=== PATIENT | female | born 1945 | race Caucasian/White ===

== ENCOUNTER 2023-09-30 21:28 | Inpatient (IN) | payer MEDICARE, OTHER, SELFPAY ==
--- NOTE | ~2023-09-30 | XR_ITS ---
EXAMINATION: XR CHEST CLINICAL INFORMATION: Weakness COMPARISON: None available. TECHNIQUE: Frontal view of the chest was obtained. FINDINGS: There is a small area of atelectasis/infiltrate at the left lung base. The aorta is calcified. No other significant abnormality is noted involving the heart, lungs, mediastinum, bony thorax or soft tissues. XR/XR chest 1V IMPRESSION: Small area of atelectasis/infiltrate left lung base.
--- NOTE | 2023-09-30 21:38 | ECG_ITS ---
Test Reason : AMS Blood Pressure : / mmHG Vent. Rate : 106 BPM Atrial Rate : 106 BPM P-R Int : 194 ms QRS Dur : 080 ms QT Int : 340 ms P-R-T Axes : 074 008 039 degrees QTc Int : 451 ms Sinus tachycardia cannot exclude old Inferior infarct , age undetermined Abnormal ECG No previous ECGs available Referred By: Gladys Golden Electronically Signed By:TAMELA HOGAN
--- NOTE | 2023-09-30 21:42 | ED_ITS ---
HPI - General Adult General Chief complaint: Weakness Stated complaint: WEAK CONFUSION UTI SYMPTOMS Time Seen by Provider: 09/30/23 21:29 Source: family and EMS Mode of arrival: EMS Limitations: altered mental status (Nonverbal history of dementia) History of Present Illness HPI narrative: Patient is a 78-year-old female who presents emergency department via EMS coming from home. Reportedly has had increasing weakness recently and reports of ?genital pain?. Per family patient has a history of recurrent UTIs. It is unclear exactly how she would have reported genital pain as she really only responds yes when asked some questions but does not seem to be any appropriate response. Per family report she typically ambulates independently at baseline. Related Data Allergies Allergy/AdvReac Type Severity Reaction Status Date / Time Sulfa (Sulfonamide Allergy Mild HEADACHE Unverified 06/01/20 19:17 Antibiotics) [SULFA (SULFONAMIDE ANTIBIOTICS)] shellfish derived Allergy Unknown UNKNOWN Unverified 06/01/20 19:17 [SHELLFISH DERIVED] Review of Systems 2 Review of Systems: Yes all other systems are reviewed and are negative PMFSH Past Medical History Source: obtained from family (Verbal report of dementia from family to EMS) Onset Date is defined in the Problem List Problems that require an onset date and time if occurred within 24 hrs of arrival to the ED Aortic Dissection and Rupture; Neurologic impairment; Cardiopulmonary Arrest; Endotracheal Intubation; Insertion or Replacement of Mechanical Circulatory Assist Device Medical History Mixed hyperlipidemia Essential hypertension Alzheimer's dementia Social History Social History Advance Directives: No Advance Directives Information Provided: Yes Physical Exam ED Vital Signs: Vital Signs - 24 hr 09/30/23 21:51 09/30/23 23:52 09/30/23 23:57 Temperature 100.1 F 99.1 F Pulse Rate 107 H 94 Respiratory Rate 12 14 Blood Pressure 168/73 H 165/80 H Pulse Oximetry 98 95 Oxygen Delivery Method Room Air Room Air BMI result Body Mass Index 23.1 Appearance: Alert.? Nonverbal, unable to assess orientation. No acute distress.? Eyes: Pupils equal, round and reactive to light.? ENT: Pharynx normal.?? Neck: Normal inspection.? Neck supple.?? CVS: Heart sounds normal. Tachycardic? Pulses normal.?? Respiratory: No respiratory distress.? Lung sounds clear to auscultation bilaterally?? Abdomen: Soft and non-tender. Normoactive bowel sounds. Skin: Skin warm and dry.? Normal skin color.? Extremities: No lower extremity edema.? Neuro: Moves all extremities spontaneously. Course Reevaluation(s) Reevaluation #1: is at bedside he reports that he noticed her to be less active today, walking slower than usual. Tonight when attempting to get ready for bed she was increasingly more weak. Was unable to get up the stairs unassisted. She was stopping after a few steps to sit down. Ultimately he and a neighbor lied her down on the floor until EMS arrived. He reports that she was last treated for urinary tract infection 2 weeks ago with a 10 week course. Upon review, CBC is without leukocytosis, CMP is overall unremarkable. Urinalysis is without evidence of infection. COVID-19/influenza testing are negative. CXR concerning for a left lower lobe infiltrate, covered with Rocephin. At this time no evidence of severe sepsis/organ dysfunction; lactic acid normal. Spoke with hospitalist, Dr. Estevez, who accepts patient for admission. Time: 00:05 Medications Administered Generic Name Dose Route Start Last Admin Trade Name Freq PRN Reason Stop Dose Admin Azithromycin 500 mg/ Sodium 250 mls @ 125 mls/hr 10/01/23 00:30 10/01/23 00:48 Chloride IV 125 mls/hr 2200 JAMES Administration Discontinued Medications Generic Name Dose Route Start Last Admin Trade Name Freq PRN Reason Stop Dose Admin Acetaminophen 650 mg 09/30/23 21:47 09/30/23 22:00 Acetaminophen Supp 650 Mg Supp.Rect ND 09/30/23 21:48 650 mg ONCE ONE Administration Ceftriaxone Sodium 1 gm/ 50 mls @ 100 mls/hr 09/30/23 23:27 10/01/23 00:36 Sodium Chloride IV 09/30/23 23:56 Infused ONCE ONE Infusion Sodium Chloride 1,000 mls @ 999 mls/hr 10/01/23 00:28 10/01/23 00:41 Ns IV 10/01/23 01:28 999 mls/hr .Q1H1M ONE Administration Medical Decision Making Medical Decision Making MDM Narrative: Patient is a 78-year-old female with reported past medical history from family of dementia and nonverbal status who presents emergency department for evaluation of weakness and ?Genital pain with history of recurrent UTIs. At the time my examination patient is primarily nonverbal, she does respond yes at times to questioning though does not seem to be purposeful response. She is noted to be tachycardic, with low-grade temp 100.1 degrees, at this time, does not meet SIRS criteria, however will obtain blood cultures and lactic acid, in addition to CBC to evaluate for leukocytosis/ anemia, CMP and lipase to evaluate for abnormal electrolytes /abnormal renal function/ abnormal hepatic/biliary function, EKG to evaluate for arrhythmia, Chest x-ray to evaluate for consolidation/ infiltrate/ mass/ pulmonary congestion, viral testing, and Urinalysis. Differential Diagnosis Differential Diagnoses: The differential diagnosis associated with the presentation includes (See narrative above) Admission/Observation Consideration of admission/observation: Escalation of care including admission/observation considered (See narrative above and course narrative for further detail) Lab Data MDM Lab Attestation statement: I reviewed the patient's lab results. (See course narrative) 09/30/23 23:13 09/30/23 23:13 Labs: Lab Results 09/30/23 09/30/23 09/30/23 Range/Units 22:50 22:51 23:13 WBC 9.2 (4.8-10.8) X10*3/uL RBC 5.52 H (4.20-5.50) X10*6/uL Hgb 16.2 H (12.0-16.0) g/dl Hct 47.4 H (37.0-47.0) % MCV 85.9 (80.0-98.0) fL MCH 29.3 (27.0-33.0) pg MCHC 34.2 (31.0-35.0) g/dl RDW 12.7 (11.0-16.0) % Plt Count 399 (160-400) X10*3/uL MPV 9.2 L (9.4-12.3) fL Immature Gran % (Auto) 0.3 (0.0-0.4) % Neut % (Auto) 81.8 H (45-73) % Lymph % (Auto) 10.8 L (20-40) % [place] % (Auto) 4.9 (2-11) % Eos % (Auto) 1.5 (0-4) % Baso % (Auto) 0.7 (0-2) % Lymph # (Auto) 1.0 L (1.2-4.9) X10*3/uL [place] # (Auto) 0.5 (0.1-1.2) X10*3/uL Eos # (Auto) 0.1 (0.0-0.4) X10*3/uL Baso # (Auto) 0.1 (0.0-0.2) X10*3/uL Abs Immat Gran (auto) 0.03 (0.00-0.03) X10*3/uL Absolute Neuts (auto) 7.5 (2.0-8.3) x10*3/uL Absolute Nucleated RBC 0.000 (0.0-0.012) X10*3/uL Nucleated RBC % (auto) 0.0 (0.0-0.2) /100WBC Sodium 139 (135-145) mmol/L Potassium 3.4 (3.3-5.1) mmol/L Chloride 101 (96-108) mmol/L Carbon Dioxide 24 (22-29) mmol/L Anion Gap 17 (12-20) BUN 16 (9-16) mg/dL Creatinine 0.90 (0.5-1.4) mg/dL Estim Creat Clear Calc 43.7 Estimated GFR > 60 Random Glucose 123 H (60-115) mg/dL Lactic Acid 1.0 (0.5-2.0) mmol/L Calcium 10.5 H (8.4-10.2) mg/dL Magnesium 2.2 (1.6-2.6) mg/dL Total Bilirubin 0.5 (0.0-1.0) mg/dL AST 23 (5-31) U/L ALT 26 (0-31) U/L Alkaline Phosphatase 90 (39-117) U/L B-Natriuretic Peptide 48 (<100) pg/mL Total Protein 8.5 H (6.5-8.0) g/dL Albumin 4.8 (3.5-5.0) g/dL TSH 1.28 (0.32-4.0) uIU/mL Urine Color Urine Appearance Urine pH (5.0-9.0) Ur Specific [place] (1.005-1.025) Urine Protein (Neg-Trace) mg/dL Urine Glucose (UA) (Negative) mg/dL Urine Ketones (Negative) mg/dL Urine Blood (Negative) Urine Nitrite (Negative) Ur Leukocyte Esterase (Negative) Urine RBC (0-2) /HPF Urine WBC (0-5) /HPF Ur Squamous Epith Cells (0-2) /HPF Urine Bacteria (None Seen) Hyaline Casts (0-2) /LPF COVID-19 (IESHA) Negative (Negative) COVID-19 Clin Com See Note Influenza Type A (TOAN) Negative (Negative) Influenza Type B (TOAN) Negative (Negative) Influenza A & B Note See Note 09/30/23 Range/Units 23:28 WBC (4.8-10.8) X10*3/uL RBC (4.20-5.50) X10*6/uL Hgb (12.0-16.0) g/dl Hct (37.0-47.0) % MCV (80.0-98.0) fL MCH (27.0-33.0) pg MCHC (31.0-35.0) g/dl RDW (11.0-16.0) % Plt Count (160-400) X10*3/uL MPV (9.4-12.3) fL Immature Gran % (Auto) (0.0-0.4) % Neut % (Auto) (45-73) % Lymph % (Auto) (20-40) % [place] % (Auto) (2-11) % Eos % (Auto) (0-4) % Baso % (Auto) (0-2) % Lymph # (Auto) (1.2-4.9) X10*3/uL [place] # (Auto) (0.1-1.2) X10*3/uL Eos # (Auto) (0.0-0.4) X10*3/uL Baso # (Auto) (0.0-0.2) X10*3/uL Abs Immat Gran (auto) (0.00-0.03) X10*3/uL Absolute Neuts (auto) (2.0-8.3) x10*3/uL Absolute Nucleated RBC (0.0-0.012) X10*3/uL Nucleated RBC % (auto) (0.0-0.2) /100WBC Sodium (135-145) mmol/L Potassium (3.3-5.1) mmol/L Chloride (96-108) mmol/L Carbon Dioxide (22-29) mmol/L Anion Gap (12-20) BUN (9-16) mg/dL Creatinine (0.5-1.4) mg/dL Estim Creat Clear Calc Estimated GFR Random Glucose (60-115) mg/dL Lactic Acid (0.5-2.0) mmol/L Calcium (8.4-10.2) mg/dL Magnesium (1.6-2.6) mg/dL Total Bilirubin (0.0-1.0) mg/dL AST (5-31) U/L ALT (0-31) U/L Alkaline Phosphatase (39-117) U/L B-Natriuretic Peptide (<100) pg/mL Total Protein (6.5-8.0) g/dL Albumin (3.5-5.0) g/dL TSH (0.32-4.0) uIU/mL Urine Color Yellow Urine Appearance Clear Urine pH 7.0 (5.0-9.0) Ur Specific [place] 1.010 (1.005-1.025) Urine Protein Negative (Neg-Trace) mg/dL Urine Glucose (UA) Negative (Negative) mg/dL Urine Ketones Negative (Negative) mg/dL Urine Blood Trace H (Negative) Urine Nitrite Negative (Negative) Ur Leukocyte Esterase Negative (Negative) Urine RBC 3-5 H (0-2) /HPF Urine WBC 0-5 (0-5) /HPF Ur Squamous Epith Cells 0-2 (0-2) /HPF Urine Bacteria None Seen (None Seen) Hyaline Casts 0-2 (0-2) /LPF COVID-19 (IESHA) (Negative) COVID-19 Clin Com Influenza Type A (TOAN) (Negative) Influenza Type B (TOAN) (Negative) Influenza A & B Note Independent Interpretation I performed an independent interpretation of an: Plain X-Ray (I personally interpreted chest x-ray and agree with radiologist impression.) Radiology Impression Discussion of test interpretation with radiology: I have reviewed the radiologist's reading. Independent Historian Clinical information obtained from an independent historian. History obtained from or confirmed by: EMS Discharge Plan Discharge Clinical Impression: Pneumonia, Generalized weakness Patient Disposition: Admitted As Inpatient
[2023-09-30 21:48] VITALS: BP 146/90; PULSE 70; O2SAT 98
[2023-09-30 21:51] VITALS: BP 168/73; PULSE 107; RESP 12; TEMP 37.8; O2SAT 98; BMI 23.1
[2023-09-30] MEDS: Acetaminophen Supp 650 MG SUPP.RECT PR (22:00)
[2023-09-30 23:19] LABS: MANUAL DIFF FLAG NO
[2023-09-30 23:21] LABS: Basophils Absolute Auto 0.1 X10*3/uL (0.0-0.2); Basophils Percent Auto 0.7 % (0-2); Eosinophils Absolute Auto 0.1 X10*3/uL (0.0-0.4); Eosinophils Percent Auto 1.5 % (0-4); Hematocrit 47.4 % (37.0-47.0); Hemoglobin 16.2 g/dl (12.0-16.0); Imm Gran Abs Auto 0.03 X10*3/uL (0.00-0.03); Imm Gran Pct Auto 0.3 % (0.0-0.4); Lymphocytes Percent Auto 10.8 % (20-40); Mean Corpuscular HGB Conc 34.2 g/dl (31.0-35.0); Mean Corpuscular Hemoglobin 29.3 pg (27.0-33.0); Mean Corpuscular Volume 85.9 fL (80.0-98.0); Mean Platelet Volume 9.2 fL (9.4-12.3); Monocytes Absolute Auto 0.5 X10*3/uL (0.1-1.2); Monocytes Percent Auto 4.9 % (2-11); Neutrophils Absolute Auto 7.5 x10*3/uL (2.0-8.3); Neutrophils Percent Auto 81.8 % (45-73); Platelet Count 399 X10*3/uL (160-400); Red Blood Count 5.52 X10*6/uL (4.20-5.50); Red Cell Distribution Width 12.7 % (11.0-16.0); White Blood Count 9.2 X10*3/uL (4.8-10.8)
[2023-09-30 23:35] LABS: Appearance Urine Clear; Color Urine Yellow; Glucose Urine UA Negative (Negative); Leukocyte Esterase Urine Negative (Negative); Nitrite Urine Negative (Negative); UMIC TRIGGER UACC YES; Urine Blood Trace (Negative); Urine Ketones Negative (Negative); Urine Protein Negative (Neg-Trace)
[2023-09-30] MEDS: cefTRIAXone sodium 1 GM in 0.9 % Sodium Chloride 50 ML IV (23:37)
[2023-09-30 23:40] LABS: Bacteria Urine None Seen (None Seen); Hyaline Casts Urine 0-2 /LPF (0-2); Squamous Epithelial Cell Urine 0-2 /HPF (0-2); WBC Urine 0-5 /HPF (0-5)
[2023-09-30 23:41] LABS: COVID-19 Test Negative (Negative); IDNOW Serial# 152EDE1D; IDNOW Serial# 9DB6401D; Influenza A Negative (Negative); Influenza B2 Negative (Negative)
[2023-09-30 23:43] LABS: Alanine Aminotransferase 26 U/L (0-31); Albumin Level 4.8 g/dL (3.5-5.0); Alkaline Phosphatase 90 U/L (39-117); Anion Gap 17 (12-20); Aspartate Amino Transferase 23 U/L (5-31); Bilirubin Total 0.5 mg/dL (0.0-1.0); Blood Urea Nitrogen 16 mg/dL (9-16); Calcium 10.5 mg/dL (8.4-10.2); Carbon Dioxide 24 mmol/L (22-29); Chloride 101 mmol/L (96-108); Creatinine Clr Calc Pharmacy 43.7; Estimated Glomerular Filt Rate > 60; Glucose Random 123 mg/dL (60-115); Magnesium 2.2 mg/dL (1.6-2.6); Potassium 3.4 mmol/L (3.3-5.1); Sodium 139 mmol/L (135-145); Total Protein 8.5 g/dL (6.5-8.0)
[2023-09-30 23:47] LABS: B Type Natriuretic Peptide 48 pg/mL (<100)
[2023-09-30 23:52] VITALS: PULSE 94; RESP 14; TEMP 37.3; O2SAT 95
--- NOTE | 2023-09-30 23:53 | PC.NURSE ---
Pt medicated per nov. Family at bedside. Rectal temp taken. Plan of care ongoing.
[2023-09-30 23:57] VITALS: BP 165/80
[2023-10-01] VITALS (8 sets, daily range): BP systolic 159–173; BP diastolic 70–87; PULSE 93–107; RESP 15–18; TEMP 36.4–38.2; O2SAT 94–97; BMI 23.1
--- NOTE | 2023-10-01 00:27 | P.HPHOSP_ITS ---
History of Present Illness Date of Service: 10/01/23 Chief Complaint: Generalized weakness This is a 78-year-old female with pertinent history of Alzheimer's dementia, minimally verbal at baseline, essential hypertension, mixed hyperlipidemia who was brought to the emergency department for evaluation of generalized weakness. Unable to obtain history from the patient as she only intermittently responds in 1 word. History obtained from at bedside. As per the partner, patient at baseline ambulates without assistance and independently. She was found weak on the day of presentation and could not walk up or down the stairs. Also has noticed intermittent cough. No fevers or chills. Unable to obtain review of systems. In the emergency department, imaging concerning for left-sided infiltrate. No concerns for aspiration or cough with food as per the patient's . Review of Systems 2 Review of Systems: Yes Unobtainable due to mental condition PMFSH Medical History Mixed hyperlipidemia Essential hypertension Alzheimer's dementia Pertinent family history: Unable to obtain and not significant due to age Social History Advance Directives: No Advance Directives Information Provided: Yes Meds Allergies Allergy/AdvReac Type Severity Reaction Status Date / Time Sulfa (Sulfonamide Allergy Mild HEADACHE Unverified 06/01/20 19:17 Antibiotics) [SULFA (SULFONAMIDE ANTIBIOTICS)] shellfish derived Allergy Unknown UNKNOWN Unverified 06/01/20 19:17 [SHELLFISH DERIVED] Physical Exam 2 Vital Signs and Narrative: Vital Signs: Last Vital Signs Temp 99.1 F 09/30/23 23:52 Pulse 94 09/30/23 23:52 Resp 14 09/30/23 23:52 BP 165/80 H 09/30/23 23:57 Pulse Ox 95 09/30/23 23:52 O2 Del Method Room Air 09/30/23 23:52 BMI result Body Mass Index 23.1 Elderly female lying in bed in no distress Neck supple, no JVD Regular rate and rhythm, S1-S2 heard Regular breath sounds bilaterally, no wheezing or crackles appreciated Abdomen soft nontender, no guarding, no rigidity Patient is awake, alert and response intermittently in 1 word, unable to assess orientation, unable to have a conversation Psych: Normal mood No pedal edema Results Labs 09/30/23 23:13 09/30/23 23:13 Labs: Laboratory Results - last 24 hr 09/30/23 09/30/23 09/30/23 22:50 22:51 23:13 MCV 85.9 MCH 29.3 MCHC 34.2 RDW 12.7 Plt Count 399 MPV 9.2 L Immature Gran % (Auto) 0.3 Neut % (Auto) 81.8 H Lymph % (Auto) 10.8 L [place] % (Auto) 4.9 Eos % (Auto) 1.5 Baso % (Auto) 0.7 Lymph # (Auto) 1.0 L [place] # (Auto) 0.5 Eos # (Auto) 0.1 Baso # (Auto) 0.1 Abs Immat Gran (auto) 0.03 Absolute Neuts (auto) 7.5 Absolute Nucleated RBC 0.000 Nucleated RBC % (auto) 0.0 Anion Gap 17 Estim Creat Clear Calc 43.7 Estimated GFR > 60 Random Glucose 123 H Lactic Acid 1.0 Calcium 10.5 H Magnesium 2.2 Total Bilirubin 0.5 AST 23 ALT 26 Alkaline Phosphatase 90 B-Natriuretic Peptide 48 Total Protein 8.5 H Albumin 4.8 Urine Color Urine Appearance Urine pH Ur Specific [place] Urine Protein Urine Glucose (UA) Urine Ketones Urine Blood Urine Nitrite Ur Leukocyte Esterase Urine RBC Urine WBC Ur Squamous Epith Cells Urine Bacteria Hyaline Casts COVID-19 (IESHA) Negative COVID-19 Clin Com See Note Influenza Type A (TOAN) Negative Influenza Type B (TOAN) Negative Influenza A & B Note See Note 09/30/23 23:28 MCV MCH MCHC RDW Plt Count MPV Immature Gran % (Auto) Neut % (Auto) Lymph % (Auto) [place] % (Auto) Eos % (Auto) Baso % (Auto) Lymph # (Auto) [place] # (Auto) Eos # (Auto) Baso # (Auto) Abs Immat Gran (auto) Absolute Neuts (auto) Absolute Nucleated RBC Nucleated RBC % (auto) Anion Gap Estim Creat Clear Calc Estimated GFR Random Glucose Lactic Acid Calcium Magnesium Total Bilirubin AST ALT Alkaline Phosphatase B-Natriuretic Peptide Total Protein Albumin Urine Color Yellow Urine Appearance Clear Urine pH 7.0 Ur Specific [place] 1.010 Urine Protein Negative Urine Glucose (UA) Negative Urine Ketones Negative Urine Blood Trace H Urine Nitrite Negative Ur Leukocyte Esterase Negative Urine RBC 3-5 H Urine WBC 0-5 Ur Squamous Epith Cells 0-2 Urine Bacteria None Seen Hyaline Casts 0-2 COVID-19 (IESHA) COVID-19 Clin Com Influenza Type A (TOAN) Influenza Type B (TOAN) Influenza A & B Note Imaging Radiologist's Impressions: Impressions Chest X-Ray 09/30/23 22:25 IMPRESSION: Small area of atelectasis/infiltrate left lung base. Assessment and Plan (1) Pneumonia: Status: Acute (2) Generalized weakness: Status: Acute Plan This is a 78-year-old female with pertinent history of Alzheimer's dementia, minimally verbal at baseline, essential hypertension, mixed hyperlipidemia who was brought to the emergency department for evaluation of generalized weakness. #. Left-sided pneumonia: Initiating empiric antibiotics for CAP. Low-grade fever but no sepsis. #. Generalized weakness, likely in the setting of above. Obtaining TSH and B12. Consulted physical therapy to evaluate and treat #. Essential hypertension: Continue amlodipine #. Mixed hyperlipidemia: On statin #. Alzheimer's dementia: Maintain sleep-wake cycle Med rec pending DVT prophylaxis: Lovenox Full code Quality Stroke Does the patient have a stroke diagnosis?: No VTE Prior VTE?: No VTE Risk Level:: Medical - moderate - high VTE Device Contraindication: Treatment Not Indicated VTE Drug Contraindication: N/A - Med Ordered
[2023-10-01] MEDS: 0.9 % Sodium Chloride 1,000 ML 999 ML IV (00:41)
[2023-10-01] MEDS: Azithromycin 500 MG in 0.9 % Sodium Chloride 250 ML 125 MG IV ×2 (00:48→21:47)
--- NOTE | 2023-10-01 00:57 | PC.NURSE ---
Pt medicated per mar. Family remains at bedside. Plan of care ongoing.
[2023-10-01 01:30] LABS: Thyroid Stimulating Hormone 1.28 uIU/mL (0.32-4.0)
--- NOTE | 2023-10-01 03:14 | MHC.EDTECH ---
took all patients Belongings home
--- NOTE | 2023-10-01 03:31 | MHC.EDTECH ---
This tech took over care of patient at 0300AM, Hourly rounds completed,pure-wick placed by previous tech,patient is clean and dry, at bedside and call dillon in reach.
--- NOTE | 2023-10-01 05:31 | MHC.EDTECH ---
Hourly rounds and vitals completed, patient was incont. of a large amount of urine, pure-wick was out of place, patient was cleaned and bed linen was changed,harper-care given and a new pure wick applied. Patient was repositioned to comfort. Emptied suction canister 750MLS of yellow urine.Call dillon in reach and at bedside
[2023-10-01 06:16] LABS: MANUAL DIFF FLAG NO
--- NOTE | 2023-10-01 06:17 | PC.NURSE ---
Dr Estevez notified of pts swallow test. Plan of care ongoing.
[2023-10-01 06:22] LABS: Basophils Absolute Auto 0.1 X10*3/uL (0.0-0.2); Basophils Percent Auto 0.7 % (0-2); Eosinophils Absolute Auto 0.1 X10*3/uL (0.0-0.4); Eosinophils Percent Auto 1.7 % (0-4); Hemoglobin 13.8 g/dl (12.0-16.0); Imm Gran Abs Auto 0.02 X10*3/uL (0.00-0.03); Imm Gran Pct Auto 0.3 % (0.0-0.4); Lymphocytes Percent Auto 13.6 % (20-40); Mean Corpuscular HGB Conc 34.5 g/dl (31.0-35.0); Mean Corpuscular Hemoglobin 29.7 pg (27.0-33.0); Mean Platelet Volume 9.6 fL (9.4-12.3); Monocytes Absolute Auto 0.7 X10*3/uL (0.1-1.2); Monocytes Percent Auto 8.7 % (2-11); Neutrophils Absolute Auto 5.7 x10*3/uL (2.0-8.3); Platelet Count 363 X10*3/uL (160-400); Red Blood Count 4.65 X10*6/uL (4.20-5.50); Red Cell Distribution Width 12.8 % (11.0-16.0); White Blood Count 7.6 X10*3/uL (4.8-10.8)
[2023-10-01 06:38] LABS: Anion Gap 11 (12-20); Blood Urea Nitrogen 10 mg/dL (9-16); Calcium 8.6 mg/dL (8.4-10.2); Carbon Dioxide 24 mmol/L (22-29); Chloride 107 mmol/L (96-108); Creatinine Clr Calc Pharmacy 52.4; Estimated Glomerular Filt Rate > 60; Glucose Random 108 mg/dL (60-115); Potassium 3.3 mmol/L (3.3-5.1); Sodium 139 mmol/L (135-145)
[2023-10-01 07:11] LABS: Folate 12.1 ng/mL (> or = 4.0); Vitamin B12 522 pg/mL (200-900)
--- NOTE | 2023-10-01 07:48 | MHC.EDTECH ---
Pt found to be incontinent of urine. Pt cleaned up, new hospital gown, underpad and purewick placed.
--- NOTE | 2023-10-01 08:12 | PHA.MEDREC ---
Pharmacy Consult ? Medication Reconciliation Pharmacy has completed the medication reconciliation. spoke with at bedside and confirmed all of her medications. He reports that he crushes all of her pills and puts them in applesauce or pudding to administer except for the donepezil.
[2023-10-01] MEDS: Enoxaparin Sodium 40 MG/0.4 ML SYRINGE SUBCUT (08:20)
[2023-10-01] MEDS: 0.9 % Sodium Chloride Flush 3 ML SYRINGE IVFLUSH ×3 (08:20→21:17)
[2023-10-01] MEDS: Acetaminophen Supp 650 MG SUPP.RECT PR (08:20)
--- NOTE | 2023-10-01 08:29 | MHC.EDTECH ---
Pt found to be incontinent of urine. T/w and RN cleaned Pt up, changed underpad and new Purewick placed.
--- NOTE | 2023-10-01 08:47 | PC.NURSE ---
Pt resting in bed, resp even and unlabored. prewick in pace. stretcher locked and in lowest position.
[2023-10-01] MEDS: amLODIPine Besylate 10 MG TABLET PO (09:33)
[2023-10-01] MEDS: Ascorbic Acid 500 MG TABLET PO (09:34)
[2023-10-01] MEDS: Multivitamin TABLET 1 TAB PO (09:34)
[2023-10-01] MEDS: Memantine HCl 10 MG TABLET PO ×2 (09:34→19:46)
--- NOTE | 2023-10-01 10:26 | PC.NURSE ---
Speech eval at this time Pt seen by physical therapy.
--- NOTE | 2023-10-01 11:33 | MHC.SL.SWA ---
Speech Pathologist Impression: Risk of Aspiration, Oral Phase Dsyphagia Risk of Aspiration Due to: Reduced Cognition Dysphasia Diet Status: UPGRADE Liquid Consistency and Strategies for Safe Swallow: Liquid Intake Recommendation: Thin Solid Food Consistency: Dietary Recommendations: Grnd/Mech Altered (NDD2) Additional Modifications to Solid Foods: Moisten w/ sauce/gravy Oral Medication Intake: Crushed with Puree Please contact the pharmacy regarding appropriate crushable or liquid drug formulations that are available whenever modified delivery is recommended. Compensatory Strategies and Precautions to be Taken for Safe Swallow: Sitting Upright (90 deg) Liquids from Straw Liquids from Spoon Small Bites and Sips Alternate Liquids/Solids Oral Check Avoid Specific Foods Supervision While Eating and Drinking for Safe Swallow: Total Assistance (1:1) Foods to Avoid: Avoid hard/sticky/tough to chew food Swallowing Recommended Treatments: Compens. Strategy Educat. Recommendation for Speech: Inpatient Speech Therapy Comment: Recommend UPGRADE to GROUND solids and THIN liquids. Patient requires 1-1 assist, cueing to maintain awareness during PO (frequently closes eyes), and oral checks to ensure no pocketing. Per , patient requires pills crushed. Ensure patient is alert and engaged with food/drink for all PO. White board updated. RN notified in person. RN and MD notified via [place]. COREMAKER SUPERVISOR to see patient at lunch today to ensure diet toleration for meal. Frequency/Duration: M-F daily Software Development Analyst Clinican/Clinical Fellow: No Supervisory Statement: I have reviewed and agree with the student/clinical fellow's documentation: N/A Speech Language Pathologist: Liliam Pickering M.A., CCC-COREMAKER SUPERVISOR
--- NOTE | 2023-10-01 12:19 | MHC.EDTECH ---
Pt found to be incontinent of urine. Pt cleaned up, new underpads and purewick placed, new blanket given.
[2023-10-01] MEDS: Acetaminophen 325 MG TABLET 650 MG PO (16:35)
[2023-10-01] MEDS: Pravastatin Sodium 40 MG TABLET PO (19:46)
[2023-10-01] MEDS: Melatonin 3 MG TABLET 6 MG PO (19:46)
[2023-10-01] MEDS: Donepezil HCl 5 MG TABLET PO (19:46)
[2023-10-01] MEDS: cefTRIAXone sodium 1 GM in 0.9 % Sodium Chloride 50 ML IV (21:15)
[2023-10-02 03:48] VITALS: BP 132/66; PULSE 107; RESP 18; TEMP 38.1; O2SAT 93
[2023-10-02] MEDS: Acetaminophen 325 MG TABLET 650 MG PO (04:12)
[2023-10-02 05:13] VITALS: TEMP 37.1
[2023-10-02 07:43] VITALS: BP 135/61; PULSE 72; RESP 16; TEMP 36.6; O2SAT 94
[2023-10-02] MEDS: 0.9 % Sodium Chloride Flush 3 ML SYRINGE IVFLUSH ×2 (07:44→16:04)
[2023-10-02] MEDS: Enoxaparin Sodium 40 MG/0.4 ML SYRINGE SUBCUT (07:44)
[2023-10-02] MEDS: Ascorbic Acid 500 MG TABLET PO (07:44)
[2023-10-02] MEDS: amLODIPine Besylate 10 MG TABLET PO (07:44)
[2023-10-02] MEDS: Multivitamin TABLET 1 TAB PO (07:44)
[2023-10-02] MEDS: Memantine HCl 10 MG TABLET PO ×2 (07:44→19:49)
[2023-10-02] MEDS: Cholecalciferol (Vitamin D3) 25 MCG TABLET 50 MCG PO (07:44)
--- OUTSIDE RECORDS SUMMARY | 2023-10-02 08:24 | XMS_ITS | Continuity of Care Document ---
Author Name Unknown Organization [facility] Address [address] [place] [address]- Care Team Providers Care Costume Draper Name Role Phone Rosario REYES, Pablito Sharp Primary Care Physician [facility]): 09[facility]19 - 09/23/[facility], [place], operated by [facility] [address] [place] [address]- [facility] Encounter Diagnosis Chest wall pain(Discharge Diagnosis) - 09/16/19 Attending Physician: Not on Staff, Attending MD Allergies, Adverse Reactions, Alerts Substance Reaction Severity Status sulfa drugs severe headache Active shellfish Active Fish Active Immunizations Given and Recorded Vaccine Date Status Refusal Reason Influenza Virus Vaccine (oldterm) 04/15/19 Recorde d Influenza Virus Vaccine (oldterm) 06/23/09 Given Influenza Virus Vaccine (oldterm) 07/21/08 Given Influenza Virus Vaccine (oldterm) 1 06/22/07 Given influenza virus vaccine, inactivated 2 05/15/17 Re corded influenza virus vaccine, inactivated 3 05/16/15 Re corded influenza virus vaccine, inactivated 4 05/02/14 Gi marianne influenza virus vaccine, inactivated 5 06/09/13 Gi marianne influenza virus vaccine, inactivated 6 05/28/10 Gi marianne pneumococcal 13-valent vaccine 12/12/14 Given tetanus/diphtheria/pertussis, acel(Tdap) 07/20/14 Given FluLaval (oldterm) 7 05/16/11 Given pneumococcal 23-valent vaccine 03/21/11 Given tetanus-diphtheria toxoids (Td) 06/15/04 Given 1Admin Note: [facility] [address] 3[facility]Result Comment: [facility] [address] 5Ain Note: Received at [facility] Note: This shot was administered at [facility] Note: [facility] [address] [place] Medications amLODIPine 10 mg oral tablet 10 mg, 1, tablet, By Mouth, Daily, # 30 tablet, Refills 0, Tot. Refills 0, Maintenance, 04/06/19 15:13:37 EDT, Route to Pharmacy Electronically, [id number], [id number] Start Date: 04/06/19 Status: Ordered aspirin buffered 81 mg oral tablet 1 tablet = 81 mg, By Mouth, Daily, # 90 tablet, 3 Refills, Maintenance, 12/24/13 14:14:27, Tablet, 1 tablet By Mouth Daily,x90 days Start Date: 12/24/13 Stop Date: 12/19/14 Status: Ordered Caltrate 600 + D 1 tablet, By Mouth, 2 times a day, 0 Refills, Maintenance, 02/23/14 7:50:43 Start Date: 02/23/14 Status: Ordered Colace sodium 100 mg oral capsule 100 mg, 1, capsule, By Mouth, 2 times a day, PRN, # 20 capsule, Refills 0, Tot. Refills 0, Maintenance, for constipation, 05/09/19 10:27:08 EDT, Print Requisition Start Date: 05/09/19 Status: Ordered donepezil 5 mg oral tablet 5 mg, 1, tablet, By Mouth, Daily at bedtime, # 90 tablet, Refills 3, Tot. Refills 3, Maintenance, 03/04/19 15:34:01 EDT, Route to Pharmacy Electronically, [id number], [facility] Start Date: 03/04/19 Stop Date: 02/27/20 Status: Ordered Flonase 50 mcg/inh nasal spray 1 sprays, Nares, Both, 2 times a day, # 16 Gm, 0 Refills, Maintenance, 12/30/18 7:15:18 EDT, [place],1 sprays Nares, Both 2 times a day Start Date: 12/30/18 Status: Ordered folic acid 0.4 mg oral tablet 1 tablet = 0.4 mg, By Mouth, Daily, # 100 tablet, 0 Refills, Maintenance, 09/06/18 13:22:58 EST, Tablet Start Date: 09/06/18 Status: Ordered hydroCHLOROthiazide 12.5 mg oral capsule 1 capsule = 12.5 mg, By Mouth, Daily, # 30 capsule, 0 Refills, Maintenance, 09/06/18 13:22:40 EST, Capsule Start Date: 09/06/18 Status: Ordered lisinopril 10 mg oral tablet 10 mg, 1, tablet, By Mouth, Daily, # 30 tablet, Refills 0, Maintenance, 09/06/18 14:19:09 EST Start Date: 09/06/18 Status: Ordered loratadine 10 mg oral tablet 10 mg, 1, tablet, By Mouth, Daily, # 30 tablet, Refills 3, Tot. Refills 3, Maintenance, 12/30/18 7:16:12 EDT, Route to Pharmacy Electronically, [id number], [id number] Start Date: 12/30/18 Status: Ordered lovastatin 40 mg oral tablet 1 tablet = 40 mg, By Mouth, Daily, # 90 tablet, 3 Refills, Maintenance, 01/20/19 15:25:07 EDT, Tablet Start Date: 01/20/19 Status: Ordered memantine 10 mg oral tablet 1 tablet = 10 mg, By Mouth, 2 times a day, # 180 tablet, 3 Refills, Maintenance, 11/27/18 8:35:18 EDT, Tablet Start Date: 11/27/18 Stop Date: 11/22/19 Status: Ordered Multivitamin By Mouth, Daily, 0 Refills, Maintenance, 02/23/14 7:51:02 Start Date: 02/23/14 Status: Ordered omeprazole 40 mg oral enteric coated capsule 1 capsule = 40 mg, By Mouth, 2 times a day, for 90 days, # 180 capsule, 3 Refills, Hard Stop 01/15/20 15:25:24 EDT, 01/20/19 15:25:24 EDT, Pharmacy Never Received Script From 12-25-2015 Start Date: 01/20/19 Stop Date: 01/15/20 Status: Ordered pantoprazole 20 mg oral delayed release tablet = 20 mg, By Mouth, Daily, Replaces omeprazole, # 30 tablet, 5 Refills, Maintenance, 08/02/19 14:51:36 EST, EC Tablet Start Date: 08/02/19 Status: Ordered Vitamin C By Mouth, Daily, 0 Refills, Maintenance, 02/23/14 7:50:52 EDT Start Date: 02/23/14 Status: Ordered Problem List Condition Effective Dates Status Health Status Inform ant Abdominal pain(Confirmed) Active Memory loss(Confirmed) Active Asthma(Confirmed) Active 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 Lei Diagnosis Diagnosis Type Effective Dates Health Status Cl inical Service Informant Chest wall pain Discharge Diagnosis 09/16/19 Vital Signs Most recent to oldest [Reference Range]: 1 Height 152 cm (09/16/19 9:23 AM) Weight 51.0 kg (09/16/19 9:23 AM) Oxygen Saturation [94-100 %] 100 % (09/16/19 9:23 AM) Pulse Rate [55-90 bpm] 85 bpm (09/16/19 9:23 AM) Body Mass Index [18.5-24.99] 22.07 (09/16/19 9:23 AM) Blood Pressure [90-138/55-84 mm Hg] 150/ 69mm Hg *H* (09/16/19 9:23 AM) Blood pressure sites Arm, right (09/16/19 9:23 AM) Weight Obtained Via Standing scale (09/16/19 9:23 AM) Social History Social History Type Response Smoking Status Former smoker; Tobac co user in household: No; Other: Quit in 1968; entered on: 02/09/15 Sex
--- OUTSIDE RECORDS SUMMARY | 2023-10-02 08:24 | XMS_ITS | Continuity of Care Document ---
Author Name Unknown Organization [facility] Address [address] [place] [address]- Care Team Providers Care Printing Pressman Name Role Phone Rosario REYES, Pablito Sharp Primary Care Physician [facility] Date[facility]s): 02[facility]19[facility]21 - 03/21/21 [facility] [address] [place] [address]- Allergies, Adverse Reactions, Alerts Substance Reaction Severity Status sulfa drugs severe headache Active shellfish Active Fish Active Immunizations Given and Recorded Vaccine Date Status Refusal Reason Influenza Virus Vaccine (oldterm) 05/14/20 Recorde d Influenza Virus Vaccine (oldterm) 04/15/19 Recorde d [...] 06/15/04 Given 1Admin Note: [facility] 2Location History: [facility] 3Result Comment: [07/05/2015] [facility] 4Result Comment: [06/06/2014] [facility] [address] 5Admin Note: Received at [facility] 6Admin Note: This shot was administered at [address] Note: [facility] [address] [place] Medications amLODIPine 10 mg oral tablet 1 tablet, By Mouth, Daily, # 90 tablet, 3 Refills, Maintenance, 02/23/21 14:24:00 EDT, [facility], 155, cm, 02/21/21 13:38:00 EDT, Height, 54.5, kg, 05/07/20 11:00:00 EDT, Dry Weight Start Date: 02/23/21 Status: Ordered Caltrate 600 + D 1 [...] tablet, Refills 3, Tot. Refills 3, Maintenance, 02/21/21 15:34:00 EDT, Route to Pharmacy Electronically, [facility], 155, cm, 09/06/20 14:34:00 EST, Height, 54.5, kg, 05/07/20 11:00:... Start Date: 02/21/21 Stop Date: 02/16/22 Status: Ordered Flonase 50 mcg/inh nasal spray 1 sprays, Nares, Both, 2 times a day, # 16 Gm, 0 Refills, Maintenance, 12/30/18 7:15:18 EDT, [place],1 sprays Nares, Both 2 times a day Start Date: 12/30/18 Status: Ordered Flovent Diskus 50 mcg/inh inhalation powder 1 each, Inhalation, 2 times a day, rinse mouth and throat after use, # 60 each, 6 Refills, Maintenance, 02/14/21 12:56:00 EDT, Powder, [facility] #[id number], 1 each Inhalation 2 times a day,Instr:rinse mouth and throat after use, 155, cm, 02/09/... Start Date: 02/14/21 Status: Ordered folic acid 0.4 mg oral tablet 1 tablet = 0.4 mg, By Mouth, Daily, # 100 tablet, 0 Refills, Maintenance, 09/06/18 13:22:58 EST, Tablet Start Date: 09/06/18 Status: Ordered gabapentin 300 mg oral capsule 300 mg, 1, capsule, By Mouth, Daily at bedtime, # 90 capsule, Refills 3, Tot. Refills 3, Maintenance, 06/14/20 7:37:00 EDT, Route to Pharmacy Electronically, [facility], 155, cm, 06/14/20 7:11:00 EDT, Height, 54.5, kg, 05/07/20 11:0... Start Date: 06/14/20 Status: Ordered lisinopril 10 mg oral tablet 10 mg, 1, tablet, By Mouth, Daily, # 30 tablet, Refills 0, Maintenance, 09/06/18 14:19:09 EST Start Date: 09/06/18 Status: Ordered lovastatin 40 mg oral tablet 1 tablet = 40 mg, By Mouth, Daily, # 90 tablet, 3 Refills, Maintenance, 06/14/20 7:40:00 EDT, Tablet, [facility], 155, cm, 06/14/20 7:11:00 EDT, Height, 54.5, kg, 05/07/20 11:00:00EDT, Dry Weight Start Date: 06/14/20 Status: Ordered lovastatin 40 mg oral tablet 1 tablet = 40 mg, By Mouth, Daily, # 15 tablet, 0 Refills, Maintenance, 11/14/20 8:25:00 EST, Tablet, [facility] #[id number], 155, cm, 09/06/20 14:34:00 EST, Height, 54.5, kg, 05/07/20 11:00:00 EDT, Dry Weight Start Date: 11/14/20 Status: Ordered memantine 10 mg oral tablet 1 tablet, By Mouth, 2 times a day, # 180 tablet, 3 Refills, Maintenance, 02/19/21 9:49:00 EDT, [facility], 155, cm, 02/09/21 8:16:00 EDT, Height, 54.5, kg, 05/07/20 11:00:00 EDT, Dry Weight Start Date: 02/19/21 Status: Ordered Multivitamin By Mouth, Daily, 0 Refills, Maintenance, 02/23/14 7:51:02 Start Date: 02/23/14 Status: Ordered pantoprazole 20 mg oral delayed release tablet = 20 mg, By Mouth, Daily, Replaces omeprazole, # 90 tablet, 3 Refills, Maintenance, 06/14/20 7:40:00 EDT, EC Tablet, 155, cm, 06/14/20 7:11:00 EDT, Height, 54.5, kg, 05/07/20 11:00:00 EDT, Dry Weight Start Date: 06/14/20 Status: Ordered Vitamin C By Mouth, Daily, 0 Refills, Maintenance, 02/23/14 7:50:52 EDT Start Date: 02/23/14 Status: Ordered Problem List Condition Effective Dates Status Health Status Inform ant Abdominal pain(Confirmed) Active Memory loss(Confirmed) Active Asthma(Confirmed) Active Dementia(Confirmed) Active 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 Lei Social History Social History Type Response Smoking Status Former smoker; Tobac co user in household: No; Other: Quit in 1968; entered on: 02/09/15 Sex
--- OUTSIDE RECORDS SUMMARY | 2023-10-02 08:24 | XMS_ITS | Continuity of Care Document ---
Author Name Unknown Organization [facility] Cir[facility] [place] Address [address] [place] [address]- Care Team Providers Care Transportation Coordinator Name Role Phone Pablito Ponce MD Primary Care Physician [phone] Encounter [facility] [place] Date(s): 05/16/23 - 05/23/23 [facility] Adult [address] [place] [address]- Attending Physician: Pablito Ponce MD Allergies, Adverse Reactions, Alerts Substance Reaction Severity Status sulfa drugs severe headache Active shellfish Active Fish Active Immunizations Given and Recorded Vaccine Date Status Refusal Reason influenza virus vaccine, inactivated 05/18/22 Markus rded influenza virus vaccine, inactivated 04/20/21 Markus rded influenza virus vaccine, inactivated 05/07/19 Markus rded influenza virus vaccine, inactivated 04/28/18 Markus rded influenza virus vaccine, inactivated 1 05/15/17 Re corded influenza virus vaccine, inactivated 04/24/17 Markus rded influenza virus vaccine, inactivated 04/24/16 Markus rded influenza virus vaccine, inactivated 2 05/16/15 Re corded influenza virus vaccine, inactivated 3 05/02/14 Gi marianne influenza virus vaccine, inactivated 4 06/09/13 Gi marianne influenza virus vaccine, inactivated 5 05/28/10 Gi marianne influenza virus vaccine, inactivated 05/25/10 Markus rded SARS-CoV-2 mRNA ([id number]) vax 01/25/22 Recorded SARS-CoV-2 (COVID-19) mRNA BNT-162b2 vac 07/07/21 Recorded SARS-CoV-2 (COVID-19) mRNA BNT-162b2 vac 11/14/20 Recorded SARS-CoV-2 (COVID-19) mRNA BNT-162b2 vac 10/24/20 Recorded Influenza Virus Vaccine (oldterm) 05/14/20 Recorde d Influenza Virus Vaccine (oldterm) 04/15/19 Recorde d Influenza Virus Vaccine (oldterm) 06/23/09 Given Influenza Virus Vaccine (oldterm) 07/21/08 Given Influenza Virus Vaccine (oldterm) 6 06/22/07 Given Zoster Vaccine Live 04/29/16 Recorded pneumococcal 13-valent vaccine 12/12/14 Given tetanus/diphtheria/pertussis, acel(Tdap) 07/20/14 Given FluLaval (oldterm) 7 05/16/11 Given pneumococcal 23-valent vaccine 03/21/11 Given tetanus-diphtheria toxoids (Td) 06/15/04 [facility] Comment: [07/05/2015[facility] 3Result Comment: [06/06/2014] [facility] on [address] 4Admin Note: Received at [facility] 5Ain Note: This shot was administered at [facility] 6Admin Note: [facility] 7Admin Note: [facility] [place] Medications acetaminophen 325 mg oral tablet 650 mg, 2, tablet, By Mouth, Every 4 hours, PRN, Temperature Greater than 100.5, Refills 0, Maintenance, Pain , Mild, 01/08/22 13:28:00 EDT, Partial fill upon patient request if the prescription is for a schedule II opioid drug. Start Date: 01/08/22 Status: Ordered amLODIPine 10 mg oral tablet 1 tablet, By Mouth, Daily, # 90 tablet, 3 Refills, Maintenance, 12/31/22 7:27:00 EDT, [facility], 152, cm, 11/13/22 9:56:00 EST, Height, 50.5, kg, 01/03/22 19:26:00 EDT, Dry Weight Start Date: 12/31/22 Status: Ordered Caltrate 600 + D 1 tablet, By Mouth, 2 times a day, 0 Refills, Maintenance, 02/23/14 7:50:43 EDT Start Date: 02/23/14 Status: Ordered donepezil 5 mg oral tablet 5 mg, 1, tablet, By Mouth, Daily at bedtime, # 90 tablet, Refills 3, Tot. Refills 3, Maintenance, 03/28/23 16:17:00 EDT, Route to Pharmacy Electronically, [facility], 153, cm, 02/21/23 9:37:00 EDT, Height, 56, kg, 02/03/23 22:03:00... Start Date: 03/28/23 Status: Ordered donepezil 5 mg oral tablet 5 mg, 1, tablet, By Mouth, Daily at bedtime, for 90 days, # 90 tablet, Refills 3, Tot. Refills 3, Hard Stop 05/10/24 9:57:00 EDT, 05/16/23 9:57:00 EDT, Route to Pharmacy Electronically, [facility], 153, cm, 05/16/23 9:48:00 EDT, Hei... Start Date: 05/16/23 Stop Date: 05/10/24 Status: Ordered Flonase 50 mcg/inh nasal spray 1 sprays, Nares, Both, Daily in AM, Maintenance, 02/04/23 9:45:00 EDT, [place], Partial fill upon patient request if the prescription is for a schedule II opioid drug. Start Date: 02/04/23 Status: Ordered folic acid 0.4 mg oral tablet 1 tablet = 0.4 mg, By Mouth, Daily, 0 Refills, Maintenance, 09/06/18 13:22:58 EST, Tablet Start Date: 09/06/18 Status: Ordered lovastatin 40 mg oral tablet 1 tablet, By Mouth, Daily, # 90 tablet, 3 Refills, Maintenance, 05/16/23 9:57:00 EDT, [facility], 153, cm, 05/16/23 9:48:00 EDT, Height, 56, kg, 02/03/23 22:03:00 EDT, Dry Weight Start Date: 05/16/23 Status: Ordered memantine 10 mg oral tablet 1 tablet, By Mouth, 2 times a day, # 180 tablet, 3 Refills, Maintenance, 05/16/23 9:57:00 EDT, [facility], 153, cm, 05/16/23 9:48:00 EDT, Height, 56, kg, 02/03/23 22:03:00 EDT, DryWeight Start Date: 05/16/23 Status: Ordered Multivitamin 1 tablet, By Mouth, Daily, 0 Refills, Maintenance, 02/23/14 7:51:02 EDT Start Date: 02/23/14 Status: Ordered triamcinolone 0.1% topical cream 1 application, Topically, PRN as needed, 2 times weekly, Maintenance, 02/04/23 9:45:00 EDT, Partialfill upon patient request if the prescription is for a schedule II opioid drug. Start Date: 02/04/23 Status: Ordered Vitamin C = 250 mg, By Mouth, Daily, 0 Refills, Maintenance, 02/23/14 7:50:52 EDT Start Date: 02/23/14 Status: Ordered Problem List Condition Confirmation Course Effective Dates Status Health Status Informant Abdominal pain Confirmed Active Memory loss Confirmed Active Asthma Confirmed Active Chronic kidney disease, stage 3a 1 Confirmed Active Dementia Confirmed Active Nonnecrotizing granulomatous lung disease Confirmed 01/29/18 Active GERD (gastroesophageal reflux disease) Confirmed Active Hypercholesterolemia Confirmed Active Hypertension Confirmed 02/06/06 Active Lactose intolerance Confirmed 01/21/08 Active Pulmonary nodules/lesions, multiple Confirmed Active Osteoporosis Confirmed Active Sarcoidosis of lung Confirmed Active Rosacea Confirmed 11/19/06 Active Shoulder pain 2 Confirmed Active Upper respiratory virus Confirmed Active 1Per chart review meeting GFR criteria 2left > right w/ 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 Lei Vital Signs Most recent to oldest [Reference Range]: 1 2 3 Height 153 cm (05/16/23 9:58 AM) 153 cm (05/16/23 9:48 AM) 153 cm (05/16/23 9:43 AM) Weight 60.1 kg (05/16/23 9:43 AM) Oxygen Saturation [94-100 %] 96 % (05/16/23 9:43 AM) Pulse Rate [55-90 bpm] 81 bpm (05/16/23 9:43 AM) Body Mass Index [18.5-24.99 kg/m2] 25.67 kg/m2 *H* (05/16/23 9:43 AM) Blood Pressure [90-138/55-84 mm Hg] 137/71mm Hg (05/16/23 9:58 AM) 148/71mm Hg *H* (05/16/23 9:48 AM) 158/77mm Hg *H* (05/16/23 9:43 AM) Mode of Delivery (Oxygen) Room air (05/16/23 9:43 AM) Blood pressure sites Arm, left (05/16/23 9:58 AM) Arm, left (05/16/23 9:48 AM) Arm, left (05/16/23 9:43 AM) Weight Obtained Via Standing scale (05/16/23 9:43 AM) Social History Social History Type Response Smoking Status Former smoker; Tobac co user in household: No; Other: Quit in 1968; entered on: 02/09/15 Sex Note * Christal Pham: PERFORM, SIGN, VERIFY Event Display: Patient Education/Instruction Authored Date: [id number] [facility] *BMP So Alexx Marc Clinical Summary Name ROSALIO GARCIA Age 77 Years 1945 PCP Rosario REYES, Pablito Sharp PCP Visit Date 05/16/2023 09:20:00 Additional Instructions: Scheduled Appointments?? Future Appointments ?*[facility] ?[address]??[place],??[place],??[address] ?Phone:??--?Fax:??-- ?Appt. Date:??06/17/2023?10:30 AM ?Scheduled Provider:??Camila LANDIN, Fabi Gutierrez Follow-Up Instructions ?? Diagnosis Sarcoidosis of lung; Pure hypercholesterolemia, unspecified; Essential (primary) hypertension; Unspecified dementia, unspecified severity, without behavioral disturbance, psychotic disturbance, mood disturbance, and anxiety Medications: Please continue your medications until treatment is completed or stopped by your provider. Discuss any questions related to medications with your provider. Medications to Continue with No Changes [facility], [address] [place], [place] [id number], [phone] Donepezil (donepezil 5 mg oral tablet) 1 tab(s) Oral Daily at Bedtime for 90 Days. Refills: 3. Next Dose: Lovastatin (lovastatin 40 mg oral tablet) 1 tab(s) Oral Daily. Refills: 3. Next Dose: Memantine (memantine 10 mg oral tablet) 1 tab(s) Oral twice a day. Refills: 3. Next Dose: These medications were not printed or sent to your pharmacy Acetaminophen (acetaminophen 325 mg oral tablet) 2 tab(s) Oral every 4 hours as needed Pain , Mild.Temperature Greater than 100.5. Next Dose: Amlodipine (amLODIPine 10 mg oral tablet) 1 tab(s) Oral Daily. Refills: 3. Next Dose: Ascorbic Acid (Vitamin C) 250 Milligram Oral Daily. Next Dose: Calcium And Vitamin D Combination (Caltrate 600 + D) 1 tab(s) Oral twice a day. Next Dose: Donepezil (donepezil 5 mg oral tablet) 1 tab(s) Oral Daily at Bedtime. Refills: 3. Next Dose: Fluticasone Nasal (Flonase 50 mcg/inh nasal spray) 1 spray(s) Nares, Both Daily in the morning. Next Dose: Folic Acid (folic acid 0.4 mg oral tablet) 1 tab(s) Oral Daily. Next Dose: Multivitamin 1 tab(s) Oral Daily. Next Dose: Triamcinolone Topical (triamcinolone 0.1% topical cream) 1 lindsay Topically as needed. 2 times weekly. Next Dose: Allergy Info:?? Fish; shellfish; sulfa drugs Medications Given This Visit Future Orders ?No future orders Vital Signs Height 153 cm Weight 60.1 kg BMI 25.67 kg/m2 Blood Pressure 148 mm Hg/71 mm Hg Temperature Pulse Rate 81 bpm Respiratory Rate 02 Sat Mode of Delivery 96 %/Room air You can now view a summary of your hospital visit from the comfort of your home through a free online portal called [employer]. [employer] is a website that allows you to securely view your medical information including discharge summary, medications and follow-up visits. ??You can alsosend a secure electronic message to your doctor???s office to request appointments, renew medications or just ask a question. You can enroll at [email or web address] or register during your next office visit. Disclaimer:?? The information provided is of a general nature and is intended to be used in conjunction with the recommendations and advice of your health care practitioner. ??Every effort has been made to ensure that the information provided is accurate and complete at the time it is provided to you however, as your needs change, or, as new ??information becomes available, different or additional instructions may be required. If you have questions, please consult with your primary care provider or pharmacist, as appropriate. ??This information is not intended to serve as substitution for assessment and evaluation by a qualified health care provider. If you do not have a primary care provider, you may find a [facility] provider by calling [facility] at [phone]. [facility], in keeping with [facility] guidance, no longer requires face masks for staff, patientsor visitors in most situations. Similar to time spent indoors at other locations, there is the chance that you were exposed to respiratory viruses during your time with us (such as flu or COVID-19).? If you develop symptoms concerning for a viral respiratory infection, please seek testing (and treatment if indicated) from your medical provider or home test kit. For information about the plan of care including goals and instructions for your diagnosis, please see the patient education orders section of this document. Patient Education Materials?? The content of this educational material or handout may have been modified, supplemented, or adapted from its original content and format to support your individualized medical care. Patient Care team information Care Team Personnel Name: Tiffany Anderson RN Position: [facility] RN Member Role: Primary Care Nurse Name: Mag Gonzalez RN Position: [facility] RN Member Role: Primary Care Nurse Name: Pablito Ponce MD Position: [facility] Physician - Primary Care Member Role: PCP Address: Address: [address] [place] [address]- Name: Krys Hager RN Position: [facility] RN Member Role: Primary Care Nurse Care Team Related Persons Name: BRAYAN GARCIA Address: home [address] [place] [address]
--- OUTSIDE RECORDS SUMMARY | 2023-10-02 08:24 | XMS_ITS | Continuity of Care Document ---
Author Name Unknown Organization [facility] Address [address] [place] [address]- Care Team Providers Care Jig And Fixture Builder Name Role Phone Rosario REYES, Pablito Sharp Primary Care Physician Encounter [facility] Date(s): 04/19/20 - 05/19/20 [facility] Adult [address] [place] [address]- [facility] Allergies, Adverse Reactions, Alerts Substance Reaction Severity [...] 06/15/04 Given 1Admin Note: [facility] 2Location History: [facility] [place] 3[facility]: [facility] [address] 5Admin Note: Received at [facility] 6Admin Note: This shot was administered at [facility] 7Admin Note: [facility] [place] Medications amLODIPine 10 mg oral tablet 10 mg, 1, tablet, By Mouth, Daily, # 90 tablet, Refills 3, Tot. Refills 3, Maintenance, 01/13/20 7:42:00 EDT, Route to Pharmacy Electronically, [facility], 152, cm, 01/13/20 7:13:00 EDT, Height, 55.3, kg, 09/06/18 3:40:00 EST, Dry W... Start Date: 01/13/20 Status: Ordered Caltrate 600 + D 1 [...] tablet, Refills 3, Tot. Refills 3, Maintenance, 02/27/20 15:34:00 EDT, Route to Pharmacy Electronically, [facility], 152, cm, 10/06/19 7:01:00 EST, Height, 55.3, kg, 09/06/18 3:40:00... Start Date: 02/27/20 Stop Date: 02/21/21 Status: Ordered Flonase 50 mcg/inh nasal spray 1 sprays, Nares, Both, 2 times a day, # 16 Gm, 0 Refills, Maintenance, 12/30/18 7:15:18 EDT, [place],1 sprays Nares, Both 2 times a day Start Date: 12/30/18 Status: Ordered folic acid 0.4 mg oral tablet 1 tablet = 0.4 mg, By Mouth, Daily, # 100 tablet, 0 Refills, Maintenance, 09/06/18 13:22:58 EST, Tablet Start Date: 09/06/18 Status: Ordered lisinopril 10 [...] day, # 180 tablet, 3 Refills, Maintenance, 01/22/20 13:30:00 EDT, Tablet, [facility], 152, cm, 10/06/19 7:01:00 EST, Height, 55.3, kg, 09/06/18 3:40:00 EST, Dry Weight Start Date: 01/22/20 Stop Date: 01/16/21 Status: Ordered Multivitamin By Mouth, Daily, 0 Refills, Maintenance, 02/23/14 7:51:02 Start Date: 02/23/14 Status: Ordered pantoprazole 20 mg oral delayed release tablet = 20 mg, By Mouth, Daily, Replaces omeprazole, # 90 tablet, 3 Refills, Maintenance, 04/21/20 12:57:00 EDT, [facility] Tablet, 152, cm, 03/08/20 9:06:00 EDT, Height, 55.3, kg, 09/06/18 3:40:00 EST, Dry Weight Start Date: 04/21/20 Status: Ordered Vitamin C By Mouth, Daily, [...]
--- OUTSIDE RECORDS SUMMARY | 2023-10-02 08:24 | XMS_ITS | Continuity of Care Document ---
Author Name Unknown Organization [facility] Address [address] [place] [address]- Care Team Providers Care Distance Learning Coordinator Name Role Phone Rosario REYES, Pablito Sharp Primary Care Physician [phone] Encounter [facility] [place] Date(s): 05/12/20 - 05/19/20 [facility] Adult [address] [place] [address]- [facility] Encounter Diagnosis Abdominal pain(Discharge Diagnosis) - 05/12/20 Attending Physician: Not on Staff, Attending MD [...] 06/15/04 Given 1Admin Note: [facility] 2Location History: [facility] 3[facility]: [facility]2015[facility] 4Result Comment: [06[facility]06/2014] [facility] on [address] 5Admin Note: [facility] 6Admin Note: This shot was administered at [address] Note: [facility] [address] [place] Medications amLODIPine 10 mg oral tablet 10 mg, 1, tablet, By Mouth, Daily, # 90 tablet, Refills 3, Tot. Refills 3, Maintenance, 01/13/20 7:42:00 EDT, Route to Pharmacy Electronically, [facility], 152, cm, 01/13/20 7:13:00 EDT, [...] 02/27/20 15:34:00 EDT, Route to Pharmacy Electronically, [facility], 152, cm, 10/06/19 7:01:00 EST, Height, 55.3, kg, 09/06/18 3:40:00... Start Date: 02/27/20 Stop Date: 02/21/21 Status: Ordered Flonase 50 mcg/inh nasal spray 1 sprays, Nares, Both, 2 times a day, # 16 Gm, 0 Refills, Maintenance, 12/30/18 7:15:18 EDT, [place],1 sprays Nares, Both 2 times a day [...] Dates Health Status Cl inical Service Informant Abdominal pain Discharge Diagnosis 05/12/20 Vital Signs Most recent to oldest [Reference Range]: 1 2 Height 155 cm (05/12/20 9:31 AM) 155 cm (05/12/20 9:06 AM) Weight 54 kg (05/12/20 9:06 AM) Oxygen Saturation [94-100 %] 98 % (05/12/20 9:06 AM) Pulse Rate [55-90 bpm] 84 bpm (05/12/20 9:06 AM) Body Mass Index [18.5-24.99] 22.48 (05/12/20 9:06 AM) Blood Pressure [90-138/55-84 mm Hg] 130/ 62mm Hg (05/12/20 9:31 AM) 149/73mm Hg *H* (05/12/20 9:06 AM) Temperature [96.8-100.4 DegF] 97.9 DegF (05/12/20 9:06 AM) Blood pressure sites Arm, left (05/12/20 9:06 AM) Temperature Route Oral (05/12/20 9:06 AM) Weight Obtained Via Standing scale (05/12/20 9:06 AM) Social History Social History Type Response Smoking Status Former smoker; Tobac co user in household: No; Other: Quit in 1968; entered on: 02/09/15 Sex
--- OUTSIDE RECORDS SUMMARY | 2023-10-02 08:24 | XMS_ITS | Continuity of Care Document ---
Author Name Unknown Organization [facility] Alexx Cirilo lt Address [address] [place] [address]- Care Team Providers Care Cctv Technician Name Role Phone Pablito Ponce MD Primary Care Physician En[place] [facility] [place](s): 11/13/22 - 11/20/22 [facility] Adult [address] [place] [address]- Attending Physician: Pablito Ponce MD Allergies, Adverse [...] vaccine, inactivated 05/25/10 Markus rded SARS-CoV-2 mRNA (joiblgs-irhx-ajalg) vax 01/25/22 Recorded SARS-CoV-2 (COVID-19) mRNA BNT-162b2 [...] tetanus-diphtheria toxoids (Td) 06/15/04 Given 1Location History: [facility] 2Result Comment: [07/05/2015] [facility] 3Result Comment: [06/06/2014] [facility] on [address] 4Admin Note: Received at [facility] 5Admin Note: This shot was administered at [facility] 6Admin Note: [facility] 7Admin Note: [facility] [place] Medications acetaminophen 325 mg oral tablet 650 mg, By Mouth, Every 4 hours, PRN, Temperature Greater than 100.5, Refills 0, Maintenance, Pain , Mild, 01/08/22 13:28:00 EDT, Partial fill upon patient request if the prescription is for a schedule II opioid drug. Start Date: 01/08/22 Status: Ordered amLODIPine 10 mg oral tablet 1 tablet, By Mouth, Daily, # 90 tablet, 3 Refills, Maintenance, 10/18/21 10:27:00 EST, [facility], 155, cm, 10/18/21 10:08:00 EST, Height, 54.5, kg, 05/07/20 11:00:00 EDT, Dry Weight Start Date: 10/18/21 Status: Ordered Arnuity Ellipta 100 mcg inhalation powder 1 puffs = 100 mcg, Inhalation, Every 24 hours, rinse mouth and throat after use, # 30 capsule, 3 Refills, Maintenance, 07/18/21 9:37:00 EDT, Powder, Partial fill upon patient request if the prescription is for a schedule II opioid drug. Start Date: 07/18/21 Status: Ordered Caltrate 600 + D 1 tablet, By Mouth, 2 times a day, 0 Refills, Maintenance, 02/23/14 7:50:43 Start Date: 02/23/14 Status: Ordered donepezil 5 mg oral tablet 5 mg, 1, tablet, By Mouth, Daily at bedtime, # 90 tablet, Refills 3, Tot. Refills 3, Maintenance, 08/29/22 4:30:00 EST, Route to Pharmacy Electronically, [id number], 152, cm, 07/09/22 9:25:00 EDT, Height, 50.5, kg, 01/03/22 19:26:00 E... Start Date: 08/29/22 Stop Date: 08/24/23 Status: Ordered Flonase 50 mcg/inh nasal spray 1 sprays, Nares, Both, 2 times a day, # 16 Gm, 0 Refills, Maintenance, 12/30/18 7:15:18 EDT, [place],1 sprays Nares, Both 2 times a day Start Date: 12/30/18 Status: Ordered folic acid 0.4 mg oral tablet 1 tablet = 0.4 mg, By Mouth, Daily, # 100 tablet, 0 Refills, Maintenance, 09/06/18 13:22:58 EST, Tablet Start Date: 09/06/18 Status: Ordered lovastatin 40 mg oral tablet 1 tablet, By Mouth, Daily, # 90 tablet, 3 Refills, Maintenance, 09/17/22 11:22:00 EST, [facility], 152, cm, 07/09/22 9:25:00 EDT, Height, 50.5, kg, 01/03/22 19:26:00 EDT, Dry Weight Start Date: 09/17/22 Status: Ordered memantine 10 mg oral tablet 1 tablet, By Mouth, 2 times a day, # 180 tablet, 3 Refills, Maintenance, 10/18/21 10:26:00 EST, [facility], 155, cm, 10/18/21 10:08:00 EST, Height, 54.5, kg, 05/07/20 11:00:00 EDT,Dry Weight Start Date: 10/18/21 Status: Ordered Multivitamin By Mouth, Daily, 0 Refills, Maintenance, 02/23/14 7:51:02 Start Date: 02/23/14 Status: Ordered Vitamin C By Mouth, Daily, [...] oldest [Reference Range]: 1 Height 152 cm (11/13/22 9:56 AM) Weight 49.8 kg (11/13/22 9:56 AM) Oxygen Saturation [94-100 %] 97 % (11/13/22 9:56 AM) Pulse Rate [55-90 bpm] 92 bpm *H* (11/13/22 9:56 AM) Body Mass Index [18.5-24.99 kg/m2] 21.55 kg/m2 (11/13/22 9:56 AM) Blood Pressure [90-138/55-84 mm Hg] 125/ 69mm Hg (11/13/22 9:56 AM) Mode of Delivery (Oxygen) Room air (11/13/22 9:56 AM) Blood pressure sites Arm, left (11/13/22 9:56 AM) Weight Obtained Via Standing scale (11/13/22 9:56 AM) Social History Social History Type Response Smoking Status Former smoker; Tobac co user in household: No; Other: Quit in 1968; entered on: 02/09/15 Sex Note * Judy Chappell: PERFORM, SIGN, VERIFY Event Display: Patient Education/Instruction Authored Date: [id number] [facility] *MARY CARMEN Marc Clinical Summary Name ROSALIO GARCIA Age 77 Years 1945 PCP Rosario REYES, Pablito Sharp PCP Visit Date 11/13/2022 09:47:00 Additional Instructions: Scheduled Appointments?? Future Appointments ?No Future Appointments Scheduled Follow-Up Instructions ?? Diagnosis Unspecified dementia, unspecified severity, without behavioral disturbance, psychotic disturbance, mood disturbance, and anxiety; Encounter for general adult medical examination without abnormal findings; Essential (primary) hypertension; Pure hypercholesterolemia, unspecified; Sarcoidosis of lung Medications: Please continue your medications until treatment is completed or stopped by your provider. Discuss any questions related to medications with your provider. Medications to Continue with No Changes [facility] #[id number], [address] [place], [place] [id number], [phone] Donepezil (donepezil 5 mg oral tablet) 1 tab(s) Oral Daily at Bedtime for 90 Days. Refills: 3. Next Dose: These medications were not printed or sent to your pharmacy Acetaminophen (acetaminophen 325 mg oral tablet) 650 Milligram Oral every 4 hours as needed Pain , Mild. Temperature Greater than 100.5. Next Dose: Amlodipine (amLODIPine 10 mg oral tablet) 1 tab(s) Oral Daily. Refills: 3. Next Dose: Ascorbic Acid (Vitamin C) Oral Daily. Next Dose: Calcium And Vitamin D Combination (Caltrate 600 + D) 1 tab(s) Oral twice a day. Next Dose: Fluticasone (Arnuity Ellipta 100 mcg inhalation powder) 1 puff(s) Inhalation every 24 hours. rinse mouth and throat after use. Refills: 3. Next Dose: Fluticasone Nasal (Flonase 50 mcg/inh nasal spray) 1 spray(s) Nares, Both twice a day. Refills: 0. Next Dose: Folic Acid (folic acid 0.4 mg oral tablet) 1 tab(s) Oral Daily. Next Dose: Lovastatin (lovastatin 40 mg oral tablet) 1 tab(s) Oral Daily. Refills: 3. Next Dose: Memantine (memantine 10 mg oral tablet) 1 tab(s) Oral twice a day. Refills: 3. Next Dose: Multivitamin Oral Daily. Next Dose: No Longer Take the Following Medications Hydroxypropyl Methylcellulose Ophthalmic (Artificial Tears 0.5% Ophth) Miscellaneous Rx (please obtain labs) Please obtain Basic Metabolic Panel (lytes, BUN, Cre, glucose) and forward to patient's PCP Rosario REYES, Pablito Sharp, phone: . Refills: 0. Miscellaneous Rx (Transfer Tub Bench) DX: Acute metabolic encephalopathy (G93.41) Altered mental status (R41.82) Dementia (F03.90) Osteoporosis (M81.0) HT: 150cm WT: 50kg Length of Need: Lifetime. Refills: 0. Allergy Info:?? Fish; shellfish; sulfa drugs Medications Given This Visit Future Orders ?No future orders Vital Signs Height 152 cm Weight 49.8 kg BMI 21.55 kg/m2 Blood Pressure 125 mm Hg/69 mm Hg Temperature Pulse Rate 92 bpm Respiratory Rate 02 Sat Mode of Delivery 97 %/Room air You can now view a summary of your hospital visit from the comfort of your home through a free online portal called [employer]. [employer] is a website that allows you to securely view your medical information including discharge summary, medications and follow-up visits. ??You can alsosend a secure electronic message to your doctor???s office to request appointments, renew medications or just ask a question. You can enroll at [email or web address] or register during your next office visit. [...] primary care provider, you may find a [facility] provider by calling [facility] [employer] at [phone]. For information about the plan of care [...] Team Personnel Name: Tiffany Anderson RN Position: [facility] PCO RN Member Role: Primary Care Nurse Name: Mag Gonzalez RN Position: [facility] RN Member Role: Primary Care Nurse Name: Pablito Ponce MD Position: [facility] Primary Care Physician Member Role: PCP Address: Address: [address] [place] [address]- Care Team Related Persons Name: BRAYAN GARCIA Address: home [address] [place] [address]
--- OUTSIDE RECORDS SUMMARY | 2023-10-02 08:24 | XMS_ITS | Continuity of Care Document ---
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 Name Role Phone Rosario REYES, Pablito Sharp Primary Care Physician Encounter [facility] [place] Date(s): 09/05/23 - 09/05/[address] [address]- Encounter Diagnosis UTI symptoms(Final) - 09/05/23 Discharge Disposition: A-D/C Home Attending Physician: Demetrio Vallejo DO Admitting Physician: Demetrio Vallejo DO Referring Physician: Not on Staff, Referring MD Allergies, Adverse Reactions, Alerts Substance Reaction Severity Status sulfa drugs severe headache Active shellfish Active Fish Active Immunizations Given and Recorded Vaccine Date Status Refusal Reason influenza virus vaccine, inactivated 05/21/23 Markus rded influenza virus vaccine, inactivated 05/18/22 Markus rded [...] vaccine, inactivated 05/25/10 Markus rded SARS-CoV-2 mRNA ([id number]-tknty) vax 01/25/22 Recorded SARS-CoV-2 (COVID-19) mRNA BNT-162b2 [...] tetanus-diphtheria toxoids (Td) 06/15/04 Given 1Location History: [facility] 2Result Comment: [07/05/2015] [facility] 3Result Comment: [06/06/2014] [facility] on [address] 4Admin Note: Received at [facility] 5Ain Note: This shot was administered at [facility] 6Admin Note: [facility] 7Admin Note: [facility] [place] Medications acetaminophen 325 mg oral tablet [...] 7:50:43 EDT Start Date: 02/23/14 Status: Ordered cephalexin monohydrate 500 mg oral capsule 1 capsule = 500 mg, By Mouth, Every 6 hours, for 7 days, # 28 capsule, 0 Refills, Acute 09/12/23 16:02:00 EST, 09/05/23 16:02:00 EST, Capsule, [facility] #[id number], Partial fill upon patient request if the prescription is for a schedule II opio... Start Date: 09/05/23 Stop Date: 09/12/23 Status: Ordered donepezil 5 mg oral tablet 5 mg, 1, tablet, By Mouth, Daily at bedtime, # 90 tablet, Refills 3, Tot. Refills 3, Maintenance, 08/28/23 13:29:00 EST, Route to Pharmacy Electronically, [facility], 153, cm, 06/17/23 10:28:00 EDT, Height, 56, kg, 02/03/23 22:03:00... Start Date: 08/28/23 Status: Ordered donepezil 5 mg oral tablet 5 mg, 1, tablet, By Mouth, Daily at bedtime, for 90 days, # 90 tablet, Refills 3, Tot. Refills 3, Hard Stop 05/10/24 9:57:00 EDT, 05/16/23 9:57:00 EDT, Route to Pharmacy Electronically, [facility], 153, cm, 05/16/23 9:48:00 EDT, Hei... Start Date: 05/16/23 Stop Date: 05/10/24 Status: Ordered Flonase 50 mcg/inh nasal spray 1 sprays, Nares, Both, Daily in AM, Maintenance, 02/04/23 9:45:00 EDT, [place], Partial fill upon patient request if the [...] tablet, 3 Refills, Maintenance, 05/16/23 9:57:00 EDT, [facility], 153, cm, 05/16/23 9:48:00 EDT, Height, 56, kg, 02/03/23 22:03:00 EDT, Dry Weight Start Date: 05/16/23 Status: Ordered memantine 10 mg oral tablet 1 tablet, By Mouth, 2 times a day, # 180 tablet, 3 Refills, Maintenance, 08/28/23 13:29:00 EST, [facility], 153, cm, 06/17/23 10:28:00 EDT, Height, 56, kg, 02/03/23 22:03:00 EDT, Dry Weight Start Date: 08/28/23 Status: Ordered Multivitamin 1 tablet, By Mouth, [...] 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 Lei Results Radiology Reports * Exam Date Time Procedure Performing Provider Status 09/05/23 11:[address] Cervical Spine W/ O Contrast Mag Abraham; Auth (Verified) Notes: (CT Cervical Spine W/O Contrast) Reason For Exam: Neck trauma, dangerous injury mechanism;Other: RESULT: CT Cervical Spine W/O Contrast CT Head/Brain W/O Contrast, CT Cervical Spine W/O Contrast INDICATION: Reason: Other:; fall, hit head; Clinical Question(s): Other:; Order Comment: TECHNIQUE: Noncontrast head CT using axial technique was reconstructed in axial and coronal planes.Noncontrast spiral CT through the cervical spine was formatted in 3 planes. Automatic tube modulation was used for the cervical spine and iterative dose reconstruction was used for both the head and cervical spine to optimize scan parameters and image quality. COMPARISON: 02/04/2023 FINDINGS: Instructor Dancing View Findings, Lines and Tubes: None. BRAIN AND EXTRA-AXIAL SPACES: No parenchymal hemorrhage, midline shift, or mass effect. Ablarado-white matter differentiation is wellpreserved. No acute infarct. Negative insular ribbon sign. Atherosclerotic vascular calcification of the carotid arteries but negative hyperdense vessel sign. Moderate prominence of the ventricles and sulci consistent with parenchymal volume loss. Moderate low-density white matter changes. No subarachnoid hemorrhage. No subdural or epidural collection. CALVARIUM, SKULL BASE, AND SOFT TISSUES: No fractures or suspicious bony lesions. Mild mucosal thickening of the ethmoid air cells. Mild dependent opacity and mucosal thickening in the left sphenoid sinus. Mild partial opacification of the left posterior ethmoid air cells. The paranasal sinuses and mastoid air cells are otherwise clear. Status-post bilateral lens extraction. The extracranial soft tissues are unremarkable. CERVICAL SPINE: No fracture. No acute osseous abnormalities. Minimal dextroconvex curvature of the cervical spine. No locked or perched facet. Moderate multilevel degenerative disc space narrowing and end plate irregularity. OTHER BONES: No acute abnormality. CERVICAL SOFT TISSUES AND LUNG APICES: Carotid vascular atherosclerosis. Subcentimeter nodules in the thyroid gland. 4 mm nodule in the left upper lobe at series 301 image 179. This is unchanged from CT chest of 03/08/2022. IMPRESSION: No acute abnormality of the head or cervical spine. 4 mm nodule in the left upper lobe at series 301 image 179. This is unchanged from CT chest of 03/08/2022. WSN: [id number] Ordering Physician: Marcus Grijalva Dictated By: Adilene Lees MD Dictated Date/Time: 09/05/23 12:14 p Reviewed By: Adilene Lees MD Signed By: Adilene Lees MD Signed Date/Time: 09/05/23 12:14 pm Transcribed By: ANJALI Transcribed Date/Time: 09/05/23 11:59 am * Exam Date Time Procedure Performing Provider Status 09/05/23 11:[address] Head/Brain W/O Contrast Mag Abraham; Elsie (Verified) Notes: (CT Head/Brain W/O Contrast) Reason For Exam: fall, hit head;Other: RESULT: CT Head/Brain W/O Contrast CT Head/Brain W/O Contrast, CT Cervical Spine W/O Contrast INDICATION: Reason: Other:; fall, hit head; Clinical Question(s): Other:; Order Comment: TECHNIQUE: Noncontrast head CT using axial technique was reconstructed in axial and coronal planes.Noncontrast spiral CT through the cervical spine was formatted in 3 planes. Automatic tube modulation was used for the cervical spine and iterative dose reconstruction was used for both the head and cervical spine to optimize scan parameters and image quality. COMPARISON: 02/04/2023 FINDINGS: Instructor Dancing View Findings, Lines and Tubes: None. BRAIN AND EXTRA-AXIAL SPACES: No parenchymal hemorrhage, midline shift, or mass effect. Albarado-white matter differentiation is wellpreserved. No acute infarct. Negative insular ribbon sign. Atherosclerotic vascular calcification of the carotid arteries but negative hyperdense vessel sign. Moderate prominence of the ventricles and sulci consistent with parenchymal volume loss. Moderate low-density white matter changes. No subarachnoid hemorrhage. No subdural or epidural collection. CALVARIUM, SKULL BASE, AND SOFT TISSUES: No fractures or suspicious bony lesions. Mild mucosal thickening of the ethmoid air cells. Mild dependent opacity and mucosal thickening in the left sphenoid sinus. Mild partial opacification of the left posterior ethmoid air cells. The paranasal sinuses and mastoid air cells are otherwise clear. Status-post bilateral lens extraction. The extracranial soft tissues are unremarkable. CERVICAL SPINE: No fracture. No acute osseous abnormalities. Minimal dextroconvex curvature of the cervical spine. No locked or perched facet. Moderate multilevel degenerative disc space narrowing and end plate irregularity. OTHER BONES: No acute abnormality. CERVICAL SOFT TISSUES AND LUNG APICES: Carotid vascular atherosclerosis. Subcentimeter nodules in the thyroid gland. 4 mm nodule in the left upper lobe at series 301 image 179. This is unchanged from CT chest of 03/08/2022. IMPRESSION: No acute abnormality of the head or cervical spine. 4 mm nodule in the left upper lobe at series 301 image 179. This is unchanged from CT chest of 03/08/2022. WSN: [id number] Ordering Physician: Marcus Grijalva Dictated By: Adilene Lees MD Dictated Date/Time: 09/05/23 12:14 p Reviewed By: Adilene Lees MD Signed By: Adilene Lees MD Signed Date/Time: 09/05/23 12:14 pm Transcribed By: ANJALI Transcribed Date/Time: 09/05/23 11:59 am Vital Signs Most recent to oldest [Reference Range]: 1 2 3 Height 153 cm (09/05/23 7:52 PM) 153 cm (09/05/23 3:20 PM) 153 cm (09/05/23 9:11 AM) Weight 53 kg (09/05/23 7:52 PM) 53 kg (09/05/23 3:20 PM) 53 kg (09/05/23 9:11 AM) Oxygen Saturation [94-100 %] 99 % (09/05/23 7:52 PM) 99 % (09/05/23 3:20 PM) 100 % (09/05/23 9:15 AM) Pulse Rate [55-90 bpm] 88 bpm (09/05/23 7:52 PM) 100 bpm *H* (09/05/23 3:20 PM) 77 bpm (09/05/23 9:15 AM) Body Mass Index [18.5-24.99 kg/m2] 22.64 kg/m2 (09/05/23 7:52 PM) 22.64 kg/m2 (09/05/23 3:20 PM) Blood Pressure [90-138/55-84 mm Hg] 195/96mm Hg *H* (09/05/23 7:52 PM) 170/114mm Hg *H* (09/05/23 3:20 PM) 138/70mm Hg (09/05/23 9:15 AM) Respiratory Rate [16-30 br/min] 16 br/min (09/05/23 7:52 PM) 17 br/min (09/05/23 3:20 PM) 18 br/min (09/05/23 9:15 AM) Temperature [96.8-100.4 DegF] 98.4 DegF (09/05/23 3:20 PM) 99.2 DegF (09/05/23 9:15 AM) Mode of Delivery (Oxygen) Room air (09/05/23 7:52 PM) Room air (09/05/23 3:20 PM) Room air (09/05/23 9:15 AM) Blood pressure sites Arm, right (09/05/23 7:52 PM) Arm, right (09/05/23 3:20 PM) Arm, right (09/05/23 9:15 AM) Temperature Route Oral (09/05/23 3:20 PM) Oral (09/05/23 9:15 AM) Dry Weight 53 kg (09/05/23 7:52 PM) 53 kg (09/05/23 3:20 PM) 53 kg (09/05/23 9:11 AM) Social History Social History Type Response Smoking Status Former smoker; Tobac co user in household: No; Other: Quit in 1968; entered on: 02/09/15 Sex Note * Valentine REYES, Marcus: PERFORM Event Display: Patient Education Leaflets Authored Date: Urinary Tract Infections in Women ?? [id number] Urinary Tract Infections in Women Urinary tract infections (UTIs) are most often caused by bacteria. These bacteria enter the urinarytract. The bacteria may come from inside the body. Or they may travel from the skin outside the rectum or vagina into the urethra. Female anatomy makes it easy for bacteria from the bowel to enter a woman???s urinary tract. This is the most common source of UTI. This means women develop UTIs more often than men. Pain in or around the urinary tract is a common UTI symptom. Most UTIs are treated with antibiotics. These kill the bacteria. The length of time you need to take them depends on the type of infection. It may be as short as 3 days. If you have repeated UTIs, you may need a low-dose antibiotic for several months. Take antibiotics exactly as directed. Don???t stop taking them until all of the medicine is gone. If you stop taking the antibiotic too soon, the infection may not go away. You may also develop a resistance to the antibiotic. This can make it muchharder to treat in the future. Gender words are used here to talk about anatomy and health risk. Please use this information in a way that works best for you and your provider as you talk about your care. Home care The lifestyle changes below will help get rid of your UTI. They may also help prevent future UTIs: ??? Drink plenty of fluids. This includes water, juice, or other caffeine-free drinks. Fluids help flush bacteria out of your body. ??? Empty your bladder. Always empty your bladder when you feel the urge to pee. And always pee before going to sleep. Urine that stays in your bladder can lead to infection. Try to pee before and after sex as well. ??? Practice good personal hygiene. Wipe yourself from front to back after using the toilet. This helps keep bacteria from getting into the urethra. ???Use condoms during sex. These help prevent UTIs caused by sexually transmitted bacteria. Also don'tuse spermicides during sex. These can increase the risk for UTIs. Choose other forms of control instead. For women who tend to get UTIs after sex, a low dose of a preventive antibiotic may be used. Be sure to discuss this choice with your healthcare provider. ??? Try holistic supplements, such as cranberry tablets and D-mannose. These may help prevent UTIs. ??? Try topical vaginal estrogen.You can use this to help prevent UTIs if you have gone through menopause. ?? Follow-up care Follow up with your healthcare provider as directed. They may test to make sure the infection has cleared. If needed, more treatment may be started. ?? When to get medical advice Call your healthcare provider right away if any of the following occur: ??? Frequent urination ??? Pain or burning when passing urine ??? Fever of 100.4??F (38??C) or higher, or as directed by your healthcare provider ??? Urine looks dark, cloudy, or reddish in color. This may mean that blood is inthe urine. ??? Urine smells bad ??? Feeling pain even when not urinating ??? Tiredness ??? Pain in the belly (abdomen) area below the bellybutton, or in the back or side, below the ribs ??? Nausea orvomiting ??? Have a strong urge to urinate, but only a small amount of urine is passed ??? Uncomfortable pressure above the pubic bone ??? Feeling confused or very tired (in older adults) ?? Last Reviewed Date: 2022 ?? [employer]. All rights reserved. This information is not intended as a substitute for professional medical care. Always follow your healthcare professional's instructions. ?? Patient Care team information Care Team Personnel Name: Tiffany Rivas RN Position: [facility] RN Member Role: Primary Care Nurse Name: Mag Gonzalez RN Position: [facility] ED RN W/OE and Tasks Member Role: Primary Care Nurse Name: Pablito Ponce MD Position: [facility] Physician - Primary Care Member Role: PCP Address: Address: [address] [place] [id number]- Name: Krys Hager RN Position: [facility] RN Member Role: Primary Care Nurse Name: Madeline Wadsworth RN Position: [facility] ED RN W/OE and Tasks Member Role: Patient Care Provider Name: Rebekah Loredo DO Position: [facility] Resident Member Role: ED Resident Address: Address: [address] [place] [address] [place] [address]- Name: Demetrio Vallejo DO Position: [facility] ED Medicine MD Member Role: Admitting Physician Address: Address: [address] [place] [id number]- Name: Hali Vargas Position: [facility] ED [facility] Member Role: Patient Care Provider Care Team Related Persons Name: BRAYAN GARCIA Address: home [address] [place] [id number]
--- OUTSIDE RECORDS SUMMARY | 2023-10-02 08:24 | XMS_ITS | Continuity of Care Document ---
Author Name Unknown Organization [facility] ter Address [address] [place] [id number]- Care Team Providers Care De Icer Finisher Name Role Phone Rosario REYES, Pablito Sharp Primary Care Physician Encounter [facility] [place](s): 02/04/23 - 02/07/[address] [address]- Encounter Diagnosis Urinary tract infection(Final) - 02/04/23 Discharge Disposition: A-Transfer SNF Attending Physician: Marry Jacobson MD Admitting Physician: Kamryn Hale MD Referring Physician: Not on Staff, Referring MD Allergies, Adverse Reactions, Alerts Substance Reaction Severity Status shellfish Active Fish Active sulfa drugs severe headache Active Immunizations Given and Recorded Vaccine Date [...] vaccine, inactivated 05/25/10 Markus rded SARS-CoV-2 mRNA ([id number]) vax 01/25/22 Recorded SARS-CoV-2 (COVID-19) mRNA BNT-162b2 [...] tetanus-diphtheria toxoids (Td) 06/15/04 Given 1Location History: [facility] 2Result Comment: [07/05/2015] [facility] 3Result Comment: [06/06/2014] [facility] on [address] 4Admin Note: Received at [facility] 5[facility] Note: This shot was administered at [facility] 6Admin Note: [employer] 7Admin Note: [facility] [place] Medications acetaminophen 325 mg [...] Dry Weight Start Date: 12/31/22 Status: Ordered amLODIPine 10 mg oral tablet 10 mg, Tablet, By Mouth, 02/07/23 9:00:00 EDT Start Date: 02/07/23 Stop Date: 02/07/23 Status: Completed Augmentin 500 mg-125 mg oral tablet 1 tablet, By Mouth, Every 12 hours, for 1 days, # 2 tablet, 0 Refills, Acute 02/09/23 8:00:00 EDT, 02/08/23 8:00:00 EDT, Tablet, Partial fill upon patient request if the prescription is for a schedule II opioid drug. Start Date: 02/08/23 Stop Date: 02/09/23 Status: Ordered Caltrate 600 + D 1 tablet, By Mouth, 2 times a day, 0 Refills, Maintenance, 02/23/14 7:50:43 EDT Start Date: 02/23/14 Status: Ordered donepezil 5 mg oral tablet 5 mg, 1, tablet, By Mouth, Daily at bedtime, # 90 tablet, Refills 3, Tot. Refills 3, Maintenance, 08/29/22 4:30:00 EST, Route to Pharmacy Electronically, [id number], 152, cm, 07/09/22 9:25:00 EDT, Height, 50.5, kg, 01/03/22 19:26:00 E... Start Date: 08/29/22 Stop Date: 08/24/23 Status: Ordered Flonase 50 mcg/inh nasal spray 1 sprays, Nares, Both, Daily in AM, Maintenance, 02/04/23 9:45:00 EDT, [place], Partial fill upon patient request if the [...] 3 Refills, Maintenance, 09/17/22 11:22:00 EST, [facility], 152, cm, 07/09/22 9:25:00 EDT, Height, 50.5, kg, 01/03/22 19:26:00 EDT, Dry Weight Start Date: 09/17/22 Status: Ordered memantine 10 mg oral tablet 1 tablet, By Mouth, 2 times a day, # 180 tablet, 3 Refills, Maintenance, 12/31/22 7:27:00 EDT, [facility], 152, cm, 11/13/22 9:56:00 EST, Height, 50.5, kg, 01/03/22 19:26:00 EDT, Dry Weight Start Date: 12/31/22 Status: Ordered Multivitamin 1 tablet, By Mouth, [...] shoulder on left - Dr. Lei Results Orders for Microbiology Reports Name Date Urine Culture (URINE CULTURE) 02/04/23 Microbiology Reports TEST:Urine Culture STATUS:Auth (Verified) BODY SITE: SOURCE:URINE COLLECTED DATE/TIME:02/04/23 5:11 AM Urine Culture SPECIMEN DESCRIPTION : URINE SPECIAL REQUESTS : NONE Reflexed from [id number] CULTURE : >100,000 COL/ML ESCHERICHIA COLI This isolate was identified using Maldi-TOF system These AST results were performed on the [employer] ID and AST system REPORT STATUS : FINAL 02/06/2023 ORGANISM >100,000 COL/ML ESCHERICHIA COLI This isolate was identified using Maldi-TOF system These AST results were performed on the [employer] ID and AST system METHOD MIN. INHIB. CONC. (MCG/ML) AMPICILLIN RESISTANT AMPICILLIN/SULBACTAM SUSCEPTIBLE AMOXICILLIN/CLAVULAN SUSCEPTIBLE CEFAZOLIN SUSCEPTIBLE CEFEPIME SUSCEPTIBLE CEFTRIAXONE SUSCEPTIBLE CIPROFLOXACIN SUSCEPTIBLE ERTAPENEM SUSCEPTIBLE GENTAMICIN SUSCEPTIBLE LEVOFLOXACIN SUSCEPTIBLE MEROPENEM SUSCEPTIBLE NITROFURANTOIN SUSCEPTIBLE PIPERACILLIN/TAZOBAC SUSCEPTIBLE TRIMETH/SULFAMETHOX RESISTANT TETRACYCLINE SUSCEPTIBLE Radiology Reports * Exam Date Time Procedure Performing Provider Status 02/04/23 5:[address] Head/Brain W/O Contrast Alex Soria; Elsie (Verified) Notes: (CT Head/Brain W/O Contrast) Reason For Exam: TIA RESULT: CT Head/Brain W/O Contrast CT Head/Brain W/O Contrast INDICATION: Hx of Present Illness: weakness noted since this am; Reason: TIA; Clinical Question(s):Infarction; Order Comment: TECHNIQUE: Noncontrast head CT using axial technique and reconstructed in axial and coronal planes.Iterative reconstruction techniques are used to optimize dose and image quality. CTDIvol Head: 47.30 mGy, DLP Head: 772 mGy*cm. COMPARISON: 09/12/2019. FINDINGS: Blacking Machine Operator view findings, lines and tubes: None. BRAIN AND EXTRA-AXIAL SPACES: No parenchymal [...] TISSUES: No fractures or suspicious bony lesions. Moderate diffuse paranasal sinus mucosal thickening within bilateral maxillary sinus air-fluid levels, larger on the right. The mastoid air cells are clear. Status-post bilateral lens extraction. The extracranial soft tissues are unremarkable. IMPRESSION: No acute intracranial pathology. I have personally reviewed the images and I agree with this report. WSN: [id number] Ordering Physician: Magda Leos Dictated By: Kamryn Finch MD Dictated Date/Time: 02/04/23 6:22 am Reviewed By: Adilene Lees MD Signed By: Adilene Lees MD Signed Date/Time: 02/04/23 6:27 am Transcribed By: ANJALI Transcribed Date/Time: 02/04/23 5:40 am Vital Signs Most recent to oldest [Reference Range]: 1 2 3 Height 153 cm (02/07/23 10:17 AM) 153 cm (02/07/23 6:39 AM) 153 cm (02/06/23 10:00 PM) Weight 56 kg (02/03/23 10:03 PM) 56 kg (02/03/23 4:23 PM) Oxygen Saturation [94-100 %] 98 % (02/07/23 10:17 AM) 97 % (02/07/23 6:39 AM) 96 % (02/06/23 10:00 PM) Pulse Rate [55-90 bpm] 72 bpm (02/07/23 10:17 AM) 73 bpm (02/07/23 6:39 AM) 81 bpm (02/06/23 10:00 PM) Body Mass Index [18.5-24.99 kg/m2] 23.92 kg/m2 (02/03/23 10:03 PM) Blood Pressure [90-138/55-84 mm Hg] 134/69mm Hg (02/07/23 10:17 AM) 125/108mm Hg (02/07/23 9:13 AM) 145/70mm Hg *H* (02/07/23 6:39 AM) Respiratory Rate [16-30 br/min] 18 br/min (02/07/23 10:17 AM) 18 br/min (02/07/23 6:39 AM) 18 br/min (02/06/23 10:00 PM) Temperature [96.8-100.4 DegF] 98.2 DegF (02/07/23 10:17 AM) 97.5 DegF (02/07/23 6:39 AM) 98.4 DegF (02/06/23 10:00 PM) Liters per Minute 0 L/min (02/06/23 1:52 PM) Mode of Delivery (Oxygen) Room air (02/07/23 10:17 AM) Room air (02/07/23 6:39 AM) Room air (02/06/23 10:00 PM) Blood pressure sites Arm, right (02/07/23 10:17 AM) Arm, right (02/07/23 6:39 AM) Arm, right (02/06/23 10:00 PM) Temperature Route Oral (02/07/23 10:17 AM) Oral (02/07/23 6:39 AM) Oral (02/06/23 10:00 PM) Dry Weight 56 kg (02/03/23 10:03 PM) 56 kg (02/03/23 4:23 PM) Social History Social History Type Response Smoking Status Former smoker; Tobac co user in household: No; Other: Quit in 1968; entered on: 02/09/15 Sex Admission evaluation note * Gretchen REYES, Maureen S: MODIFY, MODIFY, MODIFY, MODIFY, MODIFY, PERFORM Event Display: Admission Note Authored Date: [id number] Patient: ??ROSALIO GARCIA ? Age:??77 Years?Sex:??Female?:??1945?? Chief Complaint/Reason for Consultation Dementia,??generalized weakness, tiredness History of Present Illness Limited history from patient due to severe dementia ? 77-year-old??lady with past medical history??of severe dementia,??GERD, hypertension,??hypercholesterolemia, TIA,??apparently??incontinent??and needs help with all ADLs??and cannot follow??commands.?? She cannot ambulate??and needs??physical??ADLs.?? She presents to [facility]??with progressive generalized weakness and lethargy.?? Apparently she was out shopping??and when she got out ofchair??she slowly went down on room??when the legs gave??way.?? The patient is being admitted to [facility] for further evaluation and treatment. Review of Systems Patient could not give ROS??secondary to severe dementia Objective Measurements?? Height: 153 cm (02/03/23) Weight: 56 kg (02/03/23) Dry Weight: 56 kg (02/03/23) Body Mass Index: 23.92 kg/m2 (02/03/23) ? Vital Signs?? Temperature: 98.9 DegF (02/04/23 10:20:00) Temperature Route: Oral (02/04/23 10:20:00) Pulse Rate: 80 bpm (02/04/23 14:22:00) Respiratory Rate:??15 br/min??Low (02/03/23 22:03:00) Systolic Blood Pressure: 134 mm Hg (02/04/23 14:22:00) Diastolic Blood Pressure: 63 mm Hg (02/04/23 14:22:00) Blood pressure sites: Arm, left (02/04/23 14:22:00) Mean Arterial Pressure: 90 mm Hg (02/04/23 03:41:00) Pulse Pressure: 71 mm Hg (02/04/23 14:22:00) Oxygen Saturation: 96 % (02/04/23 14:22:00) Mode of Delivery (Oxygen): Room air (02/04/23 14:22:00) Early Warning Score: 0 (02/04/23 14:22:37) ? Intake/Output? No Data Available ?? Precautions No Precautions documented.? Mobility & Ambulation Level Mobility & Ambulation Level?? No qualifying data available. ? Physical Exam General:??Sleepy,??not talking Mental Status: Confused Head: Normocephalic. Neck: Supple Respiratory: Clear to auscultation and percussion. No wheezing, rales or rhonchi. Cardiovascular: Heart sounds normal. No thrills. Regular rate and rhythm, no murmurs, rubs or gallops. Gastrointestinal: Abdomen soft, non-tender, non-distended. Normal bowel sounds.?? Neurologic: Patient has history of??severe dementia??history of elevated??glucose severe dementia Skin: No rashes or lesions.?? Musculoskeletal: No cyanosis Assessment/Plan Diagnoses UTI (urinary tract infection) ??(N39.0) Urinary tract infection ??(N39.0) ?? Assessment:??77-year-old lady with past medical history of severe dementia, GERD, hypertension, hypercholesterolemia, TIA, apparently incontinent and needs help with all ADLs and cannot follow commands. She cannot ambulate and needs physical ADLs. She presents to [facility] with progressive generalized weakness and lethargy. Apparently she was out shopping and when she got out of chair sheslowly went down on room when the legs gave way. [facility]. ? 1.?Advanced dementia: Elderly lady with??severe??dementia Apparently patient??cannot follow commands??and cannot ambulate??and needs help with ADLs We will continue with memantine and??donepezil I will consult geriatric team??for further evaluation and help ? 2.?Hypertension: Blood pressure is slightly elevated We will continue with??amlodipine ? 3.?Hypercholesterolemia: Patient takes lovastatin at home??which is not on formulary We will give atorvastatin ? 4.?? Likely??UTI: Patient is very confused with dementia Urine analysis is dirty I will start??IV ceftriaxone??for 3 days??for presumed UTI ? 5.?Diet:??N.p.o. for now.??I have ordered??speech eval??for further??assessment DVT prophylaxis:??Pneumatic compression boots ? I called the??phone number on file??3 times??but no response??back ?? Discharge Planning:? Histories Allergies Allergies ?(Active and Proposed Allergies Only) shellfish? (Severity: Unknown severity, Onset: Unknown) Fish? (Severity: Unknown severity, Onset: Unknown) sulfa drugs? (Severity: Unknown severity, Onset: Unknown) ?Reactions: severe headache ? Past Medical History/Problem List Active Problems??(16) Abdominal pain Asthma Chronic kidney disease, stage 3a Dementia GERD (gastroesophageal reflux disease) Hypercholesterolemia Hypertension Lactose intolerance Memory loss Nonnecrotizing granulomatous lung disease Osteoporosis Pulmonary nodules/lesions, multiple Rosacea Sarcoidosis of lung Shoulder pain Upper respiratory virus ? Past Surgical History Colonoscopy with polypectomy: 01/19/18 Laparoscopic right ovarian cystectomy Cholecystectomy ? Social History Alcohol Details:??Use: Current. ??Frequency: 1-2 times per year. Employment/School Details:??Status: Retired. Exercise Details:??Self assessment: Good condition. ??Regular exercise: No. Home/Environment Details:??Living situation: Home/Independent. ??Lives with: Spouse. Nutrition/Health Details:??Diet: Regular. Substance Abuse Details:??Use: Never. Tobacco Details:??Former smoker, Tobacco user in household: No. ??Other: Quit in 1968. ? Psychosocial History ? Family History Father: [place] - Myocardial infarction ? Medications Home Medications Acetaminophen (acetaminophen 325 mg oral tablet)?650?Milligram?2?tablet?By Mouth?Every 4 hours?as needed?Temperature Greater than 100.5?Pain , Mild Amlodipine (amLODIPine 10 mg oral tablet)?1?tab(s)?By Mouth?Daily Ascorbic Acid (Vitamin C)?250?Milligram?By Mouth?Daily Calcium And Vitamin D Combination (Caltrate 600 + D)?1?tab(s)?By Mouth?2 times a day Donepezil (donepezil 5 mg oral tablet)?5?Milligram?1?tablet?By Mouth?Daily at bedtime?for 90?Days Fluticasone Nasal (Flonase 50 mcg/inh nasal spray)?1?spray(s)?Nares, Both?Daily in AM Folic Acid (folic acid 0.4 mg oral tablet)?1?tab(s)?0.4?Milligram?By Mouth?Daily Lovastatin (lovastatin 40 mg oral tablet)?1?tab(s)?By Mouth?Daily Memantine (memantine 10 mg oral tablet)?1?tab(s)?By Mouth?2 times a day Multivitamin?1?tab(s)?By Mouth?Daily Triamcinolone Topical (triamcinolone 0.1% topical cream)?1?lindsay?Topically?as needed?as needed?2 times weekly ? Inpatient Medications Medications (15) Active SCHEDULED: (10) Amlodipine 10 mg Tablet (amLODIPine 10 mg oral tablet) ??10 mg, By Mouth, Daily Ascorbic Acid 250 mg Tablet (Vitamin C 250 mg oral tablet) ??250 mg, By Mouth, Daily Atorvastatin 20 mg Tablet (atorvastatin 20 mg oral tablet) ??20 mg, By Mouth, Daily at bedtime Calcium Citrate 315mg / Vit D 250IU (Calcium Citrate 315 mg + Vitamin D 250IU Tablet) ??630 mg 2 tablet, By Mouth, Every 6 hours Donepezil 5 mg Tablet (donepezil 5 mg oral tablet) ??5 mg, By Mouth, Daily at bedtime Fluticasone Propionate 50mcg/inh Nasal [place] (Flonase 50 mcg/inh nasal spray) ??50 mcg 1 sprays, Nares, Both, Daily in AM Folic Acid 1 mg Tablet (folic acid 1 mg oral tablet) ??1 mg, By Mouth, Daily Memantine 10 mg Tablet (memantine 10 mg oral tablet) ??10 mg, By Mouth, 2 times a day NaCl 0.9% Flush 3ml (NaCL 0.9% Flush) ??3 mL, IV Push, Every 8 hours NaCl 0.9% Flush 3ml (NaCL 0.9% Flush) ??3 mL, IV Push, Every 8 hours CONTINUOUS: (0) PRN: (5) Acetaminophen 325 mg Tablet (Acetaminophen Tablet) ??650 mg, By Mouth, Every 4 hours Melatonin 3 mg Tablet (Melatonin Tablet) ??3 mg, By Mouth, Daily at bedtime NaCl 0.9% Flush 3ml (NaCL 0.9% Flush) ??3 mL, IV Push, Every 8 hours Polyethylene Glycol 17 Gm Powder (MiraLax Powder) ??17 Gm 1 pack/packet, By Mouth, Daily Senna 8.6 mg / Docusate 50 mg tablet (Docusate/Senna Tablet) ??1 tablet, By Mouth, 2 times a day ? Results Recent Labs BLOOD COUNT & DIFF WBC 8.3 k/mm3 ()?? 02/03/2023 17:00 RBC 5.20 m/mm3 ()?? 02/03/2023 17:00 Hgb 14.9 Gm/dL ()?? 02/03/2023 17:00 Hct 45.3 % ()?? 02/03/2023 17:00 MCV 87.1 femtoliters ()?? 02/03/2023 17:00 MCH 28.7 pg ()?? 02/03/2023 17:00 MCHC 32.9 g/dL (Low)?? 02/03/2023 17:00 Platelet Count 398 k/mm3 ()?? 02/03/2023 17:00 RDW-SD 42.4 femtoliters ()?? 02/03/2023 17:00 MPV 9.2 femtoliters (Low)?? 02/03/2023 17:00 Nucleated RBC (Automated) 0.0 #/100 WBC'S ()?? 02/03/2023 17:00 Abs. NRBC 0.0 k/mm3 ()?? 02/03/2023 17:00 Abs. Neut 6.6 k/mm3 ()?? 02/03/2023 17:00 Abs. Lymph 0.9 k/mm3 ()?? 02/03/2023 17:00 Abs. Mora 0.6 k/mm3 ()?? 02/03/2023 17:00 Abs. Eo 0.1 k/mm3 ()?? 02/03/2023 17:00 Abs. Baso 0.1 k/mm3 ()?? 02/03/2023 17:00 Neut % 79.5 % (High)?? 02/03/2023 17:00 Lymph % 10.6 % (Low)?? 02/03/2023 17:00 Mora % 7.5 % ()?? 02/03/2023 17:00 Eos % 0.8 % ()?? 02/03/2023 17:00 Baso % 1.0 % ()?? 02/03/2023 17:00 Imm Gran 0.6 % ()?? 02/03/2023 17:00 Abs. Imm Gran 0.1 k/mm3 ()?? 02/03/2023 17:00 ?? CHEM GENERAL Sodium 140 mmol/L ()?? 02/03/2023 17:00 Potassium 4.4 mmol/L ()?? 02/03/2023 17:00 Chloride 102 mmol/L ()?? 02/03/2023 17:00 Bicarbonate Level 25 mmol/L ()?? 02/03/2023 17:00 Anion Gap 13 ()?? 02/03/2023 17:00 Glucose Level 118 mg/dL (High)?? 02/03/2023 17:00 BUN 16 mg/dL ()?? 02/03/2023 17:00 Creatinine-Blood 1.0 mg/dL ()?? 02/03/2023 17:00 Estimated GFR Creatinine 55 ML/MIN/1.73 M2 ()?? 02/03/2023 17:00 Calcium 10.4 mg/dL ()?? 02/03/2023 17:00 Phosphorus 3.6 mg/dL ()?? 02/03/2023 17:00 Magnesium 2.2 mg/dL ()?? 02/03/2023 17:00 Lipase 25 units/L ()?? 02/03/2023 17:00 AST (SGOT) 19 units/L ()?? 02/03/2023 17:00 ALT (SGPT) 23 units/L ()?? 02/03/2023 17:00 Bilirubin, Total 0.5 mg/dL ()?? 02/03/2023 17:00 ?? UA/URINALYSIS Appear/Color, Urine YELLOW ()?? 02/04/2023 05:11 Clarity CLEAR ()?? 02/04/2023 05:11 Specific [place], Urine 1.023 ()?? 02/04/2023 05:11 pH, Urine 6.0 ()?? 02/04/2023 05:11 Albumin, Urine 1+ (Abnormal)?? 02/04/2023 05:11 Glucose, Urine NEGATIVE ()?? 02/04/2023 05:11 Ketones, Urine NEGATIVE ()?? 02/04/2023 05:11 Bilirubin, Urine NEGATIVE ()?? 02/04/2023 05:11 Hemoglobin, Urine TRACE (Abnormal)?? 02/04/2023 05:11 Nitrite, Urine NEGATIVE ()?? 02/04/2023 05:11 Leukocyte, Urine 3+ (Abnormal)?? 02/04/2023 05:11 Urobilinogen NORMAL mg/dL ()?? 02/04/2023 05:11 WBC's, Urine >182 /HPF (High)?? 02/04/2023 05:11 RBC's, Urine 2 /HPF ()?? 02/04/2023 05:11 Bacteria SLIGHT HPF (Abnormal)?? 02/04/2023 05:11 Squamous Epith <1 /HPF ()?? 02/04/2023 05:11 Mucus MODERATE /LPF ()?? 02/04/2023 05:11 Culture Indication CULTURE INDICATED ()?? 02/04/2023 05:11 ?? URINE OTHER Est Creatinine Clearance 33.70 mL/min ()?? 02/03/2023 18:36 ?? VIROLOGY COVID-19 by RT-PCR NEGATIVE ()?? 02/04/2023 07:02 ? EKG study * Event Display: EKG Authored Date: * Event Display: ECG 12-Lead Authored Date: Please click on pdf link to open report * Event Display: ECG 12-Lead Authored Date: Ventricular Rate: 96 BPM Atrial Rate: 96 BPM P-R Interval: 138 ms QRS Duration: 74 ms Q-T Interval: 348 ms QTC Calculation(Bazett): 439 ms P [place]: 1 degrees R [place]: -2 degrees T [place]: 21 degrees Normal sinus rhythm Cannot rule out Anterior infarct (cited on or before 07-MAY-2020) Abnormal ECG When compared with ECG of 02-JAN-2022 16:34, No significant change was found Confirmed by COLLINS REYES, [facility] ([id number]) on 02/05/2023 6:26:44 PM [place] * Caleb Stokes RN: PERFORM, SIGN, VERIFY Event Display: [facility] Authored Date: Patient: ROSALIO GARCIA Age: 77 years Sex: Female : 1945 Associated Diagnoses: None Author: Caleb Stokes RN Findings Alert to self. Responds with simple gestures yes , no thank you . Otherwise, patient does not communicate more than that much. Walked the halls with PT yesterday. IV abx given this morning. Medication crushed in applesauce. Eats well. Patient is a feed. No skin issues. [facility] to [facility] No acute changes. Discharge Information Case Management Discharge Plan : Case Management Discharge Plan Data 02/07/2023 9:26 EDT Discharge Level of Care at Discharge halfway facility Discharge Nursing Homes/Rehab Facilities [address] [place] [address] [address] [place], [place] Discharge Transportation Arranged [facility] Discharge Arranged Transport Date/Time 02/07/2023 11:00 Mode of Transportation Arranged Ambulance Name of Agency #[address] [place] [address] Agency Research Psychologist # Service Categories #1 Physical Therapy, Care Home Service Comments #1 You are going to [address] [place] [address] [facility] today and will transfer to [place] as soon as a bed becomes available. * Caleb Stokes RN: PERFORM, SIGN, VERIFY Event Display: Progress Note Hospital Authored Date: Patient: ROSALIO GARCIA Age: 77 years Sex: Female : 1945 Associated Diagnoses: None Author: Caleb Stokes RN Findings Alert and oriented to self. Answers yes or no and thank you. Pills crushed in applesauce. Bowel movement today. Was able to walk with PT in the halls. Fluids running. Iv abx given. * Kavon REYES, Marry Sharp: PERFORM Event Display: Progress Note Hospital Authored Date: Patient: ??ROSALIO GARCIA ? Age:??77 Years?Sex:??Female?:??1945?? Subjective Patient seen and examined at bedside.?? 77-year-old female??managing for acute metabolic encephalopathy secondary to UTI in the setting of advanced dementia. Overall her mental status has improved but continues to??fluctuate. Patient's is present at bedside during my evaluation. ??States that she still appears slightly more confused than her??baseline. Has been afebrile. Patient is able to relay to me that she does not have any pain. Review of Systems Review of systems is limited due to her dementia??and inability to communicate.?? However??denies??pain??and difficulty breathing. Objective Measurements?? Height: 153 cm (02/06/23) Weight: 56 kg (02/03/23) Dry Weight: 56 kg (02/03/23) Body Mass Index: 23.92 kg/m2 (02/03/23) ? Vital Signs?? Temperature: 98.3 DegF (02/06/23 13:52:00) Temperature Route: Axillary (02/06/23 13:52:00) Pulse Rate: 85 bpm (02/06/23 13:52:00) Respiratory Rate: 18 br/min (02/06/23 13:52:00) Systolic Blood Pressure:??144 mm Hg??High (02/06/23 13:52:00) Diastolic Blood Pressure: 73 mm Hg (02/06/23 13:52:00) Blood pressure sites: Arm, right (02/06/23 13:52:00) Mean Arterial Pressure: 97 mm Hg (02/06/23 13:52:00) Pulse Pressure: 71 mm Hg (02/06/23 13:52:00) Oxygen Saturation: 97 % (02/06/23 13:52:00) Liters per Minute: 0 L/min (02/06/23 13:52:00) Mode of Delivery (Oxygen): Room air (02/06/23 13:52:00) [place] Warning Score: 0 (02/06/23 13:53:43) ? Intake/Output? 02/04 06:32 02/06 07:00 02/05 07:00 02/04 07:00 02/03 07:00 ?? 02/06 15:19 02/06 15:19 05/25 06:59 05/24 06:59 / 06:59 Intake ?120 ?0 ?120 ?0 ?0 Output ?0 ?0 ?0 ?0 ?0 Net Total ?120 ?0 ?120 ?0 ?0 ? Urine Count ?4 ?1 ?2 ?1 ?0 Diaper Count ?4 ?0 ?3 ?1 ?0 ? Physical Exam Constitutional: Patient is awake and alert.?? Attentive??at times but fluctuates.?? Follows simple directions. Head: Normocephalic. ?? Eyes: Pupils are equal, round and reactive to light. Extraocular muscles intact. No pallor or scleral icterus ?? Ear, Nose and Throat: mucous membranes moist. Ears and nose - no obvious deformities. Trachea midline. ?? Neck: Supple, Full range of motion.No JVD or bruits. Respiratory:??Clear to auscultation. No wheezing or rhonchi.??No use of accessory muscles. No tactile fremitus.?? Cardiovascular:??PMI not visible. S1 S2 regular. No murmurs, rubs or gallops. Gastrointestinal:??Abdomen soft, non-tender, non-distended. Normal bowel sounds. No pulsatile mass.No hepatosplenomegaly. Genitourinary:??No costovertebral angle tenderness. Extremities: No lower extremity pitting edema. No cyanosis or clubbing. Neurologic:??Awake: Alert??cannot assess orientation??as she can only answer with yes or no. ??Appears to be moving all 4 extremities. _ Inpatient Medications Medications (17) Active SCHEDULED: (12) Amlodipine 10 mg Tablet (amLODIPine 10 mg oral tablet) ??10 mg, By Mouth, Daily Ascorbic Acid 250 mg Tablet (Vitamin C 250 mg oral tablet) ??250 mg, By Mouth, Daily Atorvastatin 20 mg Tablet (atorvastatin 20 mg oral tablet) ??20 mg, By Mouth, Daily at bedtime Calcium Citrate 315mg / Vit D 250IU (Calcium Citrate 315 mg + Vitamin D 250IU Tablet) ??630 mg 2 tablet, By Mouth, Every 6 hours Ceftriaxone 1 Gm Inj (Ceftriaxone IVPB) ??1 Gm, IVPB, Every 24 hours Donepezil 5 mg Tablet (donepezil 5 mg oral tablet) ??5 mg, By Mouth, Daily at bedtime Enoxaparin 40 mg Inj (Enoxaparin Inj) ??40 mg 0.4 mL, Subcutaneous Injection, Every 24 hours Fluticasone Propionate 50mcg/inh Nasal [place] (Flonase 50 mcg/inh nasal spray) ??50 mcg 1 sprays, Nares, Both, Daily in AM Folic Acid 1 mg Tablet (folic acid 1 mg oral tablet) ??1 mg, By Mouth, Daily Memantine 10 mg Tablet (memantine 10 mg oral tablet) ??10 mg, By Mouth, 2 times a day NaCl 0.9% Flush 3ml (NaCL 0.9% Flush) ??3 mL, IV Push, Every 8 hours NaCl 0.9% Flush 3ml (NaCL 0.9% Flush) ??3 mL, IV Push, Every 8 hours CONTINUOUS: (0) PRN: (5) Acetaminophen 325 mg Tablet (Acetaminophen Tablet) ??650 mg, By Mouth, Every 4 hours Melatonin 3 mg Tablet (Melatonin Tablet) ??3 mg, By Mouth, Daily at bedtime NaCl 0.9% Flush 3ml (NaCL 0.9% Flush) ??3 mL, IV Push, Every 8 hours Polyethylene Glycol 17 Gm Powder (MiraLax Powder) ??17 Gm 1 pack/packet, By Mouth, Daily Senna 8.6 mg / Docusate 50 mg tablet (Docusate/Senna Tablet) ??1 tablet, By Mouth, 2 times a day ? 72 Hour Antibiotic History Active Antibiotics Calendar Day Last Administered First Administered Ceftriaxone??1 Gm, 100 mL/hr, IVPB, Every 24 hours ?2 02/06/2023 09:09 02/05/2023 09:44 ? Stopped Antibiotics Stop Date/Time Last Administered First Administered Ceftriaxone??1 Gm, 100 mL/hr, IVPB, Once 02/04/2023 07:02 02/04/2023 07:02 02/04/2023 07:02 ? Results ? LFT?? No qualifying data available. ?? Microbiology ?? COVID-19 (Novel Coronavirus), Rapid PCR?? Completed?? Source: Nasal Body Site: Nose Collected Dt/Tm: 02/04/2023 06:42 Last Updated Dt/Tm: 02/04/2023 13:06 ? Uric/LDH?? No qualifying data available. ?? Assessment/Plan 77-year-old female with a past medical history of severe dementia, GERD, hypertension hypercholesteremia TIA, incontinent as baseline and wears depends, presenting with lethargy and confusion managing for acute metabolic encephalopathy secondary to UTI in the setting of severe dementia. ?? Advanced dementia Acute metabolic encephalopathy Urine tract infection Patient can follow some directions at baseline. According to patient's she was more lethargic and inattentive. Currently mentation has improved since admission however not at baseline.? Her attentiveness fluctuates. Question??whether there is a component of delirium. We will avoid any sedative medications. ??Reorient??as much as possible. Delirium precautions Urine culture growing??E. coli that is sensitive to ceftriaxone. ??While she is??in the hospital wewill continue ceftriaxone and can be switched to Augmentin on discharge to complete 5 days of antibiotics Patient is??awake enough to take her medications which we will continue Question adequate oral hydration??at this time. ??We will??give 1 L of??LR??at 75 cc/h Recheck lab work tomorrow morning to ensure no electrolyte abnormalities including magnesium and calcium ? Hypertension Continue with amlodipine ?? Hypercholesteremia Substituted with atorvastatin ?? Diet???has been cleared for a regular diet with thin liquids DVT prophylaxis???continue Lovenox ?? Anticipated disposition???physical therapy??recommendation is for short-term rehabilitation. ??If patient's mentation continues to improve and there are no??agitated behaviors overnight can be discharged to short-term rehabilitation within the next 24 hours. ? Note * Soniya Hernandez RN: PERFORM Event Display: Discharge/Transfer Note Hospital Authored Date: [id number] Nursing Discharge Note Entered On: 02/07/2023 11:18 EDT Performed On: 02/07/2023 11:18 EDT by Soniya Hernandez RN Nursing Discharge Note 2 Discharge Time : 02/07/2023 11:18 EDT Discharge Level of Care at Discharge : halfway facility Discharge Nursing Homes/Rehab Facilities : [address] [place] [address] Patient Left Unit Via : Ambulance Patient Accompanied Off Unit with : Ambulance/Chair Van Personnel Handover Given to Transport Personnel : Yes DC Instructions Provided & Signed by Pt : No Patient Understands D/C Instructions : Yes Verbalized Understanding of D/C Plan By : Family, Caregiver Patient Instructions Discharge Signed : No Instructions for Discharge Comments : facility transfer Did Pt have Specialty Bed or Wound Vac : Yes Soniya Hernandez RN - 02/07/2023 11:18 EDT * Kavon REYES, Marry Sharp: PERFORM Event Display: Discharge/Transfer Note Hospital Authored Date: [id number] Patient: ??ROSALIO GARCIA ? Age:??77 Years?Sex:??Female?:??1945?? Patient Information Discharge Location: 4 Primary Care Physician: Rosario REYES, Pablito Sharp Admit Date/Time: 02/04/23 06:32 Discharge Disposition Discharge Disposition: Care Home Facility/Rehab Discharge Diagnosis UTI (urinary tract infection) (N39.0) Acute metabolic encephalopathy Severe dementia Asthma GERD (gastroesophageal reflux disease) Hypercholesterolemia Hypertension Osteoporosis Rosacea Sarcoidosis of lung ?? _ Discharge Medications Acetaminophen (acetaminophen 325 mg oral tablet)?650?Milligram?2?tablet?By Mouth?Every 4 hours?as needed?Temperature Greater than 100.5?Pain , Mild Amlodipine (amLODIPine 10 mg oral tablet)?1?tab(s)?By Mouth?Daily Amoxicillin-Clavulanate (Augmentin 500 mg-125 mg oral tablet)?1?tab(s)?By Mouth?Every 12 hours?for 1?Days Ascorbic Acid (Vitamin C)?250?Milligram?By Mouth?Daily Calcium And Vitamin D Combination (Caltrate 600 + D)?1?tab(s)?By Mouth?2 times a day Donepezil (donepezil 5 mg oral tablet)?5?Milligram?1?tablet?By Mouth?Daily at bedtime?for 90?Days Fluticasone Nasal (Flonase 50 mcg/inh nasal spray)?1?spray(s)?Nares, Both?Daily in AM Folic Acid (folic acid 0.4 mg oral tablet)?1?tab(s)?0.4?Milligram?By Mouth?Daily Lovastatin (lovastatin 40 mg oral tablet)?1?tab(s)?By Mouth?Daily Memantine (memantine 10 mg oral tablet)?1?tab(s)?By Mouth?2 times a day Multivitamin?1?tab(s)?By Mouth?Daily Triamcinolone Topical (triamcinolone 0.1% topical cream)?1?lindsay?Topically?as needed?as needed?2 times weekly ? Medications Started Amoxicillin-Clavulanate (Augmentin 500 mg-125 mg oral tablet)?1?tab(s)?By Mouth?Every 12 hours?for 1?Days Medications Discontinued None Allergies Allergies ?(Active and Proposed Allergies Only) shellfish? (Severity: Unknown severity, Onset: Unknown) Fish? (Severity: Unknown severity, Onset: Unknown) sulfa drugs? (Severity: Unknown severity, Onset: Unknown) ?Reactions: severe headache ? Hospital Course 77-year-old female with a past medical history of severe dementia, GERD, hypertension hypercholesterolemia TIA who is incontinent at baseline and wears depends, presenting with lethargy and confusionand was admitted for further management of acute metabolic encephalopathy secondary to UTI in the setting of severe dementia. ?? At baseline patient can follow some directions but needs assistance with ADLs. At the time of presentation patient was somnolent and lethargic inattentive and was not able to ambulate at her baseline. She was afebrile and hemodynamically stable and was not in sepsis at the time of presentation. Urinalysis showed presence of bacteriuria and pyuria. There was no leukocytosis. Renal function was stable. Was empirically started on IV ceftriaxone. Received IV fluids for hydration. Was initially keptn.p.o. as her mentation was poor. However with adequate hydration and antibiotics her mentation slowly improved. Urine culture was growing E. coli that was sensitive to ceftriaxone. She has received 4 days of IV antibiotics. Will be discharged on oral Augmentin for 1 day to complete 5 days of antibiotics. Other electrolyte abnormalities have been ruled out. She is now at her baseline mentation. ?? She has been cleared by speech to take a regular diet with thin liquids but needs assistance with meals. Physical therapy evaluation done. Will need to be discharged to short-term rehabilitation to improve independent ambulation. ?? Objective Measurements?? Height: 153 cm (02/07/23) Weight: 56 kg (02/03/23) Dry Weight: 56 kg (02/03/23) Body Mass Index: 23.92 kg/m2 (02/03/23) ? Vital Signs?? Temperature: 97.5 DegF (02/07/23 06:39:00) Temperature Route: Oral (02/07/23 06:39:00) Pulse Rate: 73 bpm (02/07/23 06:39:00) Respiratory Rate: 18 br/min (02/07/23 06:39:00) Systolic Blood Pressure:??145 mm Hg??High (02/07/23 06:39:00) Diastolic Blood Pressure: 70 mm Hg (02/07/23 06:39:00) Blood pressure sites: Arm, right (02/07/23 06:39:00) Mean Arterial Pressure: 95 mm Hg (02/07/23 06:39:00) Pulse Pressure: 75 mm Hg (02/07/23 06:39:00) Oxygen Saturation: 97 % (02/07/23 06:39:00) Liters per Minute: 0 L/min (02/06/23 13:52:00) Mode of Delivery (Oxygen): Room air (02/07/23 06:39:00) Early Warning Score: 2 (02/07/23 06:40:10) ? . Physical Exam Constitutional: Patient is awake and alert.?? At baseline mentation today.?? Attentive and follows directions. Head: Normocephalic. ?? Eyes: Pupils are equal, round and reactive to light. Extraocular muscles intact. No pallor or scleral icterus ?? Ear, Nose and Throat: mucous membranes moist. Ears and nose - no obvious deformities. Trachea midline. ?? Neck: Supple, Full range of motion.No JVD or bruits. Respiratory:??Clear to auscultation. No wheezing or rhonchi.??No use of accessory muscles. No tactile fremitus.?? Cardiovascular:??PMI not visible. S1 S2 regular. No murmurs, rubs or gallops. Gastrointestinal:??Abdomen soft, non-tender, non-distended. Normal bowel sounds. No pulsatile mass.No hepatosplenomegaly. Genitourinary:??No costovertebral angle tenderness. Extremities: No lower extremity pitting edema. No cyanosis or clubbing. Neurologic:??Awake and alert.?? Face is symmetric. ??Answers questions with yes/no. ??Moves all 4 extremities without restriction. Pending Results Add On Lab Order ordered on 02/03/2023 Add On Lab Order ordered on 02/04/2023 Follow-Up Appointments Added Follow Up ?Time Frame ?Comments Rosario REYES, Pablito Sharp?1 week: call to discuss follow up visit Post Discharge Care Diet: Cardiac diet Activity: Ambulate with assistance ??3 times a day ??unless otherwise specified Code Status: ?? Full Resuscitation Discharge ?02/07/23 7:56:00 EDT Home Health Face to Face ^HomeHealthFTF Results Discharge Labs BLOOD COUNT & DIFF WBC 8.3 k/mm3 ()?? 02/03/2023 17:00 RBC 5.20 m/mm3 ()?? 02/03/2023 17:00 Hgb 14.9 Gm/dL ()?? 02/03/2023 17:00 Hct 45.3 % ()?? 02/03/2023 17:00 MCV 87.1 femtoliters ()?? 02/03/2023 17:00 MCH 28.7 pg ()?? 02/03/2023 17:00 MCHC 32.9 g/dL (Low)?? 02/03/2023 17:00 Platelet Count 398 k/mm3 ()?? 02/03/2023 17:00 RDW-SD 42.4 femtoliters ()?? 02/03/2023 17:00 MPV 9.2 femtoliters (Low)?? 02/03/2023 17:00 Nucleated RBC (Automated) 0.0 #/100 WBC'S ()?? 02/03/2023 17:00 Abs. NRBC 0.0 k/mm3 ()?? 02/03/2023 17:00 Abs. Neut 6.6 k/mm3 ()?? 02/03/2023 17:00 Abs. Lymph 0.9 k/mm3 ()?? 02/03/2023 17:00 Abs. Mora 0.6 k/mm3 ()?? 02/03/2023 17:00 Abs. Eo 0.1 k/mm3 ()?? 02/03/2023 17:00 Abs. Baso 0.1 k/mm3 ()?? 02/03/2023 17:00 Neut % 79.5 % (High)?? 02/03/2023 17:00 Lymph % 10.6 % (Low)?? 02/03/2023 17:00 Mora % 7.5 % ()?? 02/03/2023 17:00 Eos % 0.8 % ()?? 02/03/2023 17:00 Baso % 1.0 % ()?? 02/03/2023 17:00 Imm Gran 0.6 % ()?? 02/03/2023 17:00 Abs. Imm Gran 0.1 k/mm3 ()?? 02/03/2023 17:00 ?? CHEM GENERAL Sodium 142 mmol/L ()?? 02/07/2023 01:10 Potassium 3.9 mmol/L ()?? 02/07/2023 01:10 Chloride 107 mmol/L ()?? 02/07/2023 01:10 Bicarbonate Level 25 mmol/L ()?? 02/07/2023 01:10 Anion Gap 10 ()?? 02/07/2023 01:10 Glucose Level 105 mg/dL (High)?? 02/07/2023 01:10 BUN 17 mg/dL ()?? 02/07/2023 01:10 Creatinine-Blood 0.8 mg/dL ()?? 02/07/2023 01:10 Estimated GFR Creatinine 75 ML/MIN/1.73 M2 ()?? 02/07/2023 01:10 Calcium 9.4 mg/dL ()?? 02/07/2023 01:10 Phosphorus 3.6 mg/dL ()?? 02/03/2023 17:00 Magnesium 2.2 mg/dL ()?? 02/07/2023 01:10 Lipase 25 units/L ()?? 02/03/2023 17:00 AST (SGOT) 19 units/L ()?? 02/03/2023 17:00 ALT (SGPT) 23 units/L ()?? 02/03/2023 17:00 Bilirubin, Total 0.5 mg/dL ()?? 02/03/2023 17:00 ?? UA/URINALYSIS Appear/Color, Urine YELLOW ()?? 02/04/2023 05:11 Clarity CLEAR ()?? 02/04/2023 05:11 Specific Reno, Urine 1.023 ()?? 02/04/2023 05:11 pH, Urine 6.0 ()?? 02/04/2023 05:11 Albumin, Urine 1+ (Abnormal)?? 02/04/2023 05:11 Glucose, Urine NEGATIVE ()?? 02/04/2023 05:11 Ketones, Urine NEGATIVE ()?? 02/04/2023 05:11 Bilirubin, Urine NEGATIVE ()?? 02/04/2023 05:11 Hemoglobin, Urine TRACE (Abnormal)?? 02/04/2023 05:11 Nitrite, Urine NEGATIVE ()?? 02/04/2023 05:11 Leukocyte, Urine 3+ (Abnormal)?? 02/04/2023 05:11 Urobilinogen NORMAL mg/dL ()?? 02/04/2023 05:11 WBC's, Urine >182 /HPF (High)?? 02/04/2023 05:11 RBC's, Urine 2 /HPF ()?? 02/04/2023 05:11 Bacteria SLIGHT HPF (Abnormal)?? 02/04/2023 05:11 Squamous Epith <1 /HPF ()?? 02/04/2023 05:11 Mucus MODERATE /LPF ()?? 02/04/2023 05:11 Culture Indication CULTURE INDICATED ()?? 02/04/2023 05:11 ?? URINE OTHER Est Creatinine Clearance 42.13 mL/min ()?? 02/05/2023 01:28 ? VIROLOGY COVID-19 by RT-PCR NEGATIVE ()?? 02/04/2023 07:02 ? 32_ minutes spent on discharge * Leslie BRITO, Bree: PERFORM, SIGN, VERIFY Event Display: Case Management Discharge Plan Authored Date: [id number] Patient: ROSALIO GARCIA Age: 77 years Sex: Female : 1945 Associated Diagnoses: None Author: Leslie BRITO, Bree Discharge Plan Case Management Discharge Plan : Case Management Discharge Plan Data 02/07/2023 9:26 EDT Discharge Level of Care at Discharge halfway facility Discharge Nursing Homes/Rehab Facilities [address] [place] [address] [address] [place], [place] Discharge Transportation Arranged [facility] Discharge Arranged Transport Date/Time 02/07/2023 11:00 Mode of Transportation Arranged Ambulance Name of Agency #[address] [place] [address] Agency Research Psychologist # Service Categories #1 Physical Therapy, Care Home Service Comments #1 You are going to [address] [place] [address] today and will transfer to [place] as soon as a bed becomes available. * Soniya Hernandez RN: PERFORM Event Display: Patient Education/Instruction Authored Date: [id number] Inpatient Adult Discharge Instructions [address] [address] Name: ROSALIO GARCIA : 1945 Visit: 02/04/2023 06:32:00 Current Date: 02/07/2023 10:01 Account: [id number] Inpatient Adult Discharge Instructions We would like to thank you for allowing us to assist you with your healthcare needs. The following includes patient education materials and information regarding your injury/illness. Our entire staffstrives to provide an excellent experience for our patients and their families. PLEASE ENSURE YOU FOLLOW-UP PER THE INSTRUCTIONS BELOW! ?? YOUR OPINION IS IMPORTANT TO US! Please complete the survey you may receive by mail or email. Your feedback will be used to make improvements to the healthcare experiences of our patients and their families. Surveys are administered by [employer] ?? If further treatment with your primary care physician or another doctor is recommended, it is important for you to keep the appointment. Call your primary care physician or return to the Emergency Department immediately if your condition worsens, fails to improve, or new symptoms develop. If you need to find a doctor, you can call [facility] for a referral at [phone] or toll free at [phone] or log in to [email or web address].. ?? You can view and manage your care through the patient portal or by using a health care lindsay of your choosing. [employer] is a website that allows you to securely view your medical information including your hospital discharge summary, office visit summaries, medications and follow-up visits. You can also request appointments, renew medications, and request access to your medical information using a health care lindsay of your choosing, or just ask a question. You can enroll at [email or web address] or register during your next office visit. You have been discharged from [facility], Patient Care Unit: S64. If you have any questions regarding these instructions after you leave, please call us and we will be happy to assist you. [facility] Your Care Team Attending Physician Kavon REYES, Marry Sharp Consulting Providers Jian Parks MD Discharging Providers Kaovn REYES, Marry Sharp Reason for Your Visit UTI WEAKNESS Your Diagnosis UTI (urinary tract infection) Tests Performed Below is a partial list of the tests performed during your hospitalization. You may have had other tests and procedures not included in this list. Please discuss all test results with your provider. ALT AST Basic Metabolic Panel BILIRUBIN,TOTAL BUN CBC w/ Differential COVID-19 (Novel Coronavirus), Rapid PCR Creatinine Electrolytes LIPASE Magnesium Level PHOSPHORUS Urinalysis Reflex Culture CT Head/Brain W/O Contrast Primary Care Provider Pablito Ponce MD Advance Directive . Discharge Vitals Temperature: 97.5 DegF Height: 153 cm Pulse Rate: 73 bpm Weight: 56 kg Respiratory Rate: 18 br/min Body Mass Index: 23.92 kg/m2 Systolic Blood Pressure: 125 mm Hg Body surface area: 1.54 Diastolic Blood Pressure:??108 mm Hg??High ?? Oxygen Saturation: 97 % ?? Studies Pending All tests and labs ordered during this hospital stay have been completed unless listed below. Please discuss all pending results with your provider listed above in these instructions. ?? Add On Lab Order What to do next Instructions From Your Doctor Discharge Orders Diet:??Cardiac diet Activity:??Ambulate with assistance 3 times a day unless otherwise specified Code Status:?? Full Resuscitation You Need to Schedule the Following Appointments Follow Up with??Rosario REYES, Pablito Sharp When:??Within 1 week: call to discuss follow up visit Where: ?? Discharge Medications ROSALIO GARCIA :1945 Visit Date:02/04/2023 Medications: Please continue your medications until treatment is completed or stopped by your provider. Medications not listed below should be discontinued. Discuss any questions related to medications with your provider. What How Much When Instructions Next Dose New Amoxicillin-Clavulanate (Augmentin 500 mg-125 mg oraltablet) 1 tab(s) Oral Every 12 hours Duration: 1 Days 02/07?? PM Unchanged Acetaminophen (acetaminophen 325 mg oral tablet) 2 tab(s) Oral Every 4 hours as needed for Pain , Mild Temperature Greater than 100.5 ?? as prescribed Unchanged Amlodipine (amLODIPine 10 mg oral tablet) 1 tab(s) Oral Daily 02/08?? AM Unchanged Ascorbic Acid (Vitamin C) 250 Milligram Oral Daily 02/08?? AM Unchanged Calcium And Vitamin D Combination (Caltrate 600 + D) 1 tab(s) Oral Twice a day 02/07?? PM Unchanged Donepezil (donepezil 5 mg oral tablet) 1 tab(s) Oral Daily at Bedtime Duration: 90 Days 02/07?? PM Unchanged Fluticasone Nasal (Flonase 50 mcg/ inh nasal spray) 1 spray(s) Nares, Both Daily in the morning 02/08?? AM Unchanged Folic Acid (folic acid 0.4 mg oral tablet) 1 tab(s) Oral Daily 02/08?? AM Unchanged Lovastatin (lovastatin 40 mg oral tablet) 1 tab(s) Oral Daily 02/07?? PM Unchanged Memantine (memantine 10 mg oral tablet) 1 tab(s) Oral Twice a day 02/07?? PM Unchanged Multivitamin 1 tab(s) Oral Daily 02/08?? AM Unchanged Triamcinolone Topical (triamcinolone 0.1% topical cream) 1 lindsay Topically As needed for as needed 2 times weekly ?? as prescribed Test Results Below is a partial list of the most recent Laboratory test results done prior to this discharge. You may have had other tests and procedures not included in this list. Please discuss all test resultswith your provider. Est Creatinine Clearance - 42.13 mL/min (02/05/2023) ALT (02/03/2023) ???ALT (SGPT) - 23 units/L AST (02/03/2023) ???AST (SGOT) - 19 units/L Basic Metabolic Panel (02/07/2023) ???Sodium - 142 mmol/L???Potassium - 3.9 mmol/L???Chloride - 107 mmol/L???Bicarbonate Level - 25 mmol/L???Anion Gap - 10???Glucose Level - 105 mg/dL???BUN - 17 mg/dL???Creatinine-Blood - 0.8 mg/dL???Estimated GFR Creatinine - 75 ML/MIN/1.73 M2???Calcium - 9.4 mg/dL BILIRUBIN,TOTAL (02/03/2023) ???Bilirubin, Total - 0.5 mg/dL BUN (02/05/2023) ???BUN - 15 mg/dL CBC w/ Differential (02/03/2023) ???WBC - 8.3 k/mm3???RBC - 5.20 m/mm3???Hgb - 14.9 Gm/dL???Hct - 45.3 %???MCV - 87.1 femtoliters???MCH - 28.7 pg???MCHC - 32.9 g/dL???Platelet Count - 398 k/mm3???RDW-SD - 42.4 femtoliters???MPV - 9.2 femtoliters???Nucleated RBC (Automated) - 0.0 #/100 WBC'S???Abs. NRBC - 0.0 k/mm3???Abs. Neut - 6.6 k/mm3???Abs. Lymph - 0.9 k/mm3???Abs. Mora - 0.6 k/mm3???Abs. Eo - 0.1 k/mm3???Abs. Baso - 0.1 k/mm3???Neut % - 79.5 %???Lymph % - 10.6 %???Mora % - 7.5 %???Eos % - 0.8 %???Baso % - 1.0 %???Imm Gran- 0.6 %???Abs. Imm Gran - 0.1 k/mm3 COVID-19 (Novel Coronavirus), Rapid PCR (02/04/2023) ???COVID-19 by RT-PCR - NEGATIVE Creatinine (02/05/2023) ???Creatinine-Blood - 0.8 mg/dL???Estimated GFR Creatinine - 75 ML/MIN/1.73 M2 Electrolytes (02/05/2023) ???Sodium - 142 mmol/L???Potassium - 3.7 mmol/L???Chloride - 105 mmol/L???Bicarbonate Level - 24 mmol/L???Anion Gap - 13 LIPASE (02/03/2023) ???Lipase - 25 units/L Magnesium Level (02/07/2023) ???Magnesium - 2.2 mg/dL PHOSPHORUS (02/03/2023) ???Phosphorus - 3.6 mg/dL Urinalysis Reflex Culture (02/04/2023) ???Appear/Color, Urine - YELLOW???Clarity - CLEAR???Specific Reno, Urine - 1.023???pH, Urine - 6.0???Albumin, Urine - 1+???Glucose, Urine - NEGATIVE???Ketones, Urine - NEGATIVE???Bilirubin, Urine - NEGATIVE???Hemoglobin, Urine - TRACE???Nitrite, Urine - NEGATIVE???Leukocyte, Urine - 3+???Urobilinogen - NORMAL? ?WBC's, Urine - >182 /HPF? ?RBC's, Urine - 2 /HPF? ?Bacteria - SLIGHT? ?Squamous Epith - <1 /HPF? ?Mucus - MODERATE? ?Culture Indication - CULTURE INDICATED Allergies (NKA means No Known Allergies) Fish shellfish sulfa drugs??(severe headache) Problems Active Problems??(16) Abdominal pain?? Asthma?? Chronic kidney disease, stage 3a?? Dementia?? GERD (gastroesophageal reflux disease)?? Hypercholesterolemia?? Hypertension?? Lactose intolerance?? Memory loss?? Nonnecrotizing granulomatous lung disease?? Osteoporosis?? Pulmonary nodules/lesions, multiple?? Rosacea?? Sarcoidosis of lung?? Shoulder pain?? Upper respiratory virus?? Education Materials Below is the list of Educational Leaflet Providered with your Discharge Instructions. Valuables and Belongings I fully understand and agree that [facility] accepts no responsibility for all my personal property including clothing, toilet articles, radios, jewelry, dentures, hearing aids, rings, money, or any other property that is in my possession or is brought to me after admission. I understand certain valuables may be placed in a hospital safe for a short period of time. I understand that the hospital is not liable for loss or damage due to accident, fire, or other natural occurrence while said property is in the safe. I accept full responsibility for any personal property that I keep with me, and will not hold the hospital responsible in case of loss or disappearance. I acknowledge that i have been encouraged to send valuables and belongings home. ?? Review of Valuable and Belonging List: With patient Date for Pt to Sign Valuables/Belongings: 02/04/23 22:31:00 ?? Other Discharge Information ? Case Management Discharge Plan?? Discharge Plan?? Discharge Agency Information?? Discharge Level of Care at Discharge: halfway facility Name of Agency #1: [address] [place] [address] Discharge Transportation Arranged: [facility] ??[phone] Agency Research Psychologist #1: [phone] Mode of Transportation Arranged: Ambulance Service Categories #1: Physical Therapy, Care Home Discharge Arranged Transport Date/Time: 02/07/23 11:00:00 Service Comments #1: You are going to [address] [place] [address] today and will transfer to [place] as soon as a bed becomes available. Discharge Nursing Homes/Rehab Facilities: [address] [place] [address] ? Pulmonary Rehab Status?? Pulmonary Rehab Discharge Status?? Respiratory Rate: 18 br/min ? Common Emergency Awareness Tips IS IT A STROKE? Act FAST and Check for these signs: FACE Does the face look uneven? ARM Does one arm drift down? SPEECH Does their speech sound strange? TIME Call at any sign of stroke ?? Heart Attack Signs Chest discomfort: Most heart attacks involve discomfort in the center of the chest and lasts more than a few minutes, or goes away and comes back. It can feel like uncomfortable pressure, squeezing, fullness or pain. Discomfort in upper body: Symptoms can include pain or discomfort in one or both arms, back, neck, jaw or stomach. Shortness of breath: With or without discomfort. Other signs: Breaking out in a cold sweat, nausea, or lightheaded. Remember, MINUTES DO MATTER. If you experience any of these heart attack warning signs, call to get immediate medical attention! ?? Smoking can increase your chances of developing chronic health problems and can cause harmful effects to other family members in your house. If you smoke, you are strongly encouraged to quit. Please call [facility] [employer] at [phone] or [phone] ([phone]) or log in to [email or web address] for referrals to smoking cessation programs. ?? 361 Suicide & Crisis Lifeline is available 07/04 if you or someone you know needs to find a reason to keep living. By calling 774 you'll be connected to a skilled, trained counselor at a crisis center in your area. INPATIENT DISCHARGE INSTRUCTIONS SIGNATURE PAGE WHITROSALIO RIGGS Location:[facility] Registration Date and Time:02/04/2023 06:32 EDT Primary Care Physician: Rosario REYES, Pablito Sharp, Attending Physician: Kavon REYES, Marry Sharp, I ROSALIO GARCIA, have received the above patient education materials/instructions and have verbalized understanding. If ambulance or transport services are being used I further acknowledge being given a choice of service. ?? If you need to contact me, please call me at this number: . Patient/Oracle Consultant Name: Patient/Oracle Consultant Signature: Relationship to Patient: Witness Name/Signature: Date: CT Head WO contrast * BHSPowerscribe , CIS S: TRANSCRIBE Josette REYES, Ahmed: FRANK Lees MD, Adilene: VERIFY Event Display: Result: Authored Date: CT Head/Brain W/O Contrast INDICATION: Hx of Present Illness: weakness noted since this am; Reason: TIA; Clinical Question(s):Infarction; Order Comment: TECHNIQUE: Noncontrast head CT using axial technique and reconstructed in axial and coronal planes.Iterative reconstruction techniques are used to optimize dose and image quality. CTDIvol Head: 47.30 mGy, DLP Head: 772 mGy*cm. COMPARISON: 09/12/2019. FINDINGS: Blacking Machine Operator view findings, lines and tubes: None. BRAIN AND EXTRA-AXIAL SPACES: No parenchymal [...] TISSUES: No fractures or suspicious bony lesions. Moderate diffuse paranasal sinus mucosal thickening within bilateral maxillary sinus air-fluid levels, larger on the right. The mastoid air cells are clear. Status-post bilateral lens extraction. The extracranial soft tissues are unremarkable. IMPRESSION: No acute intracranial pathology. I have personally reviewed the images and I agree with this report. WSN: [id number] Ordering Physician: Magda Leos Dictated By: Kamryn Finch MD Dictated Date/Time: 02/04/23 6:22 am Reviewed By: Adilene Lees MD Signed By: Adilene Lees MD Signed Date/Time: 02/04/23 6:27 am Transcribed By: ANJALI Transcribed Date/Time: 02/04/23 5:40 am Patient Care team information Care Team Personnel Name: Tiffany Anderson RN Position: [facility] PCO RN Member Role: Primary Care Nurse Name: Mag Gonzalez RN Position: [facility] RN Member Role: Primary Care Nurse Name: Pablito Ponce MD Position: [facility] Physician - Primary Care Member Role: PCP Address: Address: [address] [place] [id number] Name: Krys Hager RN Position: [facility] RN Member Role: Primary Care Nurse Name: Jennifer APONTE Attending Position: [facility] ED Medicine MD Name: Alessandra Talbot Position: [facility] ED TA [facility] Name: Judy Alfredo LPN Position: [facility] ED RN W/OE and Tasks Member Role: Patient Care Provider Name: Kiana Mcfarland Position: [facility] ED OA Charge Member Role: ED Associate Care Team Related Persons Name: BRAYAN GARCIA Address: [address] [address]
--- OUTSIDE RECORDS SUMMARY | 2023-10-02 08:24 | XMS_ITS | Continuity of Care Document ---
Author Name Unknown Organization [facility] Address [address] [place] [address]- Care Team Providers Care Survey Associate Name Role Phone Rosario REYES, Pablito Sharp Primary Care Physician [phone] Encounter [facility] Date(s): 12/31/22 - 01/30/23 [facility] [address] [place] [address]- Attending Physician: Bipin Chacko Admitting Physician: Bipin Chacko Referring Physician: Admtr, Mateus8 Allergies, Adverse Reactions, Alerts Substance Reaction Severity Status Fish Active sulfa drugs severe headache Active shellfish Active Immunizations Given and Recorded Vaccine Date [...] vaccine, inactivated 05/25/10 Markus rded SARS-CoV-2 mRNA ([id number]) vax 01/25/22 Recorded SARS-CoV-2 (COVID-19) mRNA BNT-162b2 [...] tetanus-diphtheria toxoids (Td) 06/15/04 Given 1Location History: [facility] 2Result Comment: [07/05/2015] [facility] 3Result Comment: [06/06/2014] [facility] on [address] 4Admin Note: Received at [facility] 5Admin Note: This shot was administered at [facility] 6Admin Note: [facility] 7Admin Note: [facility] [place] Medications acetaminophen 325 mg [...] Dry Weight Start Date: 12/31/22 Status: Ordered Arnuity Ellipta 100 mcg inhalation [...] 08/29/22 4:30:00 EST, Route to Pharmacy Electronically, [id number], 152, cm, 07/09/22 9:25:00 EDT, Height, 50.5, kg, 01/03/22 19:26:00 E... Start Date: 08/29/22 Stop Date: 08/24/23 Status: Ordered Flonase 50 mcg/inh nasal spray 1 sprays, Nares, Both, 2 times a day, # 16 Gm, 0 Refills, Maintenance, 12/30/18 7:15:18 EDT, [place],1 sprays Nares, Both 2 times a day Start Date: 12/30/18 Status: Ordered folic acid 0.4 mg oral tablet 1 tablet = 0.4 mg, By Mouth, Daily, # 100 tablet, 0 Refills, Maintenance, 09/06/18 13:22:58 EST, Tablet Start Date: 09/06/18 Status: Ordered lovastatin 40 mg oral tablet 1 tablet, By Mouth, Daily, # 90 tablet, 3 Refills, Maintenance, 09/17/22 11:22:00 EST, [facility], 152, cm, 07/09/22 9:25:00 EDT, Height, 50.5, kg, 01/03/22 19:26:00 EDT, Dry Weight Start Date: 09/17/22 Status: Ordered memantine 10 mg oral tablet 1 tablet, By Mouth, 2 times a day, # 180 tablet, 3 Refills, Maintenance, 12/31/22 7:27:00 EDT, [facility], 152, cm, 11/13/22 9:56:00 EST, Height, 50.5, kg, 01/03/22 19:26:00 EDT, Dry Weight Start Date: 12/31/22 Status: Ordered Multivitamin By Mouth, Daily, 0 [...] Quit in 1968; entered on: 02/09/15 Sex Patient Care team information Care Team Personnel Name: Tiffany Anderson RN Position: [facility] PCO RN Member Role: Primary Care Nurse Name: Mag Gonzalez RN Position: [facility] RN Member Role: Primary Care Nurse Name: Pablito Ponce MD Position: [facility] Primary Care Physician Member Role: PCP Address: Address: [address] [place] [address]- Name: Krys Hager RN Position: [facility] RN Member Role: Primary Care Nurse Care Team Related Persons Name: JEREMYXANDERBRAYAN Address: home [address] [place] [address]
--- OUTSIDE RECORDS SUMMARY | 2023-10-02 08:24 | XMS_ITS | Continuity of Care Document ---
Author Name Unknown Organization [facility] Address [address] [place] [address]- Care Team Providers Care Eyeglass Maker Name Role Phone Rosario REYES, Pablito Sharp Primary Care Physician [phone] Encounter [facility] Date(s): 12/25/20 - 01/24/21 [facility] [address] [place] [address]- Allergies, Adverse Reactions, Alerts Substance Reaction Severity [...] 06/15/04 Given 1Admin Note: [facility] 2Location History: [facility] [address] 3Result Comment: [facility]05/2015[facility] 4Result Comment: [06/06/2014] [facility] [address] 5Admin Note: Received at [facility] 6Admin Note: This shot was administered at [address] Note: [facility] [address] [place] Medications amLODIPine 10 mg oral tablet 10 mg, 1, tablet, By Mouth, Daily, # 90 tablet, Refills 3, Tot. Refills 3, Maintenance, 01/13/20 7:42:00 EDT, Route to Pharmacy Electronically, [facility], 152, cm, 01/13/20 7:13:00 EDT, [...] Refills 3, Tot. Refills 3, Hard Stop 02/21/21 15:34:00 EDT, 02/27/20 15:34:00 EDT, Route to Pharmacy Electronically, [facility], 152, cm, 10/06/19 7:01:00 EST, H... Start Date: 02/27/20 Stop Date: 02/21/21 Status: Ordered donepezil 5 mg oral tablet 5 mg, 1, tablet, By Mouth, Daily at bedtime, # 90 tablet, Refills 3, Tot. Refills 3, Maintenance, 02/21/21 15:34:00 EDT, Route to Pharmacy Electronically, [facility], 155, cm, 09/06/20 14:34:00 EST, Height, 54.5, kg, 05/07/20 11:00:... Start Date: 02/21/21 Stop Date: 02/16/22 Status: Ordered Flonase 50 mcg/inh nasal spray 1 sprays, Nares, Both, 2 times a day, # 16 Gm, 0 Refills, Maintenance, 12/30/18 7:15:18 EDT, [place],1 sprays Nares, Both 2 times a day [...] 06/14/20 7:37:00 EDT, Route to Pharmacy Electronically, [facility], 155, cm, 06/14/20 7:11:00 EDT, [...] 3 Refills, Maintenance, 06/14/20 7:40:00 EDT, Tablet, [facility], 155, cm, 06/14/20 7:11:00 EDT, Height, 54.5, kg, 05/07/20 11:00:00EDT, Dry Weight Start Date: 06/14/20 Status: Ordered lovastatin 40 mg oral tablet 1 tablet = 40 mg, By Mouth, Daily, # 15 tablet, 0 Refills, Maintenance, 11/14/20 8:25:00 EST, Tablet, [id number], 155, cm, 09/06/20 14:34:00 EST, Height, 54.5, kg, 05/07/20 11:00:00 EDT, Dry Weight Start Date: 11/14/20 Status: Ordered memantine 10 mg oral tablet 1 tablet = 10 mg, By Mouth, 2 times a day, # 180 tablet, 1 Refills, Maintenance, 09/13/20 11:27:00 EST, Tablet, [facility], 155, cm, 09/06/20 14:34:00 EST, Height, 54.5, kg, 05/07/20 11:00:00 EDT, Dry Weight Start Date: 09/13/20 Stop Date: 03/12/21 Status: Ordered Multivitamin By Mouth, Daily, 0 [...]
--- OUTSIDE RECORDS SUMMARY | 2023-10-02 08:24 | XMS_ITS | Continuity of Care Document ---
Author Name Unknown Organization [facility] Address [address] [place] [address]- Care Team Providers Care Drywall Finisher Foreman Name Role Phone Rosario REYES, Pablito Sharp Primary Care Physician [phone] Encounter [facility] [place] Date(s): 06/17/23 - 07/17/23 [facility] [address] [place] [id number] Attending Physician: Bipin Chacko Admitting Physician: AdmtrBipin Referring Physician: Admtr, Ar8 Allergies, Adverse Reactions, Alerts Substance Reaction Severity [...] vaccine, inactivated 05/25/10 Markus rded SARS-CoV-2 mRNA (hykqpkq-[id number]-cvrqj) vax 01/25/22 Recorded SARS-CoV-2 (COVID-19) mRNA BNT-162b2 [...] tetanus-diphtheria toxoids (Td) 06/15/04 Given 1Location History: [facility] 2Result Comment: [07/05/2015] [facility] 3Result Comment: [06/06/2014] [facility] [address] 4Ain Note: Received at [facility]: [facility] 6Ain Note: [facility] 7Admin Note: [facility] [place] Medications acetaminophen 325 mg [...] 9:57:00 EDT, Route to Pharmacy Electronically, [facility], 153, cm, 05/16/23 9:48:00 EDT, Hei... Start Date: 05/16/23 Stop Date: 05/10/24 Status: Ordered Flonase 50 mcg/inh nasal spray 1 sprays, Nares, Both, Daily in AM, Maintenance, 02/04/23 9:45:00 EDT, [place], Partial fill upon patient request if the [...] 3 Refills, Maintenance, 05/16/23 9:57:00 EDT, [facility], 153, cm, 05/16/23 9:48:00 EDT, Height, 56, kg, 02/03/23 22:03:00 EDT, Dry Weight Start Date: 05/16/23 Status: Ordered memantine 10 mg oral tablet 1 tablet, By Mouth, 2 times a day, # 180 tablet, 3 Refills, Maintenance, 05/16/23 9:57:00 EDT, [facility], 153, cm, 05/16/23 9:48:00 EDT, [...] 1969; entered on: 02/09/15 Sex Note * Dahiana Hua: PERFORM, SIGN, VERIFY Event Display: Patient Education/Instruction Authored Date: [id number] [facility] Clinical Summary Person Information Name ROSALIO GARCIA Age 66 Years 1945 12:00 AM PCP Stephanie REYES, Krystle Munoz PCP Reason for Visit: Allergy Info: Fish; sulfa drugs Vital Signs Height Weight BMI Blood Pressure / Temperature Pulse Rate Respiratory Rate 02 Sat Mode of Delivery / Medication Information Acetaminophen / Hydrocodone (Vicodin 500 mg-5 mg oral tablet) 1 tablet, Oral, every 6 hours, As Needed, for pain, Refills: 0 Albuterol (albuterol CFC free 90 mcg/inh inhalation aerosol) 2 puffs, Inhalation, 4 times a day, AsNeeded, for wheezing, Refills: 0 Esomeprazole (Nexium 40 mg oral enteric coated capsule) 1 capsule, Oral, Tomorrow, Refills: 3 Fluticasone Nasal (Flonase 0.05 mg/inh nasal spray) 1 sprays, Nares, Both, twice a day, Refills: 0 Fluticasone Nasal (fluticasone nasal 0.05 mg/inh spray) 1 sprays, Nares, Both, twice a day, Refills: 0 Hydrochlorothiazide-Lisinopril (Zestoretic 12.5 mg-10 mg oral tablet) 1 tablet, Oral, Tomorrow, Refills: 3 Lovastatin (Mevacor 40 mg oral tablet) 1 tablet, Oral, Tomorrow, Refills: 11 Problem List Date Problem 01/21/08 Lactose intolerance 11/19/06 Rosacea 02/06/06 Hypertension 10/29/05 Hypercholesterolemia 10/29/05 Osteoporosis 10/29/05 Shoulder pain If the following labs have been performed in the last year, the most recent result is displayed below. Diagnostic Results Lab Result Value Date Lead Hemoglobin A1C LDL 117 05/21/11 HDL 58 05/21/11 Triglycerides 84 05/21/11 Total Cholesterol 192 05/21/11 Disclaimer: The information provided is of a general nature and is intended to be used in conjunction with the recommendations and advice of your health care practitioner. Every effort has been made to ensure that the information provided is accurate and complete at the time it is provided to you however, as your needs change, or, as new information becomes available, different or additional instructions may be required. If you have questions, please consult with your primary care provider or pharmacist, as appropriate. This information is not intended to serve as substitution for assessment and evaluation by a qualified health care provider. If you do not have a primary care provider, you may find a [facility] provider by calling [facility] at [phone]. Patient Education Information Follow-up Details: Patient Education Material: Patient Care team information Care Team Personnel Name: Tiffany Rivas RN Position: [facility] RN Member Role: Primary Care Nurse Name: Mag Gonzalez RN Position: [facility] RN Member Role: Primary Care Nurse Name: Pablito Ponce MD Position: [facility] Physician - Primary Care Member Role: PCP Address: Address: [address] [place] [address]- Name: Krys Hager RN Position: [facility] RN Member Role: Primary Care Nurse Care Team Related Persons Name: WHITVIBRAYAN TERRELL Address: home [address] [place] [address]
--- OUTSIDE RECORDS SUMMARY | 2023-10-02 08:24 | XMS_ITS | Continuity of Care Document ---
Author Name Unknown Organization [facility] Address [address] [place] [address]- Care Team Providers Care Siderographer Name Role Phone Rosario REYES, Pablito Sharp Primary Care Physician Encounter [facility] Date(s): 01/25/22 - 02/24/22 [facility] [address] [place] [id number] Attending Physician: Bipin Chacko Admitting Physician: AdmBipin hsarma Referring Physician: Admtr, ArJordon Allergies, Adverse Reactions, Alerts Substance Reaction Severity Status sulfa drugs severe headache Active shellfish Active Fish Active Immunizations Given and Recorded Vaccine Date Status Refusal Reason SARS-CoV-2 (COVID-19) mRNA BNT-162b2 vac 07/07/21 Recorded SARS-CoV-2 (COVID-19) mRNA BNT-162b2 vac 11/14/20 Recorded SARS-CoV-2 (COVID-19) mRNA BNT-162b2 vac 10/24/20 Recorded influenza virus vaccine, inactivated 04/20/21 Markus rded influenza virus vaccine, inactivated 1 05/15/17 Re corded influenza virus vaccine, inactivated 2 05/16/15 Re corded influenza virus vaccine, inactivated 3 05/02/14 Gi marianne influenza virus vaccine, inactivated 4 06/09/13 Gi marianne influenza virus vaccine, inactivated 5 05/28/10 Gi marianne Influenza Virus Vaccine (oldterm) 05/14/20 Recorde d [...] toxoids (Td) 06/15/04 Given 1Location History: [facility] [address] 2Result Comment: [07/05/2015] [facility] 3Result Comment: [06/06/2014] [facility] [address] 4Admin Note: Received at [facility] 5Admin Note: This shot was administered at [facility] 6Admin Note: [facility] 7Admin Note: [facility] [place] Medications acetaminophen 325 mg oral [...] opioid drug. Start Date: 07/18/21 Status: Ordered Artificial Tears 0.5% Ophth Refills 0, Maintenance, 01/22/22 14:06:00 EDT, Partial fill upon patient request if the prescription is for a schedule II opioid drug. Start Date: 01/22/22 Status: Ordered Caltrate 600 + D 1 tablet, By Mouth, 2 times a day, 0 Refills, Maintenance, 02/23/14 7:50:43 Start Date: 02/23/14 Status: Ordered donepezil 5 mg oral tablet 5 mg, 1, tablet, By Mouth, Daily at bedtime, # 90 tablet, Refills 3, Tot. Refills 3, Maintenance, 02/21/21 15:34:00 EDT, Route to Pharmacy Electronically, [facility], 155, cm, 09/06/20 14:34:00 EST, Height, 54.5, kg, 05/07/20 11:00:... Start Date: 02/21/21 Stop Date: 02/16/22 Status: Ordered Flonase 50 mcg/inh nasal spray 1 sprays, Nares, Both, 2 times a day, # 16 Gm, 0 Refills, Maintenance, 12/30/18 7:15:18 EDT, [place],1 sprays Nares, Both 2 times a day Start Date: 12/30/18 Status: Ordered folic acid 0.4 mg oral tablet 1 tablet = 0.4 mg, By Mouth, Daily, # 100 tablet, 0 Refills, Maintenance, 09/06/18 13:22:58 EST, Tablet Start Date: 09/06/18 Status: Ordered lovastatin 40 mg oral tablet 1 tablet, By Mouth, Daily, # 90 tablet, 3 Refills, 07/18/21 9:38:00 EDT, [facility], 155, cm, 07/18/21 9:14:00 EDT, Height, 54.5, kg, 05/07/20 11:00:00 EDT, Dry Weight Start Date: 07/18/21 Status: Ordered memantine 10 mg oral tablet 1 tablet, By Mouth, 2 times a day, # 180 tablet, 3 Refills, Maintenance, 10/18/21 10:26:00 EST, [facility], 155, cm, 10/18/21 10:08:00 EST, Height, 54.5, kg, 05/07/20 11:00:00 EDT,Dry Weight Start Date: 10/18/21 Status: Ordered Multivitamin By Mouth, Daily, 0 Refills, Maintenance, 02/23/14 7:51:02 Start Date: 02/23/14 Status: Ordered please obtain labs please obtain labs, See Instructions, # 1 each, Refills 0, Tot. Refills 0, Maintenance, Please obtain Basic Metabolic Panel (lytes, BUN, Cre, glucose) and forward to patient's PCP Rosario REYES, Pablito Sharp, phone: , 01/08/22 13:30:00 EDT, S... Start Date: 01/08/22 Status: Ordered Transfer Tub Bench Transfer Tub Bench, See Instructions, # 1 each, Refills 0, Tot. Refills 0, Maintenance, DX: Acute metabolic encephalopathy (G93.41) Altered mental status (R41.82) Dementia (F03.90) Osteoporosis (M81.0) HT: 150cm WT: 50kg Length of Need: Lifetim... 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 Lei Social History Social History Type Response Smoking Status Former smoker; Tobac co user in household: No; Other: Quit in 1968; entered on: 02/09/15 Sex
--- OUTSIDE RECORDS SUMMARY | 2023-10-02 08:24 | XMS_ITS | Continuity of Care Document ---
Author Name Unknown Organization [facility] Address [address] [place] [address]- Care Team Providers Care Voice Teacher Name Role Phone Pablito Ponce MD Primary Care Physician Encounter [facility] [place] Date(s): 10/18/21 - 10/25/21 [facility] [address] [place] [address]- Attending Physician: Pablito Ponce MD Allergies, Adverse [...] tetanus-diphtheria toxoids (Td) 06/15/04 Given 1Location History: [address] 2[facility]: [facility] 3Result Comment[facility] [address] 4Admin Note: Received at [facility] 5Admin Note: This shot was administered at [facility] 6Admin Note: [facility] 7Admin Note: [address] [place] Medications amLODIPine 10 mg oral [...] 15:34:00 EDT, Route to Pharmacy Electronically, [facility], 155, cm, 09/06/20 14:34:00 EST, Height, 54.5, kg, 05/07/20 11:00:... Start Date: 02/21/21 Stop Date: 02/16/22 Status: Ordered Flonase 50 mcg/inh nasal spray 1 sprays, Nares, Both, 2 times a day, # 16 Gm, 0 Refills, Maintenance, 12/30/18 7:15:18 EDT, [place],1 sprays Nares, Both 2 times a day Start Date: 12/30/18 Status: Ordered folic acid 0.4 mg oral tablet 1 tablet = 0.4 mg, By Mouth, Daily, # 100 tablet, 0 Refills, Maintenance, 09/06/18 13:22:58 EST, Tablet Start Date: 09/06/18 Status: Ordered lisinopril 10 mg oral tablet 10 mg, 1, tablet, By Mouth, Daily, # 90 tablet, Refills 3, Tot. Refills 3, Maintenance, 10/18/21 10:27:00 EST, Route to Pharmacy Electronically, [facility], Partial fill upon patient request if the prescription is for a schedule II... Start Date: 10/18/21 Status: Ordered lovastatin 40 mg oral tablet 1 tablet, By Mouth, Daily, # 90 tablet, 3 Refills, 07/18/21 9:38:00 EDT, [facility], 155, cm, 07/18/21 9:14:00 EDT, Height, 54.5, kg, 05/07/20 11:00:00 EDT, Dry Weight Start Date: 07/18/21 Status: Ordered memantine 10 mg oral tablet 1 tablet, By Mouth, 2 times a day, # 180 tablet, 3 Refills, Maintenance, 10/18/21 10:26:00 EST, [facility], 155, cm, [...] recent to oldest [Reference Range]: 1 Height 155 cm (10/18/21 10:08 AM) Weight 53.3 kg (10/18/21 10:08 AM) Oxygen Saturation [94-100 %] 100 % (10/18/21 10:08 AM) Pulse Rate [55-90 bpm] 67 bpm (10/18/21 10:08 AM) Body Mass Index [18.5-24.99] 22.19 (10/18/21 10:08 AM) Blood Pressure [90-138/55-84 mm Hg] 141/ 57mm Hg *H* (10/18/21 10:08 AM) Weight Obtained Via Standing scale (10/18/21 10:08 AM) Social History Social History Type Response Smoking Status Former smoker; Tobac co user in household: No; Other: Quit in 1968; entered on: 02/09/15 Sex
--- OUTSIDE RECORDS SUMMARY | 2023-10-02 08:24 | XMS_ITS | Continuity of Care Document ---
Author Name Unknown Organization [facility] [place] [facility] Address [address] [place] [address] luciano, [address] [place] [address]- Care Team Providers Care Washing Machine Mechanic Name Role Phone Rosario REYES, Pablito Sharp Primary Care Physician [facility] Date[facility]s): 09/06/20 - 09/13/20 [facility] [address] [place] [address], [address] [place] [address]- Attending Physician: Lory Castillo MD Allergies, Adverse Reactions, Alerts Substance Reaction [...] [[facility] [[facility] [address] 5Admin Note: Received at [facility] 6Ain Note: This shot was administered at [facility] 7Ain Note: [facility] [address] [place] Medications amLODIPine 10 mg oral tablet 10 mg, 1, tablet, By Mouth, Daily, # 90 tablet, Refills 3, Tot. Refills 3, Maintenance, 01/13/20 7:42:00 EDT, Route to Pharmacy Electronically, [facility], 152, cm, 01/13/20 7:13:00 EDT, [...] 15:34:00 EDT, Route to Pharmacy Electronically, [facility], 152, cm, 10/06/19 7:01:00 EST, Height, 55.3, kg, 09/06/18 3:40:00... Start Date: 02/27/20 Stop Date: 02/21/21 Status: Ordered Flonase 50 mcg/inh nasal spray 1 sprays, Nares, Both, 2 times a day, # 16 Gm, 0 Refills, Maintenance, 12/30/18 7:15:18 EDT, [place],1 sprays Nares, Both 2 times a day [...] 7:37:00 EDT, Route to Pharmacy Electronically, [facility], 155, cm, 06/14/20 7:11:00 EDT, [...] Refills, Maintenance, 06/14/20 7:40:00 EDT, Tablet, [facility], 155, cm, 06/14/20 7:11:00 EDT, Height, 54.5, kg, 05/07/20 11:00:00EDT, Dry Weight Start Date: 06/14/20 Status: Ordered memantine 10 mg oral tablet 1 tablet = 10 mg, By Mouth, 2 times a day, # 180 tablet, 1 Refills, Maintenance, 09/13/20 11:27:00 EST, Tablet, [facility], 155, cm, 09/06/20 14:34:00 EST, [...] oldest [Reference Range]: 1 Height 155 cm (09/06/20 2:34 PM) Weight 57.7 kg (09/06/20 2:34 PM) Oxygen Saturation [94-100 %] 97 % (09/06/20 2:34 PM) Pulse Rate [55-90 bpm] 97 bpm *H* (09/06/20 2:34 PM) Body Mass Index [18.5-24.99] 24.02 (09/06/20 2:34 PM) Blood Pressure [90-138/55-84 mm Hg] 130/ 68mm Hg (09/06/20 2:34 PM) Temperature [96.8-100.4 DegF] 98.6 DegF (09/06/20 2:34 PM) Blood pressure sites Arm, right (09/06/20 2:34 PM) Temperature Route Temporal (09/06/20 2:34 PM) Weight Obtained Via Standing scale (09/06/20 2:34 PM) Social History Social History Type Response Smoking Status Former smoker; Tobac co user in household: No; Other: Quit in 1968; entered on: 02/09/15 Sex
--- OUTSIDE RECORDS SUMMARY | 2023-10-02 08:25 | XMS_ITS | Continuity of Care Document ---
Author Name Unknown Organization [facility] [place] Address [address] [place] [address] [address], [address] [place] [address]- Care Team Providers Care Marking Room Supervisor Name Role Phone Rosario REYES, Pablito Sharp Primary Care Physician Encounter [facility] Date(s): 03/08/20 - 03/15/20 [facility] [address] [place] [address] Drive, [address] [place] [address]- [facility] Attending Physician: Lory Castillo MD Allergies, Adverse [...] 06/15/04 Given 1Admin Note: [facility] 2Location History: [facility] [address] 3Result Comment: [07/05/2015] [facility] 4Result Comment: [06/06/2014] [facility] [address] 5Admin Note: Received at [facility] 6Admin Note: This shot was administered at [address] Note: [facility] [address] [place] Medications amLODIPine 10 mg oral tablet 10 mg, 1, tablet, By Mouth, Daily, # 90 tablet, Refills 3, Tot. Refills 3, Maintenance, 01/13/20 7:42:00 EDT, Route to Pharmacy Electronically, [facility], 152, cm, 01/13/20 7:13:00 EDT, [...] 02/27/20 15:34:00 EDT, Route to Pharmacy Electronically, [facility], 152, cm, 10/06/19 7:01:00 EST, Height, 55.3, kg, 09/06/18 3:40:00... Start Date: 02/27/20 Stop Date: 02/21/21 Status: Ordered Flonase 50 mcg/inh nasal spray 1 sprays, Nares, Both, 2 times a day, # 16 Gm, 0 Refills, Maintenance, 12/30/18 7:15:18 EDT, [place],1 sprays Nares, Both 2 times a day [...] omeprazole, # 90 tablet, 3 Refills, Maintenance, 01/13/20 7:41:00 EDT, EC Tablet, 152, cm, 01/13/20 7:13:00 EDT, Height, 55.3, kg, 09/06/18 3:40:00 EST, Dry Weight Start Date: 01/13/20 Status: Ordered Vitamin C By Mouth, Daily, [...] oldest [Reference Range]: 1 Height 152 cm (03/08/20 9:06 AM) Social History Social History Type Response Smoking Status Former smoker; Tobac co user in household: No; Other: Quit in 1968; entered on: 02/09/15 Sex
--- OUTSIDE RECORDS SUMMARY | 2023-10-02 08:25 | XMS_ITS | Continuity of Care Document ---
Author Name Unknown Organization [facility] Address [address] [place] [address]- Care Team Providers Care Operations Business Partner Name Role Phone Pablito Ponce MD Primary Care Physician [place] [facility] [place]/21[place]23 - 02/28/23 [facility] Adult [address] [place] [address]- Attending Physician: Malena Elliott NP Referring Physician: Pablito Ponce MD Allergies, Adverse Reactions, [...] vaccine, inactivated 05/25/10 Markus rded SARS-CoV-2 mRNA (ocxrjof-szlo-mrueg) vax 01/25/22 Recorded SARS-CoV-2 (COVID-19) mRNA BNT-162b2 [...] tetanus-diphtheria toxoids (Td) 06/15/04 Given 1Location History: [facility] 2Result Comment: [07/05/2015] [facility] 3Result Comment: [06/06/2014] [facility] [address] 4Admin Note: Received at [facility] 5Ain Note: This shot was administered at [facility] 6Admin Note: [facility] 7Admin Note: [facility] [place] [place] Medications acetaminophen 325 mg oral tablet [...] 08/29/22 4:30:00 EST, Route to Pharmacy Electronically, [id number], 152, cm, 07/09/22 9:25:00 EDT, Height, 50.5, kg, 01/03/22 19:26:00 E... Start Date: 08/29/22 Stop Date: 08/24/23 Status: Ordered Flonase 50 mcg/inh nasal spray 1 sprays, Nares, Both, Daily in AM, Maintenance, 02/04/23 9:45:00 EDT, [place], Partial fill upon patient request if the [...] 3 Refills, Maintenance, 09/17/22 11:22:00 EST, [facility], 152, cm, 07/09/22 9:25:00 EDT, Height, 50.5, kg, 01/03/22 19:26:00 EDT, Dry Weight Start Date: 09/17/22 Status: Ordered memantine 10 mg oral tablet 1 tablet, By Mouth, 2 times a day, # 180 tablet, 3 Refills, Maintenance, 12/31/22 7:27:00 EDT, [facility], 152, cm, 11/13/22 9:56:00 EST, [...] Range]: 1 2 3 Height 153 cm (02/21/23 9:37 AM) 153 cm (02/21/23 9:23 AM) 153 cm (02/21/23 9:23 AM) Oxygen Saturation [94-100 %] 99 % (02/21/23 9:15 AM) Pulse Rate [55-90 bpm] 90 bpm (02/21/23 9:15 AM) Blood Pressure [90-138/55-84 mm Hg] 126/62mm Hg (02/21/23 9:37 AM) 145/61mm Hg *H* (02/21/23 9:23 AM) 146/62mm Hg *H* (02/21/23 9:23 AM) Respiratory Rate [16-30 br/min] 16 br/min (02/21/23 9:15 AM) Temperature [96.8-100.4 DegF] 97.6 DegF (02/21/23 9:15 AM) Mode of Delivery (Oxygen) Room air (02/21/23 9:15 AM) Blood pressure sites Arm, left (02/21/23 9:37 AM) Arm, left (02/21/23 9:23 AM) Arm, left (02/21/23 9:23 AM) Temperature Route Oral (02/21/23 9:15 AM) Weight Obtained Via Standing scale (02/21/23 9:15 AM) Social History Social History Type Response Smoking Status Former smoker; Tobac co user in household: No; Other: Quit in 1968; entered on: 02/09/15 Sex Patient Care team information Care Team Personnel Name: Tiffany Anderson RN Position: [facility] Office Staff Member Role: Primary Care Nurse Name: Mag Gonzalez RN Position: [facility] ED RN W/OE and Tasks Member Role: Primary Care Nurse Name: Pablito Ponce MD Position: [facility] Physician - Primary Care Member Role: PCP Address: Address: [address] [place] [address] Road [facility] [place] [address]- Name: Krys Hager RN Position: [facility] RN Member Role: Primary Care Nurse Care Team Related Persons Name: BRAYAN GARCIA Address: home [address] [place] [address]
--- OUTSIDE RECORDS SUMMARY | 2023-10-02 08:25 | XMS_ITS | Continuity of Care Document ---
Author Name Unknown Organization [facility] Address [address] [address]- Care Team Providers Care Shipper Name Role Phone Rosario REYES, Pablito Sharp Primary Care Physician [place] [facility] [place] 11/22/19 - 01/08/20 [facility] [address] [place] [address]- [facility] Attending Physician: Jean Carlos Lange MD Admitting Physician: Jean Carlos Lange MD Allergies, Adverse Reactions, Alerts Substance Reaction [...] Given 1[facility] Note: [facility] [address] 3Result Comment: [07/05/2015[facility] 4Result Comment: [06/06/2014[facility] [address] 5Admin Note: Received at [facility] 6Ain Note: This shot was administered at [facility]: [facility] [address] [place] Medications amLODIPine 10 mg oral tablet 10 mg, 1, tablet, By Mouth, Daily, # 90 tablet, Refills 2, Tot. Refills 2, Maintenance, 12/23/19 7:17:00 EDT, Route to Pharmacy Electronically, [id number], 152, cm, 10/06/19 7:01:00 EST, Height, 55.3, kg, 09/06/18 3:40:00 EST, Dry Weight Start Date: 12/23/19 Status: Ordered aspirin buffered 81 mg oral [...] Refills 3, Tot. Refills 3, Hard Stop 02/27/20 15:34:01 EDT, 03/04/19 15:34:01 EDT, Route to Pharmacy Electronically, [facility] Start Date: 03/04/19 Stop Date: 02/27/20 Status: Ordered donepezil 5 mg oral tablet 5 mg, 1, tablet, By Mouth, Daily at bedtime, # 90 tablet, Refills 3, Tot. Refills 3, Maintenance, 02/27/20 15:34:00 EDT, Route to Pharmacy Electronically, [facility], 152, cm, 10/06/19 7:01:00 EST, Height, 55.3, kg, 09/06/18 3:40:00... Start Date: 02/27/20 Stop Date: 02/21/21 Status: Ordered Flonase 50 mcg/inh nasal spray 1 sprays, Nares, Both, 2 times a day, # 16 Gm, 0 Refills, Maintenance, 12/30/18 7:15:18 EDT, [place],1 sprays Nares, Both 2 times a day [...] 12/30/18 7:16:12 EDT, Route to Pharmacy Electronically, [id number], [id number] Start Date: 12/30/18 Status: Ordered lovastatin 40 mg oral tablet 1 tablet = 40 mg, By Mouth, Daily, # 90 tablet, 3 Refills, Maintenance, 01/20/19 15:25:07 EDT, Tablet Start Date: 01/20/19 Status: Ordered memantine 10 mg oral tablet 1 tablet = 10 mg, By Mouth, 2 times a day, for 30 days, # 60 tablet, 0 Refills, Hard Stop 01/22/20 13:30:00 EDT, 12/23/19 13:30:00 EDT, Tablet, [id number], 152, cm, 10/06/19 7:01:00 EST, Height, 55.3, kg, 09/06/18 3:40:00 EST, Dry Weight Start Date: 12/23/19 Stop Date: 01/22/20 Status: Ordered memantine 10 mg oral tablet [...] omeprazole, # 90 tablet, 3 Refills, Maintenance, 10/06/19 7:24:00 EST, EC Tablet, 152, cm, 10/06/19 7:01:00 EST, Height, 55.3, kg, 09/06/18 3:40:00 EST, Dry Weight Start Date: 10/06/19 Status: Ordered Vitamin C By Mouth, Daily, [...]
--- OUTSIDE RECORDS SUMMARY | 2023-10-02 08:25 | XMS_ITS | Continuity of Care Document ---
Author Name Unknown Organization [facility] Address [address] [place] [address]- Care Team Providers Care Warranty Coordinator Name Role Phone Rosario REYES, Pablito Sharp Primary Care Physician En[place] [facility] [place] [place] Date(s): 03/26/23 - 04/25/23 [facility] [address] [place] [address]- Allergies, Adverse Reactions, Alerts Substance Reaction Severity [...] vaccine, inactivated 05/25/10 Markus rded SARS-CoV-2 mRNA (lbsvbva-tkbg-iwrvl) vax 01/25/22 Recorded SARS-CoV-2 (COVID-19) mRNA BNT-162b2 [...] tetanus-diphtheria toxoids (Td) 06/15/04 Given 1Location History: [facility] 2Result Comment: [07/05/2015] [facility] 3Result Comment: [06/06/2014] [facility] on [address] 4Admin Note: Received at [facility] 5Admin Note: This shot was administered at [facility] 6Admin Note: [facility] 7Admin Note: [facility] [place] Medications acetaminophen 325 mg oral [...] Refills 3, Tot. Refills 3, Hard Stop 08/24/23 4:30:00 EST, 08/29/22 4:30:00 EST, Route to Pharmacy Electronically, [facility][id number], 152, cm, 07/09/22 9:25:00 EDT, [place]... Start Date: 08/29/22 Stop Date: 08/24/23 Status: Ordered Flonase 50 mcg/inh nasal spray 1 sprays, Nares, Both, Daily in AM, Maintenance, 02/04/23 9:45:00 EDT, [place], Partial fill upon patient request if the [...] tablet, 3 Refills, Maintenance, 09/17/22 11:22:00 EST, [facility], 152, cm, 07/09/22 9:25:00 EDT, Height, 50.5, kg, 01/03/22 19:26:00 EDT, Dry Weight Start Date: 09/17/22 Status: Ordered memantine 10 mg oral tablet 1 tablet, By Mouth, 2 times a day, # 180 tablet, 3 Refills, Maintenance, 12/31/22 7:27:00 EDT, [facility], 152, cm, 11/13/22 9:56:00 EST, [...] Team Personnel Name: Tiffany Anderson RN Position: [facility] Office Staff Member Role: Primary Care Nurse Name: Mag Gonzalez RN Position: [facility] RN Member Role: Primary Care Nurse Name: Pablito Ponce MD Position: [facility] Physician - Primary Care Member Role: PCP Address: Address: [address] [place] [address]- Name: Krys Hager RN Position: [facility] RN Member Role: Primary Care Nurse Care Team Related Persons Name: ERIC GARCIAJenniffer Address: home [address] [place] [address]
--- OUTSIDE RECORDS SUMMARY | 2023-10-02 08:25 | XMS_ITS | Continuity of Care Document ---
Author Name Unknown Organization [facility] Address [address] [place] [address]- Care Team Providers Care Academic Coach Name Role Phone Rosario REYES, Pablito Sharp Primary Care Physician [facility] Date(s): 02/13/23 - 03/15/23 [facility] Adult [address] [place] [address]- Referring Physician: Hortensia Bradshaw Allergies, Adverse Reactions, Alerts Substance Reaction Severity [...] vaccine, inactivated 05/25/10 Markus rded SARS-CoV-2 mRNA (jfkcpeq-cfjf-fmjzb) vax 01/25/22 Recorded SARS-CoV-2 (COVID-19) mRNA BNT-162b2 [...] tetanus-diphtheria toxoids (Td) 06/15/04 Given 1Location History: [facility] 2Result Comment: [07/05/2015] [facility] 3Result Comment: [06/06/2014] [facility] on [address] 4Admin Note: Received at [facility] 5Ain Note: This shot was administered at [facility] 6Admin Note: [facility] 7Admin Note: [facility] [place] Medications acetaminophen 325 mg [...] 08/29/22 4:30:00 EST, Route to Pharmacy Electronically, [facility] #[id number], 152, cm, 07/09/22 9:25:00 EDT, Height, 50.5, kg, 01/03/22 19:26:00 E... Start Date: 08/29/22 Stop Date: 08/24/23 Status: Ordered Flonase 50 mcg/inh nasal spray 1 sprays, Nares, Both, Daily in AM, Maintenance, 02/04/23 9:45:00 EDT, [place], Partial fill upon patient request if the [...] 3 Refills, Maintenance, 12/31/22 7:27:00 EDT, [facility], 152, cm, 11/13/22 9:56:00 EST, [...] Team Personnel Name: Tiffany Anderson RN Position: [facility] Office Staff Member Role: Primary Care Nurse Name: Mag Gonzalez RN Position: [facility] RN Member Role: Primary Care Nurse Name: Pablito Ponce MD Position: [facility] Physician - Primary Care Member Role: PCP Address: Address: [address] [place] [address]- [place] Name: Krys Hager RN Position: [facility] RN Member Role: Primary Care Nurse Care Team Related Persons Name: BRAYAN GARCIA Address: home [address] [place] [address]
--- OUTSIDE RECORDS SUMMARY | 2023-10-02 08:25 | XMS_ITS | Continuity of Care Document ---
Author Name Unknown Organization [facility] Address [address] [place] [address]- Care Team Providers Care Vascular Technologist Sonographer Name Role Phone Rosario REYES, Pablito Sharp Primary Care Physician [facility] Date[facility]s): 09/16/19 - 09/26/19 [facility] Adult [address] [place] [address]- [facility] Attending Physician: Admtr, Ar8 Allergies, Adverse Reactions, Alerts [...] 06/15/04 Given 1Admin Note: [facility] 2Location History: [facility] 3Result Comment: [07/05/2015] [facility] 4Result Comment: [06/06/2014[facility] [address] 5Admin Note: [facility] 6Admin Note: This shot was administered at [address] Note: [facility] [address] [place] Medications amLODIPine 10 mg oral tablet 10 mg, 1, tablet, By Mouth, Daily, # 30 tablet, Refills 0, Tot. Refills 0, Maintenance, 04/06/19 15:13:37 EDT, Route to Pharmacy Electronically, [id number], [facility] [id number] Start Date: 04/06/19 Status: Ordered aspirin buffered [...] 03/04/19 15:34:01 EDT, Route to Pharmacy Electronically, [id number], [facility] Start Date: 03/04/19 Stop Date: 02/27/20 Status: Ordered Flonase 50 mcg/inh nasal spray 1 sprays, Nares, Both, 2 times a day, # 16 Gm, 0 Refills, Maintenance, 12/30/18 7:15:18 EDT, [place],1 sprays Nares, Both 2 times a [...] 12/30/18 7:16:12 EDT, Route to Pharmacy Electronically, [id number], [facility] [id number] Start Date: 12/30/18 Status: Ordered lovastatin 40 [...]
--- OUTSIDE RECORDS SUMMARY | 2023-10-02 08:25 | XMS_ITS | Continuity of Care Document ---
Author Name Unknown Organization [facility] Address [address] [address]- Care Team Providers Care Motor Vehicle Parts Interpreter Name Role Phone Rosario REYES, Pablito Sharp Primary Care Physician [facility] Date(s): 12/09/19 - 12/16/19 [facility] [address] [place] [address]- [facility] Attending Physician: Jean Carlos Lange MD Allergies, Adverse [...] 06/15/04 Given 1Admin Note: [facility] 2Location History: [facility] [address] 3Result Comment: [07/05/2015[facility] 4[facility]: [[facility]06/2014[facility] [address] 5Admin Note: [facility] 6Admin Note: This shot was administered at [address] Note: [facility] [address] [place] Medications amLODIPine 10 mg oral tablet 10 mg, 1, tablet, By Mouth, Daily, # 90 tablet, Refills 1, Tot. Refills 1, Maintenance, 10/01/19 12:24:00 EST, Route to Pharmacy Electronically, [facility], 152, cm, 09/16/19 9:23:00 EST, Height, 55.3, kg, 09/06/18 3:40:00 EST, Dry... Start Date: 10/01/19 Status: Ordered aspirin buffered 81 mg oral [...] 03/04/19 15:34:01 EDT, Route to Pharmacy Electronically, [id number], [facility] Start Date: 03/04/19 Stop Date: 02/27/20 Status: Ordered Flonase 50 mcg/inh nasal spray 1 sprays, Nares, Both, 2 times a day, # 16 Gm, 0 Refills, Maintenance, 12/30/18 7:15:18 EDT, [place],1 sprays Nares, Both 2 times a day [...] 12/30/18 7:16:12 EDT, Route to Pharmacy Electronically, [id number], [facility] [id number] Start Date: 12/30/18 Status: Ordered lovastatin 40 [...]
--- OUTSIDE RECORDS SUMMARY | 2023-10-02 08:25 | XMS_ITS | Continuity of Care Document ---
Author Name Unknown Organization [facility] Address [address] [place] [address]- Care Team Providers Care Retail Stocker Name Role Phone Rosario REYES, Pablito Sharp Primary Care Physician [facility] Date(s): 05/12/20 - 06/11/20 [facility] Adult [address] [place] [address]- [facility] Attending Physician: Admtr, Ar8 Allergies, Adverse Reactions, Alerts Substance Reaction Severity Status sulfa drugs severe headache Active Fish Active shellfish Active Immunizations Given and Recorded [...] 06/15/04 Given 1Admin Note: [facility] 2Location History: [facility] 3Result Comment: [07/05/2015] [facility] 4Result Comment: [06/06/2014] [facility] [address] 5Admin Note: Received at [facility] 6Admin Note: This shot was administered at [address] Note: [facility] [address] [place] Medications amLODIPine 10 mg oral tablet 10 mg, 1, tablet, By Mouth, Daily, # 90 tablet, Refills 3, Tot. Refills 3, Maintenance, 01/13/20 7:42:00 EDT, Route to Pharmacy Electronically, [facility], 152, cm, 01/13/20 7:13:00 EDT, [...] 02/27/20 15:34:00 EDT, Route to Pharmacy Electronically, [facility], 152, cm, 10/06/19 7:01:00 EST, Height, 55.3, kg, 09/06/18 3:40:00... Start Date: 02/27/20 Stop Date: 02/21/21 Status: Ordered Flonase 50 mcg/inh nasal spray 1 sprays, Nares, Both, 2 times a day, # 16 Gm, 0 Refills, Maintenance, 12/30/18 7:15:18 EDT, [place],1 sprays Nares, Both 2 times a day [...]
--- OUTSIDE RECORDS SUMMARY | 2023-10-02 08:25 | XMS_ITS | Continuity of Care Document ---
Author Name Unknown Organization [facility] Address [address] [place] [address]- Care Team Providers Care Beck Tender Name Role Phone Rosario REYES, Pablito Sharp Primary Care Physician [phone] Encounter [facility] [place] Date(s): 01/07/22 - 02/06/22 [facility] Adult [address] [place] [address]- Allergies, Adverse Reactions, Alerts Substance Reaction Severity Status sulfa drugs severe headache Active shellfish Active Fish Active Immunizations Given and Recorded Vaccine Date Status Refusal Reason SARS-CoV-2 (COVID-19) mRNA BNT-162b2 vac 07/07/21 Recorded SARS-CoV-2 (COVID-19) mRNA BNT-162b2 vac 11/14/20 Recorded SARS-CoV-2 (COVID-19) mRNA BNT-162b2 vac 10/24/20 Recorded influenza virus vaccine, inactivated 04/20/21 [place] rded influenza virus vaccine, inactivated 1 05/15/17 [...] tetanus-diphtheria toxoids (Td) 06/15/04 Given 1Location History: [facility] 2Result Comment: [07/05/2015] [facility] 3Result Comment: [06/06/2014] [facility] [address] 4Admin Note: Received at [facility] 5Admin Note: This shot was administered at [facility] 6Admin Note: [facility] 7Admin Note: [address] [place] Medications acetaminophen 325 mg oral tablet [...] Gm, 0 Refills, Maintenance, 12/30/18 7:15:18 EDT, [place],1 sprays Nares, Both 2 times a day [...]
--- OUTSIDE RECORDS SUMMARY | 2023-10-02 08:25 | XMS_ITS | Continuity of Care Document ---
Author Name Unknown Organization [facility] Cir[facility] lt Address [address] [place] [address]- Care Team Providers Care Carton Filling Machine Operator Name Role Phone Pablito Ponce MD Primary Care Physician [phone] Encounter [facility] [place] Date(s): 01/15/21 - 01/22/21 [facility] Adult [address] [place] [address]- Attending Physician: Pablito Ponce MD Allergies, Adverse [...] 06/15/04 Given 1Admin Note: [facility] 2Location History: [facility] 3Result Comment: [07/05/2015] [facility] 4Result Comment: [06/06/2014] [facility] [address] 5Admin Note: Received at [facility] 6Admin Note: This shot was administered at [address] Note: [facility] [address] [address] [place] Medications amLODIPine 10 mg oral tablet 10 mg, 1, tablet, By Mouth, Daily, # 90 tablet, Refills 3, Tot. Refills 3, Maintenance, 01/13/20 7:42:00 EDT, Route to Pharmacy Electronically, [facility], 152, cm, 01/13/20 7:13:00 EDT, [...] 15:34:00 EDT, Route to Pharmacy Electronically, [facility], 152, cm, 10/06/19 7:01:00 EST, [...] Gm, 0 Refills, Maintenance, 12/30/18 7:15:18 EDT, [place],1 sprays Nares, Both 2 times a day [...] 06/14/20 7:37:00 EDT, Route to Pharmacy Electronically, [facility], 155, cm, 06/14/20 7:11:00 EDT, [...] 3 Refills, Maintenance, 06/14/20 7:40:00 EDT, Tablet, [facility], 155, cm, 06/14/20 7:11:00 EDT, Height, 54.5, kg, 05/07/20 11:00:00EDT, Dry Weight Start Date: 06/14/20 Status: Ordered lovastatin 40 mg oral tablet 1 tablet = 40 mg, By Mouth, Daily, # 15 tablet, 0 Refills, Maintenance, 11/14/20 8:25:00 EST, Tablet, [id number], 155, cm, 09/06/20 14:34:00 EST, Height, 54.5, [...] oldest [Reference Range]: 1 Height 155 cm (01/15/21 7:50 AM) Weight 60.2 kg (01/15/21 7:50 AM) Oxygen Saturation [94-100 %] 96 % (01/15/21 7:50 AM) Pulse Rate [55-90 bpm] 92 bpm *H* (01/15/21 7:50 AM) Body Mass Index [18.5-24.99] 25.06 *H* (01/15/21 7:50 AM) Blood Pressure [90-138/55-84 mm Hg] 122/ 70mm Hg (01/15/21 7:50 AM) Temperature [96.8-100.4 DegF] 97.5 DegF (01/15/21 7:50 AM) Mode of Delivery (Oxygen) Room air (01/15/21 7:50 AM) Blood pressure sites Arm, right (01/15/21 7:50 AM) Temperature Route Oral (01/15/21 7:50 AM) Weight Obtained Via Standing scale (01/15/21 7:50 AM) Social History Social History Type Response Smoking Status Former smoker; Tobac co user in household: No; Other: Quit in 1968; entered on: 02/09/15 Sex
--- OUTSIDE RECORDS SUMMARY | 2023-10-02 08:25 | XMS_ITS | Continuity of Care Document ---
Author Name Unknown Organization [facility] Cirilo lt Address [address] [place] [address]- Care Team Providers Care Business Development Specialist Name Role Phone Pablito Ponce MD Primary Care Physician Encounter [facility] [place] Date(s): 07/18/21 - 07/25/21 [facility] Adult [address] [place] [address]- Attending Physician: Pablito Ponce MD Allergies, Adverse [...] Influenza Virus Vaccine (oldterm) 6 06/22/07 Given pneumococcal 13-valent vaccine 12/12/14 Given tetanus/diphtheria/pertussis, acel(Tdap) 07/20/14 Given FluLaval (oldterm) 7 05/16/11 Given pneumococcal 23-valent vaccine 03/21/11 Given tetanus-diphtheria toxoids (Td) 06/15/04 Given 1Location History: [address] 2[facility] [address] 4Admin Note: Received at [facility] 5Admin Note: This shot was administered at [facility] 6Admin Note: [facility] 7Admin Note: [address] [place] Medications amLODIPine 10 mg oral tablet 1 tablet, By Mouth, Daily, # 90 tablet, 3 Refills, Maintenance, 07/18/21 9:39:00 EDT, [facility], 155, cm, 07/18/21 9:14:00 EDT, Height, 54.5, kg, 05/07/20 11:00:00 EDT, Dry Weight Start Date: 07/18/21 Status: Ordered Arnuity Ellipta 100 mcg inhalation [...] Gm, 0 Refills, Maintenance, 12/30/18 7:15:18 EDT, [place],1 sprays Nares, Both 2 times a day Start Date: 12/30/18 Status: Ordered folic acid 0.4 mg oral tablet 1 tablet = 0.4 mg, By Mouth, Daily, # 100 tablet, 0 Refills, Maintenance, 09/06/18 13:22:58 EST, Tablet Start Date: 09/06/18 Status: Ordered lisinopril 10 mg oral tablet 10 mg, 1, tablet, By Mouth, Daily, # 90 tablet, Refills 3, Tot. Refills 3, Maintenance, 07/18/21 9:40:00 EDT, Route to Pharmacy Electronically, [facility], Partial fill upon patient request if the prescription is for a schedule II o... Start Date: 07/18/21 Status: Ordered lovastatin 40 mg oral tablet [...] 3 Refills, Maintenance, 02/19/21 9:49:00 EDT, [facility], 155, cm, 02/09/21 8:16:00 EDT, [...] oldest [Reference Range]: 1 Height 155 cm (07/18/21 9:14 AM) Weight 58.1 kg (07/18/21 9:14 AM) Oxygen Saturation [94-100 %] 97 % (07/18/21 9:14 AM) Pulse Rate [55-90 bpm] 102 bpm *H* (07/18/21 9:14 AM) Body Mass Index [18.5-24.99] 24.18 (07/18/21 9:14 AM) Blood Pressure [90-138/55-84 mm Hg] 118/ 70mm Hg (07/18/21 9:14 AM) Temperature [96.8-100.4 DegF] 98.0 DegF (07/18/21 9:14 AM) Blood pressure sites Arm, right (07/18/21 9:14 AM) Temperature Route Oral (07/18/21 9:14 AM) Weight Obtained Via Standing scale (07/18/21 9:14 AM) Social History Social History Type Response Smoking Status Former smoker; Tobac co user in household: No; Other: Quit in 1968; entered on: 02/09/15 Sex
--- OUTSIDE RECORDS SUMMARY | 2023-10-02 08:25 | XMS_ITS | Continuity of Care Document ---
Author Name Unknown Organization [facility] Address [address] [place] [address]- Care Team Providers Care Furnace Reliner Name Role Phone Rosario REYES, Pablito Sharp Primary Care Physician [phone] Encounter [facility] [place] [place] Date(s): 07/09/22 - 08/08/22 [facility] [address] [place] [id number] Attending Physician: Bipin Chacko Admitting Physician: AdmBipin sharma Referring Physician: Admtr, Bipin Allergies, Adverse Reactions, Alerts Substance Reaction Severity [...] toxoids (Td) 06/15/04 Given 1Location History: [facility] 2Result Comment: [07/05/2015] [facility] 3Result Comment: [06/06/2014] [facility] [address] 4Admin Note: Received at [facility] 5Admin Note: This shot was administered at [facility] 6Admin Note: [facility] 7Admin Note: bol[place] [...] tablet, Refills 3, Tot. Refills 3, Maintenance, 05/10/22 10:22:00 EDT, Route to Pharmacy Electronically, [facility], 152, cm, 05/10/22 9:55:00 EDT, Height, 50.5, kg, 01/03/22 19:26:0... Start Date: 05/10/22 Stop Date: 05/05/23 Status: Ordered Flonase 50 mcg/inh nasal spray 1 sprays, Nares, Both, 2 times a day, # 16 Gm, 0 Refills, Maintenance, 12/30/18 7:15:18 EDT, [place],1 sprays Nares, Both 2 times a day Start Date: 12/30/18 Status: Ordered folic acid 0.4 mg oral tablet 1 tablet = 0.4 mg, By Mouth, Daily, # 100 tablet, 0 Refills, Maintenance, 09/06/18 13:22:58 EST, Tablet Start Date: 09/06/18 Status: Ordered lovastatin 40 mg oral tablet 1 tablet, By Mouth, Daily, # 90 tablet, 3 Refills, 07/18/21 9:38:00 EDT, [facility], 155, cm, 07/18/21 9:14:00 EDT, Height, 54.5, kg, 05/07/20 11:00:00 EDT, Dry Weight Start Date: 07/18/21 Status: Ordered memantine 10 mg oral tablet 1 tablet, By Mouth, 2 times a day, # 180 tablet, 3 Refills, Maintenance, 10/18/21 10:26:00 EST, [facility], 155, cm, 10/18/21 10:08:00 EST, [...] VERIFY Event Display: Patient Education/Instruction Authored Date: [id number] [facility] Clinical Summary Person Information [...] primary care provider, you may find a [facility] provider by calling [facility] at [phone]. Patient Education Information Follow-up Details: Patient Education Material: Patient Care team information Care Team Personnel Name: Tiffany Anderson RN Position: [facility] PCO RN Member Role: Primary Care Nurse Name: Myesha Rodrigez Position: [facility] RN Member Role: Primary Care Nurse Name: Mag Gonzalez RN Position: S RN Member Role: Primary Care Nurse Name: Pablito Ponce MD Position: [facility] Primary Care Physician Member Role: PCP Address: Address: [address] [place] [address]- Name: Krys Hager Position: [facility] RN Member Role: Primary Care Nurse Care Team Related Persons Name: BRAYAN GARCIA Address: [address] [place] [address]
--- OUTSIDE RECORDS SUMMARY | 2023-10-02 08:25 | XMS_ITS | Continuity of Care Document ---
Author Name Unknown Organization [facility] Address [address], [address] Floor, [address] [place] [address]- Care Team Providers Care General Ophthalmologist Name Role Phone Rosario REYES, Pablito Sharp Primary Care Physician Encounter [facility] Date(s): 09/13/20 - 10/13/20 [facility] [address], [address], [address] [place] [address]- Allergies, Adverse Reactions, Alerts Substance Reaction Severity [...] [[facility] [address] 5Admin Note: Received at [facility] 6[facility] Note: This shot was administered at [facility] 7Ain Note: [facility] [address] [place] Medications amLODIPine 10 mg oral tablet 10 mg, 1, tablet, By Mouth, Daily, # 90 tablet, Refills 3, Tot. Refills 3, Maintenance, 01/13/20 7:42:00 EDT, Route to Pharmacy Electronically, [facility], 152, cm, 01/13/20 7:13:00 EDT, [...] 02/27/20 15:34:00 EDT, Route to Pharmacy Electronically, [facility], 152, cm, 10/06/19 7:01:00 EST, Height, 55.3, kg, 09/06/18 3:40:00... Start Date: 02/27/20 Stop Date: 02/21/21 Status: Ordered Flonase 50 mcg/inh nasal spray 1 sprays, Nares, Both, 2 times a day, # 16 Gm, 0 Refills, Maintenance, 12/30/18 7:15:18 EDT, [place],1 sprays Nares, Both 2 times a day [...] Refills, Maintenance, 06/14/20 7:40:00 EDT, Tablet, [facility], 155, cm, 06/14/20 [...]
--- OUTSIDE RECORDS SUMMARY | 2023-10-02 08:25 | XMS_ITS | Continuity of Care Document ---
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 Dementia(Discharge Diagnosis) - 03/13/22 Attending Physician: Lory Castillo MD Allergies, Adverse Reactions, Alerts Substance Reaction Severity Status Fish Active shellfish Active sulfa drugs severe headache Active Immunizations [...] tetanus-diphtheria toxoids (Td) 06/15/04 Given 1Location History: [facility] [address] 2Result Comment: [07/05/2015[facility] 3Result Comment[facility] [address] 4Admin Note: Received at [facility] 5Ain Note: This shot was administered at [facility] 6Admin Note: [facility] 7Admin Note: [facility] [place] Medications acetaminophen 325 mg oral [...] 15:34:00 EDT, Route to Pharmacy Electronically, [facility], 155, cm, 09/06/20 14:34:00 EST, Height, 54.5, kg, 05/07/20 11:00:... Start Date: 02/21/21 Stop Date: 02/16/22 Status: Ordered Flonase 50 mcg/inh nasal spray 1 sprays, Nares, Both, 2 times a day, # 16 Gm, 0 Refills, Maintenance, 12/30/18 7:15:18 EDT, [place],1 sprays Nares, Both 2 times a day Start Date: 12/30/18 Status: Ordered folic acid 0.4 mg oral tablet 1 tablet = 0.4 mg, By Mouth, Daily, # 100 tablet, 0 Refills, Maintenance, 09/06/18 13:22:58 EST, Tablet Start Date: 09/06/18 Status: Ordered lovastatin 40 mg oral tablet 1 tablet, By Mouth, Daily, # 90 tablet, 3 Refills, 07/18/21 9:38:00 EDT, [facility], 155, cm, 07/18/21 9:14:00 EDT, Height, 54.5, kg, 05/07/20 11:00:00 EDT, Dry Weight Start Date: 07/18/21 Status: Ordered memantine 10 mg oral tablet 1 tablet, By Mouth, 2 times a day, # 180 tablet, 3 Refills, Maintenance, 10/18/21 10:26:00 EST, [facility], 155, cm, 10/18/21 10:08:00 EST, [...] Diagnosis Diagnosis Type Effective Dates Health Status Clinical Service Informant Nonnecrotizing granulomatous lung disease Discharge Diagnosis 03/13/22 Pulmonary nodules/lesions, multiple Discharge Diagnosis 03/13/22 Sarcoidosis of lung Discharge Diagnosis 03/13/22 Dementia Discharge Diagnosis 03/13/22 Vital Signs Most recent to oldest [Reference Range]: 1 Height 152 cm (03/13/22 1:13 PM) Weight 50.4 kg (03/13/22 1:13 PM) Oxygen Saturation [94-100 %] 98 % (03/13/22 1:13 PM) Pulse Rate [55-90 bpm] 104 bpm *H* (03/13/22 1:13 PM) Body Mass Index [18.5-24.99] 21.81 (03/13/22 1:13 PM) Blood Pressure [90-138/55-84 mm Hg] 116/ 58mm Hg (03/13/22 1:13 PM) Temperature [96.8-100.4 DegF] 98.3 DegF (03/13/22 1:13 PM) Mode of Delivery (Oxygen) Room air (03/13/22 1:13 PM) Blood pressure sites Arm, right (03/13/22 1:13 PM) Temperature Route Temporal (03/13/22 1:13 PM) Weight Obtained Via Standing scale (03/13/22 1:13 PM) Social History Social History Type Response Smoking Status Former smoker; Tobac co user in household: No; Other: Quit in 1968; entered on: 02/09/15 Sex
--- OUTSIDE RECORDS SUMMARY | 2023-10-02 08:25 | XMS_ITS | Continuity of Care Document ---
Author Name Unknown Organization [facility] Address [address] [facility] [address] [place] [address]- Care Team Providers Care Certified Solid Waste Facility Operator Name Role Phone Rosario REYES, Pablito Sharp Primary Care Physician [phone] [place] [facility] [place]19[place]19 [facility] [address] [facility] [address] [place] [address] [facility] Attending Physician: Bipin Chacko Admitting Physician: Bipin Chacko Referring Physician: AdmtrBipin Allergies, Adverse Reactions, Alerts Substance Reaction Severity [...] 1Admin Note: [facility] 3[facility]: [facility] 4Result Comment: [06/06/2014] [facility] [address] 5Admin Note: Received at [facility] 6Ain Note: [facility] Note: [facility] [address] [place] Medications amLODIPine 10 mg oral tablet 10 mg, 1, tablet, By Mouth, Daily, # 90 tablet, Refills 1, Tot. Refills 1, Maintenance, 10/01/19 12:24:00 EST, Route to Pharmacy Electronically, [facility], 152, cm, 09/16/19 9:23:00 EST, [...] 03/04/19 15:34:01 EDT, Route to Pharmacy Electronically, [id number], [facility] Start Date: 03/04/19 Stop Date: 02/27/20 Status: Ordered Flonase 50 mcg/inh nasal spray 1 sprays, Nares, Both, 2 times a day, # 16 Gm, 0 Refills, Maintenance, 12/30/18 7:15:18 EDT, [place],1 sprays Nares, Both 2 times a day [...] 12/30/18 7:16:12 EDT, Route to Pharmacy Electronically, [id number][facility] [id number] Start Date: 12/30/18 Status: Ordered lovastatin 40 [...]
--- OUTSIDE RECORDS SUMMARY | 2023-10-02 08:25 | XMS_ITS | Continuity of Care Document ---
Author Name Unknown Organization [facility] Address [address] [place] [address]- Care Team Providers Care Cafeteria Associate Name Role Phone Rosario REYES, Pablito Sharp Primary Care Physician Encounter [place] Date(s): 02/15/22 - 03/17/22 [facility] Adult [address] [place] [address]- Allergies, Adverse Reactions, Alerts Substance Reaction Severity [...] [[facility]] [facility] 3[facility] Comment: [06/06/2014[facility] [address] 4Admin Note: Received at [facility] 5Admin Note: This shot was administered at [facility] 6Admin Note: [facility] 7Admin Note: christofer [...] Gm, 0 Refills, Maintenance, 12/30/18 7:15:18 EDT, [place],1 sprays Nares, Both 2 times a day [...] and forward to patient's PCP Rosario REYES, aPblito Sharp, phone: , 01/08/22 13:30:00 EDT, S... [...]
--- OUTSIDE RECORDS SUMMARY | 2023-10-02 08:25 | XMS_ITS | Continuity of Care Document ---
Author Name Unknown Organization [facility] Cir[facility] Address [address] [place] [address]- Care Team Providers Care Geological Specialist Name Role Phone Pablito Ponce MD Primary Care Physician Encounter [facility] Date(s): 10/06/19 - 10/13/19 [facility] Adult [address] [place] [address]- [facility] Attending Physician: Pablito Ponce MD Allergies, Adverse [...] 06/15/04 Given 1Admin Note: [facility] 2Location History: [facility] 3Result Comment: [[facility]/2015[facility] [address] 5Admin Note: [facility] 6Admin Note: This shot was administered at [address] Note: [facility] [address] [address] [place] Medications amLODIPine 10 [...] 03/04/19 15:34:01 EDT, Route to Pharmacy Electronically, [id number], [facility] Start Date: 03/04/19 Stop Date: 02/27/20 Status: Ordered Flonase 50 mcg/inh nasal spray 1 sprays, Nares, Both, 2 times a day, # 16 Gm, 0 Refills, Maintenance, 12/30/18 7:15:18 EDT, [place],1 sprays Nares, Both 2 times a day [...] 12/30/18 7:16:12 EDT, Route to Pharmacy Electronically, [id number], [facility] [id number] Start Date: 12/30/18 Status: Ordered lovastatin 40 [...] oldest [Reference Range]: 1 Height 152 cm (10/06/19 7:01 AM) Weight 51.0 kg (10/06/19 7:01 AM) Oxygen Saturation [94-100 %] 98 % (10/06/19 7:01 AM) Pulse Rate [55-90 bpm] 89 bpm (10/06/19 7:01 AM) Body Mass Index [18.5-24.99] 22.07 (10/06/19 7:01 AM) Blood Pressure [90-138/55-84 mm Hg] 124/ 80mm Hg (10/06/19 7:01 AM) Temperature [96.8-100.4 DegF] 97.5 DegF (10/06/19 7:01 AM) Mode of Delivery (Oxygen) Room air (10/06/19 7:01 AM) Blood pressure sites Arm, left (10/06/19 7:01 AM) Temperature Route Oral (10/06/19 7:01 AM) Weight Obtained Via Standing scale (10/06/19 7:01 AM) Social History Social History Type Response Smoking Status Former smoker; Tobac co user in household: No; Other: Quit in 1968; entered on: 02/09/15 Sex
--- OUTSIDE RECORDS SUMMARY | 2023-10-02 08:25 | XMS_ITS | Continuity of Care Document ---
Author Name Unknown Organization [facility] Address [address] [place] [address]- Care Team Providers Care Hoop Maker Machine Name Role Phone Rosario REYES, Pablito Sharp Primary Care Physician Encounter [facility] [place] Date(s): 05/07/20 - 05/07/[address] [address]- [facility] Discharge Disposition: A-D/C Home Attending Physician: Moe Moreira MD Admitting Physician: Moe Moreira MD Referring Physician: Not on Staff, Referring [...] [07/[facility]2015] [facility] [address] 5Admin Note: Received at [facility] Note: [facility] at [facility] 7Ain Note: [facility] [address] [place] Medications amLODIPine 10 mg oral tablet 10 mg, 1, tablet, By Mouth, Daily, # 90 tablet, Refills 3, Tot. Refills 3, Maintenance, 01/13/20 7:42:00 EDT, Route to Pharmacy Electronically, [facility], 152, cm, 01/13/20 7:13:00 EDT, [...] 02/27/20 15:34:00 EDT, Route to Pharmacy Electronically, [facility], 152, cm, 10/06/19 7:01:00 EST, Height, 55.3, kg, 09/06/18 3:40:00... Start Date: 02/27/20 Stop Date: 02/21/21 Status: Ordered Flonase 50 mcg/inh nasal spray 1 sprays, Nares, Both, 2 times a day, # 16 Gm, 0 Refills, Maintenance, 12/30/18 7:15:18 EDT, [place],1 sprays Nares, Both 2 times a day [...] oldest [Reference Range]: 1 2 3 Height 155 cm (05/07/20 11:00 AM) 155 cm (05/07/20 10:08 AM) 155 cm (05/07/20:04 AM) Weight 54.5 kg (05/07/20 11:00 AM) 54.5 kg (05/07/20 10:08 AM) 54.5 kg (05/07/20:04 AM) Oxygen Saturation [94-100 %] 98 % (05/07/20 11:00 AM) 98 % (05/07/20 10:08 AM) 99 % (05/07/20:04 AM) Pulse Rate [55-90 bpm] 89 bpm (05/07/20 11:00 AM) 93 bpm *H* (05/07/20 10:08 AM) 85 bpm (05/07/20:04 AM) Body Mass Index [18.5-24.99] 22.68 (05/07/20 11:00 AM) 22.68 (05/07/20 10:08 AM) 22.68 (05/07/20:04 AM) Blood Pressure [90-138/55-84 mm Hg] 154/66mm Hg *H* (05/07/20 11:00 AM) 168/64mm Hg *H* (05/07/20 10:08 AM) 162/78mm Hg *H* (05/07/20:04 AM) Respiratory Rate [16-30 br/min] 12 br/min *L* (05/07/20 11:00 AM) 15 br/min *L* (05/07/20 10:08 AM) 17 br/min (05/07/20 9:04 AM) Temperature [96.8-100.4 DegF] 98.3 DegF (05/07/20 10:08 AM) 98.9 DegF (05/07/20 9:04 AM) Mode of Delivery (Oxygen) Room air (05/07/20 11:00 AM) Room air (05/07/20 10:08 AM) Room air (05/07/20 9:04 AM) Blood pressure sites Arm, right (05/07/20 11:00 AM) Arm, right (05/07/20 10:08 AM) Arm, right (05/07/20 9:04 AM) Temperature Route Oral (05/07/20 10:08 AM) Oral (05/07/20 9:04 AM) Dry Weight 54.5 kg (05/07/20 11:00 AM) 54.5 kg (05/07/20 10:08 AM) 54.5 kg (05/07/20 9:04 AM) Weight Obtained Via Standing scale (05/07/20 9:04 AM) Dry Weight Obtained Via Standing scale (05/07/20 9:04 AM) Social History Social History Type Response Smoking Status Former smoker; Tobac co user in household: No; Other: Quit in 1968; entered on: 02/09/15 Sex
--- OUTSIDE RECORDS SUMMARY | 2023-10-02 08:25 | XMS_ITS | Continuity of Care Document ---
Author Name Unknown Organization [facility] Cir[address] Address [address] [place] [address]- Care Team Providers Care Websphere Process Server Developer Name Role Phone Rosario REYES, Pablito Sharp Primary Care Physician [phone] [facility] Date[facility]s): 02/17/23 - 03/19/23 [facility] Adult [address] [place] [address]- Allergies, Adverse Reactions, Alerts Substance Reaction Severity [...] vaccine, inactivated 05/25/10 Markus rded SARS-CoV-2 mRNA (raydgck-ljdt-bfovw) vax 01/25/22 Recorded SARS-CoV-2 (COVID-19) mRNA BNT-162b2 [...] tetanus-diphtheria toxoids (Td) 06/15/04 Given 1Location History: [facility] 2Result Comment: [07/05/2015] [facility] 3Result Comment: [06/06/2014] [facility] on [address] 4Admin Note: Received at [facility] 5Admin Note: This shot was administered at [facility] 6Admin Note: [facility] 7Admin Note: [facility] [place] Medications acetaminophen 325 mg oral tablet [...] 08/29/22 4:30:00 EST, Route to Pharmacy Electronically, [id number], 152, cm, 07/09/22 9:25:00 EDT, Height, 50.5, kg, 01/03/22 19:26:00 E... Start Date: 08/29/22 Stop Date: 08/24/23 Status: Ordered Flonase 50 mcg/inh nasal spray 1 sprays, Nares, Both, Daily in AM, Maintenance, 02/04/23 9:45:00 EDT, [place], Partial fill upon patient request if the [...] mg, By Mouth, Daily, 0 Refills, Maintenance, 06/11/14 7:50:52 EDT Start Date: 02/23/14 Status: Ordered [...] Team Personnel Name: Tiffany Anderson RN Position: [facility] Office Staff Member Role: Primary Care Nurse Name: Mag Gonzalez RN Position: [facility] RN Member Role: Primary Care Nurse Name: Pablito Ponce MD Position: [facility] Physician - Primary Care Member Role: PCP Address: Address: [address] [place] [phone]- [place] Name: Krys Hager RN Position: [facility] RN Member Role: Primary Care Nurse Care Team Related Persons Name: BRAYAN GARCIA Address: home [address] [place] [address]
--- OUTSIDE RECORDS SUMMARY | 2023-10-02 08:25 | XMS_ITS | Continuity of Care Document ---
Author Name Unknown Organization [facility] Cir[facility] lt Address [address] [place] [address]- Care Team Providers Care Workforce Development Vice President Name Role Phone Rosario REYES, Pablito Sharp Primary Care Physician [facility] Date[facility]s): 04/30/23 - 05/30/23 [facility] Adult [address] [place] [address]- Allergies, Adverse Reactions, Alerts Substance Reaction Severity [...] vaccine, inactivated 05/25/10 Markus rded SARS-CoV-2 mRNA (bxbbhht-ewkt-kxehk) vax 01/25/22 Recorded SARS-CoV-2 (COVID-19) mRNA BNT-162b2 [...] tetanus-diphtheria toxoids (Td) 06/15/04 Given 1Location History: [facility] 2Result Comment: [07/05/2015] [facility] 3Result Comment: [06/06/2014] [facility] on [address] 4Admin Note: Received at [facility] 5Ain Note: This shot was administered at [facility] 6Admin Note: [facility] 7Admin Note: [facility] [place] Medications acetaminophen 325 mg oral [...] 9:57:00 EDT, Route to Pharmacy Electronically, [facility], 153, cm, 05/16/23 9:48:00 EDT, [place]... Start Date: 05/16/23 Stop Date: 05/10/24 Status: Ordered Flonase 50 mcg/inh nasal spray 1 sprays, Nares, Both, Daily in AM, Maintenance, 02/04/23 9:45:00 EDT, [place], Partial fill upon patient request if the [...] 3 Refills, Maintenance, 05/16/23 9:57:00 EDT, [facility], 153, cm, 05/16/23 9:48:00 EDT, [...] Team Personnel Name: Tiffany Anderson RN Position: [facility] RN Member Role: Primary Care Nurse Name: Mag Gonzalez RN Position: S RN Member Role: Primary Care Nurse Name: Pablito Ponce MD Position: [facility] Physician - Primary Care Member Role: PCP Address: Address: [address] [place] [address]- Name: Krys Hager RN Position: [facility] RN Member Role: Primary Care Nurse Care Team Related Persons Name: ERIC GARCIAJenniffer Address: home [address] [place] [address]
--- OUTSIDE RECORDS SUMMARY | 2023-10-02 08:26 | XMS_ITS | Continuity of Care Document ---
Author Name Unknown Organization [facility] Cirilo lt Address [address] [place] [address]- Care Team Providers Care Software Requirements Engineer Name Role Phone Pablito Ponce MD Primary Care Physician [place] [facility] Date(s): 01/22/22 - 01/29/22 [facility] Adult [address] [place] [address]- Attending Physician: Pablito Ponce MD Allergies, Adverse [...] [facility] [address] 4Admin Note: Received at [facility] 5Ain Note: This shot was administered at [facility] 6Admin Note: [facility] 7Admin Note: [address] [place] Medications acetaminophen 325 mg [...] Gm, 0 Refills, Maintenance, 12/30/18 7:15:18 EDT, [place],1 sprays Nares, Both 2 times a day [...] to oldest [Reference Range]: 1 2 Height 152 cm (01/22/22 1:58 PM) 152 cm (01/22/22 1:51 PM) Weight 48.9 kg (01/22/22 1:51 PM) Oxygen Saturation [94-100 %] 98 % (01/22/22 1:51 PM) Pulse Rate [55-90 bpm] 84 bpm (01/22/22 1:51 PM) Body Mass Index [18.5-24.99] 21.17 (01/22/22 1:51 PM) Blood Pressure [90-138/55-84 mm Hg] 137/ 70mm Hg (01/22/22 1:58 PM) 145/74mm Hg *H* (01/22/22 1:51 PM) Mode of Delivery (Oxygen) Room air (01/22/22 1:51 PM) Blood pressure sites Arm, left (01/22/22 1:58 PM) Arm, left (01/22/22 1:51 PM) Weight Obtained Via Standing scale (01/22/22 1:51 PM) Social History Social History Type Response Smoking Status Former smoker; Tobac co user in household: No; Other: Quit in 1968; entered on: 02/09/15 Sex
--- OUTSIDE RECORDS SUMMARY | 2023-10-02 08:26 | XMS_ITS | Continuity of Care Document ---
Author Name Unknown Organization [facility] Cirilo lt Address [address] [place] [address]- Care Team Providers Care Slubber Tender Name Role Phone Rosario REYES, Pablito Sharp Primary Care Physician [phone] [facility]counter [facility] Date(s): 02/16/21 - 03/18/21 [facility] Adult [address] [place] [address]- Allergies, Adverse Reactions, Alerts Substance Reaction Severity [...] 06/15/04 Given 1Admin Note: [facility] 2Location History: [facility] 3Result Comment: [07/05/2015] [facility] 4Result Comment: [06/06/2014] [facility] [address] 5Admin Note: Received at [facility] 6Admin Note: This shot was administered at [facility]: [facility] [address] [place] Medications amLODIPine 10 mg oral tablet 1 tablet, By Mouth, Daily, # 90 tablet, 3 Refills, Maintenance, 02/23/21 14:24:00 EDT, [facility], 155, cm, 02/21/21 13:38:00 EDT, [...] 02/21/21 15:34:00 EDT, Route to Pharmacy Electronically, [facility], 155, cm, 09/06/20 14:34:00 EST, Height, 54.5, kg, 05/07/20 11:00:... Start Date: 02/21/21 Stop Date: 02/16/22 Status: Ordered Flonase 50 mcg/inh nasal spray 1 sprays, Nares, Both, 2 times a day, # 16 Gm, 0 Refills, Maintenance, 12/30/18 7:15:18 EDT, [place],1 sprays Nares, Both 2 times a day Start Date: 12/30/18 Status: Ordered Flovent Diskus 50 mcg/inh inhalation powder 1 each, Inhalation, 2 times a day, rinse mouth and throat after use, # 60 each, 6 Refills, Maintenance, 02/14/21 12:56:00 EDT, Powder, [facility] #[id number], 1 each Inhalation 2 times a day,Instr:rinse [...] 7:37:00 EDT, Route to Pharmacy Electronically, [facility], 155, cm, 06/14/20 7:11:00 EDT, [...] Refills, Maintenance, 06/14/20 7:40:00 EDT, Tablet, [facility], 155, cm, 06/14/20 7:11:00 EDT, Height, 54.5, kg, 05/07/20 11:00:00EDT, Dry Weight Start Date: 06/14/20 Status: Ordered lovastatin 40 mg oral tablet 1 tablet = 40 mg, By Mouth, Daily, # 15 tablet, 0 Refills, Maintenance, 11/14/20 8:25:00 EST, Tablet, [facility][id number], 155, cm, 09/06/20 14:34:00 EST, Height, 54.5, kg, 05/07/20 11:00:00 EDT, Dry Weight Start Date: 11/14/20 Status: Ordered memantine 10 mg oral tablet 1 tablet, By Mouth, 2 times a day, # 180 tablet, 3 Refills, Maintenance, 02/19/21 9:49:00 EDT, [facility], 155, cm, 02/09/21 8:16:00 EDT, [...]
--- OUTSIDE RECORDS SUMMARY | 2023-10-02 08:26 | XMS_ITS | Continuity of Care Document ---
Author Name Unknown Organization [facility] Cirilo lt Address [address] [place] [address]- Care Team Providers Care Resource Economist Name Role Phone Rosario REYES, Pablito Sharp Primary Care Physician [facility] Date[facility]s): 02/21/23 - 03/23/23 [facility] Adult [address] [place] [address]- Attending Physician: Admtr, Ar8 Allergies, Adverse Reactions, [...] vaccine, inactivated 05/25/10 Markus rded SARS-CoV-2 mRNA (vzlqyvd-iasd-qfrcn) vax 01/25/22 Recorded SARS-CoV-2 (COVID-19) mRNA BNT-162b2 [...] tetanus-diphtheria toxoids (Td) 06/15/04 Given 1Location History: [facility] 2Result Comment: [07/05/2015] [facility] 3Result Comment: [06/06/2014] [facility] on [address] 4Admin Note: Received at [facility] 5Ain Note: This shot was administered at [facility] 6Admin Note: [facility] 7Admin Note: [facility] [place] Medications acetaminophen 325 mg oral tablet [...] 08/29/22 4:30:00 EST, Route to Pharmacy Electronically, [facility] #[id number], 152, cm, 07/09/22 9:25:00 EDT, Height, 50.5, kg, 01/03/22 19:26:00 E... Start Date: 08/29/22 Stop Date: 08/24/23 Status: Ordered Flonase 50 mcg/inh nasal spray 1 sprays, Nares, Both, Daily in AM, Maintenance, 02/04/23 9:45:00 EDT, [place], Partial fill upon patient request if the [...] 3 Refills, Maintenance, 12/31/22 7:27:00 EDT, [facility], 152, cm, 11/13/22 9:56:00 EST, [...] Quit in 1968; entered on: 02/09/15 Sex EKG study * Event Display: EKG Authored Date: Cardiology * Allie Fuentes: PERFORM Event Display: Cardiovascular Results Scanned Authored Date: Laboratory * Event Display: Non BH Lab Results Authored Date: Radiology * Event Display: Radiology Result Scanned Authored Date: * Event Display: Radiology Result Scanned Authored Date: * Kimberly Foley: PERFORM Event Display: Radiology Results Scanned Authored Date: Patient Care team information Care Team Personnel Name: Tiffany Anderson RN Position: [facility] Office Staff Member Role: Primary Care Nurse Name: Mag Gonzalez RN Position: [facility] RN Member Role: Primary Care Nurse Name: Pablito Ponce MD Position: [facility] Physician - Primary Care Member Role: PCP Address: Address: [address] [place] [address]- [place] Name: Krys Hager RN Position: [facility] RN Member Role: Primary Care Nurse Care Team Related Persons Name: BRAYAN GARCIA Address: home [address] [place] [address]
--- OUTSIDE RECORDS SUMMARY | 2023-10-02 08:26 | XMS_ITS | Continuity of Care Document ---
Author Name Unknown Organization [facility] Address [address] [place] [address]- Care Team Providers Care Mounting Machine Operator Name Role Phone Rosario REYES, Pablito Sharp Primary Care Physician [place] [facility] [place] 03/28/23 - 04/27/23 [facility] [address] [place] [id number] Allergies, Adverse Reactions, Alerts Substance Reaction Severity [...] vaccine, inactivated 05/25/10 Markus rded SARS-CoV-2 mRNA (udbymvk-ixdc-ztdon) vax 01/25/22 Recorded SARS-CoV-2 (COVID-19) mRNA BNT-162b2 [...] tetanus-diphtheria toxoids (Td) 06/15/04 Given 1Location History: [facility] 2Result Comment: [07/05/2015] [facility] 3Result Comment: [06/06/2014] [facility] on [address] 4Admin Note: Received at [facility] 5Admin Note: This shot was administered at [facility] 6Admin Note: [facility] 7Admin Note: [facility] [place] Medications acetaminophen 325 mg [...] 08/29/22 4:30:00 EST, Route to Pharmacy Electronically, [facility] #[id number], 152, cm, 07/09/22 9:25:00 EDT, [place]... Start Date: 08/29/22 Stop Date: 08/24/23 Status: Ordered Flonase 50 mcg/inh nasal spray 1 sprays, Nares, Both, Daily in AM, Maintenance, 02/04/23 9:45:00 EDT, [place], Partial fill upon patient request if the [...] tablet, 3 Refills, Maintenance, 09/17/22 11:22:00 EST, [facility], 152, cm, 07/09/22 9:25:00 EDT, Height, 50.5, kg, 01/03/22 19:26:00 EDT, Dry Weight Start Date: 09/17/22 Status: Ordered memantine 10 mg oral tablet 1 tablet, By Mouth, 2 times a day, # 180 tablet, 3 Refills, Maintenance, 12/31/22 7:27:00 EDT, [facility], 152, cm, 11/13/22 9:56:00 EST, [...] Team Personnel Name: Tiffany Anderson RN Position: [facility] Office Staff Member Role: Primary Care Nurse Name: Mag Gonzalez RN Position: [facility] RN Member Role: Primary Care Nurse Name: Pablito Ponce MD Position: [facility] Physician - Primary Care Member Role: PCP Address: Address: [address] [place] [address]- Name: Krys Hager RN Position: [facility] RN Member Role: Primary Care Nurse Care Team Related Persons Name: ERIC GARCIAJenniffer Address: home [address] [place] [address]
--- OUTSIDE RECORDS SUMMARY | 2023-10-02 08:26 | XMS_ITS | Continuity of Care Document ---
Author Name Unknown Organization [facility] Cirilo lt Address [address] [place] [address]- Care Team Providers Care Project Engineer Chemicals Name Role Phone Rosario REYES, Pablito Sharp Primary Care Physician [facility] Date(s): 02/17/23 - 03/19/23 [facility] Adult [address] [place] [address]- Allergies, Adverse Reactions, Alerts Substance Reaction Severity [...] Gi marianne influenza virus vaccine, inactivated 05/25/10 Mrakus rded SARS-CoV-2 mRNA (bkxwrfp-xdxe-aehus) vax 01/25/22 Recorded SARS-CoV-2 (COVID-19) mRNA BNT-162b2 [...] tetanus-diphtheria toxoids (Td) 06/15/04 Given 1Location History: [facility] 2Result Comment: [07/05/2015] [facility] 3Result Comment: [06/06/2014] [facility] [address] 4Admin Note: Received at [facility] 5Admin Note: This shot was administered at [facility] 6Admin Note: [facility] 7Admin Note: [facility] [place] Medications acetaminophen 325 mg oral tablet [...] 08/29/22 4:30:00 EST, Route to Pharmacy Electronically, [facility] #[id number], 152, cm, 07/09/22 9:25:00 EDT, Height, 50.5, kg, 01/03/22 19:26:00 E... Start Date: 08/29/22 Stop Date: 08/24/23 Status: Ordered Flonase 50 mcg/inh nasal spray 1 sprays, Nares, Both, Daily in AM, Maintenance, 02/04/23 9:45:00 EDT, [place], Partial fill upon patient request if the [...] Team Personnel Name: Tiffany Anderson RN Position: [facility] Office Staff Member Role: Primary Care Nurse Name: Mag Gonzalez RN Position: [facility] RN Member Role: Primary Care Nurse Name: Pablito Ponce MD Position: [facility] Physician - Primary Care Member Role: PCP Address: Address: [address] [place] [address]- [place] Name: Krys Hager RN Position: [facility] RN Member Role: Primary Care Nurse Care Team Related Persons Name: BRAYAN GARCIA Address: [address] [place] [address]
--- OUTSIDE RECORDS SUMMARY | 2023-10-02 08:26 | XMS_ITS | Continuity of Care Document ---
Author Name Unknown Organization [facility] ter Address [address] [place] [address]- Care Team Providers Care Steam Shovel Engineer Name Role Phone Rosario REYES, Pablito Sharp Primary Care Physician [phone] Encounter [facility] Date(s): 09/12/19 - 09/12/[address] [address] [place] Encounter Diagnosis Back pain(Final) - 09/12/19 Neck pain(Final) - 09/12/19 Discharge Disposition: A-D/C Home Attending Physician: Leonardo Hansen MD Admitting Physician: Leonardo Hansen MD Referring Physician: Not on Staff, Referring [...] Given 1Admin Note: [facility] History[facility] [address] 3Result Comment: [07/05/2015] [facility] 4Result Comment: [06/06/[facility] [address] 5Admin Note: Received at [facility] 6Ain Note: This shot was administered at [facility] 7Admin Note: [facility] [place] Medications amLODIPine 10 mg oral tablet 10 mg, 1, tablet, By Mouth, Daily, # 30 tablet, Refills 0, Tot. Refills 0, Maintenance, 04/06/19 15:13:37 EDT, Route to Pharmacy Electronically, [id number], [facility] [id number] Start Date: 04/06/19 Status: Ordered aspirin buffered [...] 03/04/19 15:34:01 EDT, Route to Pharmacy Electronically, [id number], [facility] Start Date: 03/04/19 Stop Date: 02/27/20 Status: Ordered Flonase 50 mcg/inh nasal spray 1 sprays, Nares, Both, 2 times a day, # 16 Gm, 0 Refills, Maintenance, 12/30/18 7:15:18 EDT, [place],1 sprays Nares, Both 2 times a day [...] 12/30/18 7:16:12 EDT, Route to Pharmacy Electronically, [id number], [facility] [id number] Start Date: 12/30/18 Status: Ordered lovastatin 40 [...] recent to oldest [Reference Range]: 1 2 Oxygen Saturation [94-100 %] 99 % (09/12/19 12:39 PM) 100 % (09/12/19 10:06 AM) Pulse Rate [55-90 bpm] 82 bpm (09/12/19 12:39 PM) 98 bpm *H* (09/12/19 10:06 AM) Blood Pressure [90-138/55-84 mm Hg] 154/ 72mm Hg *H* (09/12/19 12:39 PM) 164/125mm Hg *H* (09/12/19 10:06 AM) Respiratory Rate [16-30 br/min] 16 br/mi n (09/12/19 12:39 PM) 16 br/min (09/12/19 10:06 AM) Temperature [96.8-100.4 DegF] 98.2 DegF (09/12/19 10:06 AM) Mode of Delivery (Oxygen) Room air (09/12/19 12:39 PM) Room air (09/12/19 10:06 AM) Blood pressure sites Arm, right (09/12/19 10:06 AM) Temperature Route Oral (09/12/19 10:06 AM) Social History Social History Type Response Smoking Status Former smoker; Tobac co user in household: No; Other: Quit in 1968; entered on: 02/09/15 Sex
--- OUTSIDE RECORDS SUMMARY | 2023-10-02 08:26 | XMS_ITS | Continuity of Care Document ---
Author Name Unknown Organization [facility] Cirilo lt Address [address] [place] [address]- Care Team Providers Care Processing Technician Name Role Phone Pablito Ponce MD Primary Care Physician [place] [facility] Date(s): 05/10/22 - 05/17/22 [facility] Adult [address] [place] [address]- Attending Physician: Pablito Ponce MD Allergies, Adverse [...] [facility] [address] 4Admin Note: [facility] at [facility] 5Ain Note: [facility] [...] Gm, 0 Refills, Maintenance, 12/30/18 7:15:18 EDT, [place],1 sprays Nares, Both 2 times a [...] oldest [Reference Range]: 1 Height 152 cm (05/10/22 9:55 AM) Weight 52.8 kg (05/10/22 9:55 AM) Oxygen Saturation [94-100 %] 98 % (05/10/22 9:55 AM) Pulse Rate [55-90 bpm] 80 bpm (05/10/22 9:55 AM) Body Mass Index [18.5-24.99] 22.85 (05/10/22 9:55 AM) Blood Pressure [90-138/55-84 mm Hg] 122/ 74mm Hg (05/10/22 9:55 AM) Temperature [96.8-100.4 DegF] 97.8 DegF (05/10/22 9:55 AM) Blood pressure sites Arm, left (05/10/22 9:55 AM) Temperature Route Temporal (05/10/22 9:55 AM) Weight Obtained Via Standing scale (05/10/22 9:55 AM) Social History Social History Type Response Smoking Status Former smoker; Tobac co user in household: No; Other: Quit in 1968; entered on: 02/09/15 Sex Care Team Personnel Name: Pablito Ponce MD Address: [address] [place] [id number]
--- OUTSIDE RECORDS SUMMARY | 2023-10-02 08:26 | XMS_ITS | Continuity of Care Document ---
Author Name Unknown Organization [facility] Address [address] [place] [address]- Care Team Providers Care Checking Clerk Name Role Phone Rosario REYES, Pablito Sharp Primary Care Physician [phone] [place] [facility] Date[place] 01/02/22 - 01/08/[address] [address]- Encounter Diagnosis Altered mental status(Final) - 01/02/22 Discharge Disposition: A-Transfer SNF Attending Physician: Marlen Mooney MD Admitting Physician: Danette Ellis DO Referring Physician: Not on Staff, Referring [...] tetanus-diphtheria toxoids (Td) 06/15/04 Given 1Location History: [facility] [address] [facility]: [facility] [address] 4Admin Note: [facility]ceived at [facility] 5Admin Note: This shot was administered at [facility] 6Admin Note: [facility] 7Admin Note: [facility] Medications acetaminophen 325 mg oral [...] Print Requisition Start Date: 05/09/19 Status: Ordered Docusate/Senna Tablet 1 tablet, By Mouth, 2 times a day, PRN Constipation, 0 Refills, Maintenance, 01/08/22 13:28:00 EDT,Tablet, Partial fill upon patient request if the prescription is for a schedule II opioid drug. Start Date: 01/08/22 Status: Ordered donepezil 5 mg oral tablet [...] Gm, 0 Refills, Maintenance, 12/30/18 7:15:18 EDT, [place],1 sprays Nares, Both 2 times a day [...] 10:27:00 EST, Route to [facility]acy Electronically, [facility] [...] Dry Weight Start Date: 07/18/21 Status: Ordered melatonin 3 mg oral tablet = 3 mg, By Mouth, Daily at bedtime, PRN Insomnia, 0 Refills, Maintenance, 01/08/22 13:28:00 EDT, Tablet, Partial fill upon patient request if the prescription is for a schedule II opioid drug. Start Date: 01/08/22 Status: Ordered memantine 10 mg oral tablet 1 tablet, By Mouth, 2 times a day, # 180 tablet, 3 Refills, Maintenance, 10/18/21 10:26:00 EST, [facility], [facility], cm, 10/18/21 10:08:00 EST, Height, 54.5, kg, 05/07/20 11:00:00 EDT,Dry Weight Start Date: 10/18/21 Status: Ordered MiraLax Powder 1 pack/packet = 17 Gm, By Mouth, Daily, PRN Constipation, 0 Refills, Maintenance, 01/08/22 13:28:00EDT, Powder, Partial fill upon patient request if the prescription is for a schedule II opioid drug. Start Date: 01/08/22 Status: Ordered Multivitamin By Mouth, Daily, 0 Refills, Maintenance, 02/23/14 7:51:02 Start Date: 02/23/14 Status: Ordered please obtain labs please obtain labs, See Instructions, # 1 each, Refills 0, Tot. Refills 0, Maintenance, Please obtain Basic Metabolic Panel (lytes, BUN, Cre, glucose) and forward to patient's PCP Rosario REYES, Pablito Sharp, phone: , 01/08/22 13:30:00 EDT, S... Start Date: 01/08/22 Status: Ordered Vitamin C By Mouth, Daily, [...] Results Orders for Microbiology Reports Name Date Blood Culture 01/03/22 Blood Culture #2 01/03/22 Blood Culture 01/02/22 Blood Culture #2 01/02/22 Urine Culture (URINE CULTURE) 01/02/22 Microbiology Reports TEST:Blood Culture STATUS:Auth (Verified) BODY SITE: SOURCE:Blood COLLECTED DATE/TIME:01/03/22 11:31 AM Blood Culture SPECIMEN DESCRIPTION : BLOOD L ARM SPECIAL REQUESTS : NONE CULTURE : NO GROWTH 5 DAYS. REPORT STATUS : FINAL 01/08/2022 TEST:Blood Culture, Second Order STATUS:Auth (Verified) BODY SITE: SOURCE:Blood COLLECTED DATE/TIME:01/03/22 11:31 AM Blood Culture, Second Order SPECIMEN DESCRIPTION : BLOOD NO SITE SPECIAL REQUESTS : NONE CULTURE : NO GROWTH 5 DAYS. REPORT STATUS : FINAL 01/08/2022 TEST:Blood Culture, Second Order STATUS:Auth (Verified) BODY SITE: SOURCE:Blood COLLECTED DATE/TIME:01/02/22 4:56 PM Blood Culture, Second Order SPECIMEN DESCRIPTION : BLOOD l ac SPECIAL REQUESTS : NONE CULTURE : ESCHERICHIA COLI REPORT STATUS : FINAL 01/05/2022 ORGANISM ESCHERICHIA COLI METHOD MIN. INHIB. CONC. (MCG/ML) AMPICILLIN RESISTANT AMPICILLIN/SULBACTAM SUSCEPTIBLE AMOXICILLIN/CLAVULAN SUSCEPTIBLE CEFAZOLIN INTERMEDIATE CEFEPIME SUSCEPTIBLE CEFTRIAXONE SUSCEPTIBLE CIPROFLOXACIN SUSCEPTIBLE ERTAPENEM SUSCEPTIBLE GENTAMICIN SUSCEPTIBLE LEVOFLOXACIN SUSCEPTIBLE MEROPENEM SUSCEPTIBLE PIPERACILLIN/TAZOBAC SUSCEPTIBLE TRIMETH/SULFAMETHOX RESISTANT TETRACYCLINE SUSCEPTIBLE TEST:Blood Culture STATUS:Auth (Verified) BODY SITE: SOURCE:Blood COLLECTED DATE/TIME:01/02/22 4:50 PM Blood Culture SPECIMEN DESCRIPTION : BLOOD rac SPECIAL REQUESTS : CRITICAL VALUE CALLED AND VERIFIED BY READBACK FOR: GRAM NEGATIVE RODS CALLED TO ER [id number] 01/03/22 0552 BY TECH [id number] CULTURE : ESCHERICHIA COLI FOR SUSCEPTIBILITY RESULT REFER TO BLOOD CULTURE Escherichia coli was identified by multi-plex PCR REPORT STATUS : FINAL 01/05/2022 TEST:Urine Culture STATUS:Auth (Verified) BODY SITE: SOURCE:URINE COLLECTED DATE/TIME:01/02/22 2:31 PM Urine Culture SPECIMEN DESCRIPTION : URINE SPECIAL REQUESTS : NONE CULTURE : >100,000 COL/ML ESCHERICHIA COLI This isolate was identified using Maldi-TOF system These AST results were performed on the Broota ID and AST system REPORT STATUS : FINAL 01/05/2022 ORGANISM >100,000 COL/ML ESCHERICHIA COLI This isolate was identified using Maldi-TOF system METHOD MIN. INHIB. CONC. (MCG/ML) AMPICILLIN RESISTANT AMPICILLIN/SULBACTAM SUSCEPTIBLE AMOXICILLIN/CLAVULAN SUSCEPTIBLE CEFAZOLIN SUSCEPTIBLE CEFEPIME SUSCEPTIBLE CEFTRIAXONE SUSCEPTIBLE CIPROFLOXACIN SUSCEPTIBLE ERTAPENEM SUSCEPTIBLE GENTAMICIN SUSCEPTIBLE LEVOFLOXACIN SUSCEPTIBLE MEROPENEM SUSCEPTIBLE NITROFURANTOIN SUSCEPTIBLE PIPERACILLIN/TAZOBAC SUSCEPTIBLE TRIMETH/SULFAMETHOX RESISTANT TETRACYCLINE SUSCEPTIBLE Radiology Reports * Exam Date Time Procedure Performing Provider Status 01/02/22 5:59 PM Chest 2 Views Frontal and Lat SarahiLeonardo hickman; Auth (Verified) Notes: (Chest 2 Views Frontal and Lat) Reason For Exam: altered mental status, fever;Other: RESULT: Chest 2 Views Frontal and Lat Chest 2 Views Frontal and Lat Hx of Present Illness: per pt floyd pt has been unsteady on feet, losing control of her bladder,unable to talk since friday, will answer yes or no questions only; Reason: Other:; altered mental status, fever; Clinical Question(s): Pneumonia COMPARISON: 02/03/2018. FINDINGS: LINES AND TUBES: None. LUNGS AND PLEURA: The lungs are hypoexpanded without evidence of focal airspace disease. No pleural effusion. No pneumothorax. HEART, MEDIASTINUM AND LAMAR: Heart is normal in size. Normal upper mediastinal and hilar contour. BONES AND SOFT TISSUES: No acute abnormality. IMPRESSION: No acute abnormality. WSN: [id number] Ordering Physician: Sara Anaya Dictated By: Ronna Mcintyre MD Dictated Date/Time: 01/02/22 6:13 pm Reviewed By: Ronna Mcintyre MD Signed By: Ronna Mcintyre MD Signed Date/Time: 01/02/22 6:13 pm Transcribed By: ANJALI Transcribed Date/Time: 01/02/22 6:12 pm Vital Signs Most recent to oldest [Reference Range]: 1 2 3 Height 152 cm (01/08/22 1:10 PM) 152 cm (01/08/22 11:25 AM) 152 cm (01/08/22 8:40 AM) Weight 50 kg (01/03/22 7: PM) Oxygen Saturation [94-100 %] 97 % (01/08/22 1:10 PM) 97 % (01/08/22 11:25 AM) 96 % (01/08/22 5:35 AM) Pulse Rate [55-90 bpm] 91 bpm *H* (01/08/22 1:10 PM) 98 bpm *H* (01/08/22 11:25 AM) 109 bpm *H* (01/08/22 8:40 AM) Body Mass Index [18.5-24.99] 21.64 (01/03/22 7:26 PM) Blood Pressure [90-138/55-84 mm Hg] 124/59mm Hg (01/08/22 1:10 PM) 135/64mm Hg (01/08/22 11:25 AM) 156/87mm Hg *H* (01/08/22 8:40 AM) Respiratory Rate [16-30 br/min] 18 br/min (01/08/22 1:10 PM) 18 br/min (01/08/22 11:25 AM) 18 br/min (01/08/22 5:35 AM) Temperature [96.8-100.4 DegF] 98.1 DegF (01/08/22 1:10 PM) 98.6 DegF (01/08/22 11:25 AM) 98.4 DegF (01/08/22 5:35 AM) Mode of Delivery (Oxygen) Room air (01/08/22 1:10 PM) Room air (01/08/22 11:25 AM) Room air (01/08/22 5:35 AM) Blood pressure sites Arm, left (01/08/22 1:10 PM) Arm, right (01/08/22 11:25 AM) Arm, right (01/08/22 8:40 AM) Temperature Route Oral (01/08/22 1:10 PM) Oral (01/08/22 11:25 AM) Oral (01/08/22 5:35 AM) Dry Weight 50.5 kg (01/03/22 7:26 PM) Weight Obtained Via Bed scale (01/03/22 7:26 PM) Dry Weight Obtained Via Patient/family s tated (01/03/22 7:26 PM) Social History Social History Type Response Smoking Status Former smoker; Tobac co user in household: No; Other: Quit in 1968; entered on: 02/09/15 Sex
--- OUTSIDE RECORDS SUMMARY | 2023-10-02 08:26 | XMS_ITS | Continuity of Care Document ---
Author Name Unknown Organization [facility] Address [address] [place] [address]- Care Team Providers Care Human Resources Temp Name Role Phone Pablito Ponce MD Primary Care Physician Encounter [facility] Date(s): 10/18/21 - 02/13/22 [facility] Adult [address] [place] [address]- Attending Physician: Pablito Ponce MD Allergies, Adverse [...] [facility] [address] 4Admin Note: Received at [facility] 5Ain Note: This shot was administered at [facility] 6Admin Note: [facility] 7Admin Note: sarah [...] Gm, 0 Refills, Maintenance, 12/30/18 7:15:18 EDT, [place],1 sprays Nares, Both 2 times a day [...]
--- OUTSIDE RECORDS SUMMARY | 2023-10-02 08:26 | XMS_ITS | Continuity of Care Document ---
Author Name Unknown Organization [facility] Address [address] [place] [address]- Care Team Providers Care Block Machine Operator Name Role Phone Pablito Ponce MD Primary Care Physician [facility]counter [facility] Date(s): 01/13/20 - 01/20/20 [facility] Adult [address] [place] [address]- [facility] Attending Physician: Pablito Ponce MD Allergies, Adverse [...] 06/15/04 Given 1Admin Note: [facility] 2Location History: [facility] 3Result Comment: [07/05/2015] [facility] 4Result Comment: [06/06/2014] [facility] on [address] 5Admin Note: Received at [facility] 6Admin Note: This shot was administered at [address] Note: [facility] [address] [place] Medications amLODIPine 10 mg oral tablet 10 mg, 1, tablet, By Mouth, Daily, # 90 tablet, Refills 3, Tot. Refills 3, Maintenance, 01/13/20 7:42:00 EDT, Route to Pharmacy Electronically, [facility], 152, cm, 01/13/20 7:13:00 EDT, [...] 03/04/19 15:34:01 EDT, Route to Pharmacy Electronically, [facility] Start Date: 03/04/19 Stop Date: 02/27/20 Status: Ordered donepezil 5 mg oral tablet 5 mg, 1, tablet, By Mouth, Daily at bedtime, # 90 tablet, Refills 3, Tot. Refills 3, Maintenance, 02/27/20 15:34:00 EDT, Route to Pharmacy Electronically, [facility], 152, cm, 10/06/19 7:01:00 EST, Height, 55.3, kg, 09/06/18 3:40:00... Start Date: 02/27/20 Stop Date: 02/21/21 Status: Ordered Flonase 50 mcg/inh nasal spray 1 sprays, Nares, Both, 2 times a day, # 16 Gm, 0 Refills, Maintenance, 12/30/18 7:15:18 EDT, [place],1 sprays Nares, Both 2 times a day [...] 01/22/20 13:30:00 EDT, 12/23/19 13:30:00 EDT, Tablet, [id number], 152, cm, 10/06/19 7:01:00 EST, Height, 55.3, [...] oldest [Reference Range]: 1 Height 152 cm (01/13/20 7:13 AM) Weight 52.0 kg (01/13/20 7:13 AM) Oxygen Saturation [94-100 %] 98 % (01/13/20 7:13 AM) Pulse Rate [55-90 bpm] 78 bpm (01/13/20 7:13 AM) Body Mass Index [18.5-24.99] 22.51 (01/13/20 7:13 AM) Blood Pressure [90-138/55-84 mm Hg] 114/ 70mm Hg (01/13/20 7:13 AM) Temperature [96.8-100.4 DegF] 97.5 DegF (01/13/20 7:13 AM) Mode of Delivery (Oxygen) Room air (01/13/20 7:13 AM) Blood pressure sites Arm, right (01/13/20 7:13 AM) Temperature Route Oral (01/13/20 7:13 AM) Weight Obtained Via Standing scale (01/13/20 7:13 AM) Social History Social History Type Response Smoking Status Former smoker; Tobac co user in household: No; Other: Quit in 1968; entered on: 02/09/15 Sex
--- OUTSIDE RECORDS SUMMARY | 2023-10-02 08:26 | XMS_ITS | Continuity of Care Document ---
Author Name Unknown Organization [facility] Address [address] [place] [address]- Care Team Providers Care Basket Patcher Name Role Phone Pablito Ponce MD Primary Care Physician Encounter [facility] Date(s): 08/30/21 - 02/24/22 [facility] [address] [place] [address] [place] [address] Attending Physician: Aj Stephenson MD Admitting Physician: Aj Stephenson MD Referring Physician: Pablito Ponce MD Allergies, Adverse [...] tetanus-diphtheria toxoids (Td) 06/15/04 Given 1Location History: [facility] [address] 2Result Comment: [07/05/2015] [facility] 3Result Comment[facility] [address] 4Admin Note: Received at [facility] 5Admin Note: This shot was administered at [facility] 6Admin Note: [facility] 7Admin Note: scott [...] 15:34:00 EDT, Route to Pharmacy Electronically, [facility], 155, cm, 09/06/20 14:34:00 EST, Height, 54.5, kg, 05/07/20 11:00:... Start Date: 02/21/21 Stop Date: 02/16/22 Status: Ordered Flonase 50 mcg/inh nasal spray 1 sprays, Nares, Both, 2 times a day, # 16 Gm, 0 Refills, Maintenance, 12/30/18 7:15:18 EDT, [place],1 sprays Nares, Both 2 times a day Start Date: 12/30/18 Status: Ordered folic acid 0.4 mg oral tablet 1 tablet = 0.4 mg, By Mouth, Daily, # 100 tablet, 0 Refills, Maintenance, 09/06/18 13:22:58 EST, Tablet Start Date: 09/06/18 Status: Ordered lovastatin 40 mg oral tablet 1 tablet, By Mouth, Daily, # 90 tablet, 3 Refills, 07/18/21 9:38:00 EDT, [facility], 155, cm, 07/18/21 9:14:00 EDT, Height, 54.5, kg, 05/07/20 11:00:00 EDT, Dry Weight Start Date: 07/18/21 Status: Ordered memantine 10 mg oral tablet 1 tablet, By Mouth, 2 times a day, # 180 tablet, 3 Refills, Maintenance, 10/18/21 10:26:00 EST, [facility], 155, cm, 10/18/21 10:08:00 EST, [...]
--- OUTSIDE RECORDS SUMMARY | 2023-10-02 08:26 | XMS_ITS | Continuity of Care Document ---
Author Name Unknown Organization [facility] Address Unknown Care Team Providers Care Gaming Cage Worker Name Role Phone Rosario REYES, Pablito Sharp Primary Care Physician [phone] Encounter [facility] Date(s): 03/13/22 - 04/12/22 [facility] Attending Physician: Bipin Chacko Admitting Physician: Bipin [...] [facility] [address] 4Admin Note: Received at [facility] 5Admin Note: This shot was administered at [facility] 6Admin Note: [facility] 7Admin Note: sarah murguia [...] Gm, 0 Refills, Maintenance, 12/30/18 7:15:18 EDT, [place],1 sprays Nares, Both 2 times a day Start Date: 12/30/18 Status: Ordered folic acid 0.4 mg oral tablet 1 tablet = 0.4 mg, By Mouth, Daily, # 100 tablet, 0 Refills, Maintenance, 09/06/18 13:22:58 EST, Tablet Start Date: 09/06/18 Status: Ordered lovastatin 40 mg oral tablet 1 tablet, By Mouth, Daily, # 90 tablet, 3 Refills, 07/18/21 9:38:00 EDT, [facility], 155, cm, 07/18/21 9:14:00 EDT, [...]
--- OUTSIDE RECORDS SUMMARY | 2023-10-02 08:26 | XMS_ITS | Continuity of Care Document ---
Author Name Unknown Organization [facility] Address [address] [place] [address]- Care Team Providers Care Resistance Welder Name Role Phone Pablito Ponce MD Primary Care Physician [phone] Encounter [place] Date(s): 01/31/22 - 05/31/22 [facility] Adult [address] [place] [address]- Attending Physician: Pablito Ponce MD Allergies, Adverse [...] [[facility]2015[facility] [address] 4Admin Note: Received at [facility] 5Ain Note: This shot was administered at [facility] 6Admin Note: [facility] 7Admin Note: sarah [...] Gm, 0 Refills, Maintenance, 12/30/18 7:15:18 EDT, [place],1 sprays Nares, Both 2 times a day [...] on: 02/09/15 Sex Care Team Personnel Name: Rosario REYES, Pablito Sharp Address: [address] [place] [id number]
--- OUTSIDE RECORDS SUMMARY | 2023-10-02 08:26 | XMS_ITS | Continuity of Care Document ---
Author Name Unknown Organization [facility] Address [address] [place] [address] [address], [address] [place] [address]- Care Team Providers Care Edger Tailer Name Role Phone Rosario REYES, Pablito Sharp Primary Care Physician Encounter [facility] Date(s): 02/21/21 - 02/28/21 [facility] [address] [place] [address], [address] [place] [address]- Attending Physician: Lory Castillo MD Allergies, Adverse [...] [[facility]/2015] [facility] [[facility] [address] 5Admin Note: Received at [facility] 6[facility] Note: This shot was administered at [facility] 7[facility] Note: [facility] [address] [place] Medications amLODIPine 10 mg oral tablet 1 tablet, By Mouth, Daily, # 90 tablet, 3 Refills, Maintenance, 02/23/21 14:24:00 EDT, [facility], 155, cm, 02/21/21 13:38:00 EDT, [...] Gm, 0 Refills, Maintenance, 12/30/18 7:15:18 EDT, [place],1 sprays Nares, Both 2 times a day Start Date: 12/30/18 Status: Ordered Flovent Diskus 50 mcg/inh inhalation powder 1 each, Inhalation, 2 times a day, rinse mouth and throat after use, # 60 each, 6 Refills, Maintenance, 02/14/21 12:56:00 EDT, Powder, [id number], 1 each Inhalation 2 times a day,Instr:rinse [...] 06/14/20 7:37:00 EDT, Route to Pharmacy Electronically, [facility], 155, cm, 06/14/20 7:11:00 EDT, [...] 3 Refills, Maintenance, 06/14/20 7:40:00 EDT, Tablet, [facility], 155, cm, 06/14/20 7:11:00 EDT, Height, 54.5, kg, 05/07/20 11:00:00EDT, Dry Weight Start Date: 06/14/20 Status: Ordered lovastatin 40 mg oral tablet 1 tablet = 40 mg, By Mouth, Daily, # 15 tablet, 0 Refills, Maintenance, 11/14/20 8:25:00 EST, Tablet, [id number], 155, cm, 09/06/20 14:34:00 EST, Height, 54.5, kg, 05/07/20 11:00:00 EDT, Dry Weight Start Date: 11/14/20 Status: Ordered memantine 10 mg oral tablet 1 tablet, By Mouth, 2 times a day, # 180 tablet, 3 Refills, Maintenance, 02/19/21 9:49:00 EDT, [facility], 155, cm, 02/09/21 8:16:00 EDT, [...] oldest [Reference Range]: 1 Height 155 cm (02/21/21 1:38 PM) Weight 61 kg (02/21/21 1:38 PM) Oxygen Saturation [94-100 %] 97 % (02/21/21 1:38 PM) Pulse Rate [55-90 bpm] 108 bpm *H* (02/21/21 1:38 PM) Body Mass Index [18.5-24.99] 25.39 *H* (02/21/21 1:38 PM) Blood Pressure [90-138/55-84 mm Hg] 147/ 84mm Hg *H* (02/21/21 1:38 PM) Respiratory Rate [16-30 br/min] 18 br/mi n (02/21/21 1:38 PM) Temperature [96.8-100.4 DegF] 97.4 DegF (02/21/21 1:38 PM) Mode of Delivery (Oxygen) Room air (02/21/21 1:38 PM) Blood pressure sites Arm, right (02/21/21 1:38 PM) Temperature Route Temporal (02/21/21 1:38 PM) Weight Obtained Via Standing scale (02/21/21 1:38 PM) Social History Social History Type Response Smoking Status Former smoker; Tobac co user in household: No; Other: Quit in 1968; entered on: 02/09/15 Sex
--- OUTSIDE RECORDS SUMMARY | 2023-10-02 08:26 | XMS_ITS | Continuity of Care Document ---
Author Name Unknown Organization [facility] Address [address] [place] [address]- Care Team Providers Care Load Dispatcher Name Role Phone Pablito Ponce MD Primary Care Physician [phone] [facility] Date(s): 06/14/20 - 06/21/20 [facility] Adult [address] [place] [address]- [facility] Attending Physician: Pablito Ponce MD Allergies, [...] Given 1Admin Note: [facility] 3Result Comment: [07[facility]05/2015[facility] 4[facility]: [facility] [address] 5Admin Note: Received at [facility] 6Ain Note: This shot was administered at [facility] 7Ain Note: [facility] [address] [place] Medications amLODIPine 10 mg oral tablet 10 mg, 1, tablet, By Mouth, Daily, # 90 tablet, Refills 3, Tot. Refills 3, Maintenance, 01/13/20 7:42:00 EDT, Route to Pharmacy Electronically, [facility], 152, cm, 01/13/20 7:13:00 EDT, [...] 15:34:00 EDT, Route to Pharmacy Electronically, [facility], 152, cm, 10/06/19 7:01:00 EST, Height, 55.3, kg, 09/06/18 3:40:00... Start Date: 02/27/20 Stop Date: 02/21/21 Status: Ordered Flonase 50 mcg/inh nasal spray 1 sprays, Nares, Both, 2 times a day, # 16 Gm, 0 Refills, Maintenance, 12/30/18 7:15:18 EDT, [place],1 sprays Nares, Both 2 times a [...] Refills, Maintenance, 06/14/20 7:40:00 EDT, Tablet, [facility], 155, cm, 06/14/20 7:11:00 EDT, [...] oldest [Reference Range]: 1 Height 155 cm (06/14/20 7:11 AM) Weight 53.5 kg (06/14/20 7:11 AM) Oxygen Saturation [94-100 %] 98 % (06/14/20 7:11 AM) Pulse Rate [55-90 bpm] 91 bpm *H* (06/14/20 7:11 AM) Body Mass Index [18.5-24.99] 22.27 (06/14/20 7:11 AM) Blood Pressure [90-138/55-84 mm Hg] 122/ 70mm Hg (06/14/20 7:11 AM) Temperature [96.8-100.4 DegF] 97.7 DegF (06/14/20 7:11 AM) Mode of Delivery (Oxygen) Room air (06/14/20 7:11 AM) Blood pressure sites Arm, left (06/14/20 7:11 AM) Temperature Route Oral (06/14/20 7:11 AM) Weight Obtained Via Standing scale (06/14/20 7:11 AM) Social History Social History Type Response Smoking Status Former smoker; Tobac co user in household: No; Other: Quit in 1968; entered on: 02/09/15 Sex
--- OUTSIDE RECORDS SUMMARY | 2023-10-02 08:26 | XMS_ITS | Continuity of Care Document ---
Author Name Unknown Organization [facility] Address [address] [place] [address], [address] [place] [address]- Care Team Providers Care Revenue Enforcement Agent Name Role Phone Rosario REYES, Pablito Sharp Primary Care Physician [facility]counter [facility] Date(s): 03/08/20 - 04/07/20 [facility] [address] [place] [address], [address] [place] [address]- [facility] Attending Physician: Admtr, Bipin Admitting Physician: Admtr, Ar8 Referring Physician: Admtr, Ar8 Allergies, Adverse Reactions, [...] History: [facility] [address] 3Result Comment: [[facility]/2015[facility] 4[facility] [address] 5Admin Note: Received at [facility] 6Ain Note: This shot was administered at [facility] 7Ain Note: [facility] [address] [place] Medications amLODIPine 10 mg oral tablet 10 mg, 1, tablet, By Mouth, Daily, # 90 tablet, Refills 3, Tot. Refills 3, Maintenance, 01/13/20 7:42:00 EDT, Route to Pharmacy Electronically, [facility], 152, cm, 01/13/20 7:13:00 EDT, [...] 15:34:00 EDT, Route to Pharmacy Electronically, [facility], 152, cm, 10/06/19 7:01:00 EST, Height, 55.3, kg, 09/06/18 3:40:00... Start Date: 02/27/20 Stop Date: 02/21/21 Status: Ordered Flonase 50 mcg/inh nasal spray 1 sprays, Nares, Both, 2 times a day, # 16 Gm, 0 Refills, Maintenance, 12/30/18 7:15:18 EDT, [place],1 sprays Nares, Both 2 times a day [...]
--- OUTSIDE RECORDS SUMMARY | 2023-10-02 08:26 | XMS_ITS | Continuity of Care Document ---
Author Name Unknown Organization [facility] Alexx Cirilo lt Address [address] [place] [address]- Care Team Providers Care Crtt Name Role Phone Rosario REYES, Pablito Sharp Primary Care Physician Encounter [facility] Date(s): 02/14/23 - 03/16/23 [facility] Adult [address] [place] [address]- Allergies, Adverse Reactions, Alerts Substance Reaction Severity [...] vaccine, inactivated 05/25/10 Markus rded SARS-CoV-2 mRNA ([id number]-evlnp) vax 01/25/22 Recorded SARS-CoV-2 (COVID-19) mRNA BNT-162b2 [...] tetanus-diphtheria toxoids (Td) 06/15/04 Given 1Location History: [facility] 2Result Comment: [07/05/2015] [facility] 3Result Comment: [06/06/2014] [facility] on [address] 4Admin Note: Received at [facility] 5Admin Note: This shot was administered at [facility] 6Admin Note: [employer] 7Admin Note: [facility] [place] Medications acetaminophen 325 mg oral [...] 08/29/22 4:30:00 EST, Route to Pharmacy Electronically, [id number], 152, cm, 07/09/22 9:25:00 EDT, Height, 50.5, kg, 01/03/22 19:26:00 E... Start Date: 08/29/22 Stop Date: 08/24/23 Status: Ordered Flonase 50 mcg/inh nasal spray 1 sprays, Nares, Both, Daily in AM, Maintenance, 02/04/23 9:45:00 EDT, [place], Partial fill upon patient request if the [...] Team Personnel Name: Tiffany Anderson RN Position: [facility] Office Staff Member Role: Primary Care Nurse Name: Mag Gonzalez RN Position: [facility] RN Member Role: Primary Care Nurse Name: Pablito Ponce MD Position: [facility] Physician - Primary Care Member Role: PCP Address: Address: [address] [place] [phone] [place] Name: Krys Hager RN Position: [facility] RN Member Role: Primary Care Nurse Care Team Related Persons Name: BRAYAN GARCIA Address: home [address] [place] [address]
--- OUTSIDE RECORDS SUMMARY | 2023-10-02 08:27 | XMS_ITS | Patient Health Record ---
Author Name Unknown [facility] Address [address] [place] [address] Care Team Providers Care Neuropsychiatrist Name Role Phone Pablito Ponce MD Primary Care Provider Ralf Johansen Unavailable [phone] ALLERGIES Allergen (clinical drug ingredient) Drug/Non Drug Allergy documented on EMR Reaction Allergy Type Onset Date Status sulfamethoxazole / trimethoprim Bactrim heart rate increases Drug Allergy Active Shellfish (FN) Shellfish-derive d Products Unknown Drug Allergy Active REASON FOR REFERRAL No Information MEDICATIONS Medication SIG (Take, Route, Fr equency, Duration) Notes Start Date End Date Status Vitamin D Active Omeprazole Active Cephalexin 500 MG 1 tablet Orally Twic e a day for 3 days Not-Taking Vitamin C Active Lisinopril 40 MG Orally Act jimbo Lovastatin 40 MG Orally Act jimbo Memantine HCl Active Donepezil HCl 5 MG Orally A ctive IMMUNIZATIONS Vaccine Route Administration Date Status Comme nts COVID-19 Pfizer BioNTech Vaccine Unknown 06/16/2021 Administered 1st 10/24/2020 2nd 11/14/2020 SOCIAL HISTORY Tobacco Use: Social History Observation Description Date Details (start date - stop date) Former Smoker NA - NA Sex Assigned At : Social History Observation Description Sex Assigned At Unknown Tobacco Use/Smoking Question Answer Notes Are you a: former smoker Additional Findings: Tobacco Non-User Current no n-smoker Alcohol Screen Question Answer Notes Did you have a drink containing alcohol in the p ast year? No Points 0 Interpretation Negative Tobacco use other than smoking: Question Answer Notes Are you an other tobacco user? 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 75047852 VITAL SIGNS Blood pressure diastolic 46 mm Hg 08/12/2023 Height 5 ft in 08/12/2023 Blood pressure systolic 115 mm Hg 08/12/2023 Weight 130 lbs 08/12/2023 BMI 25.39 kg/m2 08/12/2023 PROCEDURES Procedure Date Ordered Date Performed Result Body Sit e Z5989-CFRVGWBV DYSTROPHIC NAILS ANY # 02/18/2023 N/A B4680-PCYFDJAN DYSTROPHIC NAILS ANY # 05/09/2023 N/A P8927-TIMEAFYI DYSTROPHIC NAILS ANY # 08/12/2023 N/A Encounters Encounter Location Date Provider Diagnosis [address] [address] 11/26/2022 Ralf Adam [facility] [address] 11/26/2022 Ralf Adam [address] [address] 02/18/2023 Ralf Adam Nail dystrophy L60.[address] [address] 05/06/2023 Ralf Adam [address] [address] 05/09/2023 Ralf Adam Nail dystrophy L60.[address] [address] 08/12/2023 Ralf Adam Nail dystrophy L60.3 ASSESSMENTS Encounter Date Diagnosis Assessment Notes Treatment Notes Treatment Clinical Notes 02/18/2023 Nail dystrophy (ICD-10 - L60.3) 05/09/2023 Nail dystrophy (ICD-10 - L60.3) 08/12/2023 Nail dystrophy (ICD-10 - L60.3) PLAN OF TREATMENT Pending Test Test Name Order Date 40520-Qatekhxd Plate 06/12/2018 N4300-RHLGDIKZ DYSTROPHIC NAILS ANY # G3398-NQVOIPPP DYSTROPHIC NAILS ANY # A1785-KSWRBWMF DYSTROPHIC NAILS ANY # A0817-CLDXTLSQ DYSTROPHIC NAILS ANY # T3757-HBPVOJVX DYSTROPHIC NAILS ANY # S1878-WBCWYIVZ DYSTROPHIC NAILS ANY # C9259-QSBMVBCE DYSTROPHIC NAILS ANY # W0141-DWKHFODV DYSTROPHIC NAILS ANY # S4436-SBFFVYLM DYSTROPHIC NAILS ANY # S2624-IFOSPXYO DYSTROPHIC NAILS ANY # O1193-DWFLBNTN DYSTROPHIC NAILS ANY # I9781-QKXXDSPP DYSTROPHIC NAILS ANY # I8708-XLRQVCLF DYSTROPHIC NAILS ANY # T1922-ZLJZOFCV DYSTROPHIC NAILS ANY # R9707-HQJCUQXJ DYSTROPHIC NAILS ANY # S3913-UPNLURQP DYSTROPHIC NAILS ANY # Y9858-RTAFCOED DYSTROPHIC NAILS ANY # W2908-DQXVWWVR DYSTROPHIC NAILS ANY # P1629-JDVUISOD DYSTROPHIC NAILS ANY # D6321-WECGWVPN DYSTROPHIC NAILS ANY # H7213-PAQNNCEW DYSTROPHIC NAILS ANY # Next Appt Details Provider Name:Ralf Medina , 11/04/2023 11:30:00 AM, [address] [facility], [place], [address], Insurance Providers Payer Name Payer Address Payer Phone Subscriber Number Group Number Insured Name Patient Relationship to Insured Coverage Start Date Coverage End Date Medicare National [employer] [address] [place] [address] [id number] Annmarie Cooper Self - patient is the insured 9 for Life [address] [place] [id number] Zachery Cooper Spouse - patient is the spouse of the insured 9 3 MEDICAL (GENERAL) HISTORY Medical History History ICD Code asthma Cataracts Dementia Fibromyalgia High blood pressure Osteoporosis Rheumatic fever Measles Mumps CAD minor stroke Surgical History Surgery Date(Month/Year) ear drum surgery 06/22/08 gall bladder 12/09/97 Hospitalization History Reason Date(Month/Year) [facility]- UTI 02[facility]03[facility]23[facility]02[facility]08/23 [facility]- 10 days UTI Temp 104.5 Rehab 8 days 2021 [facility] for minor stroke 08/2018
--- NOTE | 2023-10-02 09:09 | MHC.CM.PN ---
Addendum entered by Radha Hughes RN 10/02/23 10:18: PT recommending LTC vs home w/ family support and trial of home PT. prefers to bring patient home. Referral in to [facility] per request. Original Note: IMM delivered to [facility]/HCP as patient has dementia and is minimally verbal. Patient comes from home with , who is her primary caregiver. Per Zachery, patient ambulates independently but is dependent in ADL's, though able to make her needs known. Incontinent and uses briefs. A neighbor/retired nurse provides care for a few hours daily in the afternoon/evening. PCP: Pablito Ponce MD HCP: Zachery [phone]. On file. DP: Pending PT eval, patient not able to participate this morning. If STR is recommended choices are 1) [facility] 2) [facility] and 3) [facility] (patient has been here in the past). Zachery reports they have also used [facility] for home PT and would be open to using their services again if recommended. Patient not ambulating at this time and may require BLS if home. CM will continue to follow for dc needs.
--- NOTE | 2023-10-02 09:38 | P.PNIM_ITS ---
Subjective Subjective Date of Service: 10/02/23 Interval History: more alert Physical Exam 2 Vital Signs: Vital Signs: Last Vital Signs Temp 97.8 F 10/02/23 07:43 Pulse 72 10/02/23 07:43 Resp 16 10/02/23 07:43 BP 135/61 10/02/23 07:43 Pulse Ox 94 10/02/23 07:43 O2 Del Method Room Air 10/02/23 07:43 BMI result Body Mass Index 23.1 General: Alert, minimally verbal, no acute distress Resp: no accessory muscles used CVS: S1,S2,RRR GI: soft, non tender, non distended Objective Data Active Medications Acetaminophen (Acetaminophen 325 Mg Tablet) 650 mg PO Q6H PRN PRN Reason: Pain, Mild (Pain Scale 1-3) Last Admin: 10/02/23 04:12 Dose: 650 mg Documented By: ROBINA Acetaminophen (Acetaminophen Supp 650 Mg Supp.Rect) 650 mg [place] Q6H PRN PRN Reason: Pain, Mild (Pain Scale 1-3) Last Admin: 10/01/23 08:20 Dose: 650 mg Documented By: ANTHONY Amlodipine Besylate (Amlodipine Besylate 10 Mg Tablet) 10 mg PO DAILY [facility]; Protocol Last Admin: 10/02/23 07:44 Dose: 10 mg Documented By: ALEKSANDER Ascorbic Acid (Ascorbic Acid 500 Mg Tablet) 500 mg PO DAILY [facility] Last Admin: 10/02/23 07:44 Dose: 500 mg Documented By: ALEKSANDER Donepezil HCl (Donepezil Hcl 5 Mg Tablet) 5 mg PO BEDTIME [facility] Last Admin: 10/01/23 19:46 Dose: 5 mg Documented By: ROBINA Enoxaparin Sodium (Enoxaparin Sodium 40 Mg/0.4 Ml Syringe) 40 mg SUBCUT Q24H [facility] Last Admin: 10/02/23 07:44 Dose: 40 mg Documented By: ALEKSANDER Ceftriaxone Sodium 1 gm/ (Sodium Chloride) 50 mls @ 100 mls/hr IV Q24H [facility] Last Infusion: 10/01/23 21:52 Dose: Infused Documented By: ROBINA Azithromycin 500 mg/ Sodium (Chloride) 250 mls @ 125 mls/hr IV 2200 [facility] Last Infusion: 10/01/23 23:59 Dose: Infused Documented By: ROBINA Melatonin (Melatonin 3 Mg Tablet) 6 mg PO BEDTIME PRN PRN Reason: Insomnia Last Admin: 10/01/23 19:46 Dose: 6 mg Documented By: ROBINA Memantine (Memantine Hcl 10 Mg Tablet) 10 mg PO BID [facility] Last Admin: 10/02/23 07:44 Dose: 10 mg Documented By: ALEKSANDER Multivitamins/Vitamin C (Multivitamin Tablet) 1 tab PO DAILY [facility] Last Admin: 10/02/23 07:44 Dose: 1 tab Documented By: ALEKSANDER Ondansetron HCl (Ondansetron Hcl 4 Mg/2 Ml Vial) 4 mg IVPUSH Q8H PRN PRN Reason: Nausea and Vomiting Pravastatin Sodium (Pravastatin Sodium 40 Mg Tablet) 40 mg PO BEDTIME [facility] Last Admin: 10/01/23 19:46 Dose: 40 mg Documented By: ROBINA Sodium Chloride (0.9 % Sodium Chloride Flush 3 Ml Syringe) 3 ml IVFLUSH QSHIFT [facility] Last Admin: 10/02/23 07:44 Dose: 3 ml Documented By: ALEKSANDER Vitamin D (Cholecalciferol (Vitamin D3) 25 Mcg Tablet) 50 mcg PO DAILY [facility] Last Admin: 10/02/23 07:44 Dose: 50 mcg Documented By: ALEKSANDER Labs 10/01/23 05:40 10/01/23 05:40 Microbiology Microbiology Results: Microbiology 09/30/23 23:13 Blood Culture - Preliminary Blood - Venous No growth after 24 hours. 09/30/23 23:13 Blood Culture - Preliminary Blood - Venous Prelim: GPC Gram Stain only Assessment and Plan (1) Pneumonia: Status: Acute Plan 78F PMH alzheimers dementia, htn, hld, presented with weakness, found to have pneumonia low grade fevers, weakness, due to aspiration pneumonia complicated by acute metabolic encephalopathy mental status improved trial mgr appreciated - diet Ndd2 solids, thin liquids continue rocephin, azithro pt eval alzheimers dementia namenda, aricept hld statin htn amlodipine dvt prophyalxis - lovenox full code reason for continued hospitalization:low grade fevers Quality Stroke Does the patient have a stroke diagnosis?: No VTE Prior VTE?: No VTE Risk Level:: Medical - moderate - high VTE Device Contraindication: Treatment Not Indicated VTE Drug Contraindication: N/A - Med Ordered
[2023-10-02 09:42] VITALS: BP 135/61; PULSE 72; O2SAT 94
--- NOTE | 2023-10-02 13:32 | MHC.SL.SWA ---
Speech Pathologist Impression: Risk of Aspiration Due to: History of Pneumonia Reduced Cognition Dysphasia Diet Status: Recommend Upgrade diet to Chopped/Advanced continue on Thin liquids, pills crushed in puree. Liquid Consistency and Strategies for Safe Swallow: Liquid Intake Recommendation: Thin Liquid Intake Strategies: Small Sips Solid Food Consistency: Dietary Recommendations: Chopped/Advanced (NDD3) Additional Modifications to Solid Foods: Moisten w/ sauce/gravy Oral Medication Intake: Crushed with Puree Please contact the pharmacy regarding appropriate crushable or liquid drug formulations that are available whenever modified delivery is recommended. Compensatory Strategies and Precautions to be Taken for Safe Swallow: Sitting Upright (90 deg) Liquids from Cup Liquids from Straw Small Bites and Sips Alternate Liquids/Solids Supervision While Eating and Drinking for Safe Swallow: Total Assistance (1:1) Foods to Avoid: Avoid hard/sticky/tough to chew food Swallowing Recommended Treatments: Compens. Strategy Educat. Recommendation for Speech: Inpatient Speech Therapy Comment: Arrived to see patient at Lunch meal, with patient seated in chair by bed sleeping and present in room. Lunch tray had not yet arrived. queried about current diet, reporting that she normally is on regular food. Patient by report is doing much better today v. 10/01, more alert and awake. REGIONAL OPERATIONS DIRECTOR Eval yesterday did not go further than Ground consistency, which was recommended as diet with thin liquids and pills crushed in puree. REGIONAL OPERATIONS DIRECTOR offered trial of chicken salad sandwich and saltine cracker. On chicken salad sandwich, patient bit off piece, then produced a mildly prolonged period of chewing, with mostly anterior chewing noted, followed by timely swallow with good laryngeal elevation, no oral residual after swallow. Patient was then given piece of cracker, again producing a mildly prolonged period of atypical mastication (anterior munching), followed by swallow, with mild oral residual noted which patient cleared with sip of water. On one sip of water, patient noted to bite lip of cup, but then released. Recommend advance diet to Chopped/Advanced, continue on Thin liquids, pills crushed in puree. REGIONAL OPERATIONS DIRECTOR will continue to f/u for toleration possible further advancement to baseline of Regular Diet. MD/RD notified of diet adjustment by secure text, RN in person. Frequency/Duration: M-F daily Date Range for Service Req: Timeline to reassess: Baker Helper Clinican/Clinical Fellow: No Supervisory Statement: I have reviewed and agree with the student/clinical fellow's documentation: N/A Speech Language Pathologist: Malena Gifford M.A., CCC-REGIONAL OPERATIONS DIRECTOR
[2023-10-02 15:08] VITALS: BP 155/70; PULSE 95; RESP 18; TEMP 36.8; O2SAT 97
[2023-10-02 19:33] VITALS: BP 150/68; PULSE 97; RESP 18; TEMP 37.1; O2SAT 94
[2023-10-02] MEDS: Donepezil HCl 5 MG TABLET PO (19:48)
[2023-10-02] MEDS: Pravastatin Sodium 40 MG TABLET PO (19:49)
[2023-10-02] MEDS: cefTRIAXone sodium 1 GM in 0.9 % Sodium Chloride 50 ML IV (21:23)
[2023-10-02] MEDS: Azithromycin 500 MG in 0.9 % Sodium Chloride 250 ML 125 MG IV (22:24)
[2023-10-03 03:44] VITALS: BP 139/62; PULSE 85; RESP 17; TEMP 37; O2SAT 96
[2023-10-03 06:12] LABS: Hematocrit 38.6 % (37.0-47.0); Hemoglobin 13.2 g/dl (12.0-16.0); Mean Corpuscular HGB Conc 34.2 g/dl (31.0-35.0); Mean Corpuscular Hemoglobin 29.3 pg (27.0-33.0); Mean Corpuscular Volume 85.8 fL (80.0-98.0); Mean Platelet Volume 9.7 fL (9.4-12.3); Platelet Count 300 X10*3/uL (160-400); Red Cell Distribution Width 12.7 % (11.0-16.0); White Blood Count 6.4 X10*3/uL (4.8-10.8)
[2023-10-03 06:21] LABS: Anion Gap 11 (12-20); Blood Urea Nitrogen 11 mg/dL (9-16); Calcium 8.8 mg/dL (8.4-10.2); Carbon Dioxide 26 mmol/L (22-29); Chloride 107 mmol/L (96-108); Creatinine Clr Calc Pharmacy 47.4; Estimated Glomerular Filt Rate > 60; Glucose Fasting 97 mg/dL (60-99); Potassium 3.2 mmol/L (3.3-5.1); Sodium 141 mmol/L (135-145)
[2023-10-03 07:31] VITALS: BP 157/64; PULSE 86; RESP 18; TEMP 36.2; O2SAT 96
[2023-10-03] MEDS: Potassium Chloride ER 20 MEQ TAB.ER.PRT 40 MEQ PO (07:55)
[2023-10-03] MEDS: amLODIPine Besylate 10 MG TABLET PO (07:55)
[2023-10-03] MEDS: Multivitamin TABLET 1 TAB PO (07:56)
[2023-10-03] MEDS: 0.9 % Sodium Chloride Flush 3 ML SYRINGE IVFLUSH (07:56)
[2023-10-03] MEDS: Cholecalciferol (Vitamin D3) 25 MCG TABLET 50 MCG PO (07:56)
[2023-10-03] MEDS: Memantine HCl 10 MG TABLET PO (07:56)
[2023-10-03] MEDS: Ascorbic Acid 500 MG TABLET PO (07:56)
[2023-10-03] MEDS: Enoxaparin Sodium 40 MG/0.4 ML SYRINGE SUBCUT (07:57)
--- NOTE | 2023-10-03 08:57 | P.F2F_ITS ---
Service Date Service Date: 10/03/23 Encounter Date of encounter: 10/03/23 Reasons for Services Signs and symptoms assessed: weakness Reason for group home: medication management, medication treatment and teach disease management Reason for physical therapy: home safety and mobility and therapeutic exercises Homebound: Leaving the home is medically contraindicated at this time without the asist of a device and/or another person due th the listed conditions above and below. Reason homebound: unsteady gait / fall risk Certification: Based on the above findings, I certify that this patient is confined to the home and needs intermittent group home care, physical therapy and/or speech therapy, or continues to need occupational therapy. The patient is under my care, and I have initiated the establishment of the plan of care. The patient will be followed by a physician who will periodically review the plan of care. Time Spent With Patient Time: Total time managing care of this patient today ____ minutes.
--- NOTE | 2023-10-03 08:57 | PM.DS ---
DS: Providers Provider Date of Service: 10/03/23 Date of admission: 10/01/23 00:44 Primary care physician: Pablito Ponce MD DS: Diagnosis Discharge Diagnosis (1) Pneumonia: Status: Acute DS: Summary Hospital Course Hospital Course: from initial hpi: 78-year-old female with pertinent history of Alzheimer's dementia, minimally verbal at baseline, essential hypertension, mixed hyperlipidemia who was brought to the emergency department for evaluation of generalized weakness. Unable to obtain history from the patient as she only intermittently responds in 1 word. History obtained from at bedside. As per the partner, patient at baseline ambulates without assistance and independently. She was found weak on the day of presentation and could not walk up or down the stairs. Also has noticed intermittent cough. No fevers or chills. Unable to obtain review of systems. In the emergency department, imaging concerning for left-sided infiltrate. No concerns for aspiration or cough with food as per the patient's . hospital course: Patient was admitted for low-grade fevers, weakness due to aspiration pneumonia complicated by acute metabolic encephalopathy. Patient was treated with ceftriaxone and azithromycin, mental status improved to baseline. She was seen by speech who recommended ndd2 solids and thin liquids. On discharge will continue 5 more days of cefuroxime. She was seen by physical therapy recommended home with services. For her Alzheimer's dementia she was continue on Namenda and Aricept. For hyperlipidemia she was continued on statin. For hypertension she was continued on amlodipine. Patient is back to baseline and will be discharged home. Time Attestation Discharge coordination time: Greater than 30 minutes Quality: Safe Use of Opioids Does Pt have an Active Cancer Diagnosis on the Problem List?: No Quality: Stroke Does the patient have a stroke diagnosis?: No Physical Exam Vital Signs: Vital Signs: Last Vital Signs Temp 97.1 F 10/03/23 07:31 Pulse 86 10/03/23 07:31 Resp 18 10/03/23 07:31 BP 157/64 H 10/03/23 07:31 Pulse Ox 96 10/03/23 07:31 O2 Del Method Room Air 10/03/23 07:31 BMI result Body Mass Index 23.1 General: Alert, minimally verbal, no acute distress Resp: no accessory muscles used CVS: S1,S2,RRR GI: soft, non tender, non distended DS: Data Data Completed and Pending Labs on day of discharge: Laboratory Results - last 24 hr 10/03/23 05:20 WBC 6.4 RBC 4.50 Hgb 13.2 Hct 38.6 MCV 85.8 MCH 29.3 MCHC 34.2 RDW 12.7 Plt Count 300 MPV 9.7 Absolute Nucleated RBC 0.000 Nucleated RBC % (auto) 0.0 Sodium 141 Potassium 3.2 L Chloride 107 Carbon Dioxide 26 Anion Gap 11 L BUN 11 Creatinine 0.83 Estim Creat Clear Calc 47.4 Estimated GFR > 60 Fasting Glucose 97 Calcium 8.8 Preliminary micro results at discharge 09/30/23 23:13 Blood Culture - Preliminary Blood - Venous No growth after 48 hours. Discharge Plan Discharge Anticipated Discharge Date/Time: 10/03/23 08:55 Patient Disposition: Home Health Service Discharge Diagnosis: pna Referrals: Pablito Ponce MD [Primary Care Provider] - 1 Week Discharge Medications: New cefuroxime axetil 500 mg tablet 500 mg PO Q12H Qty: 10 0RF Continued multivitamin Tablet 1 tab PO DAILY donepezil 5 mg tablet 5 mg PO QPM lovastatin 40 mg tablet 40 mg PO QPM ascorbic acid (vitamin C) [Vitamin C] 500 mg Tablet 500 mg PO DAILY amlodipine 10 mg tablet 10 mg PO DAILY memantine 10 mg tablet 10 mg PO BID cholecalciferol (vitamin D3) [Vitamin D3] 50 mcg (2,000 unit) Tablet 50 mcg PO DAILY Discharge Orders: Discharge Order (Routine); Ordered 10/03/23 Ordered By: Paul Eastman Diet: chopped solids, thin liq Activity on Discharge: As tolerated Stand Alone Forms: Patient Portal Discharge page Care Plan Goals: recovery Health Concerns: aspiration pna Plan of Treatment: 5 more days ceftin, modified diet as above Assessment: see above
--- NOTE | 2023-10-03 09:37 | MHC.CM.PN ---
Pt has been medically cleared for DC. She will go home via family transport and have [facility] services.
--- NOTE | 2023-10-03 11:38 | MHC.SL.SWA ---
Speech Pathologist Impression: Oral phase dysphagia Risk of Aspiration Due to: History of Pneumonia Reduced Cognition Dysphasia Diet Status: No changes at this time Liquid Consistency and Strategies for Safe Swallow: Liquid Intake Recommendation: Thin Liquid Intake Strategies: Small Sips Solid Food Consistency: Dietary Recommendations: Chopped/Advanced (NDD3) Additional Modifications to Solid Foods: Moisten w/ sauce/gravy Oral Medication Intake: Crushed with Puree Please contact the pharmacy regarding appropriate crushable or liquid drug formulations that are available whenever modified delivery is recommended. Compensatory Strategies and Precautions to be Taken for Safe Swallow: Sitting Upright (90 deg) Small Bites and Sips Alternate Liquids/Solids Rate of Ingestion Change Avoid Specific Foods Supervision While Eating and Drinking for Safe Swallow: Total Assistance (1:1) Foods to Avoid: Avoid hard/sticky/tough to chew food Swallowing Recommended Treatments: Compens. Strategy Educat. Recommendation for Speech: Inpatient Speech Therapy Comment: 1:1 assistance Frequency/Duration: M-F daily Date Range for Service Req: Timeline to reassess: Tow Mate Clinican/Clinical Fellow: No Supervisory Statement: I have reviewed and agree with the student/clinical fellow's documentation: N/A Speech Language Pathologist: Shantal Brady M.A., CCC-ANTHROPOLOGY LECTURER
== END 2023-10-03 13:14 | disposition home health service (06) | DRG 177 ==
LOC: HO.ED 10-01 00:30 → HO.EDOVER 10-01 07:08 → HO.S3 10-01 12:16 → HO.EDOVER 10-02 08:22
PROVIDERS: Nurse Practitioner Family; Admitting Provider Student in an Organized Health Care Education/Training Program; Emergency Provider Internal Medicine; PCP Family Medicine; Visit Provider Internal Medicine
DX: J69.0 Pneumonitis due to inhalation of food and vomit (principal); G93.41 Metabolic encephalopathy; G30.9 Alzheimer's disease, unspecified; F02.80 Dementia in other diseases classified elsewhere, unspecified severity, without behavioral disturbance, psychotic disturbance, mood disturbance, and anxiety; I10 Essential (primary) hypertension; E78.2 Mixed hyperlipidemia; Z20.822 Contact with and (suspected) exposure to COVID-19; Z79.899 Other long term (current) drug therapy
CPT/HCPCS: 36415; 71045; 80048; 80053; 81001; 82607; 82746; 83605; 83735; 83880; 84443; 85025; 85027; 87040; 87147; 87205; 87502; 87635; 92526; 92610; 93005; 97161; 99221; 99285; J0456; J0696; J1650

== ENCOUNTER → 2023-09-30 21:38 | Outpatient (BNV) | payer MEDICARE, OTHER, SELFPAY | PROVIDERS: Admitting Provider Student in an Organized Health Care Education/Training Program; Emergency Provider Internal Medicine; Visit Provider Internal Medicine | DX: R41.82 Altered mental status, unspecified (principal) | CPT/HCPCS: 93010 ==

== ENCOUNTER → 2023-10-01 00:14 | Outpatient (BNV) | payer MEDICARE, OTHER, SELFPAY | PROVIDERS: Emergency Provider Internal Medicine; Visit Provider Student in an Organized Health Care Education/Training Program | DX: J18.9 Pneumonia, unspecified organism (principal) | CPT/HCPCS: 99222; 99232; 99239; G0180 ==

== ENCOUNTER 2023-11-22 21:35 | Inpatient (IN) | payer MEDICARE, OTHER, SELFPAY ==
--- NOTE | ~2023-11-22 | XR_ITS ---
EXAMINATION: XR CHEST CLINICAL INFORMATION: Fever and cough COMPARISON: Chest x-ray 09/30/2023. TECHNIQUE: Frontal view of the chest was obtained. FINDINGS: No significant abnormality is noted involving the heart, lungs, mediastinum, bony thorax or soft tissues. XR/XR chest 1V IMPRESSION: Unremarkable chest examination.
[2023-11-22 21:40] VITALS: BP 168/80; PULSE 115; O2SAT 96
--- NOTE | 2023-11-22 21:45 | ECG_ITS ---
Test Reason : SOB Blood Pressure : / mmHG Vent. Rate : 114 BPM Atrial Rate : 114 BPM P-R Int : 146 ms QRS Dur : 066 ms QT Int : 326 ms P-R-T Axes : -01 -04 011 degrees QTc Int : 449 ms Poor data quality Sinus tachycardia Inferior infarct (cited on or before 30-SEP-2023) Possible Anterior infarct , age undetermined Abnormal ECG When compared with ECG of 30-SEP-2023 21:50, Borderline criteria for Anterior infarct are now Present ST no longer depressed in Lateral leads Referred By: Soila Silverio Electronically Signed By:ANDREEA WHITTEN MD
--- NOTE | 2023-11-22 21:45 | ED_ITS ---
HPI - General Adult General Chief complaint: General Medical Stated complaint: sick, fever, non verbal, dementia Time Seen by Provider: 11/22/23 21:44 Source: patient and EMS Mode of arrival: EMS Limitations: physical limitation (patient non-verbal at baseline) History of Present Illness HPI narrative: Patient is a 78 year old, assigned female at , with a history of right sided vascular dementia, urinary incontinence, and frequent UTIS transported to the ED via EMS for a recent low-grade fever. At baseline the patient does not speak, but can make noises and respond to verbal stimuli. The patient presents with her who provided history due to the patients inability to communicate. The patients reports he noticed his behavior changing this afternoon as she presented very lethargic, tired, and not responding to him with nods as she usually does. He reports that his usually presents this way when she has an infection especially a UTI so he checked her temperature and notice she had a low-grade fever. Patient normally can ambulate with assistance but was extremely lethargic and was refusing to move which prompted her to call EMS. Patient was recently hospitalized for a left sided pneumonia about a month ago and received IV ceftriaxone and azithromycin, and sent home with PO cefuroxime. MD complaint: Weakness Onset (ago): hour(s) (6) Severity: mild Severity scale (1-10): 3 Relieving factors: none Exacerbating factors: none Associated symptoms: denies other symptoms Treatments prior to arrival: none Related Data Home Medications Medication Instructions Recorded Confirmed amlodipine 10 mg tablet 10 mg PO DAILY 10/01/23 10/01/23 ascorbic acid (vitamin C) 500 mg 500 mg PO DAILY 10/01/23 10/01/23 tablet (Vitamin C) cholecalciferol (vitamin D3) 50 50 mcg PO DAILY 10/01/23 10/01/23 mcg (2,000 unit) tablet (Vitamin D3) donepezil 5 mg tablet 5 mg PO QPM 10/01/23 10/01/23 lovastatin 40 mg tablet 40 mg PO QPM 10/01/23 10/01/23 memantine 10 mg tablet 10 mg PO BID 10/01/23 10/01/23 multivitamin 1 tab PO DAILY 10/01/23 10/01/23 Previous Rx's Medication Instructions Recorded cefuroxime axetil 500 mg tablet 500 mg PO Q12H #10 tabs 10/03/23 Allergies Allergy/AdvReac Type Severity Reaction Status Date / Time Sulfa (Sulfonamide Allergy Mild HEADACHE Verified 10/02/23 16:01 Antibiotics) [SULFA (SULFONAMIDE ANTIBIOTICS)] shellfish derived Allergy Unknown UNKNOWN Verified 10/02/23 16:01 [SHELLFISH DERIVED] Review of Systems 2 Review of Systems: Yes Unobtainable due to mental condition (Patient is unable to speak) and Unobtainable due to mental status PMFSH Past Medical History Medical History Mixed hyperlipidemia Essential hypertension Alzheimer's dementia Social History Social History Household Members: Family Housing: House Do you presently have visiting nurse or other home services: No ( reports he has occasional help at home) Patient Tobacco Use Status: Never used Tobacco Advance Directives: Yes Advance Directives on File: Yes Advance Directives Date on File: 10/01/23 service: No Physical Exam ED Vital Signs: Vital Signs - 24 hr 11/22/23 21:51 11/23/23 00:26 Temperature 100.6 F H 101.1 F H Pulse Rate 109 H 112 H Respiratory Rate 16 16 Blood Pressure 174/82 H 146/70 H Pulse Oximetry 96 96 Oxygen Delivery Method Room Air Room Air BMI result Body Mass Index 23.7 Const General: alert, awake and lethargic Nutritional Appearance: well nourished Orientation/consciousness: lethargic Limitations: altered mental status and language barrier (Patient does not speak) HENMT Head: Yes normal to inspection Ears: hearing grossly normal bilaterally General nose exam: Normal external nose present Face and sinus: Yes normal facial exam Eyes General: appearance normal, both eyes and all related structures Resp Effort & Inspection: normal respiratory effort and symmetric chest movement Auscultation: clear to auscultation bilaterally Cardio Jugular venous distension: no JVD Palpation: normal PMI Rate: tachycardic Rhythm: regular rhythm Neuro Other: non-verbal at baseline Medications Administered Discontinued Medications Generic Name Dose Route Start Last Admin Trade Name Freq PRN Reason Stop Dose Admin Acetaminophen 975 mg 11/23/23 00:36 11/23/23 00:43 Acetaminophen 325 Mg Tablet PO 11/23/23 00:37 975 mg ONCE ONE Administration Ceftriaxone Sodium 1 gm/ 50 mls @ 100 mls/hr 11/22/23 22:18 11/23/23 00:39 Sodium Chloride IV 11/22/23 22:47 Infused ONCE ONE Infusion Medical Decision Making Medical Decision Making MDM Narrative: Patient is a 78 year old assigned female at with a history of dementia, non-verbal at baseline, and recent hospitalization for pneumonia presenting to the emergency department today with increased weakness and multiple days of a fever. Patient's physical exam was as noted in the physical exam portion of this note. Patient's blood work showed a slightly elevated WBC count of 12 but was otherwise unremarkable. Patient's urine showed evidence of infection. Patient's EKG was unremarkable. Patient's chest x-ray showed evidence of LL lobe infiltrate. Patient was given IV ceftriaxone. I spoke to the hospitalist who agreed to admission. Patient's clinical presentation is not consistent with sepsis (@1254). I explained my physical exam findings as well as all test results to the patient and the patient's . I answered all questions asked by the patient's . Patient's verbalized agreement and understanding with this treatment plan and admission. Differential Diagnosis Differential Diagnoses: The differential diagnosis associated with the presentation includes Pneumonia UTI URI Admission/Observation Consideration of admission/observation: Escalation of care including admission/observation considered Patient admitted. Consult Healthcare Provider Management of the patient was discussed with: Hospitalist (agreed to admission as noted in the MDM Rationale portion of this note) Lab Data [facility] Lab Attestation statement: I reviewed the patient's lab results. My interpretation of these results are in the MDM Rationale portion of this note. 11/22/23 22:26 11/22/23 22:26 Labs: Lab Results 11/22/23 11/22/23 11/22/23 Range/Units 22:26 22:59 23:31 WBC 12.0 H (4.8-10.8) X10*3/uL RBC 5.12 (4.20-5.50) X10*6/uL Hgb 14.9 (12.0-16.0) g/dl Hct 43.4 (37.0-47.0) % MCV 84.8 (80.0-98.0) fL MCH 29.1 (27.0-33.0) pg MCHC 34.3 (31.0-35.0) g/dl RDW 12.8 (11.0-16.0) % Plt Count 362 (160-400) X10*3/uL MPV 9.5 (9.4-12.3) fL Immature Gran % (Auto) 0.4 (0.0-0.4) % Neut % (Auto) 84.2 H (45-73) % Lymph % (Auto) 7.9 L (20-40) % [place] % (Auto) 6.4 (2-11) % Eos % (Auto) 0.6 (0-4) % Baso % (Auto) 0.5 (0-2) % Lymph # (Auto) 0.9 L (1.2-4.9) X10*3/uL [place] # (Auto) 0.8 (0.1-1.2) X10*3/uL Eos # (Auto) 0.1 (0.0-0.4) X10*3/uL Baso # (Auto) 0.1 (0.0-0.2) X10*3/uL Abs Immat Gran (auto) 0.05 H (0.00-0.03) X10*3/uL Absolute Neuts (auto) 10.1 H (2.0-8.3) x10*3/uL Absolute Nucleated RBC 0.000 (0.0-0.012) X10*3/uL Nucleated RBC % (auto) 0.0 (0.0-0.2) /100WBC PT 11.1 (11.1-13.3) SEC INR 0.9 (0.9-1.1) APTT 29.7 (26.0-36.8) SEC Sodium 140 (135-145) mmol/L Potassium 3.2 L (3.3-5.1) mmol/L Chloride 107 (96-108) mmol/L Carbon Dioxide 24 (22-29) mmol/L Anion Gap 12 (12-20) BUN 14 (9-16) mg/dL Creatinine 0.77 (0.5-1.4) mg/dL Estim Creat Clear Calc 44.6 Estimated GFR > 60 Random Glucose 138 H (60-115) mg/dL Lactic Acid 1.3 (0.5-2.0) mmol/L Calcium 9.5 D (8.4-10.2) mg/dL Magnesium 1.9 (1.6-2.6) mg/dL Total Bilirubin 0.4 (0.0-1.0) mg/dL AST 16 (5-31) U/L ALT 20 (0-31) U/L Alkaline Phosphatase 88 (39-117) U/L Troponin I High Sens 19.8 H (<3.5-17.0) ng/L Total Protein 7.3 (6.5-8.0) g/dL Albumin 4.2 (3.5-5.0) g/dL Urine Color Yellow Urine Appearance Clear Urine pH 7.0 (5.0-9.0) Ur Specific [place] 1.010 (1.005-1.025) Urine Protein Trace (Neg-Trace) mg/dL Urine Glucose (UA) Negative (Negative) mg/dL Urine Ketones Negative (Negative) mg/dL Urine Blood Moderate (2+) H (Negative) Urine Nitrite Negative (Negative) Ur Leukocyte Esterase Small (1+) H (Negative) Urine RBC 3-5 H (0-2) /HPF Urine WBC 11-20 (0-5) /HPF Ur Squamous Epith Cells 11-20 (0-2) /HPF Urine Bacteria None Seen (None Seen) Hyaline Casts 0-2 (0-2) /LPF Influenza Type A (PCR) NEGATIVE (Negative) Influenza Type B (PCR) NEGATIVE (Negative) RSV RNA Qual (PCR) NEGATIVE (Negative) SARS-CoV-2 RNA (RT-PCR) NEGATIVE (Negative) Independent Interpretation I performed an independent interpretation of an: EKG and Plain X-Ray Interpretation: My interpretation is in agreement with the radiologist's impression of this imaging study. - EXAMINATION: XR CHEST CLINICAL INFORMATION: Weakness COMPARISON: None available. TECHNIQUE: Frontal view of the chest was obtained. FINDINGS: There is a small area of atelectasis/infiltrate at the left lung base. The aorta is calcified. No other significant abnormality is noted involving the heart, lungs, mediastinum, bony thorax or soft tissues. XR/XR chest 1V IMPRESSION: Small area of atelectasis/infiltrate left lung base. Dictated By: Juan Keating MD Signed By: Electronically signed by Juan Keating MD 09/30/23 2243 - Vent. Rate: 114 BPM Atrial Rate: 114 BPM P-R Int: 146 ms QRS Dur: 066 ms QT Int: 326 ms P-R-T Axes: -1 -4 011 degrees QTc Int: 449 ms Sinus tachycardia Inferior infarct, age undetermined Possible anterior infarct, age undetermined Abnormal ECG 11/22/23 Radiology Impression Discussion of test interpretation with radiology: I have reviewed the radiologist's reading. Independent Historian Clinical information obtained from an independent historian. History obtained from or confirmed by: Spouse (patient's provided additional history and confirmed the history provided by the patient) and EMS (EMS provided additional history and confirmed the history provided by the patient) Critical Care Time Critical Care Time Critical Care Time: Yes Total Critical Care Time: 81 Attestation: I spent 81 minutes of Critical Care Time with this patient. This does not include time spent on separately reported billable procedures. Discharge Plan Discharge Clinical Impression: Pneumonia, Acute UTI Patient Disposition: Admitted As Inpatient Prescriptions: No Action multivitamin Tablet 1 tab PO DAILY donepezil 5 mg tablet 5 mg PO QPM lovastatin 40 mg tablet 40 mg PO QPM ascorbic acid (vitamin C) [Vitamin C] 500 mg Tablet 500 mg PO DAILY amlodipine 10 mg tablet 10 mg PO DAILY memantine 10 mg tablet 10 mg PO BID cholecalciferol (vitamin D3) [Vitamin D3] 50 mcg (2,000 unit) Tablet 50 mcg PO DAILY cefuroxime axetil 500 mg tablet 500 mg PO Q12H Qty: 10 0RF
[2023-11-22 21:51] VITALS: BP 174/82; PULSE 109; RESP 16; TEMP 38.1; O2SAT 96; BMI 23.7
[2023-11-22 22:29] LABS: MANUAL DIFF FLAG NO
[2023-11-22 22:31] LABS: Basophils Absolute Auto 0.1 X10*3/uL (0.0-0.2); Basophils Percent Auto 0.5 % (0-2); Eosinophils Absolute Auto 0.1 X10*3/uL (0.0-0.4); Eosinophils Percent Auto 0.6 % (0-4); Hematocrit 43.4 % (37.0-47.0); Hemoglobin 14.9 g/dl (12.0-16.0); Imm Gran Abs Auto 0.05 X10*3/uL (0.00-0.03); Imm Gran Pct Auto 0.4 % (0.0-0.4); Lymphocytes Absolute Auto 0.9 X10*3/uL (1.2-4.9); Lymphocytes Percent Auto 7.9 % (20-40); Mean Corpuscular HGB Conc 34.3 g/dl (31.0-35.0); Mean Corpuscular Hemoglobin 29.1 pg (27.0-33.0); Mean Corpuscular Volume 84.8 fL (80.0-98.0); Mean Platelet Volume 9.5 fL (9.4-12.3); Monocytes Absolute Auto 0.8 X10*3/uL (0.1-1.2); Monocytes Percent Auto 6.4 % (2-11); Neutrophils Absolute Auto 10.1 x10*3/uL (2.0-8.3); Neutrophils Percent Auto 84.2 % (45-73); Platelet Count 362 X10*3/uL (160-400); Red Blood Count 5.12 X10*6/uL (4.20-5.50); Red Cell Distribution Width 12.8 % (11.0-16.0)
[2023-11-22 22:51] LABS: Alanine Aminotransferase 20 U/L (0-31); Albumin Level 4.2 g/dL (3.5-5.0); Alkaline Phosphatase 88 U/L (39-117); Anion Gap 12 (12-20); Aspartate Amino Transferase 16 U/L (5-31); Bilirubin Total 0.4 mg/dL (0.0-1.0); Blood Urea Nitrogen 14 mg/dL (9-16); Calcium 9.5 mg/dL (8.4-10.2); Carbon Dioxide 24 mmol/L (22-29); Chloride 107 mmol/L (96-108); Creatinine Clr Calc Pharmacy 44.6; Estimated Glomerular Filt Rate > 60; Glucose Random 138 mg/dL (60-115); Magnesium 1.9 mg/dL (1.6-2.6); Potassium 3.2 mmol/L (3.3-5.1); Sodium 140 mmol/L (135-145); Total Protein 7.3 g/dL (6.5-8.0)
[2023-11-22 22:58] LABS: Troponin-I High Sensitivity 19.8 ng/L (<3.5-17.0)
[2023-11-22 23:12] LABS: INTERNATIONAL NORM RATIO 0.9 (0.9-1.1); Prothrombin Time 11.1 SEC (11.1-13.3)
[2023-11-22 23:15] LABS: Partial Thromboplastin Time 29.7 SEC (26.0-36.8)
[2023-11-22 23:30] LABS: Lactic Acid 1.3 mmol/L (0.5-2.0)
[2023-11-22 23:45] LABS: Appearance Urine Clear; Color Urine Yellow; Glucose Urine UA Negative (Negative); Leukocyte Esterase Urine Small (1+) (Negative); Nitrite Urine Negative (Negative); UMIC TRIGGER UACC YES; Urine Blood Moderate (2+) (Negative); Urine Ketones Negative (Negative); Urine Protein Trace mg/dL (Neg-Trace)
[2023-11-23] VITALS (8 sets, daily range): BP systolic 116–148; BP diastolic 46–91; PULSE 67–112; RESP 12–20; TEMP 36.8–38.4; O2SAT 95–98
[2023-11-23] MEDS: cefTRIAXone sodium 1 GM in 0.9 % Sodium Chloride 50 ML IV (00:09)
[2023-11-23 00:15] LABS: Influenza A PCR NEGATIVE (Negative); Influenza B PCR NEGATIVE (Negative); Resp Syncy Virus RNA Qual PCR NEGATIVE (Negative); SARS COV2 PCR INHOUSE NEGATIVE (Negative)
[2023-11-23] MEDS: Acetaminophen 325 MG TABLET 975 MG PO (00:43)
[2023-11-23 00:48] LABS: Bacteria Urine None Seen (None Seen); Hyaline Casts Urine 0-2 /LPF (0-2); UACC Culture Trigger YES
[2023-11-23 01:13] LABS: Troponin-I High Sensitivity 26.6 ng/L (<3.5-17.0)
--- NOTE | 2023-11-23 01:42 | P.HPHOSP_ITS ---
History of Present Illness Date of Service: 11/23/23 Attending physician on admission: Terence Verma Chief Complaint: Fever Annmarie Cooper is a 78 years old woman with past medical history significant for vascular dementia (minimally verbal at baseline), multiple UTIs, hyperlipidemia and hypertension was brought to the emergency department after she was found to have fever. Patient's was at bedside and provided patient HPI the patient is nonverbal. noted that the patient was not as active as usual and changes in behavior. She does have some restlessnes at time. Had noted patient has been coughing that she is incontinence of urine. stated patient has not been diarrhea or vomiting. She has been eating well. Chart review: Recent hospitalization (September) with diagnosis of aspiration pneumonia seen acute metabolic encephalopathy In the ED, she was found to have tachycardia fever of 101.1. There is no hypotension. But workup was remarkable for leukocytosis without lactic acidosis or bandemia. Blood workup was remarkable for hypokalemia, 3.3. Magnesium sodium are normal. Creatinine 0.77. LFTs are normal. Troponin is mildly elevated X 2. CXR shows small area of atelectasis/infiltrate in the left lower base. Urinalysis showed elevated steroids leukocytes, WBC 10-20 and moderate blood. ED tx: Ceftriaxone 1 g IV and acetaminophen 975 mg p.o. Review of Systems 2 Review of Systems: All 12 systems were reviewed and normal except as noted in HPI. [facility] Medical History Mixed hyperlipidemia Essential hypertension Alzheimer's dementia Social History Household Members: Family Housing: House Do you presently have visiting nurse or other home services: No ( reports he has occasional help at home) Patient Tobacco Use Status: Never used Tobacco Advance Directives: Yes Advance Directives on File: Yes Advance Directives Date on File: 10/01/23 service: No Meds Allergies Allergy/AdvReac Type Severity Reaction Status Date / Time Sulfa (Sulfonamide Allergy Mild HEADACHE Verified 10/02/23 16:01 Antibiotics) [SULFA (SULFONAMIDE ANTIBIOTICS)] shellfish derived Allergy Unknown UNKNOWN Verified 10/02/23 16:01 [SHELLFISH DERIVED] Active Medications: Current Medications Acetaminophen (Acetaminophen Oral Liquid 650 Mg/20.3 Ml Solution) 650 mg PO Q6H PRN PRN Reason: Fever Amlodipine Besylate (Amlodipine Besylate 10 Mg Tablet) 10 mg PO DAILY [facility]; Protocol Ascorbic Acid (Ascorbic Acid 500 Mg Tablet) 500 mg PO DAILY [facility] Donepezil HCl (Donepezil Hcl 5 Mg Tablet) 5 mg PO QPM [facility] Heparin Sodium (Porcine) (Heparin Sodium,Porcine 5,000 Unit/Ml Vial) 5,000 unit SUBCUT Q12H [facility] Sodium Chloride (Ns) 1,000 mls @ 100 mls/hr IVCONT .Q10H [facility] Piperacillin Sod/Tazobactam (Sod 3.375 gm/ Sodium Chloride) 50 mls @ 100 mls/hr IV Q6H [facility] Vancomycin HCl 1,500 mg/ (Sodium Chloride) 500 mls @ 333.333 mls/hr IV ONCE ONE Stop: 11/23/23 03:29 Memantine (Memantine Hcl 10 Mg Tablet) 10 mg PO BID [facility] Non-Formulary Medication (Lovastatin) 40 mg PO QPM [facility] Pharmacy Consult (Consult Rx Vancomycin Dosing) 1 each MISCELLANE DAILY PRN PRN Reason: Consult order Sodium Chloride (0.9 % Sodium Chloride Flush 3 Ml Syringe) 3 ml IVFLUSH QSHIFT [facility] Vitamin D (Cholecalciferol (Vitamin D3) 25 Mcg Tablet) 50 mcg PO DAILY [facility] Home Medications Medication Instructions Recorded Confirmed Last Taken Type amlodipine 10 mg tablet 10 mg PO DAILY 10/01/23 11/23/23 Unknown History ascorbic acid (vitamin C) 500 mg 500 mg PO DAILY 10/01/23 11/23/23 Unknown History tablet (Vitamin C) cholecalciferol (vitamin D3) 50 50 mcg PO DAILY 10/01/23 11/23/23 Unknown History mcg (2,000 unit) tablet (Vitamin D3) donepezil 5 mg tablet 5 mg PO QPM 10/01/23 11/23/23 Unknown History lovastatin 40 mg tablet 40 mg PO QPM 10/01/23 11/23/23 Unknown History memantine 10 mg tablet 10 mg PO BID 10/01/23 11/23/23 Unknown History multivitamin 1 tab PO DAILY 10/01/23 10/01/23 Unknown History Physical Exam 2 Vital Signs and Narrative: Vital Signs: Last Vital Signs Temp 101.1 F H 11/23/23 00:26 Pulse 112 H 11/23/23 00:26 Resp 16 11/23/23 00:26 BP 146/70 H 11/23/23 00:26 Pulse Ox 96 11/23/23 00:26 O2 Del Method Room Air 11/23/23 00:26 BMI result Body Mass Index 23.7 Constitutional - Patient lying in bed comfortably with eyes closed. Open eyes times spontaneously. Febrile. Does not follow simple commands. HEENT - PERRLA, EOMI Heart- Tachycardia. Normal rate. No murmurs. Lungs - Normal lung expansion, Normal respiratory effort, No respiratory distress. Decreased breath sound at bases. Abdomen - NT / ND; +BS; No rebound or guarding Extremities - no calf tenderness bilaterally, no swelling Musculoskeletal - Normal inspection, normal ROM Skin - Warm/Dry Neurological - Alert & oriented x3, CN II-XII in tact, 5/5 strength BUE and BLE Psychological - Appropriate affect Results Labs 11/22/23 22:26 11/22/23 22:26 Labs: Laboratory Results - last 24 hr 11/22/23 11/22/23 11/22/23 22:26 22:59 23:31 MCV 84.8 MCH 29.1 MCHC 34.3 RDW 12.8 Plt Count 362 MPV 9.5 Immature Gran % (Auto) 0.4 Neut % (Auto) 84.2 H Lymph % (Auto) 7.9 L [place] % (Auto) 6.4 Eos % (Auto) 0.6 Baso % (Auto) 0.5 Lymph # (Auto) 0.9 L [place] # (Auto) 0.8 Eos # (Auto) 0.1 Baso # (Auto) 0.1 Abs Immat Gran (auto) 0.05 H Absolute Neuts (auto) 10.1 H Absolute Nucleated RBC 0.000 Nucleated RBC % (auto) 0.0 PT 11.1 INR 0.9 APTT 29.7 Anion Gap 12 Estim Creat Clear Calc 44.6 Estimated GFR > 60 Random Glucose 138 H Lactic Acid 1.3 Calcium 9.5 D Magnesium 1.9 Total Bilirubin 0.4 AST 16 ALT 20 Alkaline Phosphatase 88 Troponin I High Sens 19.8 H Total Protein 7.3 Albumin 4.2 Urine Color Yellow Urine Appearance Clear Urine pH 7.0 Ur Specific [place] 1.010 Urine Protein Trace Urine Glucose (UA) Negative Urine Ketones Negative Urine Blood Moderate (2+) H Urine Nitrite Negative Ur Leukocyte Esterase Small (1+) H Urine RBC 3-5 H Urine WBC 11-20 Ur Squamous Epith Cells 11-20 Urine Bacteria None Seen Hyaline Casts 0-2 Influenza Type A (PCR) NEGATIVE Influenza Type B (PCR) NEGATIVE RSV RNA Qual (PCR) NEGATIVE SARS-CoV-2 RNA (RT-PCR) NEGATIVE 11/23/23 00:41 MCV MCH MCHC RDW Plt Count MPV Immature Gran % (Auto) Neut % (Auto) Lymph % (Auto) [place] % (Auto) Eos % (Auto) Baso % (Auto) Lymph # (Auto) [place] # (Auto) Eos # (Auto) Baso # (Auto) Abs Immat Gran (auto) Absolute Neuts (auto) Absolute Nucleated RBC Nucleated RBC % (auto) PT INR APTT Anion Gap Estim Creat Clear Calc Estimated GFR Random Glucose Lactic Acid Calcium Magnesium Total Bilirubin AST ALT Alkaline Phosphatase Troponin I High Sens 26.6 H Total Protein Albumin Urine Color Urine Appearance Urine pH Ur Specific [place] Urine Protein Urine Glucose (UA) Urine Ketones Urine Blood Urine Nitrite Ur Leukocyte Esterase Urine RBC Urine WBC Ur Squamous Epith Cells Urine Bacteria Hyaline Casts Influenza Type A (PCR) Influenza Type B (PCR) RSV RNA Qual (PCR) SARS-CoV-2 RNA (RT-PCR) Assessment and Plan (1) Acute UTI: Status: Acute (2) Pneumonia: Qualifiers: Pneumonia type: due to unspecified organism Laterality: left Lung location: lower lobe of lung Qualified Code(s): J18.9 - Pneumonia, unspecified organism Status: Acute (3) Alzheimer's dementia: Qualifiers: Alzheimer's disease onset: unspecified onset Dementia severity: u nspecified severity Dementia behavioral or psychological symptom: unspecified whether behavioral, psychotic, or mood disturbance or anxiety Qualified Code(s): G30.9 - Alzheimer's disease, unspecified; F02.80 - Dementia in other diseases classified elsewhere, unspecified severity, without behavioral disturbance, psychotic disturbance, mood disturbance, and anxiety Status: Acute (4) Essential hypertension: Status: Acute (5) Mixed hyperlipidemia: Status: Acute (6) Generalized weakness: Status: Acute Plan Annmarie Cooper is a 78 years old woman admitted with: * Pneumonia, left lower lobe. SIRS criteria but severe sepsis. Admit to hospitalist service. Telemetry. Pulse oximetry. Supplemental oxygen as needed. Start treatment with Zosyn and vancomycin (recent hospitalization). BCs X2 obtained -will follow results (Blood culture X1 (09/30/23) - coagulase negative staphylococci). * Urinary tract infection, recurrent. Continue IV antibiotic therapy. Urine culture obtained -follow results. ID consult. * Acute metabolic encephalopathy secondary to active infections. Continue antibiotic therapy. Aspiration precautions. Monitor neurological status. * Hyperlipidemia. Continue statin. * Hypertension. Continue amlodipine. * Dementia. Continue donepezil and memantine. DVT prophylaxis: heparin. Code status: Full Patient will need hospitalization for at least 2 midnight for pneumonia and urinary tract infection treatment with IV fluids and IV antibiotics. She will also need close monitoring of vital signs. Quality Stroke Does the patient have a stroke diagnosis?: No VTE Prior VTE?: No VTE Risk Level:: Medical - moderate - high VTE Device Contraindication: Treatment Not Indicated VTE Drug Contraindication: N/A - Med Ordered
[2023-11-23] MEDS: 0.9 % Sodium Chloride 1,000 ML 100 ML IVCONT (03:50)
[2023-11-23] MEDS: Piperacillin Sodium/Tazobactam 3.375 GM in 0.9 % Sodium Chloride 50 ML IV ×2 (04:14→09:23)
[2023-11-23] MEDS: vancomycin HCL 1,500 MG in 0.9 % Sodium Chloride 500 ML 333.33 MG IV (04:47)
[2023-11-23 06:02] LABS: MANUAL DIFF FLAG NO
[2023-11-23 06:03] LABS: Basophils Absolute Auto 0.1 X10*3/uL (0.0-0.2); Basophils Percent Auto 0.6 % (0-2); Eosinophils Absolute Auto 0.1 X10*3/uL (0.0-0.4); Eosinophils Percent Auto 1.1 % (0-4); Hemoglobin 12.8 g/dl (12.0-16.0); Imm Gran Abs Auto 0.04 X10*3/uL (0.00-0.03); Imm Gran Pct Auto 0.4 % (0.0-0.4); Lymphocytes Absolute Auto 1.8 X10*3/uL (1.2-4.9); Lymphocytes Percent Auto 16.4 % (20-40); Mean Corpuscular HGB Conc 33.7 g/dl (31.0-35.0); Mean Corpuscular Hemoglobin 28.7 pg (27.0-33.0); Mean Corpuscular Volume 85.2 fL (80.0-98.0); Mean Platelet Volume 9.5 fL (9.4-12.3); Neutrophils Absolute Auto 7.9 x10*3/uL (2.0-8.3); Neutrophils Percent Auto 72.5 % (45-73); Platelet Count 330 X10*3/uL (160-400); Red Blood Count 4.46 X10*6/uL (4.20-5.50); Red Cell Distribution Width 12.8 % (11.0-16.0)
[2023-11-23 06:20] LABS: Alanine Aminotransferase 15 U/L (0-31); Albumin Level 3.4 g/dL (3.5-5.0); Alkaline Phosphatase 73 U/L (39-117); Anion Gap 12 (12-20); Aspartate Amino Transferase 16 U/L (5-31); Bilirubin Total 0.6 mg/dL (0.0-1.0); Blood Urea Nitrogen 10 mg/dL (9-16); Carbon Dioxide 24 mmol/L (22-29); Chloride 110 mmol/L (96-108); Creatinine Clr Calc Pharmacy 42.4; Estimated Glomerular Filt Rate > 60; Glucose Random 105 mg/dL (60-115); Potassium 3.1 mmol/L (3.3-5.1); Sodium 143 mmol/L (135-145); Total Protein 6.1 g/dL (6.5-8.0)
--- NOTE | 2023-11-23 06:41 | PHA.PROG ---
Admission Date/Time: November 23, 2023 01:28 Indication: resp Weight in k.8 kg Serum Creatinine - Last 168 Hours 11/22/23 11/23/23 22:26 05:58 Creatinine 0.77 0.81 Estimated CrCl and GFR - Last 168 Hours 11/22/23 11/23/23 22:26 05:58 Estim Creat Clear Calc 44.6 42.4 Estimated GFR > 60 > 60 Vancomycin Loading Dose: 1500 Current Vancomycin Dosing Regimen: 1000 q 24h Vancomycin Monitoring using AUC goal of 400 - 600 range with trough as surrogate marker: 443 Date and Time for next Vancomycin Level to be drawn: 11/24 @ 0600 Pharmacist Comments on Vancomycin Plan: Vancomycin dosing will take advantage of [employer] as a clinical decision support tool that uses Bayesian modeling to calculate individual patient's pharmacokinetic parameters and forecast the patient's drug concentration time course with the target goal AUC 24 range of 400 - 600 mg/L/hr.
--- NOTE | 2023-11-23 07:37 | PHA.MEDREC ---
Pharmacy Consult ? Medication Reconciliation MD has completed the medication reconciliation, pharmacy reviewed.
--- NOTE | 2023-11-23 08:09 | P.EN_ITS ---
Event Note Date of Service: 11/23/23 Event Note: 78-year-old female with past medical history of Alzheimer's dementia, hypertension, hyperlipidemia brought in to [facility] due to fevers, cough, incontinence of urine patient in the ED noted to have tachycardia, fever labs showed leukocytosis, hypokalemia 3.3 patient admitted to [facility] with a diagnosis of acute toxic metabolic encephalopathy, On examination patient is nonverbal resting comfortably Lungs clear to auscultation Abdomen soft Extremities no edema Assessment plan Acute toxic metabolic encephalopathy Likely due to viral infection, hypokalemia Chest x-ray showed no infiltrate, urinalysis unremarkable Will DC IV antibiotics, placed on cough medication, follow clinical course Acute Hypokalemia will replete and follow labs Sirs with no source of infection patient noted to have fever of 101, tachycardia, leukocytosis No source of infection found likely viral URI with dry cough Symptomatic treatment Tylenol, cough medication Alzheimer's dementia continue Aricept and Namenda Hypertension stable continue amlodipine Hyperlipidemia continue statin Heparin for DVT prophylaxis Full code In my clinical judgment patient will require continued hospitalization for treatment of SIRS and acute toxic metabolic encephalopathy. Time Spent With Patient Time: Total time managing care of this patient today ____ minutes.
[2023-11-23] MEDS: Heparin Sodium,Porcine 5,000 UNIT/ML VIAL 5000 UNIT SUBCUT ×2 (09:23→22:38)
[2023-11-23] MEDS: Cholecalciferol (Vitamin D3) 25 MCG TABLET 50 MCG PO (09:23)
[2023-11-23] MEDS: amLODIPine Besylate 10 MG TABLET PO (09:24)
[2023-11-23] MEDS: Ascorbic Acid 500 MG TABLET PO (09:24)
[2023-11-23] MEDS: Memantine HCl 10 MG TABLET PO ×2 (09:24→22:37)
[2023-11-23] MEDS: Potassium Chloride ER 20 MEQ TAB.ER.PRT PO (10:55)
--- NOTE | 2023-11-23 11:15 | PC.NURSE ---
pt sleeping, wakes to verbal stimulus, respirations equal and non labored, lungs diminished, pt medicated per order- meds crushed in pudding- pt not wanting to take medication for this nurse however, who is at bedside was able to get the patient to take the medication in pudding while this nurse watched. pure pick patient/draining yellow urine, call dillon within reach, will continue to monitor
[2023-11-23] MEDS: KCl 20 mEq in 5% Dex/0.9% Sod 20 MEQ/1,000 ML IV.SOLN 80 MEQ IVCONT (12:06)
--- NOTE | 2023-11-23 12:07 | MHC.CM.PN ---
IMM 11/22 (IMM addressed with pts /HCP Zachery). Pt with dx dementia/non-verbal. CM intake assessment completed with pts /HCP Piute present at bedside. Pts lives at home with her who is also her maritime guard caregiver. Pts states their neighbor/friend assists her with showers and helping her get to bed each night. Pts states she is never unattended and he brings her with him everywhere he goes. Pt is able to ambulate without DME, but it was becoming more difficult for her to get up the stairs. Pt recently had [facility] services that ended last week, pts is interested in having those services again at D/C. Pts will transport her home. PCP: Dr. Pablito Ponce
[2023-11-23] MEDS: guaiFENesin DM 200/20/10 ML 10 ML SYRUP PO ×2 (16:05→22:38)
--- NOTE | 2023-11-23 16:16 | PC.NURSE ---
Med given as documented, pt resting quietly, no apparent distress. remains at bedside.
[2023-11-23] MEDS: Pravastatin Sodium 40 MG TABLET PO (22:37)
[2023-11-23] MEDS: Donepezil HCl 5 MG TABLET PO (22:38)
[2023-11-23] MEDS: 0.9 % Sodium Chloride Flush 3 ML SYRINGE IVFLUSH (22:38)
[2023-11-24 03:28] VITALS: BP 159/77; PULSE 87; RESP 20; TEMP 36.9; O2SAT 94
[2023-11-24 03:34] VITALS: BP 159/74; PULSE 94; RESP 20; TEMP 36.1; O2SAT 93
[2023-11-24 06:44] LABS: Hematocrit 39.3 % (37.0-47.0); Hemoglobin 13.6 g/dl (12.0-16.0); Mean Corpuscular HGB Conc 34.6 g/dl (31.0-35.0); Mean Corpuscular Hemoglobin 29.5 pg (27.0-33.0); Mean Corpuscular Volume 85.2 fL (80.0-98.0); Mean Platelet Volume 10.4 fL (9.4-12.3); Platelet Count 317 X10*3/uL (160-400); Red Blood Count 4.61 X10*6/uL (4.20-5.50); Red Cell Distribution Width 12.7 % (11.0-16.0); White Blood Count 8.1 X10*3/uL (4.8-10.8)
[2023-11-24 07:12] LABS: Anion Gap 11 (12-20); Blood Urea Nitrogen 8 mg/dL (9-16); Carbon Dioxide 24 mmol/L (22-29); Chloride 108 mmol/L (96-108); Creatinine Clr Calc Pharmacy 47.8; Estimated Glomerular Filt Rate > 60; Glucose Random 119 mg/dL (60-115); Potassium 3.3 mmol/L (3.3-5.1); Sodium 140 mmol/L (135-145)
[2023-11-24 08:00] VITALS: BP 148/70; PULSE 82; RESP 20; TEMP 36.8; O2SAT 95
[2023-11-24] MEDS: guaiFENesin DM 200/20/10 ML 10 ML SYRUP PO (08:24)
[2023-11-24] MEDS: Potassium Chloride ER 20 MEQ TAB.ER.PRT PO (08:24)
[2023-11-24] MEDS: Cholecalciferol (Vitamin D3) 25 MCG TABLET 50 MCG PO (08:24)
[2023-11-24] MEDS: Memantine HCl 10 MG TABLET PO (08:24)
[2023-11-24] MEDS: Ascorbic Acid 500 MG TABLET PO (08:24)
[2023-11-24] MEDS: 0.9 % Sodium Chloride Flush 3 ML SYRINGE IVFLUSH (08:24)
[2023-11-24] MEDS: Heparin Sodium,Porcine 5,000 UNIT/ML VIAL 5000 UNIT SUBCUT (08:24)
[2023-11-24] MEDS: amLODIPine Besylate 10 MG TABLET PO (08:24)
[2023-11-24 11:05] VITALS: BP 143/63; PULSE 83; RESP 20; TEMP 36.4; O2SAT 96
--- NOTE | 2023-11-24 11:49 | MHC.CM.PN ---
PER MD ROUNDS, PT MAY BE READY TO DC TODAY DCP REMAINS HOME WITH RESUMPTION OF FAMILY CARE TO TRANSPORT
--- NOTE | 2023-11-24 12:09 | PM.DS ---
DS: Providers Provider Date of Service: 11/24/23 Date of admission: 11/23/23 01:28 Primary care physician: Pablito Ponce MD Consults: 11/23/23 01:54 Consult to Infectious Diseases Routine Consulting Provider: [facility] Infectious Disease Reason for consultation: Recurrent UTIs Has provider been notified: No DS: Diagnosis Discharge Diagnosis (1) Acute UTI: Status: Acute (2) Pneumonia: Status: Acute (3) Alzheimer's dementia: Status: Acute (4) Essential hypertension: Status: Acute (5) Mixed hyperlipidemia: Status: Acute (6) Generalized weakness: Status: Acute DS: Summary Hospital Course Hospital Course: History of presenting illness: Date of Service: 11/23/23 Attending physician on admission: Terence Verma Chief Complaint: Fever Annmarie Cooper is a 78 years old woman with past medical history significant for vascular dementia (minimally verbal at baseline), multiple UTIs, hyperlipidemia and hypertension was brought to the emergency department after she was found to have fever. Patient's was at bedside and provided patient HPI the patient is nonverbal. noted that the patient was not as active as usual and changes in behavior. She does have some restlessnes at time. Had noted patient has been coughing that she is incontinence of urine. stated patient has not been diarrhea or vomiting. She has been eating well. Chart review: Recent hospitalization (September) with diagnosis of aspiration pneumonia seen acute metabolic encephalopathy In the ED, she was found to have tachycardia fever of 101.1. There is no hypotension. But workup was remarkable for leukocytosis without lactic acidosis or bandemia. Blood workup was remarkable for hypokalemia, 3.3. Magnesium sodium are normal. Creatinine 0.77. LFTs are normal. Troponin is mildly elevated X 2. CXR shows small area of atelectasis/infiltrate in the left lower base. Urinalysis showed elevated steroids leukocytes, WBC 10-20 and moderate blood. ED tx: Ceftriaxone 1 g IV and acetaminophen 975 mg p.o. Hospital course: 78-year-old female with past medical history of Alzheimer's dementia, hypertension, hyperlipidemia brought in to [facility] due to fevers, cough, incontinence of urine patient in the ED noted to have tachycardia, fever, labs showed leukocytosis, hypokalemia 3.3, patient admitted to [facility] with a diagnosis of acute toxic metabolic encephalopathy, Likely due to viral infection and hypokalemia, chest x-ray showed no infiltrate, urinalysis unremarkable, patient was treated with supportive care, WBC normalized she has no recurrent fevers all features of SIRS resolved, patient is tolerating diet , is baseline with her ambulation, therefore being discharged home and recommended to continue all home medications, recommend cough medication as needed. In regard to Alzheimer's dementia patient seems to be at baseline recommend to continue Aricept and Namenda. Hypertension stable continue amlodipine. Hyperlipidemia continue statin. Time Attestation Discharge Coordination Time (in mins): 35 Quality: Safe Use of Opioids Does Pt have an Active Cancer Diagnosis on the Problem List?: No Quality: Stroke Does the patient have a stroke diagnosis?: No Physical Exam Vital Signs: Vital Signs: Last Vital Signs Temp 97.6 F 11/24/23 11:05 Pulse 83 11/24/23 11:05 Resp 20 11/24/23 11:05 BP 143/63 H 11/24/23 11:05 Pulse Ox 96 11/24/23 11:05 O2 Del Method Room Air 11/24/23 11:05 BMI result Body Mass Index 23.7 Const: Other: General: Alert, minimally verbal, no acute distress Neck no JVD Resp: no accessory muscles used CVS: S1,S2,RRR GI: soft, non tender, non distended Extremities no edema DS: Data Data Completed and Pending Labs on day of discharge: Laboratory Results - last 24 hr 11/24/23 05:58 WBC 8.1 RBC 4.61 Hgb 13.6 Hct 39.3 MCV 85.2 MCH 29.5 MCHC 34.6 RDW 12.7 Plt Count 317 MPV 10.4 Absolute Nucleated RBC 0.000 Nucleated RBC % (auto) 0.0 Sodium 140 Potassium 3.3 Chloride 108 Carbon Dioxide 24 Anion Gap 11 L BUN 8 L Creatinine 0.72 Estim Creat Clear Calc 47.8 Estimated GFR > 60 Random Glucose 119 H Calcium 9.0 Preliminary micro results at discharge 11/23/23 Unknown Urine Culture - Preliminary Urine Catheterized - Leung Catheter Gram negative sarah 11/22/23 22:59 Blood Culture - Preliminary Blood - Venous No growth after 24 hours. 11/22/23 22:59 Blood Culture - Preliminary Blood - Venous No growth after 24 hours. Discharge Plan Discharge Anticipated Discharge Date/Time: 11/24/23 12:04 Patient Disposition: Home Health Service Discharge Diagnosis: Acute toxic metabolic encephalopathy Sirs Acute hypokalemia Referrals: Pablito Ponce MD [Primary Care Provider] - 1 Week Discharge Medications: Continued multivitamin Tablet 1 tab PO DAILY donepezil 5 mg tablet 5 mg PO QPM lovastatin 40 mg tablet 40 mg PO QPM ascorbic acid (vitamin C) [Vitamin C] 500 mg Tablet 500 mg PO DAILY amlodipine 10 mg tablet 10 mg PO DAILY memantine 10 mg tablet 10 mg PO BID cholecalciferol (vitamin D3) [Vitamin D3] 50 mcg (2,000 unit) Tablet 50 mcg PO DAILY Discharge Orders: Discharge Order (Routine); Ordered 11/24/23 Ordered By: Lay Castellanos Diet: Advance to usual diet Activity on Discharge: As tolerated Stand Alone Forms: Patient Portal Discharge page Care Plan Goals: Acute hypokalemia resolved Sirs with no source of infection resolved Continue all home medications as before Take cough syrup as needed Health Concerns: Dementia Hypertension Hyperlipidemia Plan of Treatment: Outpatient follow-up with primary care physician Assessment: As above
== END 2023-11-24 12:49 | disposition home health service (06) | DRG 865 ==
LOC: HO.ED 11-23 00:55 → HO.EDOVER 11-23 01:36 → HO.IMC 11-23 13:59
PROVIDERS: Physician Assistant Medical; Admitting Provider Internal Medicine; Emergency Provider Emergency Medicine Emergency Medical Services; PCP Family Medicine; Visit Provider Hospitalist
DX: B34.9 Viral infection, unspecified (principal); G92.8 Other toxic encephalopathy; E78.2 Mixed hyperlipidemia; G30.9 Alzheimer's disease, unspecified; E87.6 Hypokalemia; F01.50 Vascular dementia, unspecified severity, without behavioral disturbance, psychotic disturbance, mood disturbance, and anxiety; F02.80 Dementia in other diseases classified elsewhere, unspecified severity, without behavioral disturbance, psychotic disturbance, mood disturbance, and anxiety; I10 Essential (primary) hypertension; Z20.822 Contact with and (suspected) exposure to COVID-19; Z87.440 Personal history of urinary (tract) infections; Z79.899 Other long term (current) drug therapy
CPT/HCPCS: 0241U; 36415; 71045; 80048; 80053; 81001; 83605; 83735; 84484; 85025; 85027; 85610; 85730; 87040; 87086; 87088; 87186; 93005; 99285; J0696; J1644; J2543; J3371; J3480

== ENCOUNTER → 2023-11-22 21:45 | Outpatient (BNV) | payer MEDICARE, OTHER, SELFPAY | PROVIDERS: Admitting Provider Internal Medicine; Emergency Provider Emergency Medicine Emergency Medical Services; Visit Provider Internal Medicine Cardiovascular Disease | DX: R06.02 Shortness of breath (principal) | CPT/HCPCS: 93010 ==

== ENCOUNTER → 2023-11-23 01:28 | Outpatient (BNV) | payer MEDICARE, OTHER, SELFPAY | PROVIDERS: Admitting Provider Internal Medicine; Emergency Provider Emergency Medicine Emergency Medical Services; Visit Provider Internal Medicine | DX: N39.0 Urinary tract infection, site not specified (principal); J18.9 Pneumonia, unspecified organism; G30.9 Alzheimer's disease, unspecified; F02.80 Dementia in other diseases classified elsewhere, unspecified severity, without behavioral disturbance, psychotic disturbance, mood disturbance, and anxiety; I10 Essential (primary) hypertension; E78.2 Mixed hyperlipidemia; R53.1 Weakness | CPT/HCPCS: 99223; 99239; 99499 ==

== ENCOUNTER 2024-02-19 09:00 | Emergency (ER) | payer MEDICARE, OTHER, SELFPAY ==
--- NOTE | ~2024-02-19 | CT_ITS ---
EXAMINATION: CT HEAD WITHOUT CONTRAST CLINICAL INFORMATION: Mechanical fall. Blunt head trauma without loss of consciousness, significant head injury and posttraumatic headache. COMPARISON: None available. TECHNIQUE: Contiguous axial imaging was performed from the skull base to vertex without intravenous administration of contrast. This CT examination was performed using dose optimization techniques as appropriate, variously including the following: *Automated exposure control *Adjustment of mA and/or kV according to patient size (this includes techniques or standardized protocols for targeted exams where dose is matched to indication/reason for exam; i.e. extremities or head) *Use of iterative reconstruction technique DLP: 649 mGy-cm FINDINGS: Ventricles, sulci and cisterns are markedly dilated. Bilateral frontal deep white matter show abnormal decrease in attenuation. There is no midline shift, no abnormal intra- or extra- axial fluid accumulation. Albarado and white matter differentiation is normal. Bone window images show no evidence of skull fracture. Mild mucosal thickening is seen in posterior wall of left sphenoid sinus. CT/CT head/brain wo IV con IMPRESSION: 1. 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 2. No acute intracranial hemorrhage. 3. Mild left sphenoid sinus disease.
--- NOTE | ~2024-02-19 | XR_ITS ---
EXAMINATION: LEFT SHOULDER, PELVIS AND LEFT HIP CLINICAL INFORMATION: Left hip and shoulder pain COMPARISON: Chest radiograph 11/23/2023 and 09/30/2023 CT chest 02/19/2024 TECHNIQUE: Single view pelvis with 2 additional views left hip, 2 views left shoulder FINDINGS: There is a nondisplaced fracture of the left humeral neck. There is no glenohumeral dislocation. The AC joint appears normal. No pelvic or hip fracture is seen. XR/XR hip LT w PEL1V IMPRESSION: Nondisplaced left humeral neck fracture. No pelvic or left hip fracture.
--- NOTE | ~2024-02-19 | XR_ITS ---
EXAMINATION: LEFT SHOULDER, PELVIS AND LEFT HIP CLINICAL INFORMATION: Left hip and shoulder pain COMPARISON: Chest radiograph 11/23/2023 and 09/30/2023 CT chest 02/19/2024 TECHNIQUE: Single view pelvis with 2 additional views left hip, 2 views left shoulder FINDINGS: There is a nondisplaced fracture of the left humeral neck. There is no glenohumeral dislocation. The AC joint appears normal. No pelvic or hip fracture is seen. XR/XR shoulder LT min 2V IMPRESSION: Nondisplaced left humeral neck fracture. No pelvic or left hip fracture.
--- NOTE | ~2024-02-19 | CT_ITS ---
EXAMINATION: CT CERVICAL SPINE WITHOUT CONTRAST CLINICAL INFORMATION: Mechanical fall, neck injury and pain COMPARISON: None available. TECHNIQUE: Multiple 2.0 mm axial images were obtained from base of skull to T1 levels without IV contrast enhancement. Sagittal and coronal 2.0 mm bone window images were reconstructed from axial image data. This CT examination was performed using dose optimization techniques as appropriate, variously including the following: *Automated exposure control *Adjustment of mA and/or kV according to patient size (this includes techniques or standardized protocols for targeted exams where dose is matched to indication/reason for exam; i.e. extremities or head) *Use of iterative reconstruction technique DLP: 242 mGy-cm FINDINGS: C1/C2: Bony structures are intact with normal alignment. There is no spinal stenosis. C2/C3: Bony structures are intact with normal alignment. There is no spinal stenosis. Bilateral C2/C3 neuroforamina are patent. Bilateral apophyseal joints are intact with normal alignment. C3/C4: Bony structures are intact with normal alignment. There is no spinal stenosis. Bilateral C3/C4 neuroforamina are patent. Bilateral apophyseal joints are intact with normal alignment. C4/C5: Bony structures are intact with normal alignment. There is marked decrease in intervertebral disc height. Large sharp anterior and small posterior syndesmophytes are present. There is no spinal stenosis. There is mild asymmetric left C4/C5 neuroforaminal stenosis. Bilateral apophyseal joints are intact with normal alignment. A prominent septated left lateral upper C5 bone cyst is seen measuring 0.7 cm in AP diameter, 0.6 cm in width, 0.6 cm in vertical height. C5/C6: Bony structures are intact with normal alignment. There is marked decrease in intervertebral disc height. Prominent sharp anterior and posterior bridging syndesmophytes are present. Right posterior inferior C5 syndesmophyte is seen moderately effacing the right lateral recess. There is no spinal stenosis. Bilateral C5/C6 neuroforamina are mildly stenosed. Bilateral apophyseal joints are intact with normal alignment. C6/C7: Bony structures are intact with normal alignment. There is marked decrease in intervertebral disc height. Large sharp anterior inferior C6 syndesmophyte is present. There is no spinal stenosis. Bilateral C6/C7 neuroforamina are markedly stenosed. Bilateral apophyseal joints are intact with normal alignment. C7/T1: Bony structures are intact with normal alignment. There is no spinal stenosis. Bilateral C7/T1 neuroforamina are patent. Bilateral apophyseal joints are intact with normal alignment. Multilevel bilateral apophyseal joint and uncovertebral joint osteoarthritis with loss of joint space, sclerosis, facet hypertrophy and osteophytosis are seen. A hypodense left thyroid nodule is seen measuring 0.[address]/CT cervical spine wo IV con IMPRESSION: 1. No evidence of acute fracture or dislocation. 2. Multilevel degenerative changes of the cervical spine are seen with marked bilateral C6/C7 neuroforaminal stenosis and mild bilateral C5/C6 neuroforaminal stenosis. 3. A prominent septated left lateral upper C5 bone cyst is seen measuring 0.7 cm in AP diameter, 0.6 cm in width, 0.6 cm in vertical height. 4. A hypodense left thyroid nodule is seen measuring 0.8 cm in diameter. Incidental thyroid nodules up to 1.5 cm in diameter in patients 35 years of age or older are statistically overwhelmingly not clinically significant and no followup imaging recommended. Reference: J Am Darshan Radiol 2015 Feb; 12(2): 143-50.
--- NOTE | ~2024-02-19 | CT_ITS ---
EXAMINATION: CT chest, abdomen and pelvis. CLINICAL INFORMATION: Mechanical fall, body injury and pain. COMPARISON: None. TECHNIQUE: A multidetector helical CT acquisition of the chest, abdomen and pelvis was obtained following the administration of 85 mL of Omnipaque 350. Multiplanar reformats were acquired and utilized for image interpretation. Coronal and sagittal images were reconstructed from axial image data. Dose reduction technique: One or more of the following individual dose optimization techniques were used including: Automated exposure control, mA and/or kV were adjusted according to patient size or iterative reconstruction. DLP: 1566.01 mGy-cm FINDINGS: LUNGS: The visualized lung parenchyma is clear. -Nodule #1 (Series 32, image 87): 4.6 mm solid nodule, posterior medial left upper lobe apicoposterior segment. PLEURA: No pleural effusion or pneumothorax is seen. PERICARDIUM: No pericardial effusion is seen. MEDIASTINUM AND LAMAR: No abnormally enlarged mediastinal or hilar lymph nodes are seen. TRACHEOBRONCHIAL TREE: Trachea and bilateral mainstem bronchi are patent. THORACIC AORTA: The thoracic aorta is normal in size with extensive scattered atherosclerotic calcifications and smoothly patent. CORONARY ARTERY CALCIFICATIONS: Present PULMONARY ARTERIES: The main pulmonary arteries show normal enhancement. CHEST WALL AND LOWER NECK: The subcutaneous and muscular chest wall are intact with no focal lesion. No abnormal mass lesion could be seen in the visualized lower neck. BONES: No fracture or dislocation. No focal bone lesion diagnostic of metastatic disease could be seen in the thorax. VISUALIZED UPPER ABDOMEN: Bilateral adrenal glands are not enlarged. Medium-sized retrocardiac hiatus hernia is present. Fleischner guidelines were followed. EXAMINATION: CT abdomen. FINDINGS: LUNG BASES: Bilateral lung bases are clear. LIVER: Liver parenchyma shows relatively low density with mean attenuation of 71.8 Hounsfield units in spite of intravenous contrast enhancement, suggestive of hepatic steatosis. GALLBLADDER AND BILIARY TREE: Gallbladder is surgically absent with clips in the gallbladder fossa. Common bile duct is not dilated. SPLEEN: The spleen is normal in size without focal lesion. PANCREAS: The pancreas appears unremarkable. ADRENAL GLANDS: Adrenal glands are normal in size without focal lesion bilaterally. KIDNEYS: Bilateral kidneys are normal in size with a larger lateral mid left renal cortical cyst measuring 2.8 x 3.2 cm in size and smaller 1.4 cm posterior lateral inferior left renal cortical simple cyst, for which no follow up imaging is recommended. BOWELS: There is no abnormal dilatation of the large and small bowel loops. RETROPERITONEUM: No abnormally enlarged retroperitoneal lymph nodes, mass or hematoma could be seen. BLOOD VESSELS: Abdominal aorta is normal in size with extensive atherosclerotic calcifications and smoothly patent. ABDOMINAL WALL: Abdominal subcutaneous tissue and muscle are intact. No evidence of ventral hernia. PERITONEUM: There was no ascites. There were no abdominal peritoneal inflammatory changes seen. No free peritoneal air was seen. No abnormally enlarged mesenteric lymph nodes are found. BONES: No fracture or dislocation. No focal bone lesion diagnostic of metastatic disease could be seen in the lumbar region. EXAMINATION: CT pelvis. FINDINGS: URINARY BLADDER: Urinary bladder fills normally with urine. BOWELS: There is no abnormal dilatation of the large and small bowel loops. Normal appendix is seen projecting medial and inferior to the cecum. There is moderate gaseous distention of the rectum and anal canal. GENITAL ORGANS: No adnexal mass lesion could be seen. The uterus is unremarkable, containing T-shaped intrauterine contraceptive device. LYMPH NODES: No abnormally enlarged iliac or inguinal lymph nodes are seen. PERITONEUM: No inflammatory changes, ascites or free peritoneal air are found in the pelvis. BONES: No fracture or dislocation. No focal bone lesion diagnostic of metastatic disease could be seen in the pelvis. CT/CT abdomen pelvis w IV con IMPRESSION: 1. No evidence of acute traumatic injury in the chest, abdomen and pelvis. No pneumothorax or pneumoperitoneum, abdominal or pelvic hematoma could be seen. 2. 4.6 mm solid nodule, posterior medial left upper lobe apicoposterior segment. 3. Medium-sized retrocardiac hiatus hernia. 4. Hepatic steatosis. 5. Status post cholecystectomy. 6. Left renal cortical cysts, for which no follow up imaging is recommended. 7. Intrauterine contraceptive device. According to the UPDATED 2017 Fleischner Society recommendations, the advised follow-up imaging for nodules <6mm in the upper lobes is not necessarily required in low-risk patients. In high-risk patients with a nodule in the upper lobe and/or demonstrating suspicious morphology, an optional CT follow-up at 12 months may be obtained. If stable at 12 months, no further follow-up is recommended.
[2024-02-19 09:22] VITALS: BP 117/57; PULSE 59; RESP 14; TEMP 37.1; O2SAT 98; BMI 22.5
[2024-02-19 09:25] VITALS: BP 117/57; PULSE 59; RESP 14; TEMP 37.1; O2SAT 98
--- NOTE | 2024-02-19 09:33 | PC.NURSE ---
Pt presents to ED for fall down last step and fall into wooden board at end of staircase with left arm and left hip pain with movement. Pt is verbal but non sensical and mumbled speech normal for pt per . No obvious deformity noted. Lives at home with who reports managing well.
--- NOTE | 2024-02-19 09:34 | ED_ITS ---
HPI - General Adult General Chief complaint: Fall Stated complaint: Fall today 02/19/24 Time Seen by Provider: 02/19/24 09:26 Source: patient Mode of arrival: ambulatory Limitations: altered mental status (Hx dementia, slow to respond, poor historian) History of Present Illness ED Provider: Mayuri Calloway PA-C HPI narrative: This is a 78 yo female pmh alzheimer's dementia, mixed hyperlipidemia, essential HTN presents with after trip and fall at home with pain of left shoulder, left ribs, and possibly left hip. Patient unable to respond fully or talk clearly secondary to dementia (which is her baseline), however reports he witnessed the trip, and states around 8:00 am the patient missed the last step while going down the stairs and fell into a wide wooden board that they have at the bottom of the stairs on her left side (left shoulder, left side of rib cage, and possibly left hip). denies head strike or LOC. Patient unable to communicate pain for assessment however is holding the left arm/shoulder in apparent pain. Related Data Home Medications ?Medication ?Instructions ?Recorded ?Confirmed amlodipine 10 mg tablet 10 mg PO DAILY 10/01/23 11/23/23 ascorbic acid (vitamin C) 500 mg 500 mg PO DAILY 10/01/23 11/23/23 tablet (Vitamin C) cholecalciferol (vitamin D3) 50 50 mcg PO DAILY 10/01/23 11/23/23 mcg (2,000 unit) tablet (Vitamin D3) donepezil 5 mg tablet 5 mg PO QPM 10/01/23 11/23/23 lovastatin 40 mg tablet 40 mg PO QPM 10/01/23 11/23/23 memantine 10 mg tablet 10 mg PO BID 10/01/23 11/23/23 multivitamin 1 tab PO DAILY 10/01/23 11/23/23 Allergies Allergy/AdvReac Type Severity Reaction Status Date / Time Sulfa (Sulfonamide Allergy Mild HEADACHE Verified 02/19/24 09:24 Antibiotics) [SULFA (SULFONAMIDE ANTIBIOTICS)] shellfish derived Allergy Unknown UNKNOWN Verified 02/19/24 09:24 [SHELLFISH DERIVED] Review of Systems 2 Review of Systems: Yes all other systems are reviewed and are negative PMFSH Past Medical History Attestation statement: The following information was validated with the patient. Source: old records reviewed and nursing notes reviewed Medical History Mixed hyperlipidemia Essential hypertension Alzheimer's dementia Social History Social History Household Members: Significant Other [facility] Do you presently have visiting nurse or other home services: Yes Unable to assess alcohol history related to: Unable to respond Patient Tobacco Use Status: Never used Tobacco Smoked in Last 30 Days: No Second Hand Smoke Exposure: No Use of substances other than those prescribed or required for medical reasons: Unable to respond Advance Directives: Yes Advance Directives on File: Yes Advance Directives Date on File: 10/01/23 service: No Physical Exam ED Vital Signs: Vital Signs - 24 hr 02/19/24 09:22 02/19/24 09:25 02/19/24 09:25 Temperature 98.7 F 98.7 F 98.7 F Pulse Rate 59 59 59 Respiratory Rate 14 14 14 Blood Pressure 117/57 L 117/57 L 117/57 L Pulse Oximetry 98 98 98 Oxygen Delivery Method Room Air Room Air 02/19/24 11:16 Temperature Pulse Rate 83 Respiratory Rate 14 Blood Pressure 142/61 H Pulse Oximetry 99 Oxygen Delivery Method Room Air BMI result Body Mass Index 22.5 vss. Appearance: Alert.? No acute distress.?Unable to communicate/respond fully to questions at baseline secondary to alzheimer's dementia. Head: Normocephalic, atraumatic, no step-offs or deformities Eyes: Pupils equal, round and reactive to light.? Neck: Normal inspection.? Neck supple.? CVS: Normal heart rate and rhythm.? Pulses normal.? Respiratory: No respiratory distress.? Breath sounds normal.? Abdomen: Soft and nontender.? Skin: Skin warm and dry.? Normal skin color.? Normal skin turgor.? Extremities: No obvious deformities. Unable to assess ROM due to patient confusion/uncooperation. Patient holding left shoulder in apparent distress but unable to verbalize if ttp. 2+ radial pulses equal and b/l. NO wrist drop Back: Unable to fully assess due to confusion/inabilty to fully communicate however no apparent midline tenderness, or C-spine tenderness Neuro: Oriented to person, not place, time, situation (baseline).?No motor deficit.? No sensory deficit. CN 2-12 intact Course Reevaluation(s) Reevaluation #1: CBC with slight leukocytosis this is likely reactive secondary to fall, unlikely infectious no left shift. Chemistry no acute findings requiring intervention. UA clean. Head CT marked cerebral atrophy and ventriculomegaly bilateral frontal ischemic white matter disease. This is likely chronic. No acute intracranial hemorrhage. Mild left sphenoid sinus disease. CT chest, abdomen and pelvis with no evidence of acute traumatic injury. No pneumothorax or pneumoperitoneum. No signs of abdominal or pelvic hematoma. 4.6 mm solid nodule posterior medial left upper lobe apical posterior segment medium size retrocardiac hiatus hernia hepatic steatosis status post cholecystectomy left renal cortical cyst for which no follow-up imaging is recommended IUD in place. X-ray of left shoulder nondisplaced left humeral neck fracture patient placed in sling. No pelvic or left hip fractures. Pain seems to be well controlled. P.r.n. Tylenol ordered. Will have her follow up with orthopedic outpatient. Patient lives at home by herself with her and at times as help at night. She will likely require more services at home. At this time patient to be placed into physician observation to allow more time to be evaluated by PT, case management. At time observation was started patient common cooperative no acute distress will continue to monitor Time: 15:10 Medications Administered Discontinued Medications Generic Name Dose Route Start Last Admin Trade Name Freq PRN Reason Stop Dose Admin Morphine Sulfate 2 mg 02/19/24 09:40 02/19/24 09:59 Morphine Sulfate 2 Mg/Ml Cartridge IVPUSH 02/19/24 09:41 2 mg ONCE ONE Administration Protocol Medical Decision Making Medical Decision Making [facility] Narrative: 0940 78 yo female pmh alzheimer's dementia presents with status post trip and fall into a wooden board after missing the last step. Patient fell onto left side (left shoulder, left side of rib cage, left hip), unable to asses pain due to pt hx of dementia (baseline confusion), however appears to be holding left shoulder in pain. No head strike or LOC. PE: Unable to communicate/respond fully to questions at baseline secondary to alzheimer's dementia. Extremities: No obvious deformities. Unable to assess ROM due to patient confusion/uncooperation. Patient holding left shoulder in apparent distress but unable to verbalize if ttp. Differential: Shoulder strain vs AC joint injury vs fx vs dislocaiton. Unlikely threat to limb, neurovascular compromise, necrotizing infection, pneumothroax, labral tear, pulmonary contusion traumatic injury to chest, abd, head, neck or pelvis Plan: Imaging, pain control Differential Diagnosis Differential Diagnoses: The differential diagnosis associated with the presentation includes Shoulder strain vs AC joint injury vs fx vs dislocaiton. Unlikely threat to limb, neurovascular compromise, necrotizing infection, pneumothroax, labral tear, pulmonary contusion traumatic injury to chest, abd, head, neck or pelvis Admission/Observation Consideration of admission/observation: Escalation of care including admission/observation considered possible Lab Data MDM Lab Attestation statement: I reviewed the patient's lab results. 02/19/24 09:50 02/19/24 09:50 Labs: Lab Results 02/19/24 02/19/24 Range/Units 09:50 11:37 WBC 11.7 H (4.8-10.8) X10*3/uL RBC 5.17 (4.20-5.50) X10*6/uL Hgb 15.1 (12.0-16.0) g/dl Hct 44.3 (37.0-47.0) % MCV 85.7 (80.0-98.0) fL MCH 29.2 (27.0-33.0) pg MCHC 34.1 (31.0-35.0) g/dl RDW 13.7 (11.0-16.0) % Plt Count 435 H D (160-400) X10*3/uL MPV 9.5 (9.4-12.3) fL Immature Gran % (Auto) 0.5 H (0.0-0.4) % Neut % (Auto) 72.0 (45-73) % Lymph % (Auto) 18.2 L (20-40) % Faulk % (Auto) 6.3 (2-11) % Eos % (Auto) 2.1 (0-4) % Baso % (Auto) 0.9 (0-2) % Lymph # (Auto) 2.1 (1.2-4.9) X10*3/uL Faulk # (Auto) 0.7 (0.1-1.2) X10*3/uL Eos # (Auto) 0.3 (0.0-0.4) X10*3/uL Baso # (Auto) 0.1 (0.0-0.2) X10*3/uL Abs Immat Gran (auto) 0.06 H (0.00-0.03) X10*3/uL Absolute Neuts (auto) 8.4 H (2.0-8.3) x10*3/uL Absolute Nucleated RBC 0.000 (0.0-0.012) X10*3/uL Nucleated RBC % (auto) 0.0 (0.0-0.2) /100WBC Sodium 144 (135-145) mmol/L Potassium 3.9 (3.3-5.1) mmol/L Chloride 110 H (96-108) mmol/L Carbon Dioxide 21 L (22-29) mmol/L Anion Gap 17 (12-20) BUN 16 (9-16) mg/dL Creatinine 1.00 (0.5-1.4) mg/dL Estim Creat Clear Calc 34.3 Estimated GFR 53 Random Glucose 123 H (60-115) mg/dL Lactic Acid 1.9 (0.5-2.0) mmol/L Calcium 10.1 D (8.4-10.2) mg/dL Magnesium 2.2 (1.6-2.6) mg/dL Total Bilirubin 0.6 (0.0-1.0) mg/dL AST 21 (5-31) U/L ALT 24 (0-31) U/L Alkaline Phosphatase 87 (39-117) U/L Total Protein 7.6 (6.5-8.0) g/dL Albumin 4.4 (3.5-5.0) g/dL Urine Color Yellow Urine Appearance Clear Urine pH 7.5 (5.0-9.0) Ur Specific [place] 1.025 (1.005-1.025) Urine Protein Negative (Neg-Trace) mg/dL Urine Glucose (UA) Negative (Negative) mg/dL Urine Ketones Negative (Negative) mg/dL Urine Blood Negative (Negative) Urine Nitrite Negative (Negative) Ur Leukocyte Esterase Negative (Negative) Independent Interpretation I performed an independent interpretation of an: Plain X-Ray ( XR/XR shoulder LT min 2V IMPRESSION: Nondisplaced left humeral neck fracture. No pelvic or left hip fracture. XR/XR hip LT w PEL1V IMPRESSION: Nondisplaced left humeral neck fracture. No pelvic or left hip fracture. ) and CT Scan (CT/CT head/brain wo IV con IMPRESSION: 1. 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 2. No acute intracranial hemorrhage. 3. Mild left sphenoid sinus disease. ) Interpretation: CT/CT chest w IV con IMPRESSION: 1. No evidence of acute traumatic injury in the chest, abdomen and pelvis. No pneumothorax or pneumoperitoneum, abdominal or pelvic hematoma could be seen. 2. 4.6 mm solid nodule, posterior medial left upper lobe apicoposterior segment. 3. Medium-sized retrocardiac hiatus hernia. 4. Hepatic steatosis. 5. Status post cholecystectomy. 6. Left renal cortical cysts, for which no follow up imaging is recommended. 7. Intrauterine contraceptive device. According to the UPDATED 2017 Fleischner Society recommendations, the advised follow-up imaging for nodules <6mm in the upper lobes is not necessarily required in low-risk patients. In high-risk patients with a nodule in the upper lobe and/or demonstrating suspicious morphology, an optional CT follow-up at 12 months may be obtained. If stable at 12 months, no further follow-up is recommended. Radiology Impression Discussion of test interpretation with radiology: I have reviewed the radiologist's reading. External Record Review External record reviewed: Outpatient record, Prior outpatient labs and Prior outpatient radiology Prescription Management I considered prescription management with: Pain Medication (Morphine sulfate 2mg IV) Chronic Conditions Patient?s care impacted by: Hypertension and Other (Alzheimer's dementia, mixed hyperlipidemia) Critical Care Time Critical Care Time Critical Care Time: Yes Total Critical Care Time: 35 Attestation: I attest to this time spent taking care of the patient, obtaining history, physical, reviewing labs, imaging, speaking to my attending, specialist or hospitalist. Discharge Plan Discharge Clinical Impression: Fall, Fracture of neck of humerus Patient Disposition: Still a Patient Prescriptions: No Action multivitamin Tablet 1 tab PO DAILY donepezil 5 mg tablet 5 mg PO QPM lovastatin 40 mg tablet 40 mg PO QPM ascorbic acid (vitamin C) [Vitamin C] 500 mg Tablet 500 mg PO DAILY amlodipine 10 mg tablet 10 mg PO DAILY memantine 10 mg tablet 10 mg PO BID cholecalciferol (vitamin D3) [Vitamin D3] 50 mcg (2,000 unit) Tablet 50 mcg PO DAILY Print Language: Polish
[2024-02-19 09:57] LABS: MANUAL DIFF FLAG NO
[2024-02-19 09:59] LABS: Basophils Absolute Auto 0.1 X10*3/uL (0.0-0.2); Basophils Percent Auto 0.9 % (0-2); Eosinophils Absolute Auto 0.3 X10*3/uL (0.0-0.4); Eosinophils Percent Auto 2.1 % (0-4); Hematocrit 44.3 % (37.0-47.0); Hemoglobin 15.1 g/dl (12.0-16.0); Imm Gran Abs Auto 0.06 X10*3/uL (0.00-0.03); Imm Gran Pct Auto 0.5 % (0.0-0.4); Lymphocytes Absolute Auto 2.1 X10*3/uL (1.2-4.9); Lymphocytes Percent Auto 18.2 % (20-40); Mean Corpuscular HGB Conc 34.1 g/dl (31.0-35.0); Mean Corpuscular Hemoglobin 29.2 pg (27.0-33.0); Mean Corpuscular Volume 85.7 fL (80.0-98.0); Mean Platelet Volume 9.5 fL (9.4-12.3); Monocytes Absolute Auto 0.7 X10*3/uL (0.1-1.2); Monocytes Percent Auto 6.3 % (2-11); Neutrophils Absolute Auto 8.4 x10*3/uL (2.0-8.3); Platelet Count 435 X10*3/uL (160-400); Red Blood Count 5.17 X10*6/uL (4.20-5.50); Red Cell Distribution Width 13.7 % (11.0-16.0); White Blood Count 11.7 X10*3/uL (4.8-10.8)
[2024-02-19] MEDS: Morphine Sulfate 2 MG/ML CARTRIDGE IVPUSH (09:59)
--- NOTE | 2024-02-19 10:00 | PC.NURSE ---
Morphine given for pain as charted, remains at side
[2024-02-19 10:10] LABS: Lactic Acid 1.9 mmol/L (0.5-2.0)
[2024-02-19 10:13] LABS: Alanine Aminotransferase 24 U/L (0-31); Albumin Level 4.4 g/dL (3.5-5.0); Alkaline Phosphatase 87 U/L (39-117); Anion Gap 17 (12-20); Aspartate Amino Transferase 21 U/L (5-31); Bilirubin Total 0.6 mg/dL (0.0-1.0); Blood Urea Nitrogen 16 mg/dL (9-16); Calcium 10.1 mg/dL (8.4-10.2); Carbon Dioxide 21 mmol/L (22-29); Chloride 110 mmol/L (96-108); Creatinine Clr Calc Pharmacy 34.3; Estimated Glomerular Filt Rate 53; Glucose Random 123 mg/dL (60-115); Magnesium 2.2 mg/dL (1.6-2.6); Potassium 3.9 mmol/L (3.3-5.1); Sodium 144 mmol/L (135-145); Total Protein 7.6 g/dL (6.5-8.0)
[2024-02-19 11:16] VITALS: BP 142/61; PULSE 83; RESP 14; O2SAT 99
[2024-02-19 11:55] LABS: Appearance Urine Clear; Color Urine Yellow; Glucose Urine UA Negative (Negative); Leukocyte Esterase Urine Negative (Negative); Nitrite Urine Negative (Negative); PH 7.5 (5.0-9.0); Specific Gravity - Urine 1.025 (1.005-1.025); Urine Blood Negative (Negative); Urine Ketones Negative (Negative); Urine Protein Negative (Neg-Trace)
--- NOTE | 2024-02-19 15:19 | PC.NURSE ---
Physical therapy at bedside for assessment,sling to left upper arm. remains by side
[2024-02-19 15:57] VITALS: BP 147/68; PULSE 88; RESP 13; TEMP 36.2; O2SAT 96
[2024-02-19 16:08] LABS: COVID-19 Test Negative (Negative); IDNOW Serial# 58CA691E
--- NOTE | 2024-02-19 16:10 | PC.NURSE ---
Pt asleep, plan for case management short term rehab. VSS. Diet to be ordered. remains by side, coffee provided.
[2024-02-19 18:21] VITALS: BP 155/67; PULSE 102; RESP 14; TEMP 36.3; O2SAT 95
--- NOTE | 2024-02-19 18:43 | PC.NURSE ---
overflow given report
--- NOTE | 2024-02-19 19:10 | MHC.EDTECH ---
took home all patients belongings home.
--- NOTE | 2024-02-19 19:17 | MHC.CM.ED ---
CM met with patient and . Pt is essentially non-verbal, not answering any questions. Pt has vascular dementia. provides care and tells CM she occasionally speaks to him. Independent at home with ambulation. provides most care and feeds patient. She eats a regular diet. crushes her meds in pudding or apple sauce.Neighbor, who is a retired RN, provides nightly pm care. A nephew helps with housekeeping. tells CM they have been for 60 years. is retired career [employer]. Pt has no official services. Uses no DME. PCP verified. HCP on file. Pt has a on-displaced L humeral neck fx. It has been placed in a sling. Ortho will follow up outpatient. No surgical need. PT is recommending acute rehab. Referrals made to 3 acute facilities in our area. CM will follow for discharge planning.
--- NOTE | 2024-02-20 00:30 | PC.NURSE ---
attempted med rec - called preferred pharmacy [facility] and they states that she had no medications on file at this time
[2024-02-20 03:50] VITALS: RESP 13
[2024-02-20 05:37] VITALS: BP 168/95; PULSE 90; RESP 17; TEMP 37.1; O2SAT 95
--- NOTE | 2024-02-20 09:16 | PC.NURSE ---
Patient alert, minimally verbal and is at baseline. Ate well for breakfast with staff assist. at bedside , med rec completed with . Sling intact to left shoulder
--- NOTE | 2024-02-20 10:18 | MHC.CM.ED ---
Addendum entered by Zelda Zimmerman 02/20/24 16:09: [facility] CAN PROVIDE SOC FOR NURSING ON FRIDAY AND PT ON FRIDAY Addendum entered by Zelda Zimmerman 02/20/24 16:04: CM MET WITH PTS AT BEDSIDE, CURRENT DC PLAN IS HOME TOMORROW WITH [facility] TO START ON FRIDAY AND [facility] REFERRAL [place] REPORTS HE WILL BRING HIS NEIGHBOR WITH HIM TO PICK THE PT UP AND HE FEELS HE CAN DO IT VIA PRIVATE TRANSPORT HE IS AWARE BLS CAN BE ARRANGED Addendum entered by Zelda Zimmerman 02/20/24 15:41: REFERRAL MADE TO [facility], A [facility] REFERRAL WILL BE MADE WELL. PTS WILL TAKE PT HOME TOMORROW WITH A PLAN FOR [facility] TO START FRIDAY Addendum entered by Zelda Zimmerman 02/20/24 15:02: [facility] HAS DECLINED REFERRAL CM MET WITH PTS AT BEDSIDE HE SAYS THEY CANNOT PRIVATELY PAY FOR STR HE ALSO NOTES THEY LIVE IN A [place] WITH BOTH BEDROOMS ON THE 2ND FLOOR WELL THE FULL BATH. CM WILL MAKE A REFERRAL TO [facility] TO DETERMINE IF THEY ARE ELIGIBLE FOR ANY ASSISTANCE AT HOME Original Note: ACUTE REH[facility] REFERRALS PLACED YESTERDAY [facility] HAVE DECLINED AWAITING RESPONSE FROM [facility]
--- NOTE | 2024-02-20 13:07 | PC.NURSE ---
Ate well for lunch, used bed hull to have a medium formed BM. at bedside , patient without any s/s of pain or discomfort
[2024-02-20 15:43] VITALS: BP 174/80; PULSE 98; O2SAT 97
[2024-02-20 21:22] VITALS: BP 148/80; PULSE 96; RESP 16; TEMP 36.6; O2SAT 96
[2024-02-20] MEDS: Pravastatin Sodium 40 MG TABLET PO (22:02)
[2024-02-20] MEDS: Donepezil HCl 5 MG TABLET PO (22:02)
--- NOTE | 2024-02-20 22:12 | PC.NURSE ---
pt tolerated po meds crushed in pudding. resting comfortably in bed. linen dry, purewick in place. pt watching tv. bed alarm on.
--- NOTE | 2024-02-21 04:17 | PC.NURSE ---
pt had a large BM. harper care provided, linen changed, purewick replaced. pt repositioned. resting comfortably in bed now watching tv, no signs of pain/distress. bed alarm on.
[2024-02-21 06:29] VITALS: BP 134/74; PULSE 66; RESP 16; TEMP 36.6; O2SAT 93
[2024-02-21 08:09] VITALS: BP 158/105; PULSE 86; RESP 18; TEMP 36.6; O2SAT 97
--- NOTE | 2024-02-21 09:13 | MHC.EDTECH ---
Breakfast tray given
[2024-02-21] MEDS: amLODIPine Besylate 10 MG TABLET PO (09:24)
[2024-02-21] MEDS: Ascorbic Acid 500 MG TABLET PO (09:25)
[2024-02-21] MEDS: Cholecalciferol (Vitamin D3) 25 MCG TABLET 50 MCG PO (09:25)
[2024-02-21] MEDS: Multivitamin TABLET 1 TAB PO (09:25)
--- NOTE | 2024-02-21 09:58 | MHC.EDTECH ---
Complete bed bath and total bed changed
--- NOTE | 2024-02-21 09:59 | MHC.EDTECH ---
Patient up in a chair
[2024-02-21] MEDS: Memantine HCl 10 MG TABLET PO (11:33)
--- NOTE | 2024-02-21 11:33 | PC.NURSE ---
delay in medications d/t medication not being readily available in overflow pyxis. medication delivered from pharmacy/administered.
--- NOTE | 2024-02-21 14:56 | PC.NURSE ---
pt remained alert and oriented to self throughout this entire film writer's shift. nonverbal as pt is not able to answer questions/follow commands appropriately d/t hx of dementia. per pt's - this is her baseline. pt's bedside for majority of the shift for support. full head to toe bath performed by tech. fresh linen/pads applied to pt. after personal hygiene was performed - pt was placed in recliner bedside. 2:1 assist needed. pt repositioned multiple times throughout shift. new purewick applied. pt ate 100% of breakfast/lunch as pt's performed 1:1 feeds. states he does this for her at home as well. no sob/wob noted throughout shift. respirations even/unlabored. per CM - plan at this time is for pt to be d/c'd to go back w/ her tomorrow (02/21/24). pt calm/cooperative/pleasant throughout shift aside from 1 episode where she became more confused/kept attempting to get out of bed. pt was easily redirected back into bed.
--- NOTE | 2024-02-21 14:59 | MHC.CM.ED ---
Patient remains in ER overflow. Spoke with patient's , Zachery. He would like to take patient home tomorrow at 10am. Zachery aware [facility] services will not be able to start until Wednesday 02/21. Zachery agreeable. Continue to monitor for d/c needs.
[2024-02-21 15:17] VITALS: BP 142/92; PULSE 97; RESP 16; TEMP 36.7; O2SAT 96
[2024-02-21] MEDS: Pravastatin Sodium 40 MG TABLET PO (20:58)
[2024-02-21] MEDS: Donepezil HCl 5 MG TABLET PO (20:58)
[2024-02-22 06:11] VITALS: BP 149/73; PULSE 86; RESP 20; TEMP 37.4; O2SAT 96
--- NOTE | 2024-02-22 06:19 | MHC.EDTECH ---
OUTPUT FOR 02/22/24 overnight 800cc in route of PURWICK STRAW IN COLOR
[2024-02-22] MEDS: Cholecalciferol (Vitamin D3) 25 MCG TABLET 50 MCG PO (08:12)
[2024-02-22] MEDS: Ascorbic Acid 500 MG TABLET PO (08:13)
[2024-02-22 08:14] VITALS: BP 149/73
[2024-02-22] MEDS: Multivitamin TABLET 1 TAB PO (08:14)
[2024-02-22] MEDS: amLODIPine Besylate 10 MG TABLET PO (08:14)
[2024-02-22] MEDS: Memantine HCl 10 MG TABLET PO (08:14)
--- NOTE | 2024-02-22 08:16 | MHC.EDTECH ---
gave patient breakfast. started to 1:1 feed patient and arrived and took over.
[2024-02-22 10:24] VITALS: BP 00/00; PULSE 0; RESP 0; TEMP -17.7; TEMP 0; O2SAT 0
== END 2024-02-22 10:27 | disposition home or self-care (01) ==
PROVIDERS: Physician Assistant; Emergency Provider Student in an Organized Health Care Education/Training Program; PCP Family Medicine
DX: S42.212A Unspecified displaced fracture of surgical neck of left humerus, initial encounter for closed fracture (principal); M54.2 Cervicalgia; R51.9 Headache, unspecified; R07.81 Pleurodynia; R26.2 Difficulty in walking, not elsewhere classified; M25.552 Pain in left hip; M25.512 Pain in left shoulder; G30.9 Alzheimer's disease, unspecified; F02.80 Dementia in other diseases classified elsewhere, unspecified severity, without behavioral disturbance, psychotic disturbance, mood disturbance, and anxiety; I10 Essential (primary) hypertension; J32.9 Chronic sinusitis, unspecified; Y93.9 Activity, unspecified; W10.9XXA Fall (on) (from) unspecified stairs and steps, initial encounter; Y92.9 Unspecified place or not applicable; Y99.8 Other external cause status; Z11.52 Encounter for screening for COVID-19; Z79.899 Other long term (current) drug therapy
CPT/HCPCS: 36415; 70450; 71260; 72125; 73030; 73502; 74177; 80053; 81003; 83605; 83735; 84484; 85025; 87040; 87635; 96374; 97163; 99285; J2270

== ENCOUNTER 2024-02-22 11:12 | Emergency (ER) | payer MEDICARE, OTHER, SELFPAY ==
[2024-02-22 11:25] VITALS: BP 123/71; BP 141/69; PULSE 69; PULSE 98; RESP 18; TEMP 36.4; O2SAT 97; O2SAT 98; BMI 21.8
--- NOTE | 2024-02-22 11:40 | ED_ITS ---
HPI - General Adult General Chief complaint: General Medical Stated complaint: WEAKNESS Time Seen by Provider: 02/22/24 11:37 Source: patient and EMS Mode of arrival: EMS Limitations: altered mental status History of Present Illness ED Provider: Shruthi Velázquez NP HPI narrative: Patient is a 78-year-old female with history of Alzheiner's dementia, HLD, HTN presenting to the ED after being discharged home from this ED at 10:00 am today, was reportedly unable to climb stairs to enter her home. Patient initially presented to this ED on 02/18 after a fall. Her workup at that time was negative for any acute injury or illness requiring admission. After PT evaluation short term rehab was recommended. Patient was declined by several area rehabs, patient reported to that they cannot privately pay for short term rehab. Arrangements made with [facility] for nursing to begin today. MD complaint: weakness Onset (ago): day(s) Associated symptoms: denies other symptoms Treatments prior to arrival: none Related Data Home Medications ?Medication ?Instructions ?Recorded ?Confirmed amlodipine 10 mg tablet 10 mg PO DAILY 10/01/23 02/22/24 ascorbic acid (vitamin C) 500 mg 500 mg PO DAILY 10/01/23 02/22/24 tablet (Vitamin C) cholecalciferol (vitamin D3) 50 50 mcg PO DAILY 10/01/23 02/22/24 mcg (2,000 unit) tablet (Vitamin D3) donepezil 5 mg tablet 5 mg PO QPM 10/01/23 02/22/24 lovastatin 40 mg tablet 40 mg PO QPM 10/01/23 02/20/24 memantine 10 mg tablet 10 mg PO DAILY 10/01/23 02/22/24 multivitamin 1 tab PO DAILY 10/01/23 02/22/24 Allergies Allergy/AdvReac Type Severity Reaction Status Date / Time Sulfa (Sulfonamide Allergy Mild HEADACHE Verified 02/22/24 11:29 Antibiotics) [SULFA (SULFONAMIDE ANTIBIOTICS)] shellfish derived Allergy Unknown UNKNOWN Verified 02/22/24 11:29 [SHELLFISH DERIVED] Review of Systems Review of Systems: As per HPI. Yes all other systems are reviewed and are negative Constitutional: Constitutional: Reports as per HPI PMF Past Medical History Medical History Mixed hyperlipidemia Essential hypertension Alzheimer's dementia Social History Social History Household Members: Significant Other Housing: Condominium Do you presently have visiting nurse or other home services: Yes Unable to assess alcohol history related to: Unable to respond Patient Tobacco Use Status: Never used Tobacco Smoked in Last 30 Days: No Second Hand Smoke Exposure: No Advance Directives: Yes Advance Directives on File: Yes Advance Directives Date on File: 10/01/23 Do you have a plan to hurt others: No Plan service: No Physical Exam ED Vital Signs: Vital Signs - 24 hr 02/22/24 11:25 02/22/24 18:24 02/23/24 06:08 Temperature 97.6 F 98.1 F Pulse Rate 69 95 100 Respiratory Rate 18 18 16 Blood Pressure 141/69 H 128/73 141/63 H Pulse Oximetry 97 97 97 Oxygen Delivery Method Room Air Room Air Room Air 02/23/24 07:58 Temperature Pulse Rate Respiratory Rate Blood Pressure 136/74 Pulse Oximetry Oxygen Delivery Method BMI result Body Mass Index 21.8 Vital signs have been reviewed and appear to be correct. Blood pressure mildly elevated. Heart rate normal. Respiratory rate normal. Temperature normal. Oxygen saturation normal. Const General: no acute distress Orientation/consciousness: oriented to person HENMT Head: Yes normocephalic and Yes atraumatic Ears: external ears normal General nose exam: Normal external nose present Face and sinus: Yes face symmetric Mouth: oropharynx normal and moist mucous membranes Throat: Yes uvula midline Eyes Pupils: Equal, round and reactive pupils present Neck Neck: Yes normal visual inspection and Yes supple Resp Effort & Inspection: normal respiratory effort and able to speak in complete sentences Auscultation: clear to auscultation bilaterally Cardio Rate: regular rate Rhythm: regular rhythm Heart sounds: S1 normal heart sound present and S2 normal heart sound present GI Palpation (GI): Soft to palpation and nontender Auscultation: normoactive bowel sounds General: Yes no CVA tenderness Back/Spine/Pelvis Back: no CVA tenderness Skin General skin exam: elasticity normal and turgor normal Neuro General: oriented to person, moves all extremities and no focal motor deficits Cranial nerves: Yes Equal, round and reactive pupils present Extrem General: Yes full ROM, Yes no pedal edema and Yes no calf tenderness Course Course Course Narrative: 02/23/24 08:08 physician observation continued, no overnight events reported by nursing. Case management following for placement at short-term rehab. Vital signs stable. Medications Administered Generic Name Dose Route Start Last Admin Trade Name Lucius PRN Reason Stop Dose Admin Amlodipine Besylate 10 mg 02/23/24 09:00 02/23/24 07:58 Amlodipine Besylate 10 Mg Tablet PO 10 mg DAILY JAMES Administration Protocol Ascorbic Acid 500 mg 02/23/24 09:00 02/23/24 07:58 Ascorbic Acid 500 Mg Tablet PO 500 mg DAILY JAMES Administration Donepezil HCl 5 mg 02/22/24 17:15 02/22/24 17:58 Donepezil Hcl 5 Mg Tablet PO 5 mg BEDTIME JAMES Administration Memantine 10 mg 02/23/24 09:00 02/23/24 07:58 Memantine Hcl 10 Mg Tablet PO 10 mg DAILY JAMES Administration Multivitamins/Vitamin C 1 tab 02/23/24 09:00 02/23/24 07:58 Multivitamin Tablet PO 1 tab DAILY JAMES Administration Vitamin D 50 mcg 02/23/24 09:00 02/23/24 07:58 Cholecalciferol (Vitamin D3) 25 Mcg Tablet PO 50 mcg DAILY JAMES Administration Medical Decision Making Medical Decision Making [facility] Narrative: Patient is a 78-year-old female with history of Alzheiner's dementia, HLD, HTN presenting to the ED after being discharged home from this ED at 10:00 am today, was reportedly unable to climb stairs to enter her home. No new complaints since 10am discharge, no new falls or other injury. Vitals stable. Patient is at baseline mentation. Case discussed with Maru from who spoke with patient's . She reports he is now agreeable to private pay referrals. Will place patient on physician observation pending discharge/placement at 12:10. Differential Diagnosis Differential Diagnoses: The differential diagnosis associated with the presentation includes dementia weakness Lab Data Labs: Lab Results 02/22/24 Range/Units 16:11 COVID-19 (IESHA) Negative (Negative) COVID-19 Clin Com See Note Independent Historian Clinical information obtained from an independent historian. History obtained from or confirmed by: EMS External Record Review External record reviewed: Inpatient record, Office record and Outpatient record Social Determinants Patient?s care significantly limited by Social Determinants of Health including: Other Social Determinant of Health Discharge Plan Discharge Clinical Impression: Weakness Patient Disposition: Still a Patient Prescriptions: No Action multivitamin Tablet 1 tab PO DAILY donepezil 5 mg tablet 5 mg PO QPM lovastatin 40 mg tablet 40 mg PO QPM ascorbic acid (vitamin C) [Vitamin C] 500 mg Tablet 500 mg PO DAILY amlodipine 10 mg tablet 10 mg PO DAILY memantine 10 mg tablet 10 mg PO DAILY cholecalciferol (vitamin D3) [Vitamin D3] 50 mcg (2,000 unit) Tablet 50 mcg PO DAILY Print Language: Divehi
--- NOTE | 2024-02-22 14:12 | MHC.CM.ED ---
Received case management consult from Radha LANDIN. Patient was d/c'd from [facility] today. Patient originally came to ER due to fall. Found to have humerus. Physical therapy eval was completed. Short term rehab was recommended. Patient has not been inpatient in any facility in the past 30 days. Referral made to all 3 acute rehab facilities. No bed offers made. Patient's /HCP, Zachery stated he was unable to self pay at this time. Patient returned to ER after she was unable to get into her home. T/W spoke with patient's /HCP, Zachery via telephone. [facility] is now agreeable to privately paying for STR. Referral broadcasted within 25 miles of patient's home. Continue to monitor for d/c needs.
[2024-02-22 16:33] LABS: COVID-19 Test Negative (Negative); IDNOW Serial# 08D9AD1C
[2024-02-22] MEDS: Donepezil HCl 5 MG TABLET PO (17:58)
[2024-02-22 18:24] VITALS: BP 128/73; PULSE 95; RESP 18; O2SAT 97
[2024-02-23 06:08] VITALS: BP 141/63; PULSE 100; RESP 16; TEMP 36.7; O2SAT 97
--- NOTE | 2024-02-23 06:08 | MHC.EDTECH ---
Patient 0600 ,vitals taken ,patient was incontinent of urine and large firm bowel movement ,care given and bedding change ,Patient drank 120 ml cranberry juice .
[2024-02-23 07:58] VITALS: BP 136/74
[2024-02-23] MEDS: Ascorbic Acid 500 MG TABLET PO (07:58)
[2024-02-23] MEDS: Cholecalciferol (Vitamin D3) 25 MCG TABLET 50 MCG PO (07:58)
[2024-02-23] MEDS: Memantine HCl 10 MG TABLET PO (07:58)
[2024-02-23] MEDS: amLODIPine Besylate 10 MG TABLET PO (07:58)
[2024-02-23] MEDS: Multivitamin TABLET 1 TAB PO (07:58)
--- NOTE | 2024-02-23 10:29 | MHC.CM.ED ---
Patient remains in ER overflow. The following facilities are able to provide private pay bed offers: [facility], [facility], [facility], [facility], [facility] and [facility]. These options were discussed with /HCP, Waldo. [facility] is 1st choice. [facility] aware and will reach out to Zachery in regards to financials. Continue to monitor for d/c needs.
[2024-02-23 15:26] VITALS: BP 132/78; PULSE 65; RESP 14; TEMP 36.8
--- NOTE | 2024-02-23 15:28 | PC.NURSE ---
Pt d/c to [facility] at ~1530. at bedside at time of d/c and aware of plan. Pt appeared comfortable
== END 2024-02-23 15:28 ==
PROVIDERS: Registered Nurse Emergency; Emergency Provider Emergency Medicine; PCP Family Medicine
DX: R53.1 Weakness (principal); I10 Essential (primary) hypertension; G30.9 Alzheimer's disease, unspecified; F02.80 Dementia in other diseases classified elsewhere, unspecified severity, without behavioral disturbance, psychotic disturbance, mood disturbance, and anxiety
CPT/HCPCS: 87635; 97163; 99284

== ENCOUNTER 2024-03-17 08:02 | Outpatient (REF) | payer MEDICARE, OTHER, SELFPAY ==
--- NOTE | ~2024-03-17 | XR_ITS ---
EXAMINATION: XR SHOULDER, LEFT CLINICAL INFORMATION: Left shoulder pain. COMPARISON: Left shoulder radiographs dated 02/19/2024. TECHNIQUE: AP and scapular Y views of the left shoulder. FINDINGS: Redemonstration of a transverse fracture through the humeral neck with new impaction and anterior displacement of the distal fracture fragment. Cortical step-off measures up to 1.0 cm in AP dimension with overlap/impaction measuring up to 1.3 cm in craniocaudal dimension. There is sclerosis across the fracture line with peripheral new bone/callus formation. No extension of the fracture line to the articular surface. No humeral head dislocation. Moderate glenohumeral joint space narrowing with small marginal osteophytes. No osseous erosion. XR/XR shoulder LT min 2V IMPRESSION: Transverse fracture through the humeral neck with new impaction and anterior displacement of the distal fracture fragment. No extension of the fracture line to the articular surface. There is sclerosis across the fracture line with peripheral new bone/callus formation.
== END 2024-03-17 08:03 | disposition home or self-care (01) ==
LOC: HO.HOSX 08:02
PROVIDERS: Visit Provider Physician Assistant
DX: S42.202A Unspecified fracture of upper end of left humerus, initial encounter for closed fracture (principal)
CPT/HCPCS: 73030; 99202

== ENCOUNTER 2024-03-17 10:26 | Outpatient (AMB) | payer MEDICARE, OTHER, SELFPAY ==
--- NOTE | 2024-03-17 10:55 | MHC.OFFVIS ---
Intake Visit Reasons: ED Follow Up - Left humerus Fx 02/19/24 Intake Note: Annmarie a 78 year old right hand dominant female who presents today as a new patient for an evaluation of left humerus fx, DOI 02/19/24. Hx of dementia. Patient was seen at [facility] s/p fall down the stair on her left side, xrays were taken and placed in a sling. Patient's states she is doing well, states no complaints of pain. She continues work with PT at rehab. Allergies Sulfa (Sulfonamide Antibiotics) [SULFA (SULFONAMIDE ANTIBIOTICS)] Allergy (Mild, Verified 03/17/24 11:19) HEADACHE shellfish derived [SHELLFISH DERIVED] Allergy (Unknown, Verified 03/17/24 11:19) UNKNOWN Medication List - Last Reconciled 03/17/24 by BARB Baig-Rosa amlodipine 10 mg PO DAILY ascorbic acid (vitamin C) (Vitamin C) 500 mg PO DAILY cholecalciferol (vitamin D3) (Vitamin D3) 50 mcg PO DAILY donepezil 5 mg PO QPM lovastatin 40 mg PO QPM memantine 10 mg PO DAILY multivitamin 1 tab PO DAILY HPI HPI ED Follow Up - Left humerus Fx 02/19/24: Details: 78-year-old right hand dominant female who presents to the office today with her for an ED follow-up of left humerus injury after fall down the stairs on the left side, 02/19/24. She was seen at ER where x-rays were performed and she was placed in a sling. Her states she has no pain and is doing well currently. She continues to work with physical therapy at rehab. She has a history of dementia. [facility] Medical History Mixed hyperlipidemia Essential hypertension Alzheimer's dementia Social History (Updated 03/17/24 @ 11:26 by TOPHER Silvestre) Household Members: Significant Other Housing: Condominium Do you presently have visiting nurse or other home services: Yes Unable to assess alcohol history related to: Unable to respond Patient Tobacco Use Status: Never used Tobacco Second Hand Smoke Exposure: No Advance Directives Date on File: 10/01/23 service: No Current occupational status: retired Current occupation: right hand dominant Review of Systems Const All systems reviewed & are unremarkable except as noted in HPI and below Physical Exam Const General: cooperative and no acute distress Orientation/consciousness: patient oriented x3 Resp Effort & Inspection: normal respiratory effort and able to speak in complete sentences Cardio Peripheral pulses: Peripheral pulses 2+ throughout Neuro General: patient oriented x3 Extrem Other: Left shoulder: Normal to inspection. No Swelling or tenderness over the proximal humerus which extends down the arm. Anterior deltoid sensation intact. Elbow and wrist ROM intact. NVI. Office Procedures Fracture Care Fracture Billing Code: Fracture Billing Code Results Reviewed Results Reviewed: Xrays were obtained in the office today and personally reviewed by me of the left shoulder show prox humerus fx with stable fracture Assessment & Plan Assessment & Plan (1) Closed fracture of left proximal humerus: Code(s): S42. - Unspecified fracture of upper end of left humerus, initial encounter for closed fracture Category: Medical Plan She will continue with the sling for 2 weeks which she can discontinue at that time and then work with therapy to work on ROM and periscapular stabilization, no RTC until 2 weeks out of the surgery and 6-12 weeks out of DOI. She will see me back in 6 weeks sooner if needed . Orders: Orders XR shoulder LT min 2V Today M25.512 - Pain in left shoulder Patient Instructions: Scribed for Emigdio Castillo PA-C, by Yong Langford medical office clerk, on 03/17/2024 at 10:45 AM EST.? I, Emigdio Castillo PA-C, have personally reviewed and agree with the information entered by the scribe. Coding Level of Care Code New Pt Level 3 (01760) Diagnoses Closed fracture of left proximal humerus S42.A CPT Codes Fracture Care - Fracture Billing Code: Fracture Billing Code ([id number])
== END 2024-03-17 12:47 | disposition home or self-care (01) ==
PROVIDERS: PCP Family Medicine; Visit Provider Physician Assistant
DX: S42.202A Unspecified fracture of upper end of left humerus, initial encounter for closed fracture (principal); W10.8XXA Fall (on) (from) other stairs and steps, initial encounter
CPT/HCPCS: 99203

== ENCOUNTER 2024-04-28 12:13 | Outpatient (REF) | payer MEDICARE, OTHER, SELFPAY ==
--- NOTE | ~2024-04-28 | XR_ITS ---
EXAMINATION: XR SHOULDER, LEFT CLINICAL INFORMATION: Pain. COMPARISON: Radiographs dated 03/17/2024. TECHNIQUE: AP external rotation, Grashey, scapular Y, and axillary views of the left shoulder. FINDINGS: There is generalized bony demineralization. The previously noted transverse fracture through the humeral neck is now poorly appreciated, consistent with interim bony union. There is mild adjacent periosteal callus formation. The glenohumeral joint is intact. The acromioclavicular and coracoclavicular intervals are normal. There is a distal acromial undersurface osteophyte, which can be associated with rotator cuff impingement. No foreign body is seen. There is no left pneumothorax. XR/XR shoulder LT min 2V IMPRESSION: The previously noted left humeral neck fracture line is now poorly appreciated, consistent with bony union. Electronically signed by: Ramez Doe MD 05/26/2024 01:27 PM EDT
== END 2024-04-28 12:14 | disposition home or self-care (01) ==
LOC: HO.HOSX 12:13
PROVIDERS: Visit Provider Physician Assistant
DX: S42.202D Unspecified fracture of upper end of left humerus, subsequent encounter for fracture with routine healing (principal)
CPT/HCPCS: 73030; 99212

== ENCOUNTER 2024-04-28 12:41 | Outpatient (AMB) | payer MEDICARE, OTHER, SELFPAY ==
--- NOTE | 2024-04-28 13:01 | A.OFFVIS_ITS ---
Intake Visit Reasons: OV-Left humerus Fx 02/19/24-6 WK follow up Intake Note: Annmarie a 78 year old female who presents today for a follow up of left humerus fx, DOI 02/19/24. Patient spouse reports she is doing well, states d/c use of brace. He states PT is on hold due to a non weight bear status. Allergies Sulfa (Sulfonamide Antibiotics) [SULFA (SULFONAMIDE ANTIBIOTICS)] Allergy (Mild, Verified 04/28/24 13:03) HEADACHE shellfish derived [SHELLFISH DERIVED] Allergy (Unknown, Verified 04/28/24 13:03) UNKNOWN Medication List - Last Reconciled 04/28/24 by BARB Baig-Rosa amlodipine 10 mg PO DAILY ascorbic acid (vitamin C) (Vitamin C) 500 mg PO DAILY cholecalciferol (vitamin D3) (Vitamin D3) 50 mcg PO DAILY donepezil 5 mg PO QPM lovastatin 40 mg PO QPM memantine 10 mg PO DAILY multivitamin 1 tab PO DAILY HPI HPI OV-Left humerus Fx 02/19/24-6 WK follow up: Details: 78-year-old female who returns to the office today with her spouse for a follow- up of left humerus fracture, 02/19/24. Spouse states she is doing well overall. She has discontinued using her brace and has not been attending physical therapy due to her non weight bearing status. She has no other concerns today. [facility] Medical History Mixed hyperlipidemia Essential hypertension Alzheimer's dementia Social History Household Members: Significant [facility] Do you presently have visiting nurse or other home services: Yes Unable to assess alcohol history related to: Unable to respond Patient Tobacco Use Status: Never used Tobacco Second Hand Smoke Exposure: No Advance Directives Date on File: 10/01/23 service: No Current occupational status: retired Current occupation: right hand dominant Review of Systems Const All systems reviewed & are unremarkable except as noted in HPI and below Physical Exam Const General: cooperative and no acute distress Orientation/consciousness: patient oriented x3 Resp Effort & Inspection: normal respiratory effort and able to speak in complete sentences Cardio Peripheral pulses: Peripheral pulses 2+ throughout Neuro General: patient oriented x3 Extrem Other: Left shoulder: Normal to inspection. No Swelling or tenderness over the proximal humerus which extends down the arm. Anterior deltoid sensation intact. Elbow and wrist ROM intact. NVI. Results Reviewed Results Reviewed: Xrays were obtained in the office today and personally reviewed by me of the left shoulder show prox humerus fx with stable fracture Assessment & Plan Assessment & Plan (1) Closed fracture of left proximal humerus: Code(s): S42.A - Unspecified fracture of upper end of left humerus, initial encounter for closed fracture Category: Medical Plan I discussed with patient?s spouse that she can work with physical therapy to work on ROM, periscapular stabilization and RTC strengthening. She will discontinue the sling, increase activities as tolerated and weight bearing as tolerated. I did explain that with baseline dementia, she is at a point where she will participate at her own extent which may or may not limit her progress at this time. They do express understanding and if symptoms persist or worsen, patient will contact the office, otherwise follow-up as needed. Orders: Orders XR shoulder LT min 2V Today M25.512 - Pain in left shoulder Patient Instructions: Scribed for Emigdio Castillo PA-C, by Yong Langford medical assistant instructor, on 04/28/2024 at 12:45 PM EST.? I, Emigdio Castillo PA-C, have personally reviewed and agree with the information entered by the scribe. Coding Level of Care Code Global (79987) Diagnoses Closed fracture of left proximal humerus S42.A
== END 2024-04-28 13:49 | disposition home or self-care (01) ==
PROVIDERS: PCP Family Medicine; Visit Provider Physician Assistant
DX: S42.202A Unspecified fracture of upper end of left humerus, initial encounter for closed fracture (principal)
CPT/HCPCS: 99213

== ENCOUNTER 2024-11-22 18:55 | Inpatient (IN) | payer MEDICARE, OTHER, SELFPAY ==
[2024-11-22] VITALS (8 sets, daily range): BP systolic 152–200; BP diastolic 74–94; PULSE 82–98; RESP 15–19; TEMP 38.8–39.3; O2SAT 94–96; BMI 21.4
--- NOTE | ~2024-11-22 | CT_ITS ---
CLINICAL HISTORY: AMS, HTN CT head without contrast Comparison: Head CT from 02/19/2024 Findings: No acute intracranial hemorrhage. No significant change in moderate volume loss with ventriculomegaly. No new or acute hydrocephalus. No midline shift. Mild-moderate white matter lesions likely due to small-vessel ischemic disease. No large arterial territorial infarction by CT. Previous cataract procedure changes noted. Multifocal mucosal thickening and fluid of the paranasal sinuses including fluid in the imaged sphenoid sinus. Small right and [id number] left mastoid effusions. Vascular calcifications are redemonstrated. No acute skull fracture. IMPRESSION: 1. No acute intracranial hemorrhage and no significant change in brain parenchyma, when compared to 02/19/2024. 2. Mild fluid of the paranasal sinuses including the sphenoid sinus as can be seen with sinusitis. This document has been electronically signed by: Dawit May MD on 11/22/2024 21:40:12
--- NOTE | ~2024-11-22 | XR_ITS ---
CLINICAL HISTORY: cough, fever 1 view chest x-ray Comparison: Chest x-ray from 11/23/2023 Findings: Low lung volumes with mild bibasilar atelectasis. No pneumothorax or pleural effusion. Imaged mediastinum is unchanged. Degenerative changes include imaged left shoulder and left AC joint IMPRESSION: Mild bibasilar atelectasis. This document has been electronically signed by: Dawit May MD on 11/22/2024 20:44:31
--- NOTE | 2024-11-22 19:13 | ECG_ITS ---
Test Reason : WEAKNESS Blood Pressure : */* mmHG Vent. Rate : 97 BPM Atrial Rate : 97 BPM P-R Int : 154 ms QRS Dur : 76 ms QT Int : 348 ms P-R-T Axes : 67 8 55 degrees QTcB Int : 441 ms Normal sinus rhythm Possible Anterior infarct (cited on or before 22-Nov-2023) ; could be related to body habitus and lead placement Abnormal ECG When compared with ECG of 22-Nov-2023 22:34, Criteria for Inferior infarct are no longer Present Nonspecific T wave abnormality no longer evident in Inferior leads Referred By: Yadira Holder Electronically Signed By: TAMELA HOGAN
[2024-11-22 19:39] LABS: Basophils Absolute Auto 0.1 X10*3/uL (0.0-0.2); Basophils Percent Auto 0.6 % (0-2); Eosinophils Absolute Auto 0.1 X10*3/uL (0.0-0.4); Eosinophils Percent Auto 0.6 % (0-4); Hematocrit 44.6 % (37.0-47.0); Hemoglobin 15.1 g/dl (12.0-16.0); Imm Gran Abs Auto 0.04 X10*3/uL (0.00-0.03); Imm Gran Pct Auto 0.5 % (0.0-0.4); Lymphocytes Absolute Auto 0.5 X10*3/uL (1.2-4.9); Lymphocytes Percent Auto 6.8 % (20-40); MANUAL DIFF FLAG NO; Mean Corpuscular HGB Conc 33.9 g/dl (31.0-35.0); Mean Corpuscular Hemoglobin 28.7 pg (27.0-33.0); Mean Corpuscular Volume 84.8 fL (80.0-98.0); Mean Platelet Volume 9.4 fL (9.4-12.3); Monocytes Absolute Auto 0.4 X10*3/uL (0.1-1.2); Monocytes Percent Auto 5.4 % (2-11); Neutrophils Absolute Auto 6.7 x10*3/uL (2.0-8.3); Neutrophils Percent Auto 86.1 % (45-73); Platelet Count 321 X10*3/uL (160-400); Red Blood Count 5.26 X10*6/uL (4.20-5.50); Red Cell Distribution Width 14.5 % (11.0-16.0); White Blood Count 7.8 X10*3/uL (4.8-10.8)
[2024-11-22] MEDS: cefTRIAXone sodium 1 GM VIAL IVPUSH (19:42)
[2024-11-22] MEDS: 0.9 % Sodium Chloride 2,000 ML 999 ML IVCONT (19:53)
[2024-11-22 19:56] LABS: Alanine Aminotransferase 17 U/L (0-31); Albumin Level 4.1 g/dL (3.5-5.0); Alkaline Phosphatase 99 U/L (39-117); Anion Gap 14 (12-20); Aspartate Amino Transferase 24 U/L (5-31); Bilirubin Direct 0.2 mg/dL (0.0-0.5); Bilirubin Total 0.6 mg/dL (0.0-1.0); Blood Urea Nitrogen 12 mg/dL (9-16); Calcium 9.5 mg/dL (8.4-10.2); Carbon Dioxide 23 mmol/L (22-29); Chloride 107 mmol/L (96-108); Creatinine Clr Calc Pharmacy 43.3; Estimated Glomerular Filt Rate > 60; Glucose Random 133 mg/dL (60-115); Magnesium 2.1 mg/dL (1.6-2.6); Potassium 4.2 mmol/L (3.3-5.1); Sodium 140 mmol/L (135-145); Total Protein 8.1 g/dL (6.5-8.0)
[2024-11-22] MEDS: Azithromycin 500 MG in 0.9 % Sodium Chloride 250 ML 125 MG IV (19:57)
[2024-11-22 20:03] LABS: Troponin-I High Sensitivity 28.6 ng/L (<3.5-17.0)
[2024-11-22 20:07] LABS: Lactic Acid 1.3 mmol/L (0.5-2.0)
--- NOTE | 2024-11-22 20:19 | ED_ITS ---
HPI - Fever General Chief Complaint: Fever Stated Complaint: fever, ams, lethargic hx 1 possible sepsis Source: patient and EMS Mode of arrival: EMS Limitations: altered mental status and other History of Present Illness ED Provider: Dr. Yadira Holder HPI Narrative: Patient comes to the emergency room from [facility] due to lethargy and fever. According to the and/or EMS, the patient has history of dementia, usually nonverbal but is usually awake. Lately, the patient has had decreased p.o. intake and patient has been lethargic. Patient is unable to give any history. Related Data Home Medications ?Medication ?Instructions ?Recorded ?Confirmed amlodipine 10 mg tablet 10 mg PO DAILY 10/01/23 04/28/24 ascorbic acid (vitamin C) 500 mg 500 mg PO DAILY 10/01/23 04/28/24 tablet (Vitamin C) cholecalciferol (vitamin D3) 50 50 mcg PO DAILY 10/01/23 04/28/24 mcg (2,000 unit) tablet (Vitamin D3) donepezil 5 mg tablet 5 mg PO QPM 10/01/23 04/28/24 lovastatin 40 mg tablet 40 mg PO QPM 10/01/23 04/28/24 memantine 10 mg tablet 10 mg PO DAILY 10/01/23 04/28/24 multivitamin 1 tab PO DAILY 10/01/23 04/28/24 Allergies Allergy/AdvReac Type Severity Reaction Status Date / Time Sulfa (Sulfonamide Allergy Mild HEADACHE Verified 11/22/24 19:20 Antibiotics) [SULFA (SULFONAMIDE ANTIBIOTICS)] shellfish derived Allergy Unknown UNKNOWN Verified 11/22/24 19:20 [SHELLFISH DERIVED] Review of Systems 2 Review of Systems: Yes Other [facility] Past Medical History Medical History Acute UTI Pneumonia Mixed hyperlipidemia Essential hypertension Alzheimer's dementia Social History Social History Household Members: Significant Other Housing: Condominium Do you presently have visiting nurse or other home services: Yes Unable to assess alcohol history related to: Unable to respond Patient Tobacco Use Status: Never used Tobacco Second Hand Smoke Exposure: No Advance Directives: Yes Advance Directives on File: Yes Advance Directives Date on File: 10/01/23 service: No Current occupational status: retired Current occupation: right hand dominant Physical Exam 2 Vital Signs: Vital Signs: Last Vital Signs Temp 102.8 F H 11/22/24 19:45 Pulse 76 11/23/24 00:11 Resp 15 11/23/24 00:11 BP 143/63 H 11/23/24 00:11 Pulse Ox 95 11/23/24 00:11 O2 Del Method Room Air 11/23/24 00:11 BMI result Body Mass Index 21.4 Const: Other: Appearance: Somnolent, opens her eyes, falls back asleep. Patient's seems weak Eyes: Pupils equal, pinpoint pupils bilaterally, round and reactive to light. ENT: Pharynx normal. Dry oral mucosa Neck: Normal inspection. Neck supple. No lymph nodes noted. No crepitus CVS: Normal heart rate and rhythm. Pulses normal. Normal S1 and S2 Respiratory: No respiratory distress. Occasionally coughing, nonproductive. Breath sounds normal. No Wheezing. No rales Abdomen: Soft and nontender. No rigidity. No distention. Skin: Skin warm and dry. Normal skin color. Normal skin turgor. Extremities: No lower extremity edema. No Lacerations. No Rash Neuro: Moving all extremities, patient unable to participating cranial nerve assessment Psych: calm Course Course Course Narrative: I reviewed patient's past medical records, patient known to have history of recurrent UTIs and also per EMS, the staff reported that patient was being treated for pneumonia a month ago. Empirically, patient being treated with IV fluids an IV antibiotics, ceftriaxone and azithromycin. All of patient's labs pending It was noted that patient's blood pressure is 200 systolic. Usually patient takes amlodipine 10 mg but patient is somnolent and unable to take anything p.o. at this time. IV medication will be given Medications Administered Discontinued Medications Generic Name Dose Route Start Last Admin Trade Name Freq PRN Reason Stop Dose Admin Acetaminophen 650 mg 11/22/24 20:11 11/22/24 20:58 Acetaminophen Supp 650 Mg Supp.Rect LA 11/22/24 20:12 650 mg ONCE ONE Administration Ceftriaxone Sodium 1 gm 11/22/24 19:12 11/22/24 19:42 Ceftriaxone Sodium 1 Gm Vial IVPUSH 11/22/24 19:13 1 gm ONCE ONE Administration Sodium Chloride 2,000 mls @ 999 mls/hr 11/22/24 19:12 11/22/24 22:30 Ns IVCONT 11/22/24 21:12 Infused .Q2H1M ONE Infusion Azithromycin 500 mg/ Sodium 250 mls @ 125 mls/hr 11/22/24 19:12 11/22/24 22:11 Chloride IV 11/22/24 21:11 Infused ONCE ONE Infusion Labetalol HCl 5 mg 11/22/24 20:15 11/22/24 20:55 Labetalol Hcl 100 Mg/20 Ml Vial IVPUSH 11/22/24 20:16 5 mg ONCE ONE Administration Medical Decision Making Medical Decision Making [facility] Narrative: As mentioned above, patient's blood pressure noted to be in the 200s. Patient unable to state if she has any headache or any chest pain/shortness of breath. Patient given 5 mg labetalol IV. Patient is started empirically on IV fluids and IV antibiotics, ceftriaxone and azithromycin. Currently, blood pressure 200/92, heart rate 96, respirations 16, temperature 102.8 degrees, oxygen saturation 95% on room air My interpretation of EKG: Normal sinus rhythm, heart rate 97, no ST segment depression or elevation, no T-wave inversion, QTC 441 My interpretation of labs: Patient's hematology does not show any significant abnormality, normal white blood cell count. Chemistry does not show any significant abnormality. Magnesium normal, troponin slightly bumped at 28.6. CT scan of the head, no acute abnormality. Urinalysis positive for UTI. Patient was already medicated with ceftriaxone. Patient is very weak, somnolent, unable to take any current medications. Patient's blood pressure improved to the 160s systolic. I discussed the patient with Dr. Penn and patient's , patient being admitted. Differential Diagnosis Differential Diagnoses: The differential diagnosis associated with the presentation includes (UTI, pneumonia, influenza, COVID, viral illness) Admission/Observation Consideration of admission/observation: Escalation of care including admission/observation considered Lab Data [facility] Lab Attestation statement: I reviewed the patient's lab results. 11/22/24 19:32 11/22/24 19:32 Labs: Lab Results 11/22/24 11/22/24 11/22/24 Range/Units 19:32 22:00 23:44 WBC 7.8 (4.8-10.8) X10*3/uL RBC 5.26 (4.20-5.50) X10*6/uL Hgb 15.1 (12.0-16.0) g/dl Hct 44.6 (37.0-47.0) % MCV 84.8 (80.0-98.0) fL MCH 28.7 (27.0-33.0) pg MCHC 33.9 (31.0-35.0) g/dl RDW 14.5 (11.0-16.0) % Plt Count 321 D (160-400) X10*3/uL MPV 9.4 (9.4-12.3) fL Immature Gran % (Auto) 0.5 H (0.0-0.4) % Neut % (Auto) 86.1 H (45-73) % Lymph % (Auto) 6.8 L (20-40) % [place] % (Auto) 5.4 (2-11) % Eos % (Auto) 0.6 (0-4) % Baso % (Auto) 0.6 (0-2) % Lymph # (Auto) 0.5 L (1.2-4.9) X10*3/uL [place] # (Auto) 0.4 (0.1-1.2) X10*3/uL Eos # (Auto) 0.1 (0.0-0.4) X10*3/uL Baso # (Auto) 0.1 (0.0-0.2) X10*3/uL Abs Immat Gran (auto) 0.04 H (0.00-0.03) X10*3/uL Absolute Neuts (auto) 6.7 (2.0-8.3) x10*3/uL Absolute Nucleated RBC 0.000 (0.0-0.012) X10*3/uL Nucleated RBC % (auto) 0.0 (0.0-0.2) /100WBC Sodium 140 (135-145) mmol/L Potassium 4.2 (3.3-5.1) mmol/L Chloride 107 (96-108) mmol/L Carbon Dioxide 23 (22-29) mmol/L Anion Gap 14 (12-20) BUN 12 (9-16) mg/dL Creatinine 0.82 (0.5-1.4) mg/dL Estim Creat Clear Calc 43.3 Estimated GFR > 60 Random Glucose 133 H (60-115) mg/dL Lactic Acid 1.3 (0.5-2.0) mmol/L Calcium 9.5 (8.4-10.2) mg/dL Magnesium 2.1 (1.6-2.6) mg/dL Total Bilirubin 0.6 (0.0-1.0) mg/dL Direct Bilirubin 0.2 (0.0-0.5) mg/dL AST 24 (5-31) U/L ALT 17 (0-31) U/L Alkaline Phosphatase 99 (39-117) U/L Troponin I High Sens 28.6 H D 33.3 H (<3.5-17.0) ng/L Total Protein 8.1 H (6.5-8.0) g/dL Albumin 4.1 (3.5-5.0) g/dL Urine Color Yellow Urine Appearance Clear Urine pH 7.0 (5.0-9.0) Ur Specific [place] <= 1.005 (1.005-1.025) Urine Protein Negative (Neg-Trace) mg/dL Urine Glucose (UA) Negative (Negative) mg/dL Urine Ketones Trace (Negative) mg/dL Urine Blood Moderate (2+) H (Negative) Urine Nitrite Negative (Negative) Ur Leukocyte Esterase Moderate (2+) H (Negative) Urine RBC >20 H (0-2) /HPF Urine WBC 6-10 H (0-5) /HPF Ur Squamous Epith Cells 0-2 (0-2) /HPF Urine Bacteria None Seen (None Seen) Hyaline Casts 0-2 (0-2) /LPF Urine Opiates Screen Not Detected (Not Detect) Ur Buprenorphine Scrn Not Detected (Not Detect) ng/mL Ur Oxycodone Screen Not Detected (Not Detect) ng/mL Urine Methadone Screen Not Detected (Not Detect) ng/mL Urine Fentanyl Screen Not Detected (Not Detect) Ur Barbiturates Screen Not Detected (Not Detect) Ur Phencyclidine Scrn Not Detected (Not Detect) Ur Amphetamines Screen Not Detected (Not Detect) U Benzodiazepines Scrn Not Detected (Not Detect) Urine Cocaine Screen Not Detected (Not Detect) U Marijuana (THC) Screen Not Detected (Not Detect) Influenza Type A (PCR) POSITIVE A (Negative) Influenza Type B (PCR) NEGATIVE (Negative) RSV RNA Qual (PCR) NEGATIVE (Negative) SARS-CoV-2 RNA (RT-PCR) NEGATIVE (Negative) Independent Interpretation I performed an independent interpretation of an: CT Scan Radiology Impression Discussion of test interpretation with radiology: I have reviewed the radiologist's reading. Radiologist Impression: No acute intracranial hemorrhage. No significant change in moderate volume loss with ventriculomegaly. No new or acute hydrocephalus. No midline shift. Mild-moderate white matter lesions likely due to small-vessel ischemic disease. No large arterial territorial infarction by CT. Previous cataract procedure changes noted. Multifocal mucosal thickening and fluid of the paranasal sinuses including fluid in the imaged sphenoid sinus. Small right and [id number] left mastoid effusions. Vascular calcifications are redemonstrated. No acute skull fracture. IMPRESSION: 1. No acute intracranial hemorrhage and no significant change in brain parenchyma, when compared to 02/19/2024. 2. Mild fluid of the paranasal sinuses including the sphenoid sinus as can be seen with sinusitis Independent Historian Clinical information obtained from an independent historian. History obtained from or confirmed by: Spouse and EMS Critical Care Time Critical Care Time Critical Care Time: Yes Total Critical Care Time: 75 Attestation: I have personally provided critical care time. Time includes review of lab data, radiology results, discussion with consultants, and monitoring for potential decompensation. Intervention performed as documented. Discharge Plan Discharge Clinical Impression: Influenza A, Hypertension, Acute UTI Patient Disposition: Admitted As Inpatient Print Language: Icelandic
[2024-11-22 20:30] LABS: Influenza A PCR POSITIVE (Negative); Influenza B PCR NEGATIVE (Negative); Resp Syncy Virus RNA Qual PCR NEGATIVE (Negative); SARS COV2 PCR INHOUSE NEGATIVE (Negative)
[2024-11-22] MEDS: Labetalol HCL 100 MG/20 ML VIAL IVPUSH (20:55)
[2024-11-22] MEDS: Acetaminophen Supp 650 MG SUPP.RECT PR (20:58)
[2024-11-22 22:24] LABS: Troponin-I High Sensitivity 33.3 ng/L (<3.5-17.0)
[2024-11-22 23:50] LABS: Appearance Urine Clear; Color Urine Yellow; Glucose Urine UA Negative (Negative); Leukocyte Esterase Urine Moderate (2+) (Negative); Nitrite Urine Negative (Negative); Specific Gravity - Urine <= 1.005 (1.005-1.025); UMIC TRIGGER UACC YES; Urine Blood Moderate (2+) (Negative); Urine Ketones Trace mg/dL (Negative); Urine Protein Negative (Neg-Trace)
[2024-11-22 23:55] LABS: Bacteria Urine None Seen (None Seen); Hyaline Casts Urine 0-2 /LPF (0-2); RBC Urine >20 /HPF (0-2); Squamous Epithelial Cell Urine 0-2 /HPF (0-2); UACC Culture Trigger YES
[2024-11-23] VITALS (9 sets, daily range): BP systolic 114–175; BP diastolic 51–103; PULSE 67–86; RESP 13–18; TEMP 36.9–38.2; O2SAT 93–97
[2024-11-23 00:02] LABS: Amphetamine Screen Urine Not Detected (Not Detect); Barbiturates, Urine Not Detected (Not Detect); Benzodiazepines Screen Urine Not Detected (Not Detect); Buprenorphine Scr Not Detected (Not Detect); Cannabinoid Screen Urine Not Detected (Not Detect); Cocaine Screen Urine Not Detected (Not Detect); Fentanyl, urine Not Detected (Not Detect); Methadone Screen, Urine Not Detected (Not Detect); Opiate Screen Urine Not Detected (Not Detect); Oxycodone Screen Urine Not Detected (Not Detect); Phencyclidine Screen Urine Not Detected (Not Detect)
--- NOTE | 2024-11-23 00:18 | P.HPHOSP_ITS ---
History of Present Illness Date of Service: 11/23/24 Chief Complaint: AMS 79 year old female with a past medical history of HTN, HLD, Alzheimer's dementia, detention resident presented to the hospital with a chief complaint of altered mental status. Reportedly patient has been not feeling well, lethargic, poor oral intake over the past couple days. Patient had baseline nonverbal but alert and awake as per the family. S patient noted to be having change in her condition brought her to the hospital for further evaluation. Patient is lying in the bed comfortable. Does not appear to be in distress. Most of the history obtained from the records and the staff. Review of all other systems is limited. ER course: Per ER team, patient on presentation noted to be lethargic, was febrile to 102 F, noted to have urinalysis consistent with UTI. CT head showed no acute intracranial process. Influenza a positive. [facility] Medical History Acute UTI Pneumonia Mixed hyperlipidemia Essential hypertension Alzheimer's dementia Social History Household Members: Significant Other Housing: [facility] Do you presently have visiting nurse or other home services: Yes Unable to assess alcohol history related to: Unable to respond Patient Tobacco Use Status: Never used Tobacco Second Hand Smoke Exposure: No Advance Directives: Yes Advance Directives on File: Yes Advance Directives Date on File: 10/01/23 service: No Current occupational status: retired Current occupation: right hand dominant Meds Allergies Allergy/AdvReac Type Severity Reaction Status Date / Time Sulfa (Sulfonamide Allergy Mild HEADACHE Verified 11/22/24 19:20 Antibiotics) [SULFA (SULFONAMIDE ANTIBIOTICS)] shellfish derived Allergy Unknown UNKNOWN Verified 11/22/24 19:20 [SHELLFISH DERIVED] Active Medications: Current Medications Acetaminophen (Acetaminophen 325 Mg Tablet) 650 mg PO Q6H PRN PRN Reason: Pain, Mild 1-3,fever,headache Calcium Carbonate (Calcium Carbonate 750 Mg Tab.Chew) 750 mg PO Q4H PRN PRN Reason: Heartburn Ceftriaxone Sodium (Ceftriaxone Sodium 1 Gm Vial) 1 gm IVPUSH Q24H [facility] Heparin Sodium (Porcine) (Heparin Sodium,Porcine 5,000 Unit/Ml Vial) 5,000 unit SUBCUT Q8H [facility] Lactated Ringer's (Lr) 1,000 mls @ 100 mls/hr IVCONT .Q10H [facility] Magnesium Hydroxide (Milk Of Magnesia 30 Ml Oral.Susp) 30 ml PO DAILY PRN PRN Reason: Constipation Melatonin (Melatonin 3 Mg Tablet) 6 mg PO BEDTIME PRN PRN Reason: Insomnia Oseltamivir Phosphate (Oseltamivir Phosphate 75 Mg Capsule) 75 mg PO Q12H [facility] Stop: 11/27/24 12:16 Sodium Chloride (0.9 % Sodium Chloride Flush 3 Ml Syringe) 3 ml IVFLUSH QSHIFT [facility] Home Medications ?Medication ?Instructions ?Recorded ?Confirmed ?Last Taken ?Type amlodipine 10 mg tablet 10 mg PO DAILY 10/01/23 04/28/24 02/22/24 08:00 History ascorbic acid (vitamin C) 500 mg 500 mg PO DAILY 10/01/23 04/28/24 02/22/24 08:00 History tablet (Vitamin C) cholecalciferol (vitamin D3) 50 50 mcg PO DAILY 10/01/23 04/28/24 02/22/24 08:00 History mcg (2,000 unit) tablet (Vitamin D3) donepezil 5 mg tablet 5 mg PO QPM 10/01/23 04/28/24 02/22/24 08:00 History lovastatin 40 mg tablet 40 mg PO QPM 10/01/23 04/28/24 Unknown History memantine 10 mg tablet 10 mg PO DAILY 10/01/23 04/28/24 02/22/24 08:00 History multivitamin 1 tab PO DAILY 10/01/23 04/28/24 02/22/24 16:53 History Physical Exam 2 Vital Signs and Narrative: Vital Signs: Last Vital Signs Temp 102.8 F H 11/22/24 19:45 Pulse 76 11/23/24 00:11 Resp 15 11/23/24 00:11 BP 143/63 H 11/23/24 00:11 Pulse Ox 95 11/23/24 00:11 O2 Del Method Room Air 11/23/24 00:11 BMI result Body Mass Index 21.4 Gen: Appears be in no acute distress HEENT: NCAT, Moist mucosa. Pulmonary: Vesicular breath sounds, fair air entry CVS: Normal S1-S2 Abdomen: BS+, Soft, Nontender Extremities: Warm well perfused Neuro: Drowsy Results Labs 11/22/24 19:32 11/22/24 19:32 Labs: Laboratory Results - last 24 hr 11/22/24 11/22/24 19:32 23:44 MCV 84.8 MCH 28.7 MCHC 33.9 RDW 14.5 Plt Count 321 D MPV 9.4 Immature Gran % (Auto) 0.5 H Neut % (Auto) 86.1 H Lymph % (Auto) 6.8 L [place] % (Auto) 5.4 Eos % (Auto) 0.6 Baso % (Auto) 0.6 Lymph # (Auto) 0.5 L [place] # (Auto) 0.4 Eos # (Auto) 0.1 Baso # (Auto) 0.1 Abs Immat Gran (auto) 0.04 H Absolute Neuts (auto) 6.7 Absolute Nucleated RBC 0.000 Nucleated RBC % (auto) 0.0 Anion Gap 14 Estim Creat Clear Calc 43.3 Estimated GFR > 60 Random Glucose 133 H Lactic Acid 1.3 Calcium 9.5 Magnesium 2.1 Total Bilirubin 0.6 Direct Bilirubin 0.2 AST 24 ALT 17 Alkaline Phosphatase 99 Total Protein 8.1 H Albumin 4.1 Urine Color Yellow Urine Appearance Clear Urine pH 7.0 Ur Specific [place] <= 1.005 Urine Protein Negative Urine Glucose (UA) Negative Urine Ketones Trace Urine Blood Moderate (2+) H Urine Nitrite Negative Ur Leukocyte Esterase Moderate (2+) H Urine RBC >20 H Urine WBC 6-10 H Ur Squamous Epith Cells 0-2 Urine Bacteria None Seen Hyaline Casts 0-2 Urine Opiates Screen Not Detected Ur Buprenorphine Scrn Not Detected Ur Oxycodone Screen Not Detected Urine Methadone Screen Not Detected Urine Fentanyl Screen Not Detected Ur Barbiturates Screen Not Detected Ur Phencyclidine Scrn Not Detected Ur Amphetamines Screen Not Detected U Benzodiazepines Scrn Not Detected Urine Cocaine Screen Not Detected U Marijuana (THC) Screen Not Detected Influenza Type A (PCR) POSITIVE A Influenza Type B (PCR) NEGATIVE RSV RNA Qual (PCR) NEGATIVE SARS-CoV-2 RNA (RT-PCR) NEGATIVE Assessment and Plan (1) Acute UTI: Status: Acute Plan 79 year old female with a past medical history of HTN, HLD, Alzheimer's dementia, detention resident presented to the hospital with a chief complaint of altered mental status. Altered mental status: Toxic metabolic encephalopathy in the setting of UTI/influenza. CT head showed no acute intracranial process Supportive care Aspiration precautions Fall precautions UTI/microscopic hematuria: Continue ceftriaxone, follow-up cultures. Repeat urinalysis once improved to ensure improvement in the hematuria if not to follow up with Urology. Influenza: Empirically covered with Tamiflu for now. Dementia: Continue home donepezil, memantine. Delirium precautions DVT prophylaxis: SubQ heparin Code status: DNR/DNI. Quality Stroke Does the patient have a stroke diagnosis?: No VTE Prior VTE?: No VTE Risk Level:: Medical - moderate - high VTE Device Contraindication: Patient Refused VTE Drug Contraindication: N/A - Med Ordered
[2024-11-23] MEDS: Heparin Sodium,Porcine 5,000 UNIT/ML VIAL 5000 UNIT SUBCUT ×4 (00:55→23:25)
[2024-11-23] MEDS: Oseltamivir Phosphate 75 MG CAPSULE PO (00:55)
[2024-11-23] MEDS: Lactated Ringers 1,000 ML 100 ML IVCONT ×3 (01:22→20:30)
[2024-11-23 05:36] LABS: Anion Gap 9 (12-20); Blood Urea Nitrogen 10 mg/dL (9-16); Calcium 7.9 mg/dL (8.4-10.2); Carbon Dioxide 22 mmol/L (22-29); Chloride 113 mmol/L (96-108); Estimated Glomerular Filt Rate > 60; Glucose Random 116 mg/dL (60-115); Potassium 3.4 mmol/L (3.3-5.1); Sodium 141 mmol/L (135-145)
--- NOTE | 2024-11-23 08:20 | P.PNIM_ITS ---
Subjective Subjective Date of Service: 11/23/24 Interval History: f/u on metabolic encephalopathy d/t uti and influenza A Pt is fairly confused and not saying maggie RN reporting some difficulty swallowing so will get swallow eval Physical Exam 2 Vital Signs: Vital Signs: Last Vital Signs Temp 102.8 F H 11/22/24 19:45 Pulse 73 11/23/24 07:41 Resp 14 11/23/24 07:41 BP 170/71 H 11/23/24 07:41 Pulse Ox 97 11/23/24 07:41 O2 Del Method Room Air 11/23/24 07:41 BMI result Body Mass Index 21.4 Const: Other: General: stoic, no acute distress Resp: CTA bilateral CVS: S1,S2,RRR GI: +BS, NT, no distention Skin: No rash Neuro: motor grossly intact Psych: flat Objective Data Active Medications Acetaminophen (Acetaminophen 325 Mg Tablet) 650 mg PO Q6H PRN PRN Reason: Pain, Mild 1-3,fever,headache Calcium Carbonate (Calcium Carbonate 750 Mg Tab.Chew) 750 mg PO Q4H PRN PRN Reason: Heartburn Ceftriaxone Sodium (Ceftriaxone Sodium 1 Gm Vial) 1 gm IVPUSH Q24H [facility] Donepezil HCl (Donepezil Hcl 5 Mg Tablet) 5 mg PO DAILY [facility] Heparin Sodium (Porcine) (Heparin Sodium,Porcine 5,000 Unit/Ml Vial) 5,000 unit SUBCUT Q8H [facility] Last Admin: 11/23/24 00:55 Dose: 5,000 unit Documented By: REN Lactated Ringer's (Lr) 1,000 mls @ 100 mls/hr IVCONT .Q10H [facility] Last Admin: 11/23/24 01:22 Dose: 100 mls/hr Documented By: REN Magnesium Hydroxide (Milk Of Magnesia 30 Ml Oral.Susp) 30 ml PO DAILY PRN PRN Reason: Constipation Magnesium Hydroxide (Milk Of Magnesia 30 Ml Oral.Susp) 30 ml PO DAILY PRN PRN Reason: Constipation Melatonin (Melatonin 3 Mg Tablet) 6 mg PO BEDTIME PRN PRN Reason: Insomnia Memantine (Memantine Hcl 10 Mg Tablet) 10 mg PO DAILY [facility] Oseltamivir Phosphate (Oseltamivir Phosphate 30 Mg Capsule) 30 mg PO Q12H [facility] Stop: 11/27/24 09:01 Sodium Chloride (0.9 % Sodium Chloride Flush 3 Ml Syringe) 3 ml IVFLUSH QSHIFT [facility] Last Admin: 11/23/24 08:04 Dose: Not Given Documented By: LEAH Non-Admin Reason: Previously Administered Sodium Chloride (0.9 % Sodium Chloride Flush 3 Ml Syringe) 3 ml IVFLUSH QSDEFT [facility] Last Admin: 11/23/24 08:04 Dose: Not Given Documented By: LEAH Non-Admin Reason: Previously Administered Labs 11/22/24 19:32 11/23/24 04:52 Labs: Laboratory Results - last 24 hr 11/22/24 11/22/24 11/23/24 19:32 23:44 04:52 MCV 84.8 MCH 28.7 MCHC 33.9 RDW 14.5 Plt Count 321 D MPV 9.4 Immature Gran % (Auto) 0.5 H Neut % (Auto) 86.1 H Lymph % (Auto) 6.8 L [place] % (Auto) 5.4 Eos % (Auto) 0.6 Baso % (Auto) 0.6 Lymph # (Auto) 0.5 L [place] # (Auto) 0.4 Eos # (Auto) 0.1 Baso # (Auto) 0.1 Abs Immat Gran (auto) 0.04 H Absolute Neuts (auto) 6.7 Absolute Nucleated RBC 0.000 Nucleated RBC % (auto) 0.0 Anion Gap 14 9 L Estim Creat Clear Calc 43.3 50.0 Estimated GFR > 60 > 60 Random Glucose 133 H 116 H Lactic Acid 1.3 Calcium 9.5 7.9 L D Magnesium 2.1 Total Bilirubin 0.6 Direct Bilirubin 0.2 AST 24 ALT 17 Alkaline Phosphatase 99 Total Protein 8.1 H Albumin 4.1 Urine Color Yellow Urine Appearance Clear Urine pH 7.0 Ur Specific [place] <= 1.005 Urine Protein Negative Urine Glucose (UA) Negative Urine Ketones Trace Urine Blood Moderate (2+) H Urine Nitrite Negative Ur Leukocyte Esterase Moderate (2+) H Urine RBC >20 H Urine WBC 6-10 H Ur Squamous Epith Cells 0-2 Urine Bacteria None Seen Hyaline Casts 0-2 Urine Opiates Screen Not Detected Ur Buprenorphine Scrn Not Detected Ur Oxycodone Screen Not Detected Urine Methadone Screen Not Detected Urine Fentanyl Screen Not Detected Ur Barbiturates Screen Not Detected Ur Phencyclidine Scrn Not Detected Ur Amphetamines Screen Not Detected U Benzodiazepines Scrn Not Detected Urine Cocaine Screen Not Detected U Marijuana (THC) Screen Not Detected Influenza Type A (PCR) POSITIVE A Influenza Type B (PCR) NEGATIVE RSV RNA Qual (PCR) NEGATIVE SARS-CoV-2 RNA (RT-PCR) NEGATIVE Assessment and Plan (1) Acute UTI: Status: Acute (2) Influenza A: Status: Acute Plan 79 year old female with a past medical history of HTN, HLD, Alzheimer's dementia, prison resident presented to the hospital with a chief complaint of altered mental status. Toxic metabolic encephalopathy due to UT and influenza A CT head showed no acute intracranial process Supportive care Fall precautions UTI/microscopic hematuria ceftriaxone follow-up cultures Influenza A Tamiflu x 5 days Dementia Continue home donepezil, memantine. Delirium precautions Swallow eval for dysphagia DVT prophylaxis: SubQ heparin Code status: DNR/DNI. Quality Stroke Does the patient have a stroke diagnosis?: No VTE Prior VTE?: No VTE Risk Level:: Medical - moderate - high VTE Device Contraindication: Patient Refused VTE Drug Contraindication: N/A - Med Ordered
--- NOTE | 2024-11-23 08:27 | PHA.MEDREC ---
Pharmacy Consult ? Medication Reconciliation Pharmacy has completed the medication reconciliation. Patient is a resident at [facility], used their med list from facility to confirm home meds.
--- NOTE | 2024-11-23 09:19 | MHC.CM.PN ---
IMM 11/23/24, Discussed with her HCP/Spouse, Jose, Pt. is non verbal, has a dx. of advanced dementia. She resides at [facility]. PCP confirmed: Pablito Ponce, [place]: return to SNF via BLS. CM to follow and assist with DCP.
[2024-11-23] MEDS: Ascorbic Acid 500 MG TABLET PO (09:50)
[2024-11-23] MEDS: Oseltamivir Phosphate 30 MG CAPSULE PO ×2 (09:50→20:25)
[2024-11-23] MEDS: Memantine HCl 10 MG TABLET PO (09:50)
[2024-11-23] MEDS: Multivitamin TABLET 1 TAB PO (09:50)
[2024-11-23] MEDS: Cholecalciferol (Vitamin D3) 25 MCG TABLET 50 MCG PO (09:50)
[2024-11-23 09:56] LABS: Troponin-I High Sensitivity 60.8 ng/L (<3.5-17.0)
--- NOTE | 2024-11-23 12:03 | MHC.SLORD ---
Speech Language Pathology Order Status: Order received for swallow eval. Patient lethargic, grimacing, but not waking to sternal rub. also at bedside unable to wake patient. TRANSVERSE ABDOMINAL MUSCLE NURSE to return later to attempt swallow eval. Notified RN and MD- Please contact TRANSVERSE ABDOMINAL MUSCLE NURSE via [place] Message or ext [phone] if patient awakes before then.
--- NOTE | 2024-11-23 15:02 | MHC.SL.SWA ---
Speech Pathologist Impression: Risk of Aspiration, Oropharyngeal Dysphagia in setting of dementia Risk of Aspiration Due to: Neurological Condition Reduced Cognition Dysphasia Diet Status: UPGRADE to NDD2/THIN Liquid Consistency and Strategies for Safe Swallow: Liquid Intake Recommendation: Thin Liquid Intake Strategies: Small Sips Solid Food Consistency: Dietary Recommendations: Grnd/Mech Altered (NDD2) Additional Modifications to Solid Foods: Recommend GROUND/MECH ALTERED (NDD2) diet and THIN liquids, pills CRUSHED in PUREE. Patient will need 1:1 feeding and aspiration precautions. Oral Medication Intake: Crushed with Puree Please contact the pharmacy regarding appropriate crushable or liquid drug formulations that are available whenever modified delivery is recommended. Compensatory Strategies and Precautions to be Taken for Safe Swallow: Sitting Upright (90 deg) Small Bites and Sips Alternate Liquids/Solids Rate of Ingestion Change Supervision While Eating and Drinking for Safe Swallow: Total Assistance (1:1) Foods to Avoid: Avoid hard/sticky/tough to chew food Swallowing Recommended Treatments: Compens. Strategy Educat. Recommendation for Speech: Inpatient Speech Therapy Speech Therapy through Rehab Facility Comment: SHOVEL ENGINEER will continue to follow as indicated M-F while inpatient Frequency/Duration: M-F Date Range for Service Req: Timeline to reassess: PRN Residential Installer Clinican/Clinical Fellow: No Supervisory Statement: I have reviewed and agree with the student/clinical fellow's documentation: N/A Speech Language Pathologist: Shantal Brady M.A., [facility]-SHOVEL ENGINEER
[2024-11-23] MEDS: Acetaminophen 325 MG TABLET 650 MG PO (15:24)
[2024-11-23] MEDS: cefTRIAXone sodium 1 GM VIAL IVPUSH (20:24)
[2024-11-23] MEDS: Mirtazapine 7.5 MG TABLET PO (20:25)
[2024-11-23] MEDS: Donepezil HCl 5 MG TABLET PO (20:25)
[2024-11-23] MEDS: Metoprolol Succinate ER 25 MG TAB.ER.24H PO (20:25)
[2024-11-23] MEDS: Pravastatin Sodium 40 MG TABLET PO (20:25)
[2024-11-24] VITALS (7 sets, daily range): BP systolic 97–159; BP diastolic 65–80; PULSE 58–78; RESP 14–18; TEMP 36–38; O2SAT 93–99
[2024-11-24] MEDS: Acetaminophen 325 MG TABLET 650 MG PO (05:15)
[2024-11-24] MEDS: Lactated Ringers 1,000 ML 100 ML IVCONT (05:15)
[2024-11-24] MEDS: Memantine HCl 10 MG TABLET PO (08:43)
[2024-11-24] MEDS: Multivitamin TABLET 1 TAB PO (08:43)
[2024-11-24] MEDS: Heparin Sodium,Porcine 5,000 UNIT/ML VIAL 5000 UNIT SUBCUT (08:43)
[2024-11-24] MEDS: Lactase TABLET 1 TAB PO ×2 (08:43→12:39)
[2024-11-24] MEDS: Oseltamivir Phosphate 30 MG CAPSULE PO (08:43)
[2024-11-24] MEDS: Ascorbic Acid 500 MG TABLET PO (08:43)
[2024-11-24] MEDS: Cholecalciferol (Vitamin D3) 25 MCG TABLET 50 MCG PO (08:43)
--- NOTE | 2024-11-24 08:51 | P.PNIM_ITS ---
Subjective Subjective Date of Service: 11/24/24 Interval History: f/u on metabolic encephalopathy d/t uti and influenza A confused but appears to be at her baseline according to [facility] Physical Exam 2 Vital Signs: Vital Signs: Last Vital Signs Temp 97.5 F 11/24/24 07:35 Pulse 64 11/24/24 07:35 Resp 16 11/24/24 07:35 BP 97/65 11/24/24 07:35 Pulse Ox 99 11/24/24 07:35 O2 Del Method Room Air 11/24/24 07:35 BMI result Body Mass Index 21.4 Const: Other: General: stoic, no acute distress Resp: CTA bilateral CVS: S1,S2,RRR GI: +BS, NT, no distention Skin: No rash Neuro: motor grossly intact Psych: flat Objective Data Active Medications Acetaminophen (Acetaminophen 325 Mg Tablet) 650 mg PO Q6H PRN PRN Reason: Pain, Mild 1-3,fever,headache Last Admin: 11/24/24 05:15 Dose: 650 mg Documented By: ROBINA Artificial Tears (Artificial Tears 15 Ml Drops) 1 drop EYE-BOTH DAILY [facility] Ascorbic Acid (Ascorbic Acid 500 Mg Tablet) 500 mg PO DAILY [facility] Last Admin: 11/23/24 09:50 Dose: 500 mg Documented By: LEAH Bisacodyl (Bisacodyl 10 Mg Supp.Rect) 10 mg IN DAILY PRN PRN Reason: Constipation Calcium Carbonate (Calcium Carbonate 750 Mg Tab.Chew) 750 mg PO Q4H PRN PRN Reason: Heartburn Ceftriaxone Sodium (Ceftriaxone Sodium 1 Gm Vial) 1 gm IVPUSH Q24H [facility] Last Admin: 11/23/24 20:24 Dose: 1 gm Documented By: ROBINA Donepezil HCl (Donepezil Hcl 5 Mg Tablet) 5 mg PO BEDTIME [facility] Last Admin: 11/23/24 20:25 Dose: 5 mg Documented By: ROBINA Heparin Sodium (Porcine) (Heparin Sodium,Porcine 5,000 Unit/Ml Vial) 5,000 unit SUBCUT Q8H [facility] Last Admin: 11/23/24 23:25 Dose: 5,000 unit Documented By: ROBINA Lactated Ringer's (Lr) 1,000 mls @ 100 mls/hr IVCONT .Q10H [facility] Last Admin: 11/24/24 05:15 Dose: 100 mls/hr Documented By: ROBINA Lactase (Lactase Tablet) 1 tab PO TIDWM [facility] Last Admin: 11/23/24 19:00 Dose: Not Given Documented By: DECLAN Non-Admin Reason: pt in ED Magnesium Hydroxide (Milk Of Magnesia 30 Ml Oral.Susp) 30 ml PO DAILY PRN PRN Reason: Constipation Melatonin (Melatonin 3 Mg Tablet) 6 mg PO BEDTIME PRN PRN Reason: Insomnia Memantine (Memantine Hcl 10 Mg Tablet) 10 mg PO DAILY [facility] Last Admin: 11/23/24 09:50 Dose: 10 mg Documented By: LEAH Metoprolol Succinate (Metoprolol Succinate Er 25 Mg Tab.Er.24h) 25 mg PO DAILY@1999 [facility]; Protocol Last Admin: 11/23/24 20:25 Dose: 25 mg Documented By: ROBINA Mirtazapine (Mirtazapine 7.5 Mg Tablet) 7.5 mg PO BEDTIME [facility] Last Admin: 11/23/24 20:25 Dose: 7.5 mg Documented By: ROBINA Multivitamins/Vitamin C (Multivitamin Tablet) 1 tab PO DAILY [facility] Last Admin: 11/23/24 09:50 Dose: 1 tab Documented By: LEAH Oseltamivir Phosphate (Oseltamivir Phosphate 30 Mg Capsule) 30 mg PO Q12H [facility] Stop: 11/27/24 09:01 Last Admin: 11/23/24 20:25 Dose: 30 mg Documented By: ROBINA Pravastatin Sodium (Pravastatin Sodium 40 Mg Tablet) 40 mg PO BEDTIME [facility] Last Admin: 11/23/24 20:25 Dose: 40 mg Documented By: ROBINA Sodium Biphosphate/Sodium Phosphate (Sodium Phosphate,[place]-Dibasic 133 Ml Enema) 118 ml IN DAILY PRN PRN Reason: Constipation Sodium Chloride (0.9 % Sodium Chloride Flush 3 Ml Syringe) 3 ml IVFLUSH QSHIFT [facility] Last Admin: 11/24/24 07:25 Dose: Not Given Documented By: ROMINA Non-Admin Reason: IV Running Vitamin D (Cholecalciferol (Vitamin D3) 25 Mcg Tablet) 50 mcg PO DAILY [facility] Last Admin: 11/23/24 09:50 Dose: 50 mcg Documented By: LEAH Labs 11/22/24 19:32 11/23/24 04:52 Microbiology Microbiology Results: Microbiology 11/22/24 19:39 Blood Culture - Preliminary Blood - Venous No growth after 24 hours. 11/22/24 19:19 Blood Culture - Preliminary Blood - Venous No growth after 24 hours. Assessment and Plan (1) Acute UTI: Status: Acute (2) Influenza A: Status: Acute Plan 79 year old female with a past medical history of HTN, HLD, Alzheimer's dementia, correction resident presented to the hospital with a chief complaint of altered mental status. Toxic metabolic encephalopathy due to UT and influenza A CT head showed no acute intracranial process Supportive care Fall precautions UTI/microscopic hematuria, culture pending ceftriaxone follow-up cultures Influenza A Tamiflu x 5 days Dementia Continue home donepezil, memantine. Delirium precautions Swallow eval for dysphagia DVT prophylaxis: SubQ heparin Code status: DNR/DNI. dispo: possible dc later today Quality Stroke Does the patient have a stroke diagnosis?: No VTE Prior VTE?: No VTE Risk Level:: Medical - moderate - high VTE Device Contraindication: Patient Refused VTE Drug Contraindication: N/A - Med Ordered
--- NOTE | 2024-11-24 08:54 | P.DS_ITS ---
DS: Providers Provider Date of admission: 11/23/24 04:37 Primary care physician: Pablito Ponce MD DS: Diagnosis Discharge Diagnosis (1) Acute UTI: Status: Acute (2) Influenza A: Status: Acute DS: Summary Hospital Course Hospital Course: Admission hpi Chief Complaint: AMS 79 year old female with a past medical history of HTN, HLD, Alzheimer's dementia, detention resident presented to the hospital with a chief complaint of altered mental status. Reportedly patient has been not feeling well, lethargic, poor oral intake over the past couple days. Patient had baseline nonverbal but alert and awake as per the family. S patient noted to be havingbhange in her condition brought her to the hospital for further evaluation. Patient is lying in the bed comfortable. Does not appear to be in distress. Most of the history obtained from the records and the staff. Hospital course: The patient is an 79-year-old female with a past medical history of hypertension, hyperlipidemia, and Alzheimer's dementia, residing in a detention. She presented to the hospital with a chief complaint of altered mental status and was diagnosed with a urinary tract infection (UTI) and influenza. The UTI was treated with Ceftriaxone, and the urine culture was negative. She will transition to Ceftin 250 mg BID for 5 days. For influenza, she has no respiratory symptoms or hypoxia and will complete a 5-day course of Tamiflu. Her altered mental status is likely related to the UTI and influenza, and she appears to be at her baseline. Regarding dysphagia, she was evaluated by speech therapy, which recommended u pgrading her diet to NDD2 with thin liquid consistency. Safe swallowing strategies include small sips for liquid intake. Dementia Continue home donepezil, memantine. Delirium precautions Swallow eval for dysphagia Physical Exam Vital Signs: Vital Signs: Last Vital Signs Temp 97.5 F 11/24/24 07:35 Pulse 64 11/24/24 07:35 Resp 16 11/24/24 07:35 BP 97/65 11/24/24 07:35 Pulse Ox 99 11/24/24 07:35 O2 Del Method Room Air 11/24/24 07:35 BMI result Body Mass Index 21.4 Const: Other: General: stoic, no acute distress Resp: CTA bilateral CVS: S1,S2,RRR GI: +BS, NT, no distention Skin: No rash Neuro: motor grossly intact Psych: flat DS: Data Data Completed and Pending Labs on day of discharge: Laboratory Results - last 24 hr 11/23/24 09:11 Troponin I High Sens 60.8 H* D Preliminary micro results at discharge 11/22/24 19:39 Blood Culture - Preliminary Blood - Venous No growth after 24 hours. 11/22/24 19:19 Blood Culture - Preliminary Blood - Venous No growth after 24 hours. Discharge Plan Discharge Anticipated Discharge Date/Time: 11/24/24 09:12 Discharge Diagnosis: UTI, influenza a, toxic metabolic encephalopathy Referrals: Pablito Ponce MD [Primary Care Provider] - 1 Week Discharge Medications: No Action acetaminophen 325 mg Tablet 650 mg PO Q6H PRN (Reason: Fever Or Pain) polyvinyl alcohol 1.4 % Drops 1 drp OPHTHALMIC (EYE) DAILY magnesium hydroxide [Milk of Magnesia] 400 mg/5 mL Suspension 30 ml PO DAILY PRN (Reason: Constipation) Rx Instructions: if no bowel movement in 3 days lactase 9,000 unit Tablet 9,000 unit PO TIDAC Rx Instructions: administer with meals and/or snacks bisacodyl 10 mg Suppository 10 mg OR DAILY PRN (Reason: Constipation) Rx Instructions: if Milk of Magnesia is not effective Fleet Enema 19-7 gram/118 mL Enema 118 ml OR DAILY PRN (Reason: Constipation) metoprolol succinate 25 mg Tablet Extended Release 24 Hr 25 mg PO DAILY@2000 mirtazapine 7.5 mg tablet 7.5 mg PO BEDTIME multivitamin Tablet 1 tab PO DAILY donepezil 5 mg tablet 5 mg PO BEDTIME lovastatin 40 mg tablet 40 mg PO BEDTIME ascorbic acid (vitamin C) [Vitamin C] 500 mg Tablet 500 mg PO DAILY memantine 10 mg tablet 10 mg PO DAILY cholecalciferol (vitamin D3) [Vitamin D3] 50 mcg (2,000 unit) Tablet 50 mcg PO DAILY Diet: Advance to usual diet Activity on Discharge: As tolerated Print Language: Cymro Care Plan Goals: recovery from uti, influenza and metabolic encephalopathy Health Concerns: influenza, uti, metabolic encephalopathy Plan of Treatment: take tamiflu for influenza take ceftin for uti Liquid Consistency and Strategies for Safe Swallow: Liquid Intake Recommendation: Thin Liquid Intake Strategies: Small Sips Solid Food Consistency: Dietary Recommendations: Grnd/Mech Altered (NDD2) Additional Modifications to Solid Foods: Recommend GROUND/MECH ALTERED (NDD2) diet and THIN liquids, pills CRUSHED in PUREE. Patient will need 1:1 feeding and aspiration precautions.
--- NOTE | 2024-11-24 10:55 | MHC.CM.PN ---
pt to be transferred to [facility] today at 1 spouse notified
--- NOTE | 2024-11-24 11:36 | MHC.SL.SWA ---
Speech Pathologist Impression: Mild dysphagia in setting of weakness Risk of Aspiration Due to: Neurological Condition Reduced Cognition Dysphasia Diet Status: Hx dementia Liquid Consistency and Strategies for Safe Swallow: Liquid Intake Recommendation: Thin Liquid Intake Strategies: Small Sips Solid Food Consistency: Dietary Recommendations: Grnd/Mech Altered (NDD2) Additional Modifications to Solid Foods: Recommend GROUND/MECH ALTERED (NDD2) diet and THIN liquids, pills CRUSHED in PUREE. Patient needs 1:1 feeding and aspiration precautions. Oral Medication Intake: Crushed with Puree Please contact the pharmacy regarding appropriate crushable or liquid drug formulations that are available whenever modified delivery is recommended. Compensatory Strategies and Precautions to be Taken for Safe Swallow: Sitting Upright (90 deg) Liquids from Cup Liquids from Straw Small Bites and Sips Alternate Liquids/Solids Rate of Ingestion Change Supervision While Eating and Drinking for Safe Swallow: Total Supervision (1:1) Foods to Avoid: Avoid hard/sticky/tough to chew food Swallowing Recommended Treatments: Compens. Strategy Educat. Recommendation for Speech: Inpatient Speech Therapy Speech Therapy through Rehab Facility Comment: 1:1 feed. Pt spouse reports he feeds his at facility. [facility] diet and safety precautions reviewed with pt spouse, who verbalizes understanding and agrees. MANAGER FINE DINING at next setting to follow. Frequency/Duration: M-F Date Range for Service Req: Timeline to reassess: PRN Hoop Punch And Coiler Operator Clinican/Clinical Fellow: No Supervisory Statement: I have reviewed and agree with the student/clinical fellow's documentation: N/A Speech Language Pathologist: Yas Stapleton M.S., CCC-MANAGER FINE DINING
== END 2024-11-24 15:30 | disposition skilled nursing facility (03) | DRG 865 ==
LOC: HO.ED 11-23 04:27 → HO.EDOVER 11-23 04:40 → HO.S3 11-23 15:59
PROVIDERS: Admitting Provider Hospitalist; Emergency Provider Emergency Medicine; PCP Family Medicine; Visit Provider Internal Medicine
DX: J10.81 Influenza due to other identified influenza virus with encephalopathy (principal); G92.8 Other toxic encephalopathy; N39.0 Urinary tract infection, site not specified; G30.9 Alzheimer's disease, unspecified; F02.80 Dementia in other diseases classified elsewhere, unspecified severity, without behavioral disturbance, psychotic disturbance, mood disturbance, and anxiety; R31.29 Other microscopic hematuria; Z79.899 Other long term (current) drug therapy
CPT/HCPCS: 0241U; 36415; 70450; 71045; 80048; 80076; 80307; 81001; 83605; 83735; 84484; 85025; 87040; 87086; 92610; 93005; 99285; J0456; J0696; J1644; J1920; J7120

== ENCOUNTER → 2024-11-22 19:13 | Outpatient (BNV) | payer MEDICARE, OTHER, SELFPAY | PROVIDERS: Admitting Provider Hospitalist; Emergency Provider Emergency Medicine; PCP Family Medicine; Visit Provider Internal Medicine | DX: R94.31 Abnormal electrocardiogram [ECG] [EKG] (principal); R53.1 Weakness | CPT/HCPCS: 93010 ==

== ENCOUNTER → 2024-11-22 19:13 | Outpatient (BNV) | payer MEDICARE, OTHER, SELFPAY | PROVIDERS: Emergency Provider Emergency Medicine; Visit Provider Radiology Neuroradiology | DX: R05.9 Cough, unspecified (principal); R41.82 Altered mental status, unspecified | CPT/HCPCS: 70450; 71045 ==

== ENCOUNTER → 2024-11-22 20:49 | Outpatient (BNV) | payer MEDICARE, OTHER, SELFPAY | PROVIDERS: Emergency Provider Emergency Medicine; PCP Family Medicine; Visit Provider Hospitalist | DX: N39.0 Urinary tract infection, site not specified (principal); J10.1 Influenza due to other identified influenza virus with other respiratory manifestations | CPT/HCPCS: 99239 ==

== ENCOUNTER 2025-08-31 14:50 | Inpatient (IN) | payer MEDICARE, OTHER, SELFPAY ==
--- OUTSIDE RECORDS SUMMARY | 2024-04-30 07:15 | XMS_ITS ---
Author Organization [facility] Address [address] [place] [id number] Care Team Providers Care Mobile Web Application Developer Name Role Phone Rosario REYES, Pablito Primary Care Provider Ralf Johansen Unavailable [phone] Encounters Encounter Location Date Provider Diagnosis [address] [id number] 04/30/2024 Ralf Medina Plan Of Treatment No Information Progress Notes * Annmarie GARCIA ADOB: [birth year] (80 yo F)Acc No.[id number]:04/30/2024 Progress Note Patient: Annmarie LOMELI Provider: Raza Medina DPM :1945 A ge:78 Y S ex:Female Date:04/30/2024 Address:[address] [place] [address] Pcp:Pablito Ponce MD Subjective: * Chief Complaints: * * Medical History: Objective: * Vitals: Assessment: Plan: * Treatment: * Images: * The named appointment provid er may or may not be the originator of this progress note, and it is not deemed complete until electronically signed by the appointment provider. Sign off status: Pending * Provider: Raza Medina DPM Date: 0 04/30/2024 Generated for Alcidesi trudy/Fapercy/eTransmitting on: 1 11/01/2024 08:14 PM EST
[2025-08-31] VITALS (9 sets, daily range): BP systolic 132–210; BP diastolic 80–100; PULSE 94–108; RESP 13–36; TEMP 36.7–37.7; O2SAT 95–98; BMI 22.9
--- NOTE | ~2025-08-31 | CT_ITS ---
CLINICAL HISTORY: acute onset involuntary movements on the left side CT head without contrast Comparison: 11/22/2024 Findings: No intracranial mass, midline shift, hydrocephalus, or acute hemorrhage. No CT evidence of acute ischemia. 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 Visualized paranasal sinuses and mastoid air cells reveal a few partially opacified posterior ethmoid air cells bilaterally. There is trace fluid within the left sphenoid sinus.. Orbits unremarkable. No skull fracture Impression: 1. No acute intracranial abnormalities. This document has been electronically signed by: Jeet Banks MD on 08/31/2025 20:36:36
--- NOTE | ~2025-08-31 | XR_ITS ---
CLINICAL HISTORY: fever 1 view chest x-ray Comparison: CR - XR CHEST 1V - 11/22/24 18:47 EDT Findings: No consolidation or effusion. Normal size heart. No acute fracture. IMPRESSION: 1. No acute findings. This document has been electronically signed by: Hermes Camp MD on 08/31/2025 21:16:55
--- NOTE | ~2025-08-31 | XR_ITS ---
CLINICAL HISTORY: assess for obstruction, ?abd pain 1 view abdomen Comparison: None provided Findings: There are surgical clips within the right upper quadrant from prior cholecystectomy. No pneumoperitoneum or pneumatosis. No abnormal calcifications. No acute fractures. IMPRESSION: The bowel gas pattern is within normal limits This document has been electronically signed by: Asa Camara MD on 09/01/2025 06:03:22
--- NOTE | 2025-08-31 15:10 | ED.GENADULT ---
HPI - General Adult General Chief complaint: General Medical Stated complaint: RANDOM ARM/FACE MOVEMENTS FROM SNF,H/O DEMENTIA Time Seen by Provider: 08/31/25 15:10 Source: EMS, RN notes reviewed and old records reviewed Mode of arrival: ambulatory Limitations: altered mental status History of Present Illness ED Provider: Elissa Montoya PA-C HPI narrative: 80 yo wheelchair bound, nonverbal female with history of dementia, hx UTI, HTN, HLD, who presents to the ER for evaluation of acute onset of abnormal facial and LUE movements that started this afternoon after she ate lunch. History obtained by her at bedside. He reports at baseline she is wheelchair/bed-bound, with developing leg contractures, requiring assistance with feeding and all ADLs, nonverbal. He reports he went to visit her today, she was in a good mood and acting herself, ate a good breakfast and lunch. He reports after eating lunch she developed acute onset of abnormal and involuntary movements of her face and left upper extremity. She has been rhythmically moving her left upper extremity and her mouth and face. He denies any visualized movements of her lower extremities or right arm. She is right-hand dominant. He denies history of similar movements in the past. She is not on any antipsychotic medications. No new medications to her regimen. He denies history of Parkinson's disease. She has had dementia since August 2019. complaint: abnormal movements Onset (ago): hour(s) Location: face, left and upper extremity Associated symptoms: denies other symptoms Treatments prior to arrival: none Related Data Home Medications ?Medication ?Instructions ?Recorded ?Confirmed cholecalciferol (vitamin D3) 50 50 mcg PO DAILY 10/01/23 09/01/25 mcg (2,000 unit) tablet (Vitamin D3) donepezil 5 mg tablet 5 mg PO BEDTIME 10/01/23 09/01/25 memantine 10 mg tablet 10 mg PO DAILY 10/01/23 09/01/25 acetaminophen 325 mg tablet 650 mg PO Q6H PRN Fever Or Pain 11/23/24 09/01/25 bisacodyl 10 mg rectal suppository 10 mg NH DAILY PRN Constipation 11/23/24 09/01/25 lactase 9,000 unit tablet 9,000 unit PO TIDAC 11/23/24 09/01/25 magnesium hydroxide 400 mg/5 mL 30 ml PO DAILY PRN Constipation 11/23/24 09/01/25 oral suspension (Milk of Magnesia) mirtazapine 7.5 mg tablet 7.5 mg PO BEDTIME 11/23/24 09/01/25 polyvinyl alcohol 1.4 % eye drops 1 drp ophthalmic (eye) DAILY 11/23/24 09/01/25 sodium phosphates 19 gram-7 118 ml NH DAILY PRN Constipation 11/23/24 09/01/25 gram/118 mL enema (Fleet Enema) acetaminophen 325 mg tablet 975 mg PO TID moderate pain 09/01/25 09/01/25 sennosides 8.6 mg tablet (senna) 17.2 mg PO DAILY 09/01/25 09/01/25 Allergies Allergy/AdvReac Type Severity Reaction Status Date / Time Sulfa (Sulfonamide Allergy Mild HEADACHE Verified 08/31/25 15:01 Antibiotics) (SULFA (SULFONAMIDE ANTIBIOTICS)) shellfish derived (SHELLFISH Allergy Unknown UNKNOWN Verified 08/31/25 15:01 DERIVED) Review of Systems Review of Systems: Yes all other systems are reviewed and are negative FORMERLY [facility], [facility] Past Medical History Medical History Acute UTI Pneumonia Mixed hyperlipidemia Essential hypertension Alzheimer's dementia Social History Social History Household Members: Other Household Members Other:: facility Housing: Jail Patient Tobacco Use Status: Never used Tobacco Second Hand Smoke Exposure: No Advance Directives Date on File: 10/01/23 service: No Current occupational status: retired Current occupation: right hand dominant Physical Exam ED Exam Exam: Appearance: Alert elderly female laying in bed, abnormal, involuntary movements of the face and LUE, almost constant Head: normocephalic, atraumatic. Eyes: Pupils equal, round and reactive to light. not tracking ENT: Pharynx normal. No tonsillar swelling or exudate. Neck: Normal inspection. Neck supple. CVS: Normal heart rate and rhythm. Pulses normal. Respiratory: No respiratory distress. Breath sounds normal. Abdomen: Soft and nontender. +BS x4 Skin: Skin warm and dry. Normal skin color. Normal skin turgor. No rashes. Extremities: LE contracted, not able to be extended. Neuro/psych: awake, alert, choreifrom movements of the left arm, face. no movement of the RUE. unable to follow commands. nonverbal Vital Signs: Vital Signs - 24 hr 08/31/25 18:20 08/31/25 19:47 08/31/25 20:18 Temperature 98.1 F 99.8 F Pulse Rate 108 H 108 H Respiratory Rate 36 H 17 Blood Pressure 210/100 H 187/84 H Pulse Oximetry 98 95 Oxygen Delivery Method Room Air Room Air 08/31/25 21:53 Temperature Pulse Rate 108 H Respiratory Rate 21 H Blood Pressure 173/89 H Pulse Oximetry 97 Oxygen Delivery Method Room Air BMI result Body Mass Index 22.9 Course Reevaluation(s) Reevaluation #1: Patient received in sign-out at change of shift pending CT scan of the brain and disposition. The patient remains somewhat agitated and restless. She is still moving the left upper extremity and sticking her tongue out. I reviewed the meds that she was previously given. She was given Versed 1 mg IM, Benadryl 25 mg IV and Keppra 500 mg IV. I will order Zyprexa 5 mg IM and additional Versed 2 mg IM to attempt to facilitate CT imaging of the brain. The patient is out of the window for TNK treatment at the time I received sign-out. Time: 17:10 Reevaluation #2: The patient was ultimately given ketamine to assist with CT scan which did not show any acute findings. A straight cath urinalysis showed hematuria but no signs of infection. The patient's BUN was elevated, with my attending, Dr Harkins, we performed a bedside ultrasound which did not show any significant hydronephrosis. I ordered flu, COVID, RSV swabs which were negative. The patient's has been reports the patient has had a dry cough for about 2 days now. Chest x-ray was poor quality as the patient is unable to follow commands but ultimately did not show any obvious consolidation. We will discuss with the hospitalist for admission. The patient is still having abnormal movements but somewhat improved when compared to the arrival Time: 22:27 Medications Administered Generic Name Dose Route Start Last Admin Trade Name Freq PRN Reason Stop Dose Admin Diazepam 2.5 mg 09/01/25 11:15 09/01/25 11:43 Diazepam 10 Mg/2 Ml Cartridge IVPUSH 09/02/25 05:16 2.5 mg Q6H JAMES Administration Lactated Ringer's 1,000 mls @ 75 mls/hr 09/01/25 01:45 09/01/25 14:38 Lr IVCONT 75 mls/hr .[id number] JAMES Administration Acetaminophen 1,000 mg in 100 mls @ 400 mls/hr 09/01/25 07:45 09/01/25 14:59 Ofirmev IV Infused Q6H JAMES Infusion Sodium Chloride 3 ml 09/01/25 08:00 09/01/25 07:32 0.9 % Sodium Chloride Flush 3 Ml Syringe IVFLUSH Not Given QSHIFT JAMES Discontinued Medications Generic Name Dose Route Start Last Admin Trade Name Freq PRN Reason Stop Dose Admin Diphenhydramine HCl 25 mg 08/31/25 16:17 08/31/25 16:19 Diphenhydramine Hcl 50 Mg/Ml Vial IVPUSH 08/31/25 16:18 25 mg ONCE ONE Administration Levetiracetam 500 mg in 100 mls @ 400 mls/hr 08/31/25 16:34 08/31/25 18:44 Keppra IV 08/31/25 16:48 Infused ONCE ONE Infusion Sodium Chloride 1,000 mls @ 999 mls/hr 08/31/25 23:00 09/01/25 00:22 Ns IV 09/01/25 00:00 Infused .Q1H1M JAMES Infusion Acetaminophen 1,000 mg in 100 mls @ 400 mls/hr 09/01/25 01:43 09/01/25 02:25 Ofirmev IV 09/01/25 01:57 Infused ONCE ONE Infusion Levetiracetam 1,000 mg in 100 mls @ 400 mls/hr 09/01/25 10:16 09/01/25 10:55 Keppra IV 09/01/25 10:30 Infused ONCE ONE Infusion Ketamine HCl 25 mg 08/31/25 20:00 08/31/25 20:06 Ketamine Hcl/Ns 50 Mg/5 Ml Syringe IVPUSH 08/31/25 20:01 25 mg ONCE ONE Administration Midazolam HCl 1 mg 08/31/25 15:21 08/31/25 15:31 Midazolam Hcl 2 Mg/2 Ml Vial IM 08/31/25 15:22 1 mg ONCE ONE Administration Midazolam HCl 2 mg 08/31/25 17:43 12/17/25 18:38 Midazolam Hcl 2 Mg/2 Ml Vial IM 08/31/25 17:44 2 mg ONCE ONE Administration Olanzapine 5 mg 08/31/25 17:43 08/31/25 18:41 Olanzapine 10 Mg Vial IM 08/31/25 17:44 5 mg STAT STA Administration Medical Decision Making Medical Decision Making [facility] Narrative: 80 yo wheelchair bound, nonverbal female with history of dementia, hx UTI, HTN, HLD, who presents to the ER for evaluation of acute onset of abnormal facial and LUE movements that started this afternoon after she ate lunch. No history of the same. Not on any antipsychotics. Unlikely to be TD from Aricept or Namenda. Afebrile on arrival, hypertensive, awake and alert with constant rhythmic movements of her tongue, face and LUE. Unclear etiology. Will give trial of versed to see if she can be still enough for CT. 1550 - No improvement with low dose versed. Dr. Mcmanus at the bedside - recommending trial of benadryl for possible dystonia. 1634 - No improvement with benadryl. will give Keppra for possible partial seizure. signed out to Ken DAY who will reassess Differential Diagnosis Differential Diagnoses: The differential diagnosis associated with the presentation includes tardive dyskinesia, CVA, chorea, focal seizure, hemiballismus, myoclonus, dystonia, viral encephalitis Admission/Observation Consideration of admission/observation: Escalation of care including admission/observation considered Lab Data [facility] Lab Attestation statement: I reviewed the patient's lab results. no major metabolic derangements 09/01/25 04:27 09/01/25 04:27 Labs: Lab Results 08/31/25 08/31/25 08/31/25 Range/Units 15:26 15:35 20:26 WBC 9.6 (4.8-10.8) X10*3/uL RBC 4.38 (4.20-5.50) X10*6/uL Hgb 13.3 (12.0-16.0) g/dl Hct 39.0 (37.0-47.0) % MCV 89.0 (80.0-98.0) fL MCH 30.4 (27.0-33.0) pg MCHC 34.1 (31.0-35.0) g/dl RDW 12.8 (11.0-16.0) % Plt Count 416 H D (160-400) X10*3/uL MPV 9.4 (9.4-12.3) fL Immature Gran % (Auto) 0.2 (0.0-0.4) % Neut % (Auto) 62.6 (45-73) % Lymph % (Auto) 23.4 (20-40) % [place] % (Auto) 8.6 (2-11) % Eos % (Auto) 4.2 H (0-4) % Baso % (Auto) 1.0 (0-2) % Lymph # (Auto) 2.3 (1.2-4.9) X10*3/uL [place] # (Auto) 0.8 (0.1-1.2) X10*3/uL Eos # (Auto) 0.4 (0.0-0.4) X10*3/uL Baso # (Auto) 0.1 (0.0-0.2) X10*3/uL Abs Immat Gran (auto) 0.02 (0.00-0.03) X10*3/uL Absolute Neuts (auto) 6.0 (2.0-8.3) x10*3/uL Absolute Nucleated RBC 0.000 (0.0-0.012) X10*3/uL Nucleated RBC % (auto) 0.0 (0.0-0.2) /100WBC VBG pH 7.45 H (7.32-7.43) VBG pCO2 33 mmHg VBG pO2 86 mmHg VBG HCO3 23 (22-26) mmol/L VBG O2 Saturation 100.0 % VBG Base Excess 0.3 mmol/L Sodium 140 (135-145) mmol/L Potassium 4.0 (3.3-5.1) mmol/L Chloride 108 (96-108) mmol/L Carbon Dioxide 24 (22-29) mmol/L Anion Gap 12 (12-20) BUN 24 H (9-16) mg/dL Creatinine 0.83 (0.5-1.4) mg/dL Estim Creat Clear Calc 38.2 Estimated GFR > 60 Random Glucose 104 (60-115) mg/dL Lactic Acid (0.5-2.0) mmol/L Calcium 9.2 D (8.4-10.2) mg/dL Magnesium 2.2 (1.6-2.6) mg/dL Total Bilirubin 0.2 (0.0-1.0) mg/dL Direct Bilirubin < 0.2 (0.0-0.5) mg/dL AST 21 (5-31) U/L ALT 16 (0-31) U/L Alkaline Phosphatase 56 (39-117) U/L Ammonia 34 (13-55) umol/L Total Creatine Kinase 51 (26-140) U/L Total Protein 6.3 L (6.5-8.0) g/dL Albumin 4.0 (3.5-5.0) g/dL TSH 1.01 (0.32-4.0) uIU/mL Urine Color [place] A Urine Appearance Cloudy Urine pH 6.5 (5.0-9.0) Ur Specific [place] 1.010 (1.005-1.025) Urine Protein 30 (1+) H (Neg-Trace) mg/dL Urine Glucose (UA) Negative (Negative) mg/dL Urine Ketones Negative (Negative) mg/dL Urine Blood Large (3+) H (Negative) Urine Nitrite Negative (Negative) Ur Leukocyte Esterase Trace H (Negative) Urine RBC >20 H (0-2) /HPF Urine WBC 0-5 (0-5) /HPF Ur Squamous Epith Cells 0-2 (0-2) /HPF Urine Bacteria None Seen (None Seen) Hyaline Casts 6-10 (0-2) /LPF Influenza Type A (PCR) (Negative) Influenza Type B (PCR) (Negative) RSV RNA Qual (PCR) (Negative) SARS-CoV-2 RNA (RT-PCR) (Negative) 08/31/25 08/31/25 Range/Units 21:08 21:17 WBC (4.8-10.8) X10*3/uL RBC (4.20-5.50) X10*6/uL Hgb (12.0-16.0) g/dl Hct (37.0-47.0) % MCV (80.0-98.0) fL MCH (27.0-33.0) pg MCHC (31.0-35.0) g/dl RDW (11.0-16.0) % Plt Count (160-400) X10*3/uL MPV (9.4-12.3) fL Immature Gran % (Auto) (0.0-0.4) % Neut % (Auto) (45-73) % Lymph % (Auto) (20-40) % [place] % (Auto) (2-11) % Eos % (Auto) (0-4) % Baso % (Auto) (0-2) % Lymph # (Auto) (1.2-4.9) X10*3/uL [place] # (Auto) (0.1-1.2) X10*3/uL Eos # (Auto) (0.0-0.4) X10*3/uL Baso # (Auto) (0.0-0.2) X10*3/uL Abs Immat Gran (auto) (0.00-0.03) X10*3/uL Absolute Neuts (auto) (2.0-8.3) x10*3/uL Absolute Nucleated RBC (0.0-0.012) X10*3/uL Nucleated RBC % (auto) (0.0-0.2) /100WBC VBG pH (7.32-7.43) VBG pCO2 mmHg VBG pO2 mmHg VBG HCO3 (22-26) mmol/L VBG O2 Saturation % VBG Base Excess mmol/L Sodium (135-145) mmol/L Potassium (3.3-5.1) mmol/L Chloride (96-108) mmol/L Carbon Dioxide (22-29) mmol/L Anion Gap (12-20) BUN (9-16) mg/dL Creatinine (0.5-1.4) mg/dL Estim Creat Clear Calc Estimated GFR Random Glucose (60-115) mg/dL Lactic Acid 0.9 (0.5-2.0) mmol/L Calcium (8.4-10.2) mg/dL Magnesium (1.6-2.6) mg/dL Total Bilirubin (0.0-1.0) mg/dL Direct Bilirubin (0.0-0.5) mg/dL AST (5-31) U/L ALT (0-31) U/L Alkaline Phosphatase (39-117) U/L Ammonia (13-55) umol/L Total Creatine Kinase (26-140) U/L Total Protein (6.5-8.0) g/dL Albumin (3.5-5.0) g/dL TSH (0.32-4.0) uIU/mL Urine Color Urine Appearance Urine pH (5.0-9.0) Ur Specific [place] (1.005-1.025) Urine Protein (Neg-Trace) mg/dL Urine Glucose (UA) (Negative) mg/dL Urine Ketones (Negative) mg/dL Urine Blood (Negative) Urine Nitrite (Negative) Ur Leukocyte Esterase (Negative) Urine RBC (0-2) /HPF Urine WBC (0-5) /HPF Ur Squamous Epith Cells (0-2) /HPF Urine Bacteria (None Seen) Hyaline Casts (0-2) /LPF Influenza Type A (PCR) NEGATIVE (Negative) Influenza Type B (PCR) NEGATIVE (Negative) RSV RNA Qual (PCR) NEGATIVE (Negative) SARS-CoV-2 RNA (RT-PCR) NEGATIVE (Negative) Independent Historian Clinical information obtained from an independent historian. History obtained from or confirmed by: Spouse External Record Review External record reviewed: Prior outpatient labs Prescription Management I considered prescription management with: Other (AED, benzodiazapine ) Chronic Conditions Patient?s care impacted by: Other (advanced dementia) Critical Care Time Critical Care Time Critical Care Time: Yes Total Critical Care Time: 40 Attestation: I have personally provided critical care time exclusive of time spent on separately billable procedures. Time includes review of lab data, radiology results, discussion with consultants/attending physicians, several bedside re-evaluations after acute intervnetions, and monitoring for potential decompensation. Intervention performed as documented. Discharge Plan Discharge Clinical Impression: Choreiform movements Patient Disposition: Admitted As Inpatient Interventions: Admission Worksheet (ED) Last Done: 09/01/25 08:10 Discharge Date/Time: 09/01/25 09:12
[2025-08-31 15:37] LABS: MANUAL DIFF FLAG NO
[2025-08-31 15:39] LABS: VBG HCO3 23 mmol/L (22-26); VBG O2 % Saturation 100.0 %
[2025-08-31 15:39] LABS: Venous Blood Gas Refer to POC result
[2025-08-31 15:41] LABS: Hematocrit 39.0 % (37.0-47.0); Hemoglobin 13.3 g/dl (12.0-16.0); Imm Gran Abs Auto 0.02 X10*3/uL (0.00-0.03); Imm Gran Pct Auto 0.2 % (0.0-0.4); Lymphocytes Absolute Auto 2.3 X10*3/uL (1.2-4.9); Mean Corpuscular HGB Conc 34.1 g/dl (31.0-35.0); Mean Corpuscular Hemoglobin 30.4 pg (27.0-33.0); Mean Corpuscular Volume 89.0 fL (80.0-98.0); NRBC Abs Auto 0.000 X10*3/uL (0.0-0.012); NRBC Pct Auto 0.0 /100WBC (0.0-0.2); Platelet Count 416 X10*3/uL (160-400); Red Blood Count 4.38 X10*6/uL (4.20-5.50); White Blood Count 9.6 X10*3/uL (4.8-10.8)
[2025-08-31 15:57] LABS: Ammonia 34 umol/L (13-55)
[2025-08-31 16:12] LABS: Alanine Aminotransferase 16 U/L (0-31); Albumin Level 4.0 g/dL (3.5-5.0); Alkaline Phosphatase 56 U/L (39-117); Anion Gap 12 (12-20); Aspartate Amino Transferase 21 U/L (5-31); Blood Urea Nitrogen 24 mg/dL (9-16); Calcium 9.2 mg/dL (8.4-10.2); Carbon Dioxide 24 mmol/L (22-29); Chloride 108 mmol/L (96-108); Creatinine Clr Calc Pharmacy 38.2; Estimated Glomerular Filt Rate > 60; Magnesium 2.2 mg/dL (1.6-2.6); Potassium 4.0 mmol/L (3.3-5.1); Sodium 140 mmol/L (135-145); Total Protein 6.3 g/dL (6.5-8.0)
[2025-08-31] MEDS: levETIRAcetam in NaCl (iso-os) 500 MG/100 ML PIGGYBACK 400 MG IV (16:55)
[2025-08-31] MEDS: OLANZapine 10 MG VIAL 5 MG IM (18:41)
--- NOTE | 2025-08-31 19:40 | PC.NURSE ---
assumed care of pt at 1915, approx 1930 pt noted to be lying with feet almost thru the stretcher side rail. pt repositioned. all extra bed linen removed from under her, changed into hospital gown, soiled diaper removed. placed on cardiac monitoring, BP and rectal temp obtained, PA aware. pt is still not lying still, likely won't tolerate CT scan. awaiting further orders at this time.
[2025-08-31] MEDS: Ketamine HCl/NS 50 MG/5 ML SYRINGE 25 MG IVPUSH (20:06)
--- OUTSIDE RECORDS SUMMARY | 2025-08-31 20:14 | XMS_ITS | Encounter Summary ---
Author Organization [facility] Address [address] [place] [address] Care Team Providers Care Movie Critic Name Role Phone Mike Mensah MD Primary Care Provider [phone] Encounter Details Date Type Department Care Team (Late st Contact Info) Description 11/01/2024 Lab Requisition [facility] - Main Lab [address] [place] [address] Candace Gaona MD [address] [place], [place] [id number] Alzheimer's disease, unspecified (CODE) (CMS/HCC V24, CMS/HCC V28) Social History Tobacco Use Types Packs/Day Years Used Date Smoking Tobacco: Never Assessed Comments Unknown Sex and Gender Information Value Date Recorded Sex Assigned at Not on file Legal Sex Female 9:56 AM EST Gender Identity Not on file Sexual Orientation Not on file documented as of this encounter Plan of Treatment Not on file documented as of this encounter Procedures Procedure Name Priority Date/Time Associated Diagnosis Comments BASIC METABOLIC PANEL Routine 11/01/2024 6:12 AM EST Alzheimer's disease, unspecified (CODE) (CMS/[facility]) documented in this encounter Results * (ABNORMAL) Basic metabolic panel (11/01/2024 6:12 AM EST) Sodium 156(H) 133 - 145 mmol/L LAB CHEMISTRY METHOD 11/01/2024 11:42 AM EST [facility] Potassium 4.0 3.5 - 5.5 mmol/L LAB CHEMISTRY METHOD 11/01/2024 11:42 AM EST [facility] Chloride 121(H) 96 - 110 mmol/L LAB CHEMISTRY METHOD 11/01/2024 11:[address] [facility] CO2 25 21 - 32 mmol/L LAB CHEMISTRY METHOD 11/01/2024 11:[address] [facility] Anion Gap 10 3 - 11 LAB CHEMISTRY METHOD 11/01/2024 11:[address] [facility] Glucose 84 70 - 100 mg/dL LAB CHEMISTRY METHOD 11/01/2024 11:[address] [facility] BUN 28(H) 5 - 25 mg/dL LAB CHEMISTRY METHOD 11/01/2024 11:[address] [facility] Creatinine 1.23(H) 0.50 - 1.10 mg/dL LAB CHEMISTRY METHOD 11/01/2024 11:[address] [facility] eGFR 45(L) >=60 mL/min/1. 73m2 LAB CHEMISTRY METHOD 11/01/2024 11:[address] [facility] Comment:Calculation based on the Chronic Kidney Disease Epidemiology Collaboration (CKD-EPI) equation refit without adjustment for race. BUN/Creatinine Ratio 22.8 LAB CHEMISTRY METHOD 11/01/2024 11:[address] [facility] Calcium 9.1 8.5 - 10.5 mg/dL LAB CHEMISTRY METHOD 11/01/2024 11:[address] [facility] Blood Venous blood specimen / Unknown Venipuncture / Unknown 11/01/2024 6:12 AM EST 11/01/2024 10:18 AM EST us Candace Gaona MD LAB BLOOD ORDERABLES Final Resul t [facility] [address] [place] [address], [place] [phone] documented in this encounter Visit Diagnoses Diagnosis Alzheimer's disease, unspecified (CODE) (CMS/[facility] V24, CMS/[facility] V28) documented in this encounter Care Teams Movie Critic Relationship Specialty Start Date End Date Mike Mesnah MD [address] [place] [id number] PCP - General Internal Medicine 08/04/24 documented as of this encounter
--- NOTE | 2025-08-31 20:15 | PC.NURSE ---
pt was medicated per nov and taken to CT scan on cardiac monitoring. pt is CT right now with Alee BRITO. Ken DAY aware.
--- OUTSIDE RECORDS SUMMARY | 2025-08-31 20:15 | XMS_ITS | Encounter Summary ---
Author Organization [facility] Address [address] [place] [address] Care Team Providers Care Sleeve Setter Name Role Phone Mike Mensah MD Primary Care Provider [phone] Encounter Details Date Type Department Care Team (Late st Contact Info) Description 11/15/2024 Lab Requisition [facility] - Main Lab [address] [facility] [place] [address] Candace Gaona MD [address] [place] [address] Chronic kidney disease, unspecified Social History Tobacco Use Types Packs/Day Years [...] Associated Diagnosis Comments BASIC METABOLIC PANEL Routine 11/15/2024 7:41 AM EST Chronic kidney disease, unspecified documented in this encounter Results * (ABNORMAL) Basic metabolic panel (11/15/2024 7:41 AM EST) Sodium 140 133 - 145 mmol/L LAB CHEMISTRY METHOD 11/15/2024 1:06 PM EST [facility] Potassium 4.2 3.5 - 5.5 mmol/L LAB CHEMISTRY METHOD 11/15/2024 1:06 PM EST [facility] Chloride 108 96 - 110 mmol/L LAB CHEMISTRY METHOD 11/15/2024 1:06 PM EST [facility] CO2 22 21 - 32 mmol/L LAB CHEMISTRY METHOD 11/15/2024 1:06 PM [facility] Anion Gap 10 3 - 11 LAB CHEMISTRY METHOD 11/15/2024 1:06 PM [facility] Glucose 61(L) 70 - 100 mg/dL LAB CHEMISTRY METHOD 11/15/2024 1:06 PM [facility] BUN 11 5 - 25 mg/dL LAB CHEMISTRY METHOD 11/15/2024 1:06 PM [facility] Creatinine 0.80 0.50 - 1.10 mg/dL LAB CHEMISTRY METHOD 11/15/2024 1:06 PM [facility] eGFR 75 >=60 mL/min/1. 73m2 LAB CHEMISTRY METHOD 11/15/2024 1:06 PM [facility] Comment:Calculation based on the Chronic Kidney Disease Epidemiology Collaboration (CKD-EPI) equation refit without adjustment for race. BUN/Creatinine Ratio 13.8 LAB CHEMISTRY METHOD 11/15/2024 1:06 PM [facility] Calcium 9.4 8.5 - 10.5 mg/dL LAB CHEMISTRY METHOD 11/15/2024 1:06 PM [facility] Blood Venous blood specimen / Unknown Venipuncture / Unknown 11/15/2024 7:41 AM EST 11/15/2024 11:46 AM EST us Candace Gaona MD LAB BLOOD ORDERABLES Final Resul t [facility] [address] [place] [address], documented in this encounter Visit Diagnoses Diagnosis Chronic kidney disease, unspecified documented in this encounter Care Teams Sleeve Setter Relationship Specialty Start Date End Date Mike Mensah MD [address] [place] [id number] PCP - General Internal Medicine 08/04/24 documented as of this encounter
--- OUTSIDE RECORDS SUMMARY | 2025-08-31 20:15 | XMS_ITS | Encounter Summary ---
Author Organization [facility] Address [address] [place] [address] Care Team Providers Care Photoresist Printer Name Role Phone Mike Mensah MD Primary Care Provider [phone] Encounter Details Date Type Department Care Team (Late st Contact Info) Description 11/04/2024 Lab Requisition [facility] - Main Lab [address] [facility] [place] [address] Candace Gaona MD [address] [place] [address] Chronic kidney disease, stage 3a (CMS/HCC V24, CMS/HCC V28) Social History Tobacco [...] on file documented as of this encounter Visit Diagnoses Diagnosis Chronic kidney disease, stage 3a (CMS/HCC V24, CMS/HCC V28) documented in this encounter Care Teams Photoresist Printer Relationship Specialty Start Date End Date Mike Mensah MD [address] [place] [id number] PCP - General Internal Medicine 08/04/24 documented as of this encounter
--- OUTSIDE RECORDS SUMMARY | 2025-08-31 20:15 | XMS_ITS | Encounter Summary ---
Author Organization [facility] Address [address] [place] [address] Care Team Providers Care Media Relations Coordinator Name Role Phone Mike Mensah MD Primary Care Provider [phone] Encounter Details Date Type Department Care Team (Late st Contact Info) Description 08/04/2024 Lab Requisition [facility] - Main Lab 299 [facility] [place] [address] Mike Mensah MD [address] [place] [id number] Urinary tract infection, site not specified Social History Tobacco Use Types Packs/Day Years [...] Procedure Name Priority Date/Time Associated Diagnosis Comments URINALYSIS WITH REFLEX MICROSCOPIC Routine 08/04/2024 12:00 AM EST Urinary tract infection, site not specified URINALYSIS WITH REFLEX MICROSCOPIC Routine 08/04/2024 12:00 AM EST Urinary tract infection, site not specified CULTURE URINE Routine 08/04/2024 12:00 AM EST Urinary tract infection, site not specified documented in this encounter Results * (ABNORMAL) Urinalysis with reflex microscopic (08/04/2024 12:00 AM EST) Specific [place] Urine 1.016 1.003 - 1.030 LAB URINALYSIS - AUTOMATED METHOD 08/04/2024 11:34 AM [facility] pH, Urine 7.5 5.0 - 8.0 pH LAB URINALYSIS - AUTOMATED METHOD 08/04/2024 11:34 AM [facility] Leukocytes, Urine Large(A) Negative LAB URINALYSIS - AUTOMATED METHOD 08/04/2024 11:34 AM [facility] Nitrite, Urine Negative Negative LAB URINALYSIS - AUTOMATED METHOD 08/04/2024 11:34 AM [facility] Protein, Urine 100(A) <=Trace mg/dL LAB URINALYSIS - AUTOMATED METHOD 08/04/2024 11:34 AM [facility] Glucose, Urine Negative Negative mg/dL LAB URINALYSIS - AUTOMATED METHOD 08/04/2024 11:34 AM [facility] Ketones, Urine Negative Negative mg/dL LAB URINALYSIS - AUTOMATED METHOD 08/04/2024 11:34 AM [facility] Urobilinogen , Urine 0.2 0.2 - 1.0 mg/dL LAB URINALYSIS - AUTOMATED METHOD 08/04/2024 11:34 AM [facility] Bilirubin, Urine Negative Negative LAB URINALYSIS - AUTOMATED METHOD 08/04/2024 11:34 AM [facility] Blood, Urine Moderate(A) Negative LAB URINALYSIS - AUTOMATED METHOD 08/04/2024 11:34 AM [facility] RBC, Urine 22.8(H) 0 - 4 /HPF LAB URINALYSIS - AUTOMATED METHOD 08/04/2024 11:34 AM [facility] WBC, Urine 419.6(H) 0 - 4 /HPF LAB URINALYSIS - AUTOMATED METHOD 08/04/2024 11:34 AM [facility] Squamous Epithelial, Urine 3 0 - 60 /LPF LAB URINALYSIS - AUTOMATED METHOD 08/04/2024 11:34 AM [facility] Bacteria, Urine Moderate(A) Negative /HPF LAB URINALYSIS - AUTOMATED METHOD 08/04/2024 11:34 AM EST [facility] Hyaline Casts, Urine 1.6 0 - 3 /LPF LAB URINALYSIS - AUTOMATED METHOD 08/04/2024 11:34 AM EST [facility] Urine Urine specimen obtained by clean catch procedure / Unknown Non-blood Collection / Unknown 08/04/2024 08/04/2024 10:58 AM EST us Mike Mensah MD LAB URINE ORDERABLES Final Res ult [facility] [address] [place] [address], * (ABNORMAL) Culture urine (08/04/2024 12:00 AM EST) Culture, Urine >100,000 CFU/mL Proteus mirabilis(A ) SWATHI 08/06/2024 10:36 AM EST [facility] Comment: Edited result: Previously reported as Proteus species on 08/05/2024 at 0807 EST. Urine Urine specimen obtained by clean catch procedure / Unknown Non-blood Collection / Unknown 08/04/2024 08/04/2024 10:58 AM EST Narrative Organism Antibiotic Method Susceptibility Proteus mirabilis Amoxicillin/Clavulanate SWATHI 4 ug/ml: Susceptible Proteus mirabilis Ampicillin/Sulbactam SWATHI <=2 ug/ml: Susceptible Proteus mirabilis Piperacillin/Tazobactam SWATHI <=4 ug/ml: Susceptible Proteus mirabilis Cefazolin (Urine) SWATHI 4 ug/ml: Susceptible Proteus mirabilis Cefoxitin SWATHI 8 ug/ml: Susceptible Proteus mirabilis Ceftazidime SWATHI <=0.5 ug/ml: Susceptible Proteus mirabilis Ceftriaxone SWATHI <=0.25 ug/ml: Susceptible Proteus mirabilis Cefepime SWATHI <=0.12 ug/ml: Susceptible Proteus mirabilis Meropenem SWATHI 1 ug/ml: Susceptible Proteus mirabilis Amikacin SWATHI 4 ug/ml: Susceptible Proteus mirabilis Gentamicin SWATHI <=1 ug/ml: Susceptible Proteus mirabilis Ciprofloxacin SWATHI <=0.06 ug/ml: Susceptible Proteus mirabilis Levofloxacin SWATHI <=0.12 ug/ml: Susceptible Proteus mirabilis Nitrofurantoin SWATHI 128 ug/ml: Resistant Proteus mirabilis Trimethoprim/Sulfamethoxazole SWATHI <=20 ug/ml: Susceptible us Mike Mensah MD LAB MICROBIOLOGY - GENERAL ORD ERABLES Final Result [facility] [address] [place] [address], documented in this encounter Visit Diagnoses Diagnosis Urinary tract infection, site not specified documented in this encounter Care Teams Media Relations Coordinator Relationship Specialty Start Date End Date Mike eMnsah MD [address] [place] [phone] PCP - General Internal Medicine 08/04/24 documented as of this encounter
--- OUTSIDE RECORDS SUMMARY | 2025-08-31 20:15 | XMS_ITS | Encounter Summary ---
Author Organization [facility] Address [address] [place] [address] Care Team Providers Care Auto Damage Insurance Appraiser Name Role Phone Mike Mensah MD Primary Care Provider [phone] Encounter Details Date Type Department Care Team (Late st Contact Info) Description 10/25/2024 Lab Requisition [facility] - Main Lab 299 [facility] [place] [address] Candace Gaona MD [address] [place] [address] Fever, unspecified Social History Tobacco Use Types Packs/Day [...] Procedure Name Priority Date/Time Associated Diagnosis Comments [id number], RSV, FLU A AND B QUALITATIVE RT-PCR, LOCAL REFERENCE LAB Routine 10/25/2024 4:50 PM EST Fever, unspecified documented in this encounter Results * [id number], RSV, Influenza A and B qualitative RT-PCR (10/25/2024 4:50 PM EST) SARS COV-2 Not Detected Not Detected LAB MOLECULAR DIAGNOSTICS METHOD 10/26/2024 6:03 PM EST [facility] Comment: Disclaimer: The manner in which this information is used to guide patient care is the responsibility of the healthcare provider. Testing was performed using the [employer] m SARS-CoV-2 test. This test has been authorized by FDA under an Emergency Use Authorization (EUA). This test is only authorized for the duration of time the declaration that circumstances exist justifying the authorization of the emergency use of in vitro diagnostic tests for detection of SARS-CoV-2 virus and/or diagnosis of COVID-19 infection under section 564(b)(1) of the Act, 21 U.S.C. 360bbb- 3(b)(1), unless the authorization is terminated or revoked sooner. Fact sheet for Healthcare Providers can be found at: https://www.fda.gov/media/703392/download Fact sheet for Patients can be found at: https://www.fda.gov/media/829711/download Influenza A PCR Not Detected Not Detected LAB MOLECULAR DIAGNOSTICS METHOD 10/26/2024 6:03 PM [facility] Influenza B PCR Not Detected Not Detected LAB MOLECULAR DIAGNOSTICS METHOD 10/26/2024 6:03 PM [facility] RSV PCR Not Detected Not Detected LAB MOLECULAR DIAGNOSTICS METHOD 10/26/2024 6:03 PM [facility] Swab Nasopharyngeal structure / Unknown 10/25/2024 4:50 PM EST 10/25/2024 5:36 PM EST us Candace Gaona MD LAB MICROBIOLOGY - GENERAL ORDER ADDI Final Result [facility] [address] [place] [address], documented in this encounter Visit Diagnoses Diagnosis Fever, unspecified documented in this encounter Care Teams Auto Damage Insurance Appraiser Relationship Specialty Start Date End Date Mike Mensah MD [address] [place] [phone] PCP - General Internal Medicine 08/04/24 documented as of this encounter
--- OUTSIDE RECORDS SUMMARY | 2025-08-31 20:15 | XMS_ITS | Encounter Summary ---
Author Organization [facility] Address [address] [place] [address] Care Team Providers Care System Support Technician Name Role Phone Mike Mensah MD Primary Care Provider [phone] Encounter Details Date Type Department Care Team (Late st Contact Info) Description 11/05/2024 Lab Requisition [facility] - Main Lab 299 [facility] [place] [address] Candace Gaona MD [address] [place] [address] Essential (primary) hypertension Social History Tobacco Use Types Packs/Day Years [...] Associated Diagnosis Comments BASIC METABOLIC PANEL Routine 11/06/2024 5:56 AM EST Essential (primary) hypertension documented in this encounter Results * (ABNORMAL) Basic metabolic panel (11/06/2024 5:56 AM EST) Sodium 146(H) 133 - 145 mmol/L LAB CHEMISTRY METHOD 11/06/2024 10:26 AM EST [facility] Potassium 4.0 3.5 - 5.5 mmol/L LAB CHEMISTRY METHOD 11/06/2024 10:26 AM EST [facility] Chloride 113(H) 96 - 110 mmol/L LAB CHEMISTRY METHOD 11/06/2024 10:26 AM [facility] CO2 24 21 - 32 mmol/L LAB CHEMISTRY METHOD 11/06/2024 10:26 AM [facility] Anion Gap 9 3 - 11 LAB CHEMISTRY METHOD 11/06/2024 10:26 AM [facility] Glucose 92 70 - 100 mg/dL LAB CHEMISTRY METHOD 11/06/2024 10:26 AM [facility] BUN 16 5 - 25 mg/dL LAB CHEMISTRY METHOD 11/06/2024 10:26 AM [facility] Creatinine 0.82 0.50 - 1.10 mg/dL LAB CHEMISTRY METHOD 11/06/2024 10:26 AM [facility] eGFR 72 >=60 mL/min/1. 73m2 LAB CHEMISTRY METHOD 11/06/2024 10:26 AM [facility] Comment:Calculation based on the Chronic Kidney Disease Epidemiology Collaboration (CKD-EPI) equation refit without adjustment for race. BUN/Creatinine Ratio 19.5 LAB CHEMISTRY METHOD 11/06/2024 10:26 AM [facility] Calcium 9.0 8.5 - 10.5 mg/dL LAB CHEMISTRY METHOD 11/06/2024 10:26 AM [facility] Blood Venous blood specimen / Unknown Venipuncture / Unknown 11/06/2024 5:56 AM EST 11/06/2024 10:05 AM EST us Candace Gaona MD LAB BLOOD ORDERABLES Final Resul t [facility] [address] [place] [address], documented in this encounter Visit Diagnoses Diagnosis Essential (primary) hypertension Unspecified essential hypertension documented in this encounter Care Teams System Support Technician Relationship Specialty Start Date End Date Mike Mensah MD [address] [place] [phone] PCP - General Internal Medicine 08/04/24 documented as of this encounter
--- OUTSIDE RECORDS SUMMARY | 2025-08-31 20:15 | XMS_ITS | Encounter Summary ---
Author Organization [facility] Address [address] [place] [address] Care Team Providers Care Auto Electrical Technician Name Role Phone Mike Mensah MD Primary Care Provider [phone] Encounter Details Date Type Department Care Team (Late st Contact Info) Description 10/25/2024 Lab Requisition [facility] - Main Lab [address] [place] [address] Candace Gaona MD [address] [place], [place] [id number] Alzheimer's disease, unspecified (CODE) (CMS/HCC V24, CMS/HCC V28); Chronic kidney disease, stage 3a (CMS/HCC V24, [...] Date/Time Associated Diagnosis Comments BASIC METABOLIC PANEL STAT 10/25/2024 4:57 PM EST Alzheimer's disease, unspecified (CODE) (CMS/HCC) Chronic kidney disease, stage 3a (CMS/HCC) documented in this encounter Results * (ABNORMAL) Basic metabolic panel (10/25/2024 4:57 PM EST) Sodium 156(H) 133 - 145 mmol/L LAB CHEMISTRY METHOD 10/25/2024 6:06 PM EST [facility] Potassium 4.3 3.5 - 5.5 mmol/L LAB CHEMISTRY METHOD 10/25/2024 6:06 PM [facility] Chloride 122(H) 96 - 110 mmol/L LAB CHEMISTRY METHOD 10/25/2024 6:06 PM [facility] CO2 27 21 - 32 mmol/L LAB CHEMISTRY METHOD 10/25/2024 6:06 PM [facility] Anion Gap 7 3 - 11 LAB CHEMISTRY METHOD 10/25/2024 6:06 PM [facility] Glucose 96 70 - 100 mg/dL LAB CHEMISTRY METHOD 10/25/2024 6:06 PM [facility] BUN 37(H) 5 - 25 mg/dL LAB CHEMISTRY METHOD 10/25/2024 6:06 PM [facility] Creatinine 1.41(H) 0.50 - 1.10 mg/dL LAB CHEMISTRY METHOD 10/25/2024 6:06 PM [facility] eGFR 38(L) >=60 mL/min/1. 73m2 LAB CHEMISTRY METHOD 10/25/2024 6:06 PM [facility] Comment:Calculation based on the Chronic Kidney Disease Epidemiology Collaboration (CKD-EPI) equation refit without adjustment for race. BUN/Creatinine Ratio 26.2 LAB CHEMISTRY METHOD 10/25/2024 6:06 PM [facility] Calcium 10.1 8.5 - 10.5 mg/dL LAB CHEMISTRY METHOD 10/25/2024 6:06 PM [facility] Blood Venous blood specimen / Unknown Venipuncture / Unknown 10/25/2024 4:57 PM EST 10/25/2024 5:39 PM EST us Candace Gaona MD LAB BLOOD ORDERABLES Final Resul t [facility] [address] [place] [address], documented in this encounter Visit Diagnoses Diagnosis Alzheimer's disease, unspecified (CODE) ([facility] V24, [facility] V28) Chronic kidney disease, stage 3a ([facility] V24, [facility] V28) documented in this encounter Care Teams Auto Electrical Technician Relationship Specialty Start Date End Date Mike Mensah MD [address] [place] [phone] PCP - General Internal Medicine 08/04/24 documented as of this encounter
--- OUTSIDE RECORDS SUMMARY | 2025-08-31 20:15 | XMS_ITS | Encounter Summary ---
Author Organization [facility] Address [address] [place] [address] Care Team Providers Care Marine Architect Name Role Phone Mike Mensah MD Primary Care Provider [phone] Encounter Details Date Type Department Care Team (Late st Contact Info) Description 08/09/2024 Lab Requisition [facility] - Main Lab [address] [place] [id number] Mike Mensah MD [address] [place] [phone] Essential (primary) hypertension; Altered mental status, unspecified Social History Tobacco Use Types Packs/Day [...] Procedure Name Priority Date/Time Associated Diagnosis Comments COMPLETE BLOOD COUNT Routine 08/10/2024 7:34 AM EST Essential (primary) hypertension Altered mental status, unspecified AMMONIA Routine 08/10/2024 7:34 AM EST Essential (primary) hypertension Altered mental status, unspecified BASIC METABOLIC PANEL Routine 08/10/2024 7:34 AM EST Essential (primary) hypertension Altered mental status, unspecified documented in this encounter Results * Ammonia (08/10/2024 7:34 AM EST) Ammonia 30 11 - 35 mcmol/L LAB CHEMISTRY METHOD 08/10/2024 8:[address] [facility] Blood Venous blood specimen / Unknown Venipuncture / Unknown 08/10/2024 7:34 AM EST 08/10/2024 8:11 AM EST us Mike Mensah MD LAB BLOOD ORDERABLES Final Res ult [facility] [address] [place] [address], * (ABNORMAL) Basic metabolic panel (08/10/2024 7:34 AM EST) Sodium 143 133 - 145 mmol/L LAB CHEMISTRY METHOD 08/10/2024 9:[address] [facility] Potassium 4.0 3.5 - 5.5 mmol/L LAB CHEMISTRY METHOD 08/10/2024 9:[address] [facility] Chloride 112(H) 96 - 110 mmol/L LAB CHEMISTRY METHOD 08/10/2024 9:[address] [facility] CO2 25 21 - 32 mmol/L LAB CHEMISTRY METHOD 08/10/2024 9:[address] [facility] Anion Gap 6 3 - 11 LAB CHEMISTRY METHOD 08/10/2024 9:[address] [facility] Glucose 86 70 - 100 mg/dL LAB CHEMISTRY METHOD 08/10/2024 9:[address] [facility] BUN 14 5 - 25 mg/dL LAB CHEMISTRY METHOD 08/10/2024 9:[address] [facility] Creatinine 0.75 0.50 - 1.10 mg/dL LAB CHEMISTRY METHOD 08/10/2024 9:[address] [facility] eGFR 81 >=60 mL/min/1. 73m2 LAB CHEMISTRY METHOD 08/10/2024 9:[address] [facility] Comment:Calculation based on the Chronic Kidney Disease Epidemiology Collaboration (CKD-EPI) equation refit without adjustment for race. BUN/Creatinine Ratio 18.7 LAB CHEMISTRY METHOD 08/10/2024 9:[address] [facility] Calcium 9.5 8.5 - 10.5 mg/dL LAB CHEMISTRY METHOD 08/10/2024 9:[address] [facility] Blood Venous blood specimen / Unknown Venipuncture / Unknown 08/10/2024 7:34 AM EST 08/10/2024 8:11 AM EST us Mike Mensah MD LAB BLOOD ORDERABLES Final Res ult [facility] [address] [place] [address], * (ABNORMAL) Complete blood count (08/10/2024 7:34 AM EST) WBC 9.8 4.8 - 10.8 K/mcL LAB HEMETOLOGY METHOD 08/10/2024 9:[address] [facility] RBC 4.40 3.80 - 4.80 M/mcL LAB HEMETOLOGY METHOD 08/10/2024 9:[address] [facility] Hemoglobin 12.8 11.5 - 16.0 g/dL LAB HEMETOLOGY METHOD 08/10/2024 9:[address] [facility] Hematocrit 38.1 35.0 - 47.0 % LAB HEMETOLOGY METHOD 08/10/2024 9:[address] [facility] MCV 85.8 79.0 - 98.0 FL LAB HEMETOLOGY METHOD 08/10/2024 9:[address] [facility] MCH 28.8 27.0 - 32.0 pcg LAB HEMETOLOGY METHOD 08/10/2024 9:[address] [facility] MCHC 33.6 32.0 - 37.0 g/dL LAB HEMETOLOGY METHOD 08/10/2024 9:[address] [facility] RDW 12.5 11.0 - 15.0 % LAB HEMETOLOGY METHOD 08/10/2024 9:13 AM EST [facility] Platelets 532(H) 130 - 400 K/mcL LAB HEMETOLOGY METHOD 08/10/2024 9:13 AM EST [facility] MPV 9.7 7.0 - 11.0 FL LAB HEMETOLOGY METHOD 08/10/2024 9:13 AM EST [facility] NRBC 0.0 <1.0 % LAB HEMETOLOGY METHOD 08/10/2024 9:13 AM EST [facility] NRBC Absolute 0.00 <0.10 K/mcL LAB HEMETOLOGY METHOD 08/10/2024 9:[address] [facility] Blood Venous blood specimen / Unknown Venipuncture / Unknown 08/10/2024 7:34 AM EST 08/10/2024 8:11 AM EST us Mike Mensah MD LAB BLOOD ORDERABLES Final Res ult [facility] [address] [place] [address], documented in this encounter Visit Diagnoses Diagnosis Essential (primary) hypertension Unspecified essential hypertension Altered mental status, unspecified documented in this encounter Care Teams Marine Architect Relationship Specialty Start Date End Date Mike Mensah MD [address] [place] [phone] PCP - General Internal Medicine 08/04/24 documented as of this encounter
--- OUTSIDE RECORDS SUMMARY | 2025-08-31 20:15 | XMS_ITS | Encounter Summary ---
Author Organization [facility] Address [address] [place] [address] Care Team Providers Care Oil Field Tester Name Role Phone Mike Mensah MD Primary Care Provider [phone] Encounter Details Date Type Department Care Team (Late st Contact Info) Description 12/02/[address] [facility] - Main Lab 299 [facility] [place] [address] Candace Gaona MD [address] [place] [address] Other hyperlipidemia Social History Tobacco Use Types Packs/Day Years [...] Associated Diagnosis Comments BASIC METABOLIC PANEL Routine 12/02/2024 4:59 AM EDT Other hyperlipidemia documented in this encounter Results * (ABNORMAL) Basic metabolic panel (12/02/2024 4:59 AM EDT) Sodium 142 133 - 145 mmol/L LAB CHEMISTRY METHOD 12/02/2024 10:58 AM EDT [facility] Potassium 3.4(L) 3.5 - 5.5 mmol/L LAB CHEMISTRY METHOD 12/02/2024 10:58 AM EDT [facility] Chloride 108 96 - 110 mmol/L LAB CHEMISTRY METHOD 12/02/2024 10:58 AM EDT [facility] CO2 26 21 - 32 mmol/L LAB CHEMISTRY METHOD 12/02/2024 10:58 AM T [facility] Anion Gap 8 3 - 11 LAB CHEMISTRY METHOD 12/02/2024 10:58 AM [facility] Glucose 72 70 - 100 mg/dL LAB CHEMISTRY METHOD 12/02/2024 10:58 AM [facility] BUN 20 5 - 25 mg/dL LAB CHEMISTRY METHOD 12/02/2024 10:58 AM T [facility] Creatinine 0.70 0.50 - 1.10 mg/dL LAB CHEMISTRY METHOD 12/02/2024 10:58 AM [facility] eGFR 88 >=60 mL/min/1. 73m2 LAB CHEMISTRY METHOD 12/02/2024 10:58 AM [facility] Comment:Calculation based on the Chronic Kidney Disease Epidemiology Collaboration (CKD-EPI) equation refit without adjustment for race. BUN/Creatinine Ratio 28.6 LAB CHEMISTRY METHOD 12/02/2024 10:58 AM [facility] Calcium 8.8 8.5 - 10.5 mg/dL LAB CHEMISTRY METHOD 12/02/2024 10:58 AM [facility] Blood Venous blood specimen / Unknown Venipuncture / Unknown 12/02/2024 4:59 AM EDT 12/02/2024 9:48 AM EDT us Candace Gaona MD LAB BLOOD ORDERABLES Final Resul t [facility] [address] [place] [address], documented in this encounter Visit Diagnoses Diagnosis Other hyperlipidemia documented in this encounter Care Teams Oil Field Tester Relationship Specialty Start Date End Date Mike Mensah MD [address] [place] [phone] PCP - General Internal Medicine 08/04/24 documented as of this encounter
--- OUTSIDE RECORDS SUMMARY | 2025-08-31 20:15 | XMS_ITS | Encounter Summary ---
Author Organization [facility] Address [address] [place] [address] Care Team Providers Care Heliotherapist Name Role Phone Mike Mensah MD Primary Care Provider [phone] Encounter Details Date Type Department Care Team (Late st Contact Info) Description 10/29/[address] [facility] - Main Lab [address] [facility] [place] [address] Candace Gaona MD [address] [place] [address] Hypo-osmolality and hyponatremia Social History Tobacco Use Types Packs/Day Years [...] Associated Diagnosis Comments COMPLETE BLOOD COUNT Routine 10/29/2024 4:59 AM EST Hypo-osmolality and hyponatremia BASIC METABOLIC PANEL Routine 10/29/2024 4:59 AM EST Hypo-osmolality and hyponatremia documented in this encounter Results * (ABNORMAL) Basic metabolic panel (10/29/2024 4:59 AM EST) Sodium 149(H) 133 - 145 mmol/L LAB CHEMISTRY METHOD 10/29/2024 11:40 AM EST [facility] Potassium 4.2 3.5 - 5.5 mmol/L LAB CHEMISTRY METHOD 10/29/2024 11:40 AM [facility] Chloride 115(H) 96 - 110 mmol/L LAB CHEMISTRY METHOD 10/29/2024 11:40 AM [facility] CO2 27 21 - 32 mmol/L LAB CHEMISTRY METHOD 10/29/2024 11:40 AM [facility] Anion Gap 7 3 - 11 LAB CHEMISTRY METHOD 10/29/2024 11:40 AM [facility] Glucose 88 70 - 100 mg/dL LAB CHEMISTRY METHOD 10/29/2024 11:40 AM [facility] BUN 32(H) 5 - 25 mg/dL LAB CHEMISTRY METHOD 10/29/2024 11:40 AM [facility] Creatinine 1.34(H) 0.50 - 1.10 mg/dL LAB CHEMISTRY METHOD 10/29/2024 11:40 AM [facility] eGFR 40(L) >=60 mL/min/1. 73m2 LAB CHEMISTRY METHOD 10/29/2024 11:40 AM [facility] Comment:Calculation based on the Chronic Kidney Disease Epidemiology Collaboration (CKD-EPI) equation refit without adjustment for race. BUN/Creatinine Ratio 23.9 LAB CHEMISTRY METHOD 10/29/2024 11:40 AM [facility] Calcium 9.0 8.5 - 10.5 mg/dL LAB CHEMISTRY METHOD 10/29/2024 11:40 AM [facility] Blood Venous blood specimen / Unknown Venipuncture / Unknown 10/29/2024 4:59 AM EST 10/29/2024 10:36 AM EST us Candace Gaona MD LAB BLOOD ORDERABLES Final Resul t [facility] [address] [place] [address], * (ABNORMAL) Complete blood count (10/29/2024 4:59 AM EST) WBC 10.9(H) 4.8 - 10.8 K/mcL LAB HEMETOLOGY METHOD 10/29/2024 11:25 AM [facility] RBC 5.40(H) 3.80 - 4.80 M/mcL LAB HEMETOLOGY METHOD 10/29/2024 11:25 AM [facility] Hemoglobin 15.3 11.5 - 16.0 g/dL LAB HEMETOLOGY METHOD 10/29/2024 11:25 AM [facility] Hematocrit 50.3(H) 35.0 - 47.0 % LAB HEMETOLOGY METHOD 10/29/2024 11:25 AM [facility] MCV 92.6 79.0 - 98.0 FL LAB HEMETOLOGY METHOD 10/29/2024 11:25 AM [facility] MCH 28.2 27.0 - 32.0 pcg LAB HEMETOLOGY METHOD 10/29/2024 11:25 AM [facility] MCHC 30.4(L) 32.0 - 37.0 g/dL LAB HEMETOLOGY METHOD 10/29/2024 11:25 AM [facility] RDW 13.0 11.0 - 15.0 % LAB HEMETOLOGY METHOD 10/29/2024 11:25 AM [facility] Platelets 373 130 - 400 K/mcL LAB HEMETOLOGY METHOD 10/29/2024 11:25 AM [facility] MPV 12.0(H) 7.0 - 11.0 FL LAB HEMETOLOGY METHOD 10/29/2024 11:25 AM [facility] NRBC 0.0 <1.0 % LAB HEMETOLOGY METHOD 10/29/2024 11:25 AM [facility] NRBC Absolute 0.00 <0.10 K/mcL LAB HEMETOLOGY METHOD 10/29/2024 11:25 AM [facility] Blood Venous blood specimen / Unknown Venipuncture / Unknown 10/29/2024 4:59 AM EST 10/29/2024 10:36 AM EST us Candace Gaona MD LAB BLOOD ORDERABLES Final Resul t [facility] [address] [place] [address], documented in this encounter Visit Diagnoses Diagnosis Hypo-osmolality and hyponatremia documented in this encounter Care Teams Heliotherapist Relationship Specialty Start Date End Date Mike Mensah MD [address] [place] [id number] PCP - General Internal Medicine 08/04/24 documented as of this encounter
--- OUTSIDE RECORDS SUMMARY | 2025-08-31 20:15 | XMS_ITS | Encounter Summary ---
Author Organization [facility] Address [address] [place] [address] Care Team Providers Care Supervisor Blood Donor Recruiters Name Role Phone Mike Mensah MD Primary Care Provider [phone] Encounter Details Date Type Department Care Team (Late st Contact Info) Description 11/04/2024 Lab Requisition [facility] - Main Lab 299 [facility] [place] [address] Candace Gaona MD [address] [place], [place] [id number] Gastro-esophageal reflux disease without esophagitis Social History Tobacco Use Types Packs/Day Years [...] Associated Diagnosis Comments BASIC METABOLIC PANEL Routine 11/04/2024 8:52 AM EST Gastro-esophageal reflux disease without esophagitis documented in this encounter Results * (ABNORMAL) Basic metabolic panel (11/04/2024 8:52 AM EST) Sodium 149(H) 133 - 145 mmol/L LAB CHEMISTRY METHOD 11/04/2024 11:[address] [facility] Potassium 3.7 3.5 - 5.5 mmol/L LAB CHEMISTRY METHOD 11/04/2024 11:[address] [facility] Chloride 119(H) 96 - 110 mmol/L LAB CHEMISTRY METHOD 11/04/2024 11:32 AM [facility] CO2 22 21 - 32 mmol/L LAB CHEMISTRY METHOD 11/04/2024 11:32 AM [facility] Anion Gap 8 3 - 11 LAB CHEMISTRY METHOD 11/04/2024 11:32 AM [facility] Glucose 75 70 - 100 mg/dL LAB CHEMISTRY METHOD 11/04/2024 11:32 AM [facility] BUN 23 5 - 25 mg/dL LAB CHEMISTRY METHOD 11/04/2024 11:32 AM [facility] Creatinine 0.91 0.50 - 1.10 mg/dL LAB CHEMISTRY METHOD 11/04/2024 11:32 AM [facility] LAB eGFR 64 >=60 mL/min/1. 73m2 LAB CHEMISTRY METHOD 11/04/2024 11:32 AM [facility] Comment:Calculation based on the Chronic Kidney Disease Epidemiology Collaboration (CKD-EPI) equation refit without adjustment for race. BUN/Creatinine Ratio 25.3 LAB CHEMISTRY METHOD 11/04/2024 11:32 AM [facility] Calcium 9.0 8.5 - 10.5 mg/dL LAB CHEMISTRY METHOD 11/04/2024 11:32 AM [facility] Blood Venous blood specimen / Unknown Venipuncture / Unknown 11/04/2024 8:52 AM EST 11/04/2024 10:19 AM EST us Candace Gaona MD LAB BLOOD ORDERABLES Final Resul t [facility] [address] [place] [address], documented in this encounter Visit Diagnoses Diagnosis Gastro-esophageal reflux disease without esophagitis documented in this encounter Care Teams Supervisor Blood Donor Recruiters Relationship Specialty Start Date End Date Mike Mensah MD [address] [place] [address] PCP - General Internal Medicine 08/04/24 documented as of this encounter
--- OUTSIDE RECORDS SUMMARY | 2025-08-31 20:15 | XMS_ITS | Encounter Summary ---
Author Organization [facility] Address [address] [place] [address] Care Team Providers Care Boiler Inspector Name Role Phone Mike Mensah MD Primary Care Provider Encounter Details Date Type Department Care Team (Late st Contact Info) Description 10/27/2024 Lab Requisition [facility] - Main Lab 299 [facility] [place] [address] Candace Gaona MD [address] [place] [address] Hyperkalemia Social History Tobacco Use Types Packs/Day Years [...] Associated Diagnosis Comments BASIC METABOLIC PANEL Routine 10/27/2024 5:46 AM EST Hyperkalemia documented in this encounter Results * (ABNORMAL) Basic metabolic panel (10/27/2024 5:46 AM EST) Sodium 155(H) 133 - 145 mmol/L LAB CHEMISTRY METHOD 10/27/2024 1:[address] [facility] Potassium 5.0 3.5 - 5.5 mmol/L LAB CHEMISTRY METHOD 10/27/2024 1:[address] [facility] Comment:Hemolysis present Chloride 122(H) 96 - 110 mmol/L LAB CHEMISTRY METHOD 10/27/2024 1:[address] [facility] CO2 22 21 - 32 mmol/L LAB CHEMISTRY METHOD 10/27/2024 1:[address] [facility] Anion Gap 11 3 - 11 LAB CHEMISTRY METHOD 10/27/2024 1:[address] [facility] Glucose 87 70 - 100 mg/dL LAB CHEMISTRY METHOD 10/27/2024 1:[address] [facility] BUN 37(H) 5 - 25 mg/dL LAB CHEMISTRY METHOD 10/27/2024 1:[address] [facility] Creatinine 1.51(H) 0.50 - 1.10 mg/dL LAB CHEMISTRY METHOD 10/27/2024 1:[address] [facility] eGFR 35(L) >=60 mL/min/1. 73m2 LAB CHEMISTRY METHOD 10/27/2024 1:[address] [facility] Comment:Calculation based on the Chronic Kidney Disease Epidemiology Collaboration (CKD-EPI) equation refit without adjustment for race. BUN/Creatinine Ratio 24.5 LAB CHEMISTRY METHOD 10/27/2024 1:[address] [facility] Calcium 9.6 8.5 - 10.5 mg/dL LAB CHEMISTRY METHOD 10/27/2024 1:[address] [facility] Blood Venous blood specimen / Unknown Venipuncture / Unknown 10/27/2024 5:46 AM EST 10/27/2024 11:42 AM EST us Candace Gaona MD LAB BLOOD ORDERABLES Final Resul t [facility] [address] [place] [address], documented in this encounter Visit Diagnoses Diagnosis Hyperkalemia Hyperpotassemia documented in this encounter Care Teams Boiler Inspector Relationship Specialty Start Date End Date Mike Mensah MD [address] [place] [id number] PCP - General Internal Medicine 08/04/24 documented as of this encounter
--- OUTSIDE RECORDS SUMMARY | 2025-08-31 20:15 | XMS_ITS | Encounter Summary ---
Author Organization [facility] Address [address] [place] [address] Care Team Providers Care [employer] Supervisor Name Role Phone Mike Mensah MD Primary Care Provider [phone] Encounter Details Date Type Department Care Team (Late st Contact Info) Description 08/04/2024 Lab Requisition [facility] - Main Lab [address] [place] [id number] Mike Mensah MD [address] [place] [address] Muscle weakness (generalized) Social History Tobacco Use Types Packs/Day Years [...] Procedure Name Priority Date/Time Associated Diagnosis Comments CBC WITH AUTO DIFFERENTIAL Routine 08/04/2024 5:30 AM EST Muscle weakness (generalized) CBC AND DIFFERENTIAL Routine 08/04/2024 5:30 AM EST Muscle weakness (generalized) documented in this encounter Results * (ABNORMAL) CBC auto differential (08/04/2024 5:30 AM EST) WBC 10.6 4.8 - 10.8 K/[facility] LAB HEMETOLOGY METHOD 08/04/2024 11:23 AM EST [facility] RBC 4.50 3.80 - 4.80 M/[facility] LAB HEMETOLOGY METHOD 08/04/2024 11:23 AM [facility] Hemoglobin 13.2 11.5 - 16.0 g/dL LAB HEMETOLOGY METHOD 08/04/2024 11:23 AM [facility] LAB Hematocrit 40.3 35.0 - 47.0 % LAB HEMETOLOGY METHOD 08/04/2024 11:23 AM [facility] LAB MCV 89.4 79.0 - 98.0 FL LAB HEMETOLOGY METHOD 08/04/2024 11:23 AM [facility] LAB MCH 29.3 27.0 - 32.0 pcg LAB HEMETOLOGY METHOD 08/04/2024 11:23 AM [facility] LAB MCHC 32.8 32.0 - 37.0 g/dL LAB HEMETOLOGY METHOD 08/04/2024 11:23 AM [facility] LAB RDW 13.1 11.0 - 15.0 % LAB HEMETOLOGY METHOD 08/04/2024 11:23 AM [facility] LAB Platelets 339 130 - 400 K/mcL LAB HEMETOLOGY METHOD 08/04/2024 11:23 AM [facility] LAB MPV 10.2 7.0 - 11.0 FL LAB HEMETOLOGY METHOD 08/04/2024 11:23 AM [facility] LAB NRBC 0.0 <1.0 % LAB HEMETOLOGY METHOD 08/04/2024 11:23 AM [facility] LAB NRBC Absolute 0.00 <0.10 K/mcL LAB HEMETOLOGY METHOD 08/04/2024 11:23 AM [facility] Neutrophils Relative 71.1 % LAB HEMETOLOGY METHOD 08/04/2024 11:23 AM [facility] Lymphocytes Relative 12.9 % LAB HEMETOLOGY METHOD 08/04/2024 11:23 AM [facility] Monocytes Relative 12.3 % LAB HEMETOLOGY METHOD 08/04/2024 11:23 AM [facility] Eosinophils Relative 2.4 % LAB HEMETOLOGY METHOD 08/04/2024 11:23 AM [facility] Basophils Relative 0.8 % LAB HEMETOLOGY METHOD 08/04/2024 11:23 AM [facility] Immature Granulocytes Relative 0.5 % LAB HEMETOLOGY METHOD 08/04/2024 11:23 AM [facility] LAB Neutrophils Absolute 7.56(H) 1.50 - 7.00 K/mcL LAB HEMETOLOGY METHOD 08/04/2024 11:23 AM [facility] Lymphocytes Absolute 1.37 1.00 - 5.00 K/mcL LAB HEMETOLOGY METHOD 08/04/2024 11:23 AM [facility] Monocytes Absolute 1.31(H) 0.20 - 1.00 K/mcL LAB HEMETOLOGY METHOD 08/04/2024 11:23 AM [facility] Eosinophils Absolute 0.26 0.00 - 0.50 K/mcL LAB HEMETOLOGY METHOD 08/04/2024 11:23 AM [facility] Basophils Absolute 0.08 0.00 - 0.20 K/mcL LAB HEMETOLOGY METHOD 08/04/2024 11:23 AM [facility] LAB Immature Granulocytes Absolute 0.05(H) 0.00 - 0.03 K/mcL LAB HEMETOLOGY METHOD 08/04/2024 11:23 AM [facility] Blood Venous blood specimen / Unknown Venipuncture / Unknown 08/04/2024 5:30 AM EST 08/04/2024 9:58 AM EST us Mike Mensah MD LAB BLOOD ORDERABLES Final Res ult [facility] [address] [place] [address], documented in this encounter Visit Diagnoses Diagnosis Muscle weakness (generalized) documented in this encounter Care Teams [employer] Supervisor Relationship Specialty Start Date End Date Mike Mensah MD [address] [place] [address] PCP - General Internal Medicine 08/04/24 documented as of this encounter
--- OUTSIDE RECORDS SUMMARY | 2025-08-31 20:15 | XMS_ITS | Encounter Summary ---
Author Organization [facility] Address [address] [place] [address] Care Team Providers Care Relocation Coordinator Name Role Phone Mike Mensah MD Primary Care Provider [phone] Encounter Details Date Type Department Care Team (Late st Contact Info) Description 11/06/2024 Lab Requisition [facility] - Main Lab 299 [facility] [place] [address] Candace Gaona MD [address] [place] [address] Chronic kidney disease, stage 3a (CMS/HCC V24, [...] Associated Diagnosis Comments BASIC METABOLIC PANEL Routine 11/08/2024 6:20 AM EST Chronic kidney disease, stage 3a (CMS/HCC) documented in this encounter Results * (ABNORMAL) Basic metabolic panel (11/08/2024 6:20 AM EST) Sodium 141 133 - 145 mmol/L LAB CHEMISTRY METHOD 11/08/2024 12:17 PM EST [facility] Potassium 3.4(L) 3.5 - 5.5 mmol/L LAB CHEMISTRY METHOD 11/08/2024 12:17 PM EST [facility] Chloride 109 96 - 110 mmol/L LAB CHEMISTRY METHOD 11/08/2024 12:17 PM [facility] CO2 25 21 - 32 mmol/L LAB CHEMISTRY METHOD 11/08/2024 12:17 PM [facility] Anion Gap 7 3 - 11 LAB CHEMISTRY METHOD 11/08/2024 12:17 PM [facility] Glucose 76 70 - 100 mg/dL LAB CHEMISTRY METHOD 11/08/2024 12:17 PM [facility] BUN 13 5 - 25 mg/dL LAB CHEMISTRY METHOD 11/08/2024 12:17 PM [facility] Creatinine 0.83 0.50 - 1.10 mg/dL LAB CHEMISTRY METHOD 11/08/2024 12:17 PM [facility] LAB eGFR 71 >=60 mL/min/1. 73m2 LAB CHEMISTRY METHOD 11/08/2024 12:17 PM [facility] Comment:Calculation based on the Chronic Kidney Disease Epidemiology Collaboration (CKD-EPI) equation refit without adjustment for race. BUN/Creatinine Ratio 15.7 LAB CHEMISTRY METHOD 11/08/2024 12:17 PM [facility] Calcium 8.6 8.5 - 10.5 mg/dL LAB CHEMISTRY METHOD 11/08/2024 12:17 PM [facility] Blood Venous blood specimen / Unknown Venipuncture / Unknown 11/08/2024 6:20 AM EST 11/08/2024 10:50 AM EST us Candace Gaona MD LAB BLOOD ORDERABLES Final Resul t [facility] [address] [place] [address], [place] [phone] documented in this encounter Visit Diagnoses Diagnosis Chronic kidney disease, stage 3a (CMS/HCC V24, CMS/HCC V28) documented in this encounter Care Teams Relocation Coordinator Relationship Specialty Start Date End Date Mike Mensah MD [address] [place] [address] PCP - General Internal Medicine 08/04/24 documented as of this encounter
--- OUTSIDE RECORDS SUMMARY | 2025-08-31 20:15 | XMS_ITS ---
Author Organization [facility] Care Team Providers Care Road Roller Engineer Name Role Phone Basim Arauz Unavailable Unavailable Mik Agarwal Unavailable Unavailable Serjio Mesa Unavailable Unavailable Allergies and adverse reactions Code CodeSystem Substance Reaction Severity StartDate Concern Status Fish Unknown 01/08/[address] Sulfa Antibiotics Unknown 01/08/2022 active Care Team Name Role Address Phone Organization Dates Basim Arauz PCP [address] [place] [address], [address], [facility] (Office): [phone] (Fax): [phone] [facility] 01/08/2022 - 01/18/2022 Mik Agarwal [address] [place] [address], [address], [facility] (Office): : [facility] 01/08/2022 - 01/18/2022 Serjio Mesa [address] [place] [address], [address], [facility] (Office): [phone] (Fax): [phone] [facility] 01/08/2022 - 01/18/2022 Mental Status Section Date Assessment Total Score Description 01/18/2022 BIMS 00 severe cognitiv e impairment CAM 0 No delirium ind icated PHQ-9 00 01/15/2022 BIMS 00 severe cognitiv e impairment CAM 0 No delirium ind icated PHQ-9 00 Insurance Providers Coverage Status Coverage Type Relationship to Subscriber Member Identifier Subscriber Identifier Group Identifier Payer Identifier and Other information 01/09/2022 Code: 1 Code System OID:[id number] .1.626512.3. 221.5 Code System Name: Source of Payment Typology (PHDSC) Display: Medicare Translation: Code: [place] Code System: OID:2.16.840 .1.607702.6. 255.1336 Code System Name: Insurance Type Code ([id number]) Display Name: Medicare Part A Code: SELF Code System Name: HL7 RoleCode Code System OID:216.840.1 .869896.5.111 Display Name: Self [id number] Root: [id number] Payer Name: Medicare Address: use system default Country: [facility] 01/08/2022 Code: 349 Code System OID:2.16.840 .1.918982.3. 221.5 Code System Name: Source of Payment Typology (PHDSC) Display: Other Translation: Code: C1 Code System: OID:2.16.840 .1.082843.6. 255.1336 Code System Name: Insurance Type Code ([id number]) Display Name: Commercial Insurance Code: SELF Code System Name: HL7 RoleCode Code System OID:216.840.1 .550346.5.111 Display Name: Self [id number] Root: [id number] Payer Name: [employer] Address: [facility] [address] City: [place] State: [place] Country: [facility] Telecom: [phone] Code: 1 Code System OID:2.16.840 .1.878952.3. 221.5 Code System Name: Source of Payment Typology (PHDSC) Display: Medicare Translation: Code: MB Code System: OID:2.16.840 .1.767896.6. 255.1336 Code System Name: Insurance Type Code ([id number]) Display Name: Medicare Part B 01/08/2022 Code: 349 Code System OID:2.16.840 .1.489546.3. 221.5 Code System Name: Source of Payment Typology (PHDSC) Display: Other Translation: Code: C1 Code System: OID:2.16.840 .1.302117.6. 255.1336 Code System Name: Insurance Type Code ([id number]) Display Name: Commercial Insurance Code: SELF Code System Name: HL7 RoleCode Code System OID:2.16.840.1 .883197.5.111 Display Name: Self [id number] Root: [id number] Payer Name: [employer] Address: [facility] [address] City: [place] State: [place] Country: [facility] Telecom: [phone] Problems Problem # Description Date of onset Resolved Date Code CodeSystem Concern Status 1 ACUTE KIDNEY FAILURE, UNSPECIFIED 01/08/[address] active 2 AGE-RELATED OSTEOPOROSIS WITHOUT CURRENT PATHOLOGICAL FRACTURE 01/08/[address] active 3 ALTERED MENTAL STATUS, UNSPECIFIED 01/08/[address] active 4 BACTEREMIA 01/08/[address] active 5 CHRONIC KIDNEY DISEASE, STAGE 3 UNSPECIFIED 01/08/[address] active 6 DISORIENTATION, UNSPECIFIED 01/08/[address] active 7 ESSENTIAL (PRIMARY) HYPERTENSION 01/08/[address] active 8 GASTRO-ESOPHAGEAL REFLUX DISEASE WITHOUT ESOPHAGITIS 01/08/[address] active 9 GENERALIZED ABDOMINAL PAIN 01/08/[address] active 10 HYPERLIPIDEMIA, UNSPECIFIED 01/08/[address] active 11 HYPOKALEMIA 01/08/[address] active 12 LACTOSE INTOLERANCE, UNSPECIFIED 01/08/[address] active 13 METABOLIC ENCEPHALOPATHY 01/08/[address] active 14 MUSCLE WEAKNESS (GENERALIZED) 01/08/[address] active 15 PAIN IN UNSPECIFIED SHOULDER 01/08/[address] active 16 PULMONARY FIBROSIS, UNSPECIFIED 01/08/[address] active 17 ROSACEA, UNSPECIFIED 01/08/[address] active 18 SARCOIDOSIS, UNSPECIFIED 01/08/[address] active 19 SEPSIS, UNSPECIFIED ORGANISM 01/08/[address] active 20 SOLITARY PULMONARY NODULE 01/08/[address] active 21 UNSPECIFIED ABNORMALITIES OF GAIT AND MOBILITY 01/08/[address] active 22 UNSPECIFIED ASTHMA, UNCOMPLICATED 01/08/[address] active 23 UNSPECIFIED DEMENTIA, UNSPECIFIED SEVERITY, WITHOUT BEHAVIORAL DISTURBANCE, PSYCHOTIC DISTURBANCE, MOOD DISTURBANCE, AND ANXIETY 01/08/[address] active 24 URINARY TRACT INFECTION, SITE NOT SPECIFIED 01/08/[address] active Reason for Referral No Reasons for Referral Entered Social History Social History Observation Description Start Date End Date Code Code System Current Smoking Status Tobacco smoking consumption unknown [id number] SNOMED CT Sex Assigned At Female 1945 [address]-8 [facility] Gender Identity Sexual Orientation Vital Signs Code Code System Vitals Name Values and Units Timing Information 8462-4 [facility] Blood Pressure-Diastolic Value=67 Un its=mmHg 01/18/2022 8480-6 INC Blood Pressure-Systolic Buabg=835 Un its=mmHg 01/18/2022 8310-5 [facility] Body Temperature Value=97.7 Units= F 01/18/2022 8867-4 [facility] Heart rate Value=66.0 Units=/min 02/2022 00054-4 [facility] O2 % BldC Oximetry Value=97.0 Units= % 01/18/2022 9279-1 [facility] Respiratory Rate Value=18.0 Units=/m in 01/18/2022 99649-1 [facility] Weight Lffvw=549.6 Units=Lbs 10/2021 8302-2 [facility] Height Value=59.0 Units=Inches 01/11/2022
--- OUTSIDE RECORDS SUMMARY | 2025-08-31 20:15 | XMS_ITS | Encounter Summary ---
Author Organization [facility] Address [address] [place] [address] Care Team Providers Care Loss Prevention Officer Name Role Phone Mike Mensah MD Primary Care Provider [phone] Encounter Details Date Type Department Care Team (Late st Contact Info) Description 09/14/[address] [facility] - Main Lab [address] [facility] [place] [address] Mike Mensah MD [address] [place] [id number] Essential (primary) hypertension Social History Tobacco Use [...] Procedure Name Priority Date/Time Associated Diagnosis Comments LIPID PANEL WITH REFLEX TO DIRECT LDL Routine 09/16/2024 8:15 AM EST Essential (primary) hypertension VITAMIN C Routine 09/16/2024 8:15 AM EST Essential (primary) hypertension COMPLETE BLOOD COUNT Routine 09/16/2024 8:15 AM EST Essential (primary) hypertension COMPREHENSIVE METABOLIC PANEL Routine 09/16/2024 8:15 AM EST Essential (primary) hypertension documented in this encounter Results * (ABNORMAL) Lipid panel with reflex to direct LDL (09/16/2024 8:15 AM EST) Cholesterol 188 0 - 200 mg/dL LAB CHEMISTRY METHOD 09/16/2024 11:16 AM EST [facility] Triglycerides 104 0 - 150 mg/dL LAB CHEMISTRY METHOD 09/16/2024 11:16 AM EST [facility] HDL 50 >=40 mg/dL LAB CHEMISTRY METHOD 09/16/2024 11:16 AM EST [facility] LDL Calculated 117(H) 0 - 100 mg/dL LAB CHEMISTRY METHOD 09/16/2024 11:16 AM EST [facility] VLDL Cholesterol Damon 20.8 mg/dL LAB CHEMISTRY METHOD 09/16/2024 11:16 AM EST [facility] Non HDL Chol. (LDL+VLDL) 138 <145 mg/dL LAB CHEMISTRY METHOD 09/16/2024 11:16 AM EST [facility] Chol/HDL Ratio 3.8 0.0 - 4.4 LAB CHEMISTRY METHOD 09/16/2024 11:16 AM EST [facility] Blood Venous blood specimen / Unknown Venipuncture / Unknown 09/16/2024 8:15 AM EST 09/16/2024 9:41 AM EST Mike Mensah MD LAB BLOOD ORDERABLES Final Res ult [facility] [address] [place] [address], * Vitamin C (09/16/2024 8:15 AM EST) Vitamin C 8 2 - 19 mg/L 09/21/2024 11:08 AM EST [facility] Comment: This test was developed and the performance characteristics determined by [email or web address]. It has not been cleared or approved by the FDA. The laboratory is regulated under CLIA as qualified to perform high-complexity testing. This test is used for patient testing purposes. It should not be regarded as investigational or for research. Test performed at [email or web address], [address] , [place] [address] Lizeth Gallegos MD, PhD - [employer] Work[employer] Blood Venous blood specimen / Unknown Venipuncture / Unknown 09/16/2024 8:15 AM EST 09/16/2024 9:41 AM EST us Mike Mensah MD LAB BLOOD ORDERABLES Final Res ult [facility] [address] [place] [address] * (ABNORMAL) Comprehensive metabolic panel (09/16/2024 8:15 AM EST) Sodium 143 133 - 145 mmol/L LAB CHEMISTRY METHOD 09/16/2024 11:16 AM [facility] Potassium 3.9 3.5 - 5.5 mmol/L LAB CHEMISTRY METHOD 09/16/2024 11:16 AM [facility] Chloride 112(H) 96 - 110 mmol/L LAB CHEMISTRY METHOD 09/16/2024 11:16 AM [facility] CO2 25 21 - 32 mmol/L LAB CHEMISTRY METHOD 09/16/2024 11:16 AM [facility] Anion Gap 6 3 - 11 LAB CHEMISTRY METHOD 09/16/2024 11:16 AM [facility] Glucose 86 70 - 100 mg/dL LAB CHEMISTRY METHOD 09/16/2024 11:16 AM [facility] BUN 17 5 - 25 mg/dL LAB CHEMISTRY METHOD 09/16/2024 11:16 AM [facility] Creatinine 0.76 0.50 - 1.10 mg/dL LAB CHEMISTRY METHOD 09/16/2024 11:16 AM [facility] eGFR 79 >=60 mL/min/1. 73m2 LAB CHEMISTRY METHOD 09/16/2024 11:16 AM [facility] Comment:Calculation based on the Chronic Kidney Disease Epidemiology Collaboration (CKD-EPI) equation refit without adjustment for race. BUN/Creatinine Ratio 22.4 LAB CHEMISTRY METHOD 09/16/2024 11:16 AM [facility] Calcium 9.4 8.5 - 10.5 mg/dL LAB CHEMISTRY METHOD 09/16/2024 11:16 AM [facility] AST (SGOT) 18 10 - 42 unit/L LAB CHEMISTRY METHOD 09/16/2024 11:16 AM [facility] ALT (SGPT) 21 10 - 60 unit/L LAB CHEMISTRY METHOD 09/16/2024 11:16 AM [facility] Alkaline Phosphatase 93 42 - 121 unit/L LAB CHEMISTRY METHOD 09/16/2024 11:16 AM [facility] Total Protein 6.8 6.0 - 8.0 g/dL LAB CHEMISTRY METHOD 09/16/2024 11:16 AM [facility] Albumin 3.5 3.2 - 5.0 g/dL LAB CHEMISTRY METHOD 09/16/2024 11:16 AM [facility] Total Bilirubin 0.6 0.0 - 1.4 mg/dL LAB CHEMISTRY METHOD 09/16/2024 11:16 AM [facility] Blood Venous blood specimen / Unknown Venipuncture / Unknown 09/16/2024 8:15 AM EST 09/16/2024 9:41 AM EST us Mike Mensah MD LAB BLOOD ORDERABLES Final Res ult [facility] [address] [place] [address], * (ABNORMAL) Complete blood count (09/16/2024 8:15 AM EST) WBC 9.8 4.8 - 10.8 K/mcL LAB HEMETOLOGY METHOD 09/16/2024 10:58 AM [facility] RBC 5.10(H) 3.80 - 4.80 M/mcL LAB HEMETOLOGY METHOD 09/16/2024 10:58 AM [facility] Hemoglobin 15.0 11.5 - 16.0 g/dL LAB HEMETOLOGY METHOD 09/16/2024 10:58 AM [facility] Hematocrit 45.4 35.0 - 47.0 % LAB HEMETOLOGY METHOD 09/16/2024 10:58 AM [facility] MCV 89.0 79.0 - 98.0 FL LAB HEMETOLOGY METHOD 09/16/2024 10:58 AM [facility] MCH 29.4 27.0 - 32.0 pcg LAB HEMETOLOGY METHOD 09/16/2024 10:58 AM [facility] MCHC 33.0 32.0 - 37.0 g/dL LAB HEMETOLOGY METHOD 09/16/2024 10:58 AM [facility] RDW 13.1 11.0 - 15.0 % LAB HEMETOLOGY METHOD 09/16/2024 10:58 AM [facility] Platelets 450(H) 130 - 400 K/mcL LAB HEMETOLOGY METHOD 09/16/2024 10:58 AM [facility] MPV 10.2 7.0 - 11.0 FL LAB HEMETOLOGY METHOD 09/16/2024 10:58 AM [facility] NRBC 0.0 <1.0 % LAB HEMETOLOGY METHOD 09/16/2024 10:58 AM [facility] NRBC Absolute 0.00 <0.10 K/mcL LAB HEMETOLOGY METHOD 09/16/2024 10:58 AM [facility] Blood Venous blood specimen / Unknown Venipuncture / Unknown 09/16/2024 8:15 AM EST 09/16/2024 9:41 AM EST Mike Mensah MD LAB BLOOD ORDERABLES Final Res ult [facility] [address] [place] [address], documented in this encounter Visit Diagnoses Diagnosis Essential (primary) hypertension Unspecified essential hypertension documented in this encounter Care Teams Loss Prevention Officer Relationship Specialty Start Date End Date Mike Mensah MD [address] [place] [address] PCP - General Internal Medicine 08/04/24 documented as of this encounter
--- OUTSIDE RECORDS SUMMARY | 2025-08-31 20:17 | XMS_ITS | Encounter Summary ---
Author Organization [facility] Address [address] [place] [address] Care Team Providers Care Technical Applications Specialist Name Role Phone Mike Mensah MD Primary Care Provider [phone] Encounter Details Date Type Department Care Team (Late st Contact Info) Description 05/23/2025 Lab Requisition [facility] - Main Lab [address] [facility] [place] [address] Candace Gaona MD [address] [place], [place] [id number] Altered mental status, unspecified Social History Tobacco [...] Diagnosis Comments URINALYSIS WITH REFLEX MICROSCOPIC Routine 05/22/2025 12:00 AM EDT Altered mental status, unspecified URINALYSIS WITH REFLEX MICROSCOPIC Routine 05/22/2025 12:00 AM EDT Altered mental status, unspecified CULTURE URINE Routine 05/22/2025 12:00 AM EDT Altered mental status, unspecified documented in this encounter Results * (ABNORMAL) Urinalysis with reflex microscopic (05/22/2025 12:00 AM EDT) Specific [place] Urine 1.019 1.003 - 1.030 LAB URINALYSIS - AUTOMATED METHOD 05/23/2025 12:40 PM [facility] pH, Urine 8.5(A) 5.0 - 8.0 pH LAB URINALYSIS - AUTOMATED METHOD 05/23/2025 12:40 PM [facility] Leukocytes, Urine Large(A) Negative LAB URINALYSIS - AUTOMATED METHOD 05/23/2025 12:40 PM [facility] Nitrite, Urine Negative Negative LAB URINALYSIS - AUTOMATED METHOD 05/23/2025 12:40 PM [facility] Protein, Urine 300(A) <=Trace mg/dL LAB URINALYSIS - AUTOMATED METHOD 05/23/2025 12:40 PM [facility] Glucose, Urine Negative Negative mg/dL LAB URINALYSIS - AUTOMATED METHOD 05/23/2025 12:40 PM [facility] Ketones, Urine Trace(A) Negative mg/dL LAB URINALYSIS - AUTOMATED METHOD 05/23/2025 12:40 PM [facility] Urobilinogen, Urine 1.0 0.2 - 1.0 mg/dL LAB URINALYSIS - AUTOMATED METHOD 05/23/2025 12:40 PM [facility] Bilirubin, Urine Negative Negative LAB URINALYSIS - AUTOMATED METHOD 05/23/2025 12:40 PM [facility] Blood, Urine Small(A) Negative LAB URINALYSIS - AUTOMATED METHOD 05/23/2025 12:40 PM [facility] RBC, Urine 50(H) 0 - 4 /HPF LAB URINALYSIS - AUTOMATED METHOD 05/23/2025 12:40 PM [facility] WBC, Urine 597.2(H) 0 - 4 /HPF LAB URINALYSIS - AUTOMATED METHOD 05/23/2025 12:40 PM [facility] Squamous Epithelial, Urine >100(H) 0 - 60 /LPF LAB URINALYSIS - AUTOMATED METHOD 05/23/2025 12:40 PM EDT [facility] Bacteria, Urine Many(A) Negative /HPF LAB URINALYSIS - AUTOMATED METHOD 05/23/2025 12:40 PM EDT [facility] Hyaline Casts, Urine 68.2(H) 0 - 3 /LPF LAB URINALYSIS - AUTOMATED METHOD 05/23/2025 12:40 PM EDT [facility] Urine Urinary bladder structure / Unknown 05/22/2025 05/23/2025 10:52 AM EDT us Candace Gaona MD LAB URINE ORDERABLES Final Resul t [facility] [address] [place] [address], * (ABNORMAL) Culture urine (05/22/2025 12:00 AM EDT) Culture, Urine 50,000-100,000 CFU/mL Proteus mirabilis(A) SWATHI 05/26/2025 8:59 AM EDT [facility] Comment: The organism value for this result has been updated. These results have been appended to the previously preliminary verified report. Edited result: Previously reported as Proteus species on 05/25/2025 at 0939 EDT. Culture, Urine 50,000-100,000 CFU/mL Providencia stuartii(A) SWATHI 05/26/2025 8:59 AM EDT [facility] Comment: The organism value for this result has been updated. These results have been appended to the previously preliminary verified report. This is an edited result. Previous organism was Gram negative bacilli on 05/25/2025 at 0939 EDT. Urine Urinary bladder structure / Unknown Non-blood Collection / Unknown 05/22/2025 05/23/2025 10:52 AM EDT Narrative [facility] - 05/26/2025 8:59 AM EDT Additional colony types present in insignificant amounts. Organism Antibiotic Method Susceptibility Proteus mirabilis Amoxicillin/Clavulanate SWATHI <=2 ug/ml: Susceptible Proteus mirabilis Ampicillin/Sulbactam SWATHI <=2 ug/ml: Susceptible Proteus mirabilis Piperacillin/Tazobactam SWATIH <=4 ug/ml: Susceptible Proteus mirabilis Cefazolin (Urine) SWATHI 4 ug/ml: Susceptible Proteus mirabilis Cefoxitin SWATHI 8 ug/ml: Susceptible Proteus mirabilis Ceftazidime SWATHI <=0.5 ug/ml: Susceptible Proteus mirabilis Ceftriaxone SWATHI <=0.25 ug/ml: Susceptible Proteus mirabilis Cefepime SWATHI <=0.12 ug/ml: Susceptible Proteus mirabilis Meropenem SWATHI <=0.25 ug/ml: Susceptible Proteus mirabilis Amikacin SWATHI 4 ug/ml: Susceptible Proteus mirabilis Gentamicin SWATHI <=1 ug/ml: Susceptible Proteus mirabilis Ciprofloxacin SWATHI 0.25 ug/ml: Susceptible Proteus mirabilis Levofloxacin SWATHI 1 ug/ml: Intermediate Proteus mirabilis Nitrofurantoin SWATHI 128 ug/ml: Resistant Proteus mirabilis Trimethoprim/Sulfamethoxazole SWATHI <=20 ug/ml: Susceptible Providencia stuartii Ampicillin/Sulbactam SWATHI >=32 ug/ml: Resistant Providencia stuartii Piperacillin/Tazobactam SWATHI >=128 ug/ml: Resistant Providencia stuartii Cefoxitin SWATHI 8 ug/ml: Susceptible Providencia stuartii Ceftazidime SWATHI >=32 ug/ml: Resistant Providencia stuartii Ceftriaxone SWATHI 16 ug/ml: Resistant Providencia stuartii Cefepime SWATHI 2 ug/ml: Susceptible Providencia stuartii Ciprofloxacin SWATHI >=4 ug/ml: Resistant Providencia stuartii Nitrofurantoin SWATHI 128 ug/ml: Resistant Providencia stuartii Trimethoprim/Sulfamethoxazole SWATHI <=20 ug/ml: Susceptible us Candace Gaona MD LAB MICROBIOLOGY - GENERAL ORDER ADDI Final [facility] [address] [place] [address], documented in this encounter Visit Diagnoses Diagnosis Altered mental status, unspecified documented in this encounter Care Teams Technical Applications Specialist Relationship Specialty Start Date End Date Mike Mensah MD [address] [place] [id number] PCP - General Internal Medicine 08/04/24 documented as of this encounter
--- OUTSIDE RECORDS SUMMARY | 2025-08-31 20:17 | XMS_ITS | Patient Health Record ---
Author Organization [facility] [place] Address [address] [place] [address] Care Team Providers Care Student Support Advisor Name Role Phone Pablito Ponce MD Primary Care Provider Ralf Johansen Unavailable [phone] Allergies Allergen (clinical drug ingredient) Drug/Non Drug Allergy documented on EMR Reaction Allergy Type Onset Date Status sulfamethoxazole / trimethoprim Bactrim heart rate increases Drug Allergy Active Shellfish (FN) Shellfish-derive d Products Unknown Drug Allergy Active Reason For Referral No Information Medications Medication SIG (Take, Route, Fr equency, Duration) Notes Start Date End Date Status Omeprazole Active Cephalexin 500 MG 1 tablet Orally Twic e a day; Duration: 3 days Not-Taking Lovastatin 40 MG Orally Act jmibo Memantine HCl Active Donepezil HCl 5 MG Orally A ctive Lisinopril 40 MG Orally Act jimbo Vitamin C Active Vitamin D Active Immunizations Vaccine Route Administration Date Status Comme nts COVID-19 Pfizer BioNTech Vaccine Unknown 06/16/2021 Administered 1st 10/24/2020 2nd 11/14/2020 Social History Tobacco Use: Social History Observation Description Date Details (start date - stop date) Former Smoker NA - NA Tobacco Use/Smoking Question Answer Notes Are you a: former smoker Additional Findings: Tobacco Non-User Current no n-smoker Alcohol Screen Question Answer Notes Did you have a drink containing alcohol in the p ast year? No Points 0 Interpretation Negative Tobacco use other than smoking: Question Answer Notes Are you an other tobacco user? 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 Plan Of Treatment Pending Test Test Name Order Date 92761-Kicchovb Plate 06/12/2018 X6130-XTNFSGLZ DYSTROPHIC NAILS ANY # S0175-XNJEULUY DYSTROPHIC NAILS ANY # T8973-VWYHRIFA DYSTROPHIC NAILS ANY # C4587-INGYUAMT DYSTROPHIC NAILS ANY # C4281-RAXJWPGK DYSTROPHIC NAILS ANY # S0253-SYVVQASY DYSTROPHIC NAILS ANY # C7121-DFXKSNDB DYSTROPHIC NAILS ANY # Z7506-JUPOXEYQ DYSTROPHIC NAILS ANY # H1200-UZBMADRY DYSTROPHIC NAILS ANY # A4702-FFGCJEPY DYSTROPHIC NAILS ANY # Z1657-XHBOLWVG DYSTROPHIC NAILS ANY # A1675-FTJVIQEW DYSTROPHIC NAILS ANY # E6359-LYBZIFBU DYSTROPHIC NAILS ANY # L9176-USZHOGSD DYSTROPHIC NAILS ANY # G8591-DLGRQNGP DYSTROPHIC NAILS ANY # N6870-DLMRKIOG DYSTROPHIC NAILS ANY # B5176-MYQNRGKR DYSTROPHIC NAILS ANY # A0948-IYQFAHJX DYSTROPHIC NAILS ANY # P5160-VMVAKCMM DYSTROPHIC NAILS ANY # S6891-FGSQFPQT DYSTROPHIC NAILS ANY # K3667-GGNYUYTZ DYSTROPHIC NAILS ANY # A7746-BFQXFPHU DYSTROPHIC NAILS ANY # Insurance Providers Payer Name Payer Address Payer Phone Subscriber Number Group Number Insured Name Patient Relationship to Insured Coverage Start Date Coverage End Date Medicare National [employer] [address] [place] [address] [id number] Annmarie Cooper Self - patient is the insured 9 for Life [address] [place] [address] [phone] [id number] Zachery Cooper Spouse - patient is the spouse of the insured 9 3 Medical (General) History Medical History History ICD Code asthma Cataracts Dementia Fibromyalgia High blood pressure Osteoporosis Rheumatic fever Measles Mumps CAD minor stroke Surgical History Surgery Date(Month/Year) ear drum surgery 06/22/08 gall bladder 12/09/97 Hospitalization History Reason Date(Month/Year) [facility] for minor stroke 08/2018 [facility]- 10 days UTI Temp 104.5 Rehab 8 days 2021 [facility]- UTI 02/03/23-02/08/23 [facility]- UTI/ Pneumonia 09/2023
--- OUTSIDE RECORDS SUMMARY | 2025-08-31 20:17 | XMS_ITS | Encounter Summary ---
Author Organization [facility] Address [address] [place] [address] Care Team Providers Care Performing Arts Technicians Name Role Phone Mike Mensah MD Primary Care Provider [phone] Encounter Details Date Type Department Care Team (Late st Contact Info) Description 02/07/[address] [facility] - Main Lab [address] [place] [address] Candace Gaona MD [address] [place] [address] Altered mental status, unspecified Social History Tobacco [...] Date/Time Associated Diagnosis Comments COMPLETE BLOOD COUNT STAT 02/07/2025 12:26 PM EDT Altered mental status, unspecified BASIC METABOLIC PANEL STAT 02/07/2025 12:26 PM EDT Altered mental status, unspecified documented in this encounter Results * (ABNORMAL) Basic metabolic panel (02/07/2025 12:26 PM EDT) Sodium 139 133 - 145 mmol/L LAB CHEMISTRY METHOD 02/07/2025 1:22 PM EDT [facility] Potassium 4.2 3.5 - 5.5 mmol/L LAB CHEMISTRY METHOD 02/07/2025 1:22 PM [facility] Chloride 105 96 - 110 mmol/L LAB CHEMISTRY METHOD 02/07/2025 1:22 PM [facility] CO2 28 21 - 32 mmol/L LAB CHEMISTRY METHOD 02/07/2025 1:22 PM [facility] Anion Gap 6 3 - 11 LAB CHEMISTRY METHOD 02/07/2025 1:22 PM [facility] Glucose 114(H) 70 - 100 mg/dL LAB CHEMISTRY METHOD 02/07/2025 1:22 PM [facility] BUN 18 5 - 25 mg/dL LAB CHEMISTRY METHOD 02/07/2025 1:22 PM [facility] Creatinine 0.81 0.50 - 1.10 mg/dL LAB CHEMISTRY METHOD 02/07/2025 1:22 PM [facility] eGFR 73 >=60 mL/min/1. 73m2 LAB CHEMISTRY METHOD 02/07/2025 1:22 PM [facility] Comment:Calculation based on the Chronic Kidney Disease Epidemiology Collaboration (CKD-EPI) equation refit without adjustment for race. BUN/Creatinine Ratio 22.2 LAB CHEMISTRY METHOD 02/07/2025 1:22 PM [facility] Calcium 9.9 8.5 - 10.5 mg/dL LAB CHEMISTRY METHOD 02/07/2025 1:22 PM [facility] Blood Venous blood specimen / Unknown Venipuncture / Unknown 02/07/2025 12:26 PM EDT 02/07/2025 12:47 PM EDT us Candace Gaona MD LAB BLOOD ORDERABLES Final Resul t [facility] [address] [place] [address], * (ABNORMAL) Complete blood count (02/07/2025 12:26 PM EDT) [facility] WBC 10.9(H) 4.8 - 10.8 K/mcL LAB HEMETOLOGY METHOD 02/07/2025 12:58 PM EDT [facility] RBC 4.90(H) 3.80 - 4.80 M/mcL LAB HEMETOLOGY METHOD 02/07/2025 12:58 PM EDT [facility] Hemoglobin 14.2 11.5 - 16.0 g/dL LAB HEMETOLOGY METHOD 02/07/2025 12:58 PM EDT [facility] Hematocrit 43.4 35.0 - 47.0 % LAB HEMETOLOGY [facility] MCV 88.6 79.0 - 98.0 FL LAB HEMETOLOGY METHOD [facility]/07[facility]2025 12[facility] MCH 29.0 27.0 - 32.0 pcg LAB HEMETOLOGY METHOD [facility]25 [facility] MCHC 32.7 32.0 - 37.0 g/dL LAB HEMETOLOGY METHOD [facility]/07[facility]2025 12[facility] RDW 13.9 11.0 - 15.0 % LAB HEMETOLOGY METHOD [facility]07[facility]2025 [facility] Platelets 469(H) 130 - 400 K/mcL LAB HEMETOLOGY METHOD [facility]/07[facility]2025 12[facility] MPV 9.4 7.0 - 11.0 FL LAB HEMETOLOGY METHOD [facility]25 [facility] NRBC 0.0 <1.0 % LAB HEMETOLOGY METHOD 02/07/2025 12:58 PM EDT [facility] NRBC Absolute 0.00 <0.10 K/mcL LAB HEMETOLOGY METHOD 02/07/2025 12:58 PM EDT [facility] Blood Venous blood specimen / Unknown Venipuncture / Unknown 02/07/2025 12:26 PM EDT 02/07/2025 12:47 PM EDT us Candace Gaona MD LAB BLOOD ORDERABLES Final Resul t [facility] [address] [place] [address], documented in this encounter Visit Diagnoses Diagnosis Altered mental status, unspecified documented in this encounter Care Teams Performing Arts Technicians Relationship Specialty Start Date End Date Mike Mensah MD [address] [place] [phone] PCP - General Internal Medicine 08/04/24 documented as of this encounter
--- OUTSIDE RECORDS SUMMARY | 2025-08-31 20:17 | XMS_ITS | Encounter Summary ---
Author Organization [facility] Address [address] [place] [address] Care Team Providers Care Seal Delivery Vehicle Team Technician Name Role Phone Mike Mensah MD Primary Care Provider [phone] Encounter Details Date Type Department Care Team (Late st Contact Info) Description 10/22/[address] [facility] - Main Lab [address] [facility] [place] [address] Candace Gaona MD [address] [place] [address] Need for assistance with personal care; Essential (primary) hypertension Social History Tobacco Use [...] Associated Diagnosis Comments COMPLETE BLOOD COUNT Routine 10/22/2024 11:51 AM EST Need for assistance with personal care Essential (primary) hypertension BASIC METABOLIC PANEL Routine 10/22/2024 11:51 AM EST Need for assistance with personal care Essential (primary) hypertension documented in this encounter Results * (ABNORMAL) Basic metabolic panel (10/22/2024 11:51 AM EST) Sodium 153(H) 133 - 145 mmol/L LAB CHEMISTRY METHOD 10/22/2024 3:19 PM EST [facility] Potassium 4.0 3.5 - 5.5 mmol/L LAB CHEMISTRY METHOD 10/22/2024 3:19 PM [facility] Chloride 121(H) 96 - 110 mmol/L LAB CHEMISTRY METHOD 10/22/2024 3:19 PM [facility] CO2 22 21 - 32 mmol/L LAB CHEMISTRY METHOD 10/22/2024 3:19 PM [facility] Anion Gap 10 3 - 11 LAB CHEMISTRY METHOD 10/22/2024 3:19 PM [facility] Glucose 188(H) 70 - 100 mg/dL LAB CHEMISTRY METHOD 10/22/2024 3:19 PM [facility] BUN 30(H) 5 - 25 mg/dL LAB CHEMISTRY METHOD 10/22/2024 3:19 PM [facility] Creatinine 1.45(H) 0.50 - 1.10 mg/dL LAB CHEMISTRY METHOD 10/22/2024 3:19 PM [facility] eGFR 37(L) >=60 mL/min/1. 73m2 LAB CHEMISTRY METHOD 10/22/2024 3:19 PM [facility] Comment:Calculation based on the Chronic Kidney Disease Epidemiology Collaboration (CKD-EPI) equation refit without adjustment for race. BUN/Creatinine Ratio 20.7 LAB CHEMISTRY METHOD 10/22/2024 3:19 PM [facility] Calcium 9.9 8.5 - 10.5 mg/dL LAB CHEMISTRY METHOD 10/22/2024 3:19 PM [facility] Blood Venous blood specimen / Unknown Venipuncture / Unknown 10/22/2024 11:51 AM EST 10/22/2024 2:17 PM EST us Candace Gaona MD LAB BLOOD ORDERABLES Final Resul t [facility] [address] [place] [address], * (ABNORMAL) Complete blood count (10/22/2024 11:51 AM EST) [facility] WBC 10.8 4.8 - 10.8 K/mcL LAB HEMETOLOGY METHOD 10/22/2024 2:34 PM [facility] RBC 5.20(H) 3.80 - 4.80 M/mcL LAB HEMETOLOGY METHOD 10/22/2024 2:34 PM [facility] Hemoglobin 14.6 11.5 - 16.0 g/dL LAB HEMETOLOGY METHOD 10/22/2024 2:34 PM [facility] Hematocrit 47.1(H) 35.0 - 47.0 % LAB HEMETOLOGY METHOD 10/22/2024 2:34 PM [facility] MCV 90.6 79.0 - 98.0 FL LAB HEMETOLOGY METHOD 10/22/2024 2:34 PM [facility] MCH 28.1 27.0 - 32.0 pcg LAB HEMETOLOGY METHOD 10/22/2024 2:34 PM [facility] MCHC 31.0(L) 32.0 - 37.0 g/dL LAB HEMETOLOGY METHOD 10/22/2024 2:34 PM [facility] RDW 13.2 11.0 - 15.0 % LAB HEMETOLOGY METHOD 10/22/2024 2:34 PM [facility] Platelets 536(H) 130 - 400 K/mcL LAB HEMETOLOGY METHOD 10/22/2024 2:34 PM [facility] MPV 10.2 7.0 - 11.0 FL LAB HEMETOLOGY METHOD 10/22/2024 2:34 PM [facility] NRBC 0.0 <1.0 % LAB HEMETOLOGY METHOD 10/22/2024 2:34 PM [facility] NRBC Absolute 0.00 <0.10 K/mcL LAB HEMETOLOGY METHOD 10/22/2024 2:34 PM EST [facility] Blood Venous blood specimen / Unknown Venipuncture / Unknown 10/22/2024 11:51 AM EST 10/22/2024 2:17 PM EST us Candace Gaona MD LAB BLOOD ORDERABLES Final Resul t [facility] [address] [place] [address], documented in this encounter Visit Diagnoses Diagnosis Need for assistance with personal care Essential (primary) hypertension Unspecified essential hypertension documented in this encounter Care Teams Seal Delivery Vehicle Team Technician Relationship Specialty Start Date End Date Mike Mensah MD [address] [place] [id number] PCP - General Internal Medicine 08/04/24 documented as of this encounter
--- OUTSIDE RECORDS SUMMARY | 2025-08-31 20:17 | XMS_ITS | Encounter Summary ---
Author Organization [facility] Address [address] [place] [address] Care Team Providers Care Tent Worker Name Role Phone Mike Mensah MD Primary Care Provider [phone] Encounter Details Date Type Department Care Team (Late st Contact Info) Description 03/14/2025 Lab Requisition [facility] - Main Lab [address] [facility] [place] [address] Candace Gaona MD [address] [place], [place] [id number] Hyperlipidemia, unspecified; Essential (primary) hypertension Social History Tobacco Use [...] PANEL WITH REFLEX TO DIRECT LDL Routine 03/15/2025 4:48 AM EDT Hyperlipidemia, unspecified Essential (primary) hypertension VITAMIN C Routine 03/15/2025 4:48 AM EDT Hyperlipidemia, unspecified Essential (primary) hypertension COMPLETE BLOOD COUNT Routine 03/15/2025 4:48 AM EDT Hyperlipidemia, unspecified Essential (primary) hypertension COMPREHENSIVE METABOLIC PANEL Routine 03/15/2025 4:48 AM EDT Hyperlipidemia, unspecified Essential (primary) hypertension documented in this encounter Results * Comprehensive metabolic panel (03/15/2025 4:48 AM EDT) Sodium 140 133 - 145 mmol/L LAB CHEMISTRY METHOD 03/15/2025 9:48 AM [facility] Potassium 4.5 3.5 - 5.5 mmol/L LAB CHEMISTRY METHOD 03/15/2025 9:48 AM [facility] Chloride 107 96 - 110 mmol/L LAB CHEMISTRY METHOD 03/15/2025 9:48 AM [facility] CO2 25 21 - 32 mmol/L LAB CHEMISTRY METHOD 03/15/2025 9:48 AM [facility] Anion Gap 8 3 - 11 LAB CHEMISTRY METHOD 03/15/2025 9:48 AM [facility] Glucose 72 70 - 100 mg/dL LAB CHEMISTRY METHOD 03/15/2025 9:48 AM [facility] BUN 18 5 - 25 mg/dL LAB CHEMISTRY METHOD 03/15/2025 9:48 AM [facility] Creatinine 0.80 0.50 - 1.10 mg/dL LAB CHEMISTRY METHOD 03/15/2025 9:48 AM [facility] eGFR 75 >=60 mL/min/1. 73m2 LAB CHEMISTRY METHOD 03/15/2025 9:48 AM [facility] Comment:Calculation based on the Chronic Kidney Disease Epidemiology Collaboration (CKD-EPI) equation refit without adjustment for race. BUN/Creatinine Ratio 22.5 LAB CHEMISTRY METHOD 03/15/2025 9:48 AM [facility] Calcium 9.5 8.5 - 10.5 mg/dL LAB CHEMISTRY METHOD 03/15/2025 9:48 AM [facility] AST (SGOT) 15 10 - 42 unit/L LAB CHEMISTRY METHOD 03/15/2025 9:48 AM [facility] ALT (SGPT) 19 10 - 60 unit/L LAB CHEMISTRY METHOD 03/15/2025 9:[address] [facility] Alkaline Phosphatase 61 42 - 121 unit/L LAB CHEMISTRY METHOD 03/15/2025 9:[address] [facility] Total Protein 6.8 6.0 - 8.0 g/dL LAB CHEMISTRY METHOD 03/15/2025 9:[address] [facility] Albumin 3.5 3.2 - 5.0 g/dL LAB CHEMISTRY METHOD 03/15/2025 9:[address] [facility] Total Bilirubin 0.3 0.0 - 1.4 mg/dL LAB CHEMISTRY METHOD 03/15/2025 9:[address] [facility] Blood Venous blood specimen / Unknown Venipuncture / Unknown 03/15/2025 4:48 AM EDT 03/15/2025 9:16 AM EDT us Candace Gaona MD LAB BLOOD ORDERABLES Final Resul t [facility] [address] [place] [address], * (ABNORMAL) Complete blood count (03/15/2025 4:48 AM EDT) WBC 8.0 4.8 - 10.8 K/mcL LAB HEMETOLOGY METHOD 03/15/2025 9:25 AM [facility] RBC 4.90(H) 3.80 - 4.80 M/mcL LAB HEMETOLOGY METHOD 03/15/2025 9:[address] [facility] Hemoglobin 13.9 11.5 - 16.0 g/dL LAB HEMETOLOGY METHOD 03/15/2025 9:25 AM [facility] Hematocrit 44.0 35.0 - 47.0 % LAB HEMETOLOGY METHOD 03/15/2025 9:[address] [facility] MCV 89.4 79.0 - 98.0 FL LAB HEMETOLOGY METHOD 03/15/2025 9:[address] [facility] MCH 28.3 27.0 - 32.0 pcg LAB HEMETOLOGY METHOD 03/15/2025 9:[address] [facility] MCHC 31.6(L) 32.0 - 37.0 g/dL LAB HEMETOLOGY METHOD 03/15/2025 9:[address] [facility] RDW 14.5 11.0 - 15.0 % LAB HEMETOLOGY METHOD 03/15/2025 9:[address] [facility] Platelets 359 130 - 400 K/mcL LAB HEMETOLOGY METHOD 03/15/2025 9:[address] [facility] MPV 10.7 7.0 - 11.0 FL LAB HEMETOLOGY METHOD 03/15/2025 9:[address] [facility] NRBC 0.0 <1.0 % LAB HEMETOLOGY METHOD 03/15/2025 9:[address] [facility] NRBC Absolute 0.00 <0.10 K/mcL LAB HEMETOLOGY METHOD 03/15/2025 9:[address] [facility] Blood Venous blood specimen / Unknown Venipuncture / Unknown 03/15/2025 4:48 AM EDT 03/15/2025 9:17 AM EDT us Candace Gaona MD LAB BLOOD ORDERABLES Final Resul t [facility] [address] [place] [address], * (ABNORMAL) Lipid panel with reflex to direct LDL (03/15/2025 4:48 AM EDT) [facility] Signature Cholesterol 224(H) 0 - 200 mg/dL LAB CHEMISTRY METHOD 03/15/2025 9:[address] [facility] Triglycerides 167(H) 0 - 150 mg/dL LAB CHEMISTRY METHOD 03/15/2025 9:[address] [facility] HDL 49 >=40 mg/dL LAB CHEMISTRY METHOD 03/15/2025 9:[address] [facility] LDL Calculated 142(H) 0 - 100 mg/dL LAB CHEMISTRY METHOD 03/15/2025 9:[address] [facility] VLDL Cholesterol Damon 33.4 mg/dL LAB CHEMISTRY METHOD 03/15/2025 9:[address] [facility] Non HDL Chol. (LDL+VLDL) 175(H) <145 mg/dL LAB CHEMISTRY METHOD 03/15/2025 9:[address] [facility] Chol/HDL Ratio 4.6(H) 0.0 - 4.4 LAB CHEMISTRY METHOD 03/15/2025 9:[address] [facility] Blood Venous blood specimen / Unknown Venipuncture / Unknown 03/15/2025 4:48 AM EDT 03/15/2025 9:16 AM EDT Candace Gaona MD LAB BLOOD ORDERABLES Final Resul t [facility] [address] [place] [address], * Vitamin C (03/15/2025 4:48 AM EDT) Vitamin C 13 2 - 19 mg/L 03/17/2025 12:53 PM EDT [facility] Comment: This test was developed and the performance characteristics determined by [facility]. It has not been cleared or approved by the FDA. The laboratory is regulated under CLIA as qualified to perform high-complexity testing. This test is used for patient testing purposes. It should not be regarded as investigational or for research. Test performed at [facility], [facility] [address], [place] [address] Lizeth Gallegos MD, PhD - Head Charrer Blood Venous blood specimen / Unknown Venipuncture / Unknown 03/15/2025 4:48 AM EDT 03/15/2025 9:18 AM EDT Candace Gaona MD LAB BLOOD ORDERABLES Final Resul t [facility] [address] [place] [address] documented in this encounter Visit Diagnoses Diagnosis Hyperlipidemia, unspecified Essential (primary) hypertension Unspecified essential hypertension documented in this encounter Care Teams Tent Worker Relationship Specialty Start Date End Date Mike Mensah MD [address] [place] [phone] PCP - General Internal Medicine 08/04/24 documented as of this encounter
--- OUTSIDE RECORDS SUMMARY | 2025-08-31 20:17 | XMS_ITS | Encounter Summary ---
Author Organization [facility] Address [address] [place] [address] Care Team Providers Care Correspondence Transcriber Name Role Phone Mike Mensah MD Primary Care Provider [phone] Encounter Details Date Type Department Care Team (Late st Contact Info) Description 10/08/2024 Lab Requisition [facility] - Main Lab [address] [place] [address] Candace Gaona MD [address] [place], [place] [id number] Essential (primary) hypertension; Alzheimer's disease, unspecified (CODE) (CMS/HCC V24, CMS/HCC [...] PANEL WITH REFLEX TO DIRECT LDL Routine 10/08/2024 5:07 AM EST Essential (primary) hypertension Alzheimer's disease, unspecified (CODE) (CMS/HCC) VITAMIN C Routine 10/08/2024 5:07 AM EST Essential (primary) hypertension Alzheimer's disease, unspecified (CODE) (CMS/HCC) COMPLETE BLOOD COUNT Routine 10/08/2024 5:07 AM EST Essential (primary) hypertension Alzheimer's disease, unspecified (CODE) (CMS/HCC) COMPREHENSIVE METABOLIC PANEL Routine 10/08/2024 5:07 AM EST Essential (primary) hypertension Alzheimer's disease, unspecified (CODE) (CMS/HCC) documented in this encounter Results * Vitamin C (10/08/2024 5:07 AM EST) Pathologist [facility] Vitamin C 9 2 - 19 mg/L 10/11/2024 12:36 PM EST [facility] Comment: This test was developed and the performance characteristics determined by [facility]. It has not been cleared or approved by the FDA. The laboratory is regulated under CLIA as qualified to perform high-complexity testing. This test is used for patient testing purposes. It should not be regarded as investigational or for research. Test performed at [facility], [address], [place] [address] Lizeth Gallegos MD, PhD - Clinical Marketing Manager Blood Venous blood specimen / Unknown Venipuncture / Unknown 10/08/2024 5:07 AM EST 10/08/2024 9:45 AM EST Candace Gaona MD LAB BLOOD ORDERABLES Final Resul t [facility] [address] [place] [address] * Lipid panel with reflex to direct LDL (10/08/2024 5:07 AM EST) Pathologist [facility] Cholesterol 157 0 - 200 mg/dL LAB CHEMISTRY METHOD 10/08/2024 11:48 AM EST [facility] Triglycerides 76 0 - 150 mg/dL LAB CHEMISTRY METHOD 10/08/2024 11:48 AM EST [facility] HDL 47 >=40 mg/dL LAB CHEMISTRY METHOD 10/08/2024 11:48 AM EST [facility] LDL Calculated 95 0 - 100 mg/dL LAB CHEMISTRY METHOD 10/08/2024 11:48 AM EST [facility] VLDL Cholesterol Damon 15.2 mg/dL LAB CHEMISTRY METHOD 10/08/2024 11:48 AM [facility] Non HDL Chol. (LDL+VLDL) 110 <145 mg/dL LAB CHEMISTRY METHOD 10/08/2024 11:48 AM [facility] Chol/HDL Ratio 3.3 0.0 - 4.4 LAB CHEMISTRY METHOD 10/08/2024 11:48 AM [facility] Blood Venous blood specimen / Unknown Venipuncture / Unknown 10/08/2024 5:07 AM EST 10/08/2024 9:45 AM EST us Candace Gaona MD LAB BLOOD ORDERABLES Final Resul t [facility] [address] [place] [address], [place] [phone] * (ABNORMAL) Comprehensive metabolic panel (10/08/2024 5:07 AM EST) Sodium 141 133 - 145 mmol/L LAB CHEMISTRY METHOD 10/08/2024 11:48 AM [facility] Potassium 3.9 3.5 - 5.5 mmol/L LAB CHEMISTRY METHOD 10/08/2024 11:48 AM [facility] Chloride 112(H) 96 - 110 mmol/L LAB CHEMISTRY METHOD 10/08/2024 11:48 AM [facility] CO2 25 21 - 32 mmol/L LAB CHEMISTRY METHOD 10/08/2024 11:48 AM [facility] Anion Gap 4 3 - 11 LAB CHEMISTRY METHOD 10/08/2024 11:48 AM [facility] Glucose 87 70 - 100 mg/dL LAB CHEMISTRY METHOD 10/08/2024 11:48 AM [facility] BUN 19 5 - 25 mg/dL LAB CHEMISTRY METHOD 10/08/2024 11:48 AM [facility] Creatinine 0.91 0.50 - 1.10 mg/dL LAB CHEMISTRY METHOD 10/08/2024 11:48 AM [facility] eGFR 64 >=60 mL/min/1. 73m2 LAB CHEMISTRY METHOD 10/08/2024 11:48 AM [facility] Comment:Calculation based on the Chronic Kidney Disease Epidemiology Collaboration (CKD-EPI) equation refit without adjustment for race. BUN/Creatinine Ratio 20.9 LAB CHEMISTRY METHOD 10/08/2024 11:48 AM [facility] Calcium 8.9 8.5 - 10.5 mg/dL LAB CHEMISTRY METHOD 10/08/2024 11:48 AM [facility] AST (SGOT) 16 10 - 42 unit/L LAB CHEMISTRY METHOD 10/08/2024 11:48 AM [facility] ALT (SGPT) 23 10 - 60 unit/L LAB CHEMISTRY METHOD 10/08/2024 11:48 AM [facility] Alkaline Phosphatase 81 42 - 121 unit/L LAB CHEMISTRY METHOD 10/08/2024 11:48 AM [facility] Total Protein 6.2 6.0 - 8.0 g/dL LAB CHEMISTRY METHOD 10/08/2024 11:48 AM [facility] Albumin 3.1(L) 3.2 - 5.0 g/dL LAB CHEMISTRY METHOD 10/08/2024 11:48 AM [facility] Total Bilirubin 0.3 0.0 - 1.4 mg/dL LAB CHEMISTRY METHOD 10/08/2024 11:48 AM [facility] Blood Venous blood specimen / Unknown Venipuncture / Unknown 10/08/2024 5:07 AM EST 10/08/2024 9:45 AM EST us Candace Gaona MD LAB BLOOD ORDERABLES Final Resul t [facility] [address] [place] [address], * (ABNORMAL) Complete blood count (10/08/2024 5:07 AM EST) [facility] WBC 10.3 4.8 - 10.8 K/mcL LAB HEMETOLOGY METHOD 10/08/2024 11:16 AM [facility] RBC 4.40 3.80 - 4.80 M/mcL LAB HEMETOLOGY METHOD 10/08/2024 11:16 AM [facility] Hemoglobin 12.6 11.5 - 16.0 g/dL LAB HEMETOLOGY METHOD 10/08/2024 11:16 AM [facility] Hematocrit 38.4 35.0 - 47.0 % LAB HEMETOLOGY METHOD 10/08/2024 11:16 AM [facility] MCV 87.9 79.0 - 98.0 FL LAB HEMETOLOGY METHOD 10/08/2024 11:16 AM [facility] MCH 28.8 27.0 - 32.0 pcg LAB HEMETOLOGY METHOD 10/08/2024 11:16 AM [facility] MCHC 32.8 32.0 - 37.0 g/dL LAB HEMETOLOGY METHOD 10/08/2024 11:16 AM [facility] RDW 12.9 11.0 - 15.0 % LAB HEMETOLOGY METHOD 10/08/2024 11:16 AM [facility] Platelets 435(H) 130 - 400 K/mcL LAB HEMETOLOGY METHOD 10/08/2024 11:16 AM [facility] MPV 9.6 7.0 - 11.0 FL LAB HEMETOLOGY METHOD 10/08/2024 11:16 AM [facility] NRBC 0.0 <1.0 % LAB HEMETOLOGY METHOD 10/08/2024 11:16 AM [facility] NRBC Absolute 0.00 <0.10 K/mcL LAB HEMETOLOGY METHOD 10/08/2024 11:16 AM EST [facility] Blood Venous blood specimen / Unknown Venipuncture / Unknown 10/08/2024 5:07 AM EST 10/08/2024 9:45 AM EST us Candace Gaona MD LAB BLOOD ORDERABLES Final Resul t [facility] [address] [place] [address], documented in this encounter Visit Diagnoses Diagnosis Essential (primary) hypertension Unspecified essential hypertension Alzheimer's disease, unspecified (CODE) (CMS/[facility] V24, CMS/[facility] V28) documented in this encounter Care Teams Correspondence Transcriber Relationship Specialty Start Date End Date Mike Mensah MD [address] [place] [id number] PCP - General Internal Medicine 08/04/24 documented as of this encounter
--- OUTSIDE RECORDS SUMMARY | 2025-08-31 20:17 | XMS_ITS | Encounter Summary ---
Author Organization [facility] Address [address] [place] [address] Care Team Providers Care Tempering Machine Operator Name Role Phone Mike Mensah MD Primary Care Provider [phone] Encounter Details Date Type Department Care Team (Late st Contact Info) Description 06/22/2025 Lab Requisition [facility] - Main Lab [address] [facility] [place] [address] Candace Gaona MD [address] [place], [place] [id number] Essential (primary) hypertension; Hypokalemia; Lipoprotein deficiency; Age-related osteoporosis without current pathological fracture; Vitamin D deficiency, unspecified Social History Tobacco Use Types Packs/Day [...] Procedure Name Priority Date/Time Associated Diagnosis Comments VITAMIN D 25 HYDROXY Routine 06/22/2025 5:18 AM EDT Essential (primary) hypertension Hypokalemia Lipoprotein deficiency Age-related osteoporosis without current pathological fracture Vitamin D deficiency, unspecified COMPLETE BLOOD COUNT Routine 06/22/2025 5:18 AM EDT Essential (primary) hypertension Hypokalemia Lipoprotein deficiency Age-related osteoporosis without current pathological fracture Vitamin D deficiency, unspecified COMPREHENSIVE METABOLIC PANEL Routine 06/22/2025 5:18 AM EDT Essential (primary) hypertension Hypokalemia Lipoprotein deficiency Age-related osteoporosis without current pathological fracture Vitamin D deficiency, unspecified documented in this encounter Results * Vitamin D 25 hydroxy (06/22/2025 5:18 AM EDT) [facility] Vit D, 25-Hydroxy 58.8 30.0 - 80.0 ng/mL LAB CHEMISTRY METHOD 06/22/2025 1:51 PM EDT [facility] Blood Venous blood specimen / Unknown Venipuncture / Unknown 06/22/2025 5:18 AM EDT 06/22/2025 10:20 AM EDT us Candace Gaona MD LAB BLOOD ORDERABLES Final Resul t [facility] [address] [place] [address], [place] [phone] * Comprehensive metabolic panel (06/22/2025 5:18 AM EDT) [facility] Sodium 141 133 - 145 mmol/L LAB CHEMISTRY METHOD 06/22/2025 1:01 PM [facility] Potassium 4.3 3.5 - 5.5 mmol/L LAB CHEMISTRY METHOD 06/22/2025 1:01 PM [facility] Chloride 109 96 - 110 mmol/L LAB CHEMISTRY METHOD 06/22/2025 1:01 PM [facility] CO2 22 21 - 32 mmol/L LAB CHEMISTRY METHOD 06/22/2025 1:01 PM [facility] Anion Gap 10 3 - 11 LAB CHEMISTRY METHOD 06/22/2025 1:01 PM [facility] Glucose 72 70 - 100 mg/dL LAB CHEMISTRY METHOD 06/22/2025 1:01 PM [facility] BUN 17 5 - 25 mg/dL LAB CHEMISTRY METHOD 06/22/2025 1:01 PM [facility] Creatinine 0.66 0.50 - 1.10 mg/dL LAB CHEMISTRY METHOD 06/22/2025 1:01 PM [facility] eGFR 88 >=60 mL/min/1. 73m2 LAB CHEMISTRY METHOD 06/22/2025 1:01 PM [facility] Comment:Calculation based on the Chronic Kidney Disease Epidemiology Collaboration (CKD-EPI) equation refit without adjustment for race. BUN/Creatinine Ratio 25.8 LAB CHEMISTRY METHOD 06/22/2025 1:01 PM [facility] Calcium 9.2 8.5 - 10.5 mg/dL LAB CHEMISTRY METHOD 06/22/2025 1:01 PM [facility] AST (SGOT) 22 10 - 42 unit/L LAB CHEMISTRY METHOD 06/22/2025 1:01 PM [facility] ALT (SGPT) 29 10 - 60 unit/L LAB CHEMISTRY METHOD 06/22/2025 1:01 PM [facility] Alkaline Phosphatase 61 42 - 121 unit/L LAB CHEMISTRY METHOD 06/22/2025 1:01 PM [facility] Total Protein 6.5 6.0 - 8.0 g/dL LAB CHEMISTRY METHOD 06/22/2025 1:01 PM [facility] Albumin 3.4 3.2 - 5.0 g/dL LAB CHEMISTRY METHOD 06/22/2025 1:01 PM [facility] Total Bilirubin 0.4 0.0 - 1.4 mg/dL LAB CHEMISTRY METHOD 06/22/2025 1:01 PM [facility] Blood Venous blood specimen / Unknown Venipuncture / Unknown 06/22/2025 5:18 AM EDT 06/22/2025 10:20 AM EDT us Candace Gaona MD LAB BLOOD ORDERABLES Final Resul t [facility] [address] [place] [address], [place] [phone] * (ABNORMAL) Complete blood count (06/22/2025 5:18 AM EDT) [facility] WBC 8.8 4.8 - 10.8 K/mcL LAB HEMETOLOGY METHOD 06/22/2025 11:53 AM [facility] RBC 4.60 3.80 - 4.80 M/mcL LAB HEMETOLOGY METHOD 06/22/2025 11:53 AM [facility] Hemoglobin 13.7 11.5 - 16.0 g/dL LAB HEMETOLOGY METHOD 06/22/2025 11:53 AM [facility] Hematocrit 41.7 35.0 - 47.0 % LAB HEMETOLOGY METHOD 06/22/2025 11:53 AM [facility] MCV 90.7 79.0 - 98.0 FL LAB HEMETOLOGY METHOD 06/22/2025 11:53 AM [facility] MCH 29.8 27.0 - 32.0 pcg LAB HEMETOLOGY METHOD 06/22/2025 11:53 AM [facility] MCHC 32.9 32.0 - 37.0 g/dL LAB HEMETOLOGY METHOD 06/22/2025 11:53 AM [facility] RDW 12.9 11.0 - 15.0 % LAB HEMETOLOGY METHOD 06/22/2025 11:53 AM [facility] Platelets 495(H) 130 - 400 K/mcL LAB HEMETOLOGY METHOD 06/22/2025 11:53 AM [facility] MPV 9.6 7.0 - 11.0 FL LAB HEMETOLOGY METHOD 06/22/2025 11:53 AM [facility] NRBC 0.0 <1.0 % LAB HEMETOLOGY METHOD 06/22/2025 11:53 AM [facility] NRBC Absolute 0.00 <0.10 K/mcL LAB HEMETOLOGY METHOD 06/22/2025 11:53 AM EDT [facility] Blood Venous blood specimen / Unknown Venipuncture / Unknown 06/22/2025 5:18 AM EDT 06/22/2025 10:21 AM EDT us Candace Gaona MD LAB BLOOD ORDERABLES Final Resul t [facility] [address] [place] [address], [place] [phone] documented in this encounter Visit Diagnoses Diagnosis Essential (primary) hypertension Unspecified essential hypertension Hypokalemia Hypopotassemia Lipoprotein deficiency Lipoprotein deficiencies Age-related osteoporosis without current pathological fracture Vitamin D deficiency, unspecified documented in this encounter Care Teams Tempering Machine Operator Relationship Specialty Start Date End Date Mike Mensah MD [address] [place] [id number] PCP - General Internal Medicine 08/04/24 documented as of this encounter
--- OUTSIDE RECORDS SUMMARY | 2025-08-31 20:17 | XMS_ITS | Clinical Summary ---
Author Organization [address] Address [address] [place] [address] Phone Care Team Providers Care Parking Inspector Name Role Phone Mike Mensah MD Primary Care Provider [phone] Encounters Date Type Department Care Team Description 06/22/2025 Lab Requisition [facility] - Main Lab [address] [facility] [email or web address] [address] Candace Gaona MD Essential (primary) hypertension; Hypokalemia; Lipoprotein deficiency; Age-related osteoporosis without current pathological fracture; Vitamin D deficiency, unspecified from Last 3 Months Social History Tobacco Use Types Packs/Day Years Used Date Smoking Tobacco: Never Assessed Comments Unknown Sex and Gender Information Value Date Recorded Sex Assigned at Not on file Legal Sex Female 9:56 AM EST Gender Identity Not on file Sexual Orientation Not on file Plan of Treatment Health Maintenance Due Date Last Done Comments DTaP,Tdap,and Td Vaccines (1 - Tdap) 1964 Pneumococcal Vaccine: 50+ Years (1 of 1 - PCV) 1994 Zoster Vaccines (1 of 2) 1994 RSV Immunization Adult Patients (1 - 1-dose 75+ series) 2019 Falls Risk Assessment 08/04/2024 Medicare Annual Wellness Visit 08/04/2024 Osteoporosis Screening (Bone Density Screening) 08/04/2024 Social Influencers of Health Screening 08/04/2024 Depression Screening 09/15/2024 COVID-19 Vaccine (1 - 2024- season) 2025 Influenza Vaccine (#1) 2025 Hypertension/CHF/CAD Annual BMP Blood Test 06/22/2026 06/22/2025, 03/15/2025, 02/07/2025, Additional history exists Cholesterol Screening (Lipid Panel) 03/15/2030 03/15/2025, 10/08/2024, 09/16/2024 HIB Vaccines Aged Out No longer eligi ble based on patient's age to complete this topic HPV Vaccines Aged Out No longer eligi ble based on patient's age to complete this topic Hepatitis A Vaccines Aged Out No long er eligible based on patient's age to complete this topic Hepatitis B Vaccines Aged Out No long er eligible based on patient's age to complete this topic IPV Vaccines Aged Out No longer eligi ble based on patient's age to complete this topic MMR Vaccines Aged Out No longer eligi ble based on patient's age to complete this topic Meningococcal ACWY Vaccine Aged Out N o longer eligible based on patient's age to complete this topic Meningococcal B Vaccine Aged Out No l onger eligible based on patient's age to complete this topic RSV Immunization Patients Under 20 months Aged Out No longer eligible based on patient's age to complete this topic Varicella Vaccines Aged Out No longer eligible based on patient's age to complete this topic Procedures Procedure Name Priority Date/Time Associated Diagnosis [...] current pathological fracture Vitamin D deficiency, unspecified LIPID PANEL WITH REFLEX TO DIRECT LDL Routine 03/15/2025 4:48 AM EDT Hyperlipidemia, unspecified Essential (primary) hypertension from Last 3 Months or Most Recently Relevant to Health Maintenance Results * Vitamin D 25 hydroxy (06/22/2025 5:18 AM EDT) Vit D, 25-Hydroxy 58.8 30.0 - 80.0 ng/mL LAB CHEMISTRY METHOD 06/22/2025 1:51 PM EDT [facility] Blood Venous blood specimen / Unknown Venipuncture / Unknown 06/22/2025 5:18 AM EDT 06/22/2025 10:20 AM EDT us Candace Gaona MD LAB BLOOD ORDERABLES Final Resul t [facility] [address] [place] [address], [place] [phone] * (ABNORMAL) Complete blood count (06/22/2025 5:18 AM EDT) WBC 8.8 4.8 - 10.8 K/mcL LAB [facility] RBC 4.60 3.80 - 4.80 M/mcL LAB [facility]EMETOLOGY [facility] Hemoglobin 13.7 11.5 - 16.0 g/dL [...] % LAB HEMETOLOGY METHOD 06/22/2025 11:53 AM EDT [facility] Platelets 495(H) 130 - 400 K/mcL LAB HEMETOLOGY METHOD 06/22/2025 11:53 AM EDT [facility] MPV 9.6 7.0 - 11.0 FL LAB HEMETOLOGY METHOD 06/22/2025 11:53 AM EDT [facility] NRBC 0.0 <1.0 % LAB HEMETOLOGY METHOD 06/22/2025 11:53 AM EDT [facility] NRBC Absolute 0.00 <0.10 K/mcL LAB HEMETOLOGY METHOD 06/22/2025 11:53 AM EDT [facility] Blood Venous blood specimen / Unknown Venipuncture / Unknown 06/22/2025 5:18 AM EDT 06/22/2025 10:21 AM EDT us Candace Gaona MD LAB BLOOD ORDERABLES Final Resul t [facility] [address] [place] [address], * Comprehensive metabolic panel (06/22/2025 5:18 AM EDT) Sodium 141 133 - 145 mmol/L LAB [...] 42 unit/L LAB CHEMISTRY METHOD 06/22/2025 1:01 [facility] ALT (SGPT) 29 10 - 60 unit/L LAB CHEMISTRY METHOD 06/22/2025 1:01 [facility] Alkaline Phosphatase 61 42 - [...] 1.4 mg/dL LAB CHEMISTRY METHOD 06/22/2025 1:01 [facility] Blood Venous blood specimen / Unknown Venipuncture / Unknown 06/22/2025 5:18 AM EDT 06/22/2025 10:20 AM EDT us Candace Gaona MD LAB BLOOD ORDERABLES Final Resul t Performing Organization Address [facility]/ZIP Co de Phone Number [facility] [address] [place] [address], [place] [phone] * (ABNORMAL) Lipid panel with reflex to direct LDL (03/15/2025 4:48 AM EDT) Cholesterol 224(H) 0 - 200 mg/dL LAB CHEMISTRY METHOD 03/15/2025 9:48 AM EDT [facility] Triglycerides 167(H) 0 - 150 mg/dL LAB CHEMISTRY METHOD 03/15/2025 9:48 AM EDT [facility] HDL 49 >=40 mg/dL LAB CHEMISTRY METHOD 03/15/2025 9:48 AM EDT [facility] LDL Calculated 142(H) 0 - 100 mg/dL LAB CHEMISTRY METHOD 03/15/2025 9:48 AM EDT [facility] VLDL Cholesterol Damon 33.4 mg/dL LAB CHEMISTRY METHOD 03/15/2025 9:48 AM EDT [facility] Non HDL Chol. (LDL+VLDL) 175(H) <145 mg/dL LAB CHEMISTRY METHOD 03/15/2025 9:48 AM EDT [facility] Chol/HDL Ratio 4.6(H) 0.0 - 4.4 LAB CHEMISTRY METHOD 03/15/2025 9:48 AM EDT [facility] Blood Venous blood specimen / Unknown Venipuncture / Unknown 03/15/2025 4:48 AM EDT 03/15/2025 9:16 AM EDT us Candace Gaona MD LAB BLOOD ORDERABLES Final Resul t Performing Organization Address City/[facility]/ZIP Co de Phone Number [facility] [address] [place] [address], from Last 3 Months or Most Recently Relevant to Health Maintenance Insurance MEDICARE MEDICAID - [place] [facility] Care Teams Parking Inspector Relationship Specialty Start Date End Date Mike Mensah MD [address] [place] [phone] PCP - General Internal Medicine 08/04/24
--- OUTSIDE RECORDS SUMMARY | 2025-08-31 20:17 | XMS_ITS | Encounter Summary ---
Author Organization [facility] Address [address] [place] [address] Care Team Providers Care Medical Photographer Name Role Phone Mike Mensah MD Primary Care Provider [phone] Encounter Details Date Type Department Care Team (Late st Contact Info) Description 12/02/2024 Lab Requisition [facility] - Main Lab [address] [facility] [place] [address] Candace Gaona MD [address] [place] [address] Other hyperlipidemia Social History Tobacco Use Types [...] Associated Diagnosis Comments COMPLETE BLOOD COUNT Routine 12/02/2024 11:31 AM EDT Other hyperlipidemia documented in this encounter Results * Complete blood count (12/02/2024 11:31 AM EDT) WBC 8.2 4.8 - 10.8 K/mcL LAB HEMETOLOGY METHOD 12/02/2024 12:07 PM EDT [facility] RBC 4.80 3.80 - 4.80 M/mcL LAB HEMETOLOGY METHOD 12/02/2024 12:07 PM EDT [facility] Hemoglobin 13.8 11.5 - 16.0 g/dL LAB HEMETOLOGY METHOD 12/02/2024 12:07 PM EDT [facility] Hematocrit 40.3 35.0 - 47.0 % LAB HEMETOLOGY METHOD 12/02/2024 12:07 PM EDT [facility] MCV 84.0 79.0 - 98.0 FL LAB HEMETOLOGY METHOD 12/02/2024 12:07 PM EDT [facility] MCH 28.8 27.0 - 32.0 pcg LAB HEMETOLOGY METHOD 12/02/2024 12:07 PM EDT [facility] MCHC 34.2 32.0 - 37.0 g/dL LAB HEMETOLOGY METHOD 12/02/2024 12:07 PM EDT [facility] RDW 14.2 11.0 - 15.0 % LAB HEMETOLOGY METHOD 12/02/2024 12:07 PM EDT [facility] Platelets 394 130 - 400 K/mcL LAB HEMETOLOGY METHOD 12/02/2024 12:07 PM EDT [facility] MPV 9.7 7.0 - 11.0 FL LAB HEMETOLOGY METHOD 12/02/2024 12:07 PM EDT [facility] NRBC 0.0 <1.0 % LAB HEMETOLOGY METHOD 12/02/2024 12:07 PM EDT [facility] NRBC Absolute 0.00 <0.10 K/mcL LAB HEMETOLOGY METHOD 12/02/2024 12:07 PM EDT [facility] Blood Venous blood specimen / Unknown 12/02/2024 11:31 AM EDT 12/02/2024 11:58 AM EDT us Candace Gaona MD LAB BLOOD ORDERABLES Final Resul t [facility] [address] [place] [address], documented in this encounter Visit Diagnoses Diagnosis Other hyperlipidemia documented in this encounter Care Teams Medical Photographer Relationship Specialty Start Date End Date Mike Mensah MD [address] [place] [phone] PCP - General Internal Medicine 08/04/24 documented as of this encounter
--- NOTE | 2025-08-31 20:34 | PC.NURSE ---
pt tolerated straight cath well, no blood noted however urine was dark/tea colored with sediment. sample sent to lab. pt repositioned, pillow placed between knees as pt contracted. call dillon in reach.
[2025-08-31 20:36] LABS: Appearance Urine Cloudy; Glucose Urine UA Negative (Negative); PH 6.5 (5.0-9.0); Specific Gravity - Urine 1.010 (1.005-1.025); UMIC TRIGGER UACC YES
[2025-08-31 22:00] LABS: Resp Syncy Virus RNA Qual PCR NEGATIVE (Negative); SARS COV2 PCR INHOUSE NEGATIVE (Negative)
--- NOTE | 2025-08-31 23:35 | PC.NURSE ---
pt noted to be incontinent of urine. bed linen/gown changed, harper care given. pt repositioned with pillows to L. side. purewick placed for incontinence. still at bedside, marizol wallace now at bedside for admission eval. ivf infusing per mar.
[2025-09-01] VITALS (10 sets, daily range): BP systolic 105–176; BP diastolic 53–92; PULSE 60–104; RESP 16–25; TEMP 36.2–37.2; O2SAT 95–98
--- NOTE | 2025-09-01 | ECG_ITS ---
Test Reason : TACHY Blood Pressure : */* mmHG Vent. Rate : 97 BPM Atrial Rate : 97 BPM P-R Int : 148 ms QRS Dur : 74 ms QT Int : 370 ms P-R-T Axes : 53 9 61 degrees QTcB Int : 469 ms Sinus rhythm with occasional Premature ventricular complexes Otherwise normal ECG When compared with ECG of 22-Nov-2024 20:03, Premature ventricular complexes are now Present Referred By: Dorita Downs Electronically Signed By: Domingo Waite
--- NOTE | 2025-09-01 01:06 | PM.IMHP ---
History of Present Illness Date of Service: 08/31/25 Attending physician on admission: Rosa Sibley Chief Complaint: involuntary movements Patient is an 80-year-old female with a past medical history significant for Alzheimer's dementia nonverbal for the past 4 years, hypertension, hyperlipidemia, , history UTIs and history of rheumatic heart disease, who presented to the ED due to abnormal facial and left upper extremity movements beginning today after lunch. The patient's has been reports that he visits her daily to feed her meals. She was at her baseline this morning and even before lunch. She has had a great appetite and has not shown any signs of any infections including urinary symptoms, cough, congestion, runny nose, fever, nausea or vomiting. She is unable to communicate due to Alzheimer's dementia and has been nonverbal for the past 4 years. Her has been reports shortly after lunch she began having involuntary movements of the left upper extremity and face. He reports that recently she was taking baclofen but stopped taking this 1-1/2-2 weeks ago, this was for contractures of her and left lower extremity. Workup in the ED with negative head CT, chest x-ray, UA with RBCs (chronic). Temp of 99.8 rectally, no leukocytosis, tachycardic (likely inaccurate due to involuntary movements) and intermittently tachypneic. Review of Systems Review of Systems: Yes Unobtainable due to mental condition [facility] Medical History Acute UTI Pneumonia Mixed hyperlipidemia Essential hypertension Alzheimer's dementia Social History Household Members: Other Housing: [facility] Do you presently have visiting nurse or other home services: No Patient Tobacco Use Status: Never used Tobacco Second Hand Smoke Exposure: No Advance Directives: Yes Advance Directives on File: Yes Advance Directives Date on File: 10/01/23 Nutrition Risks: No Nutritional Risk service: No Current occupational status: retired Current occupation: right hand dominant Meds Allergies Allergy/AdvReac Type Severity Reaction Status Date / Time Sulfa (Sulfonamide Allergy Mild HEADACHE Verified 08/31/25 15:01 Antibiotics) (SULFA (SULFONAMIDE ANTIBIOTICS)) shellfish derived (SHELLFISH Allergy Unknown UNKNOWN Verified 08/31/25 15:01 DERIVED) Home Medications ?Medication ?Instructions ?Recorded ?Confirmed ?Last Taken ?Type ascorbic acid (vitamin C) 500 mg 500 mg PO DAILY 10/01/23 11/23/24 02/22/24 08:00 History tablet (Vitamin C) cholecalciferol (vitamin D3) 50 50 mcg PO DAILY 10/01/23 11/23/24 02/22/24 08:00 History mcg (2,000 unit) tablet (Vitamin D3) donepezil 5 mg tablet 5 mg PO BEDTIME 10/01/23 11/23/24 02/22/24 08:00 History lovastatin 40 mg tablet 40 mg PO BEDTIME 10/01/23 11/23/24 Unknown History memantine 10 mg tablet 10 mg PO DAILY 10/01/23 11/23/24 02/22/24 08:00 History multivitamin 1 tab PO DAILY 10/01/23 11/23/24 02/22/24 16:53 History acetaminophen 325 mg tablet 650 mg PO Q6H PRN Fever Or Pain 11/23/24 11/23/24 Unknown History bisacodyl 10 mg rectal suppository 10 mg WI DAILY PRN Constipation 11/23/24 11/23/24 Unknown History lactase 9,000 unit tablet 9,000 unit PO TIDAC 11/23/24 11/23/24 Unknown History magnesium hydroxide 400 mg/5 mL 30 ml PO DAILY PRN Constipation 11/23/24 11/23/24 Unknown History oral suspension (Milk of Magnesia) metoprolol succinate 25 mg 25 mg PO DAILY@199911/23/24 11/23/24 Unknown History tablet,extended release 24 hr mirtazapine 7.5 mg tablet 7.5 mg PO BEDTIME 11/23/24 11/23/24 Unknown History polyvinyl alcohol 1.4 % eye drops 1 drp ophthalmic (eye) DAILY 11/23/24 11/23/24 Unknown History sodium phosphates 19 gram-7 118 ml WI DAILY PRN Constipation 11/23/24 11/23/24 Unknown History gram/118 mL enema (Fleet Enema) Physical Exam Vital Signs and Narrative: Vital Signs: Last Vital Signs Temp 99.4 F 08/31/25 23:53 Pulse 98 08/31/25 23:53 Resp 13 08/31/25 23:53 BP 181/87 H 08/31/25 23:53 Pulse Ox 98 08/31/25 23:53 O2 Del Method Room Air 08/31/25 23:53 BMI result Body Mass Index 22.9 General: Alert, constant involuntary movements of LUE and face mostly left sided Resp: CTA bilaterally, limited exam CVS: tachy, regular rhythm, difficult to assess due to LUE movements and pt moving GI: +BS, NT, no distention Skin: Warm, dry Neuro: Pinpoint pupils equal Extremities: No pitting edema. LLE contacture Psych: alert Results Labs 09/01/25 04:27 09/01/25 04:27 Labs: Laboratory Results - last 24 hr 08/31/25 08/31/25 08/31/25 15:26 15:35 20:26 MCV 89.0 MCH 30.4 MCHC 34.1 RDW 12.8 Plt Count 416 H D MPV 9.4 Immature Gran % (Auto) 0.2 Neut % (Auto) 62.6 Lymph % (Auto) 23.4 [place] % (Auto) 8.6 Eos % (Auto) 4.2 H Baso % (Auto) 1.0 Lymph # (Auto) 2.3 [place] # (Auto) 0.8 Eos # (Auto) 0.4 Baso # (Auto) 0.1 Abs Immat Gran (auto) 0.02 Absolute Neuts (auto) 6.0 Absolute Nucleated RBC 0.000 Nucleated RBC % (auto) 0.0 VBG pH 7.45 H VBG pCO2 33 VBG pO2 86 VBG HCO3 23 VBG O2 Saturation 100.0 VBG Base Excess 0.3 Anion Gap 12 Estim Creat Clear Calc 38.2 Estimated GFR > 60 Random Glucose 104 Lactic Acid Calcium 9.2 D Magnesium 2.2 Total Bilirubin 0.2 Direct Bilirubin < 0.2 AST 21 ALT 16 Alkaline Phosphatase 56 Ammonia 34 Total Creatine Kinase 51 Total Protein 6.3 L Albumin 4.0 TSH 1.01 Urine Color [place] A Urine Appearance Cloudy Urine pH 6.5 Ur Specific [place] 1.010 Urine Protein 30 (1+) H Urine Glucose (UA) Negative Urine Ketones Negative Urine Blood Large (3+) H Urine Nitrite Negative Ur Leukocyte Esterase Trace H Urine RBC >20 H Urine WBC 0-5 Ur Squamous Epith Cells 0-2 Urine Bacteria None Seen Hyaline Casts 6-10 Influenza Type A (PCR) Influenza Type B (PCR) RSV RNA Qual (PCR) SARS-CoV-2 RNA (RT-PCR) 08/31/25 08/31/25 21:08 21:17 MCV MCH MCHC RDW Plt Count MPV Immature Gran % (Auto) Neut % (Auto) Lymph % (Auto) [place] % (Auto) Eos % (Auto) Baso % (Auto) Lymph # (Auto) [place] # (Auto) Eos # (Auto) Baso # (Auto) Abs Immat Gran (auto) Absolute Neuts (auto) Absolute Nucleated RBC Nucleated RBC % (auto) VBG pH VBG pCO2 VBG pO2 VBG HCO3 VBG O2 Saturation VBG Base Excess Anion Gap Estim Creat Clear Calc Estimated GFR Random Glucose Lactic Acid 0.9 Calcium Magnesium Total Bilirubin Direct Bilirubin AST ALT Alkaline Phosphatase Ammonia Total Creatine Kinase Total Protein Albumin TSH Urine Color Urine Appearance Urine pH Ur Specific [place] Urine Protein Urine Glucose (UA) Urine Ketones Urine Blood Urine Nitrite Ur Leukocyte Esterase Urine RBC Urine WBC Ur Squamous Epith Cells Urine Bacteria Hyaline Casts Influenza Type A (PCR) NEGATIVE Influenza Type B (PCR) NEGATIVE RSV RNA Qual (PCR) NEGATIVE SARS-CoV-2 RNA (RT-PCR) NEGATIVE Assessment and Plan (1) Abnormal involuntary movement: Status: Acute Plan Patient is an 80-year-old female with a past medical history significant for Alzheimer's dementia nonverbal for the past 4 years, hypertension, hyperlipidemia, history UTIs and history of rheumatic heart disease, who presented to the ED due to abnormal facial and left upper extremity movements beginning today after lunch. involuntary movements LUE and face - MRI brain with and without IV contrast - neuro consult - monitor on tele - seizure/aspiration precautions - NPO pending swallow eval when appropriate - has received Benadryl, Keppra, Zyprexa, ketamine and multiple doses of midazolam in ED. noted only improvement with midazolam - trial of IV tylenol with improvement Alzheimer's dementia - donepezil, memantine when taking PO HTN - metoprolol when taking PO hx UTIs - UA negative for infection, chronic hematuria med rec pending DNR/DNI VTE prophy: SCDs pending neuro eval Pt with new involuntary movements LUE and face, requiring admission for at least 2 midnights stay for further evaluation by neurology. Quality Stroke Does the patient have a stroke diagnosis?: No VTE Prior VTE?: No VTE Risk Level:: Medical - moderate - high VTE Device Contraindication: N/A - Device Ordered VTE Drug Contraindication: Treatment Not Indicated
[2025-09-01] MEDS: Lactated Ringers 1,000 ML 75 ML IVCONT ×2 (02:07→14:38)
[2025-09-01 02:59] LABS: Troponin-I High Sensitivity 17.5 ng/L (<3.5-17.0)
[2025-09-01 04:37] LABS: MANUAL DIFF FLAG NO
[2025-09-01 04:40] LABS: Hematocrit 39.3 % (37.0-47.0); Hemoglobin 13.2 g/dl (12.0-16.0); Imm Gran Abs Auto 0.05 X10*3/uL (0.00-0.03); Imm Gran Pct Auto 0.4 % (0.0-0.4); Lymphocytes Absolute Auto 2.6 X10*3/uL (1.2-4.9); Mean Corpuscular HGB Conc 33.6 g/dl (31.0-35.0); Mean Corpuscular Hemoglobin 30.3 pg (27.0-33.0); Mean Corpuscular Volume 90.3 fL (80.0-98.0); NRBC Abs Auto 0.000 X10*3/uL (0.0-0.012); NRBC Pct Auto 0.0 /100WBC (0.0-0.2); Platelet Count 419 X10*3/uL (160-400); Red Blood Count 4.35 X10*6/uL (4.20-5.50); White Blood Count 12.5 X10*3/uL (4.8-10.8)
[2025-09-01 05:00] LABS: Anion Gap 13 (12-20); Blood Urea Nitrogen 14 mg/dL (9-16); Calcium 8.4 mg/dL (8.4-10.2); Carbon Dioxide 22 mmol/L (22-29); Chloride 110 mmol/L (96-108); Creatinine Clr Calc Pharmacy 51.1; Estimated Glomerular Filt Rate > 60; Magnesium 2.0 mg/dL (1.6-2.6); Potassium 3.5 mmol/L (3.3-5.1); Sodium 141 mmol/L (135-145)
--- NOTE | 2025-09-01 07:32 | PC.NURSE ---
assumed care of patient at 0700, patient is awake and alert, not oriented, non verbal at baseline. patient noted to be moving all extremities in bed, appears to be fidgeting. patient afebrile with rectal temp, vss at this time, LR running at 75ml/hr. patient medicated per NOV. patient linens are clean and dry, covered up with blanket, seizure pads on bed for precaution per orders. patient appears comfortable at this time, resting with eyes closed, resp even and unlabored.
--- NOTE | 2025-09-01 07:48 | HO.NURTONUR ---
Patient is a 80 year old female, DNR/DNI who presented to the ED from [facility] with abnormal involuntary facial and LUE movements. patient has history of Alzheimer dementia for last four years and is nonverbal baseline. Rectal temp initially in ED was 99.8, which has come down after IV Tylenol. CXR, HCT, UA (-). Seizure pads in place for patient on stretcher. Patient is incontinent baseline. Patient is being admitted for brain MRI and neurology consult. LR running at 75cc/hr with right arm IV. NPO pending speech eval when appropriate.
--- NOTE | 2025-09-01 09:37 | MHC.CM.PN ---
CM attempted to meet with Patient but she has Alzheimer's Dementia and she is nonverbal;IMM was addressed with /HCP/Zachery @ [phone]. 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
[2025-09-01] MEDS: levETIRAcetam in NaCl (iso-os) 1,000 MG/100 ML PIGGYBACK 400 MG IV (10:34)
--- NOTE | 2025-09-01 10:34 | P.CNNE_ITS ---
History of Present Illness Data of Consult Service Date: 09/01/25 Primary Care Provider: Unknown Physician HPI Reason for consult: Movement disorder 80 years old woman with underlying history of severe dementia was brought to hospital after she started having a new movement disorder. Apparently yesterday she started moving her body, which was new to her. She was not known to have seizure disorder. She was unable to provide any meaningful history. She was initially given some benzodiazepine and 500 mg of levetiracetam for suspected seizure disorder but movements have not stopped. A CAT scan of brain was done that did not reveal any obvious acute abnormality. Review of Systems 2 Review of Systems: Could not be done with her. No obvious recent trauma or cold or flu-like illness or distress or pain. [facility] Past Medical History Medical History Acute UTI Pneumonia Mixed hyperlipidemia Essential hypertension Alzheimer's dementia Social History Social History Household Members: Other Housing: [facility] Do you presently have visiting nurse or other home services: No Patient Tobacco Use Status: Never used Tobacco Second Hand Smoke Exposure: No Advance Directives Date on File: 10/01/23 service: No Current occupational status: retired Current occupation: right hand dominant Meds Allergies Allergy/AdvReac Type Severity Reaction Status Date / Time Sulfa (Sulfonamide Allergy Mild HEADACHE Verified 08/31/25 15:01 Antibiotics) (SULFA (SULFONAMIDE ANTIBIOTICS)) shellfish derived (SHELLFISH Allergy Unknown UNKNOWN Verified 08/31/25 15:01 DERIVED) Active Medications: Current Medications Acetaminophen (Acetaminophen 325 Mg Tablet) 650 mg PO Q6H PRN On Hold: 09/01/25 06:20 PRN Reason: Pain, Mild 1-3,fever,headache Calcium Carbonate (Calcium Carbonate 750 Mg Tab.Chew) 750 mg PO Q4H PRN PRN Reason: Heartburn Lactated Ringer's (Lr) 1,000 mls @ 75 mls/hr IVCONT .[id number] JAMES Last Admin: 09/01/25 02:07 Dose: 75 mls/hr Acetaminophen (Ofirmev) 1,000 mg in 100 mls @ 400 mls/hr IV Q6H JAMES Last Infusion: 09/01/25 08:00 Dose: Infused Magnesium Hydroxide (Milk Of Magnesia 30 Ml Oral.Susp) 30 ml PO DAILY PRN PRN Reason: Constipation Melatonin (Melatonin 3 Mg Tablet) 6 mg PO BEDTIME PRN PRN Reason: Insomnia Morphine Sulfate (Morphine Sulfate 4 Mg/Ml Cartridge) 2 mg IVPUSH Q4H PRN; Protocol PRN Reason: Pain, Severe (Pain Scale 7-10) Sodium Chloride (0.9 % Sodium Chloride Flush 3 Ml Syringe) 3 ml IVFLUSH QSHIFT [facility] Last Admin: 09/01/25 07:32 Dose: Not Given Home Medications ?Medication ?Instructions ?Recorded ?Confirmed ?Last Taken ?Type cholecalciferol (vitamin D3) 50 50 mcg PO DAILY 09/01/25 08/31/25 History mcg (2,000 unit) tablet (Vitamin D3) donepezil 5 mg tablet 5 mg PO BEDTIME 10/01/2308/30/25 History memantine 10 mg tablet 10 mg PO DAILY 10/01/2308/1508/31/25 History acetaminophen 325 mg tablet 650 mg PO Q6H PRN Fever Or Pain 11/23/24 09/01/25 Unknown History bisacodyl 10 mg rectal suppository 10 mg [place] DAILY PRN Constipation 11/23/24 09/01/25 Unknown History lactase 9,000 unit tablet 9,000 unit PO TIDAC 11/23/24 09/01/25 08/31/25 History magnesium hydroxide 400 mg/5 mL 30 ml PO DAILY PRN Con stipation 11/23/24 09/01/25 Unknown History oral suspension (Milk of Magnesia) mirtazapine 7.5 mg tablet 7.5 mg PO BEDTIME 11/23/24 1 11/02/24 08/31/25 History polyvinyl alcohol 1.4 % eye drops 1 drp ophthalmic (ey e) DAILY 11/23/24 09/01/25 08/31/25 History sodium phosphates 19 gram-7 118 ml [place] DAILY PRN Consti pation 11/23/24 09/01/25 Unknown History gram/118 mL enema (Fleet Enema) acetaminophen 325 mg tablet 975 mg PO TID moderate pamela n 09/01/25 09/01/25 08/31/25 History sennosides 8.6 mg tablet (senna) 17.2 mg PO DAILY 08/1509/01/25 08/31/25 History Physical Exam 2 Vital Signs: Vital Signs: Last Vital Signs Temp 97.1 F 09/01/25 09:24 Pulse 83 09/01/25 09:24 Resp 20 09/01/25 09:24 BP 127/60 09/01/25 09:24 Pulse Ox 96 09/01/25 07:23 O2 Del Method Room Air 09/01/25 07:23 BMI result Body Mass Index 22.9 Neuro: Other: Mental Status: Very restless not responsive to verbal commands. Cranial Nerves: Left gaze deviation. Pupils were round. Visual lan could not be tested. Facial symmetry could not be fully just. Exam was limited. Motor: Right arm was flexed and rigid. She was continuously moving left arm or leg in a choreoathetoid pattern. Reflexes: Deep tendon reflexes were absent to not elicitable. Plantars were withdrawing Coordination: Could not be done with a. Gait and Station: Could not be checked. Extrapyramidal: Could not be reliably done. Speech: Did not speak. Results Labs 09/01/25 04:27 09/01/25 04:27 Labs: Short CBC 08/31/25 09/01/25 Range/Units 15:26 04:27 WBC 9.6 12.5 H (4.8-10.8) X10*3/uL Hgb 13.3 13.2 (12.0-16.0) g/dl Hct 39.0 39.3 (37.0-47.0) % Plt Count 416 H D 419 H (160-400) X10*3/uL BMP 08/31/25 09/01/25 15:26 04:27 Sodium 140 141 Potassium 4.0 3.5 Chloride 108 110 H Carbon Dioxide 24 22 BUN 24 H 14 Creatinine 0.83 0.62 Calcium 9.2 D 8.4 D Cardiac Enzymes 08/31/25 Range/Units 15:26 Total Creatine Kinase 51 (26-140) U/L Liver Function 08/31/25 Range/Units 15:26 Total Bilirubin 0.2 (0.0-1.0) mg/dL Direct Bilirubin < 0.2 (0.0-0.5) mg/dL AST 21 (5-31) U/L ALT 16 (0-31) U/L Alkaline Phosphatase 56 (39-117) U/L Albumin 4.0 (3.5-5.0) g/dL Urine 08/31/25 Range/Units 20:26 Urine Color [place] A Urine Appearance Cloudy Urine pH 6.5 (5.0-9.0) Ur Specific [place] 1.010 (1.005-1.025) Urine Protein 30 (1+) H (Neg-Trace) mg/dL Urine Glucose (UA) Negative (Negative) mg/dL CLINICAL HISTORY: acute onset involuntary movements on the left side CT head without contrast Comparison: 11/22/2024 Findings: No intracranial mass, midline shift, hydrocephalus, or acute hemorrhage. No CT evidence of acute ischemia. 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 Visualized paranasal sinuses and mastoid air cells reveal a few partially opacified posterior ethmoid air cells bilaterally. There is trace fluid within the left sphenoid sinus.. Orbits unremarkable. No skull fracture Impression: 1. No acute intracranial abnormalities. Assessment and Plan (1) Choreiform movements: Status: Acute 80 years old woman with severe dementia from severe cerebral degeneration noted on her CAT scan of brain was brought to hospital with new onset of movement disorder. She was having left gaze deviation and left hemibody choreoathetoid movements. This could be due to a structural lesion such as a stroke but overall clinical features were more suggestive of seizure disorder. My recommendation is to obtain an EEG and in the meantime treat her with benzodiazepine and load her with levetiracetam. Procedures Date of Service Date of Service: 09/01/25
--- NOTE | 2025-09-01 10:39 | PHA.MEDREC ---
Pharmacy Consult ? Medication Reconciliation Pharmacy has completed the medication reconciliation, using medication list from [facility].
[2025-09-01] MEDS: diazePAM 10 MG/2 ML CARTRIDGE 2.5 MG IVPUSH ×3 (11:43→23:32)
--- NOTE | 2025-09-01 14:03 | HO.PM.IMPN ---
Subjective Subjective Date of Service: 09/01/25 Interval History: seen and examined this morning follow up for abnormal movements patient continues to have primarily left side choreaform movements nonverbal at baseline- unable to obtain ROS Physical Exam Vital Signs: Vital Signs: Last Vital Signs Temp 97.5 F 09/01/25 11:58 Pulse 68 09/01/25 11:58 Resp 18 09/01/25 11:58 BP 105/53 L 09/01/25 11:58 Pulse Ox 98 09/01/25 11:58 O2 Del Method Room Air 09/01/25 11:58 BMI result Body Mass Index 22.9 Const: Nutritional Appearance: average body habitus Orientation/consciousness: Other orientation findings (unable to assess, non-verbal ) Resp: Effort & Inspection: normal respiratory effort and no respiratory distress Cardio: Rate: regular rate GI: Inspection: No distended Palpation (GI): Soft to palpation and Tenderness to palpation present (GI) (appears non-tender ) Neuro: Other: limited exam. pt restless, left side primarily choreoathetoid movements Extrem: General: No pedal edema Objective Data Active Medications Acetaminophen (Acetaminophen 325 Mg Tablet) 650 mg PO Q6H PRN On Hold: 09/01/25 06:20 PRN Reason: Pain, Mild 1-3,fever,headache Calcium Carbonate (Calcium Carbonate 750 Mg Tab.Chew) 750 mg PO Q4H PRN PRN Reason: Heartburn Diazepam (Diazepam 10 Mg/2 Ml Cartridge) 2.5 mg IVPUSH Q6H [facility] Stop: 09/02/25 05:16 Last Admin: 09/01/25 11:43 Dose: 2.5 mg Documented By: LIZ Lactated Ringer's (Lr) 1,000 mls @ 75 mls/hr IVCONT .[id number] [facility] Last Admin: 09/01/25 02:07 Dose: 75 mls/hr Documented By: DEBRA Acetaminophen (Ofirmev) 1,000 mg in 100 mls @ 400 mls/hr IV Q6H [facility] Last Infusion: 09/01/25 08:00 Dose: Infused Documented By: MONTY Magnesium Hydroxide (Milk Of Magnesia 30 Ml Oral.Susp) 30 ml PO DAILY PRN PRN Reason: Constipation Melatonin (Melatonin 3 Mg Tablet) 6 mg PO BEDTIME PRN PRN Reason: Insomnia Morphine Sulfate (Morphine Sulfate 4 Mg/Ml Cartridge) 2 mg IVPUSH Q4H PRN; Protocol PRN Reason: Pain, Severe (Pain Scale 7-10) Sodium Chloride (0.9 % Sodium Chloride Flush 3 Ml Syringe) 3 ml IVFLUSH QSHIFT JAMES Last Admin: 09/01/25 07:32 Dose: Not Given Documented By: MONTY Non-Admin Reason: IV Running Labs 09/01/25 04:27 09/01/25 04:27 Labs: Laboratory Results - last 24 hr 08/31/25 08/31/25 08/31/25 15:26 15:35 20:26 MCV 89.0 MCH 30.4 MCHC 34.1 RDW 12.8 Plt Count 416 H D MPV 9.4 Immature Gran % (Auto) 0.2 Neut % (Auto) 62.6 Lymph % (Auto) 23.4 [place] % (Auto) 8.6 Eos % (Auto) 4.2 H Baso % (Auto) 1.0 Lymph # (Auto) 2.3 [place] # (Auto) 0.8 Eos # (Auto) 0.4 Baso # (Auto) 0.1 Abs Immat Gran (auto) 0.02 Absolute Neuts (auto) 6.0 Absolute Nucleated RBC 0.000 Nucleated RBC % (auto) 0.0 VBG pH 7.45 H VBG pCO2 33 VBG pO2 86 VBG HCO3 23 VBG O2 Saturation 100.0 VBG Base Excess 0.3 Anion Gap 12 Estim Creat Clear Calc 38.2 Estimated GFR > 60 Random Glucose 104 Lactic Acid Calcium 9.2 D Magnesium 2.2 Total Bilirubin 0.2 Direct Bilirubin < 0.2 AST 21 ALT 16 Alkaline Phosphatase 56 Ammonia 34 Total Creatine Kinase 51 Troponin I High Sens Total Protein 6.3 L Albumin 4.0 TSH 1.01 Urine Color [place] A Urine Appearance Cloudy Urine pH 6.5 Ur Specific [place] 1.010 Urine Protein 30 (1+) H Urine Glucose (UA) Negative Urine Ketones Negative Urine Blood Large (3+) H Urine Nitrite Negative Ur Leukocyte Esterase Trace H Urine RBC >20 H Urine WBC 0-5 Ur Squamous Epith Cells 0-2 Urine Bacteria None Seen Hyaline Casts 6-10 Influenza Type A (PCR) Influenza Type B (PCR) RSV RNA Qual (PCR) SARS-CoV-2 RNA (RT-PCR) 08/31/25 08/31/25 09/01/25 21:08 21:17 02:36 MCV MCH MCHC RDW Plt Count MPV Immature Gran % (Auto) Neut % (Auto) Lymph % (Auto) [place] % (Auto) Eos % (Auto) Baso % (Auto) Lymph # (Auto) [place] # (Auto) Eos # (Auto) Baso # (Auto) Abs Immat Gran (auto) Absolute Neuts (auto) Absolute Nucleated RBC Nucleated RBC % (auto) VBG pH VBG pCO2 VBG pO2 VBG HCO3 VBG O2 Saturation VBG Base Excess Anion Gap Estim Creat Clear Calc Estimated GFR Random Glucose Lactic Acid 0.9 Calcium Magnesium Total Bilirubin Direct Bilirubin AST ALT Alkaline Phosphatase Ammonia Total Creatine Kinase Troponin I High Sens 17.5 H D Total Protein Albumin TSH Urine Color Urine Appearance Urine pH Ur Specific [place] Urine Protein Urine Glucose (UA) Urine Ketones Urine Blood Urine Nitrite Ur Leukocyte Esterase Urine RBC Urine WBC Ur Squamous Epith Cells Urine Bacteria Hyaline Casts Influenza Type A (PCR) NEGATIVE Influenza Type B (PCR) NEGATIVE RSV RNA Qual (PCR) NEGATIVE SARS-CoV-2 RNA (RT-PCR) NEGATIVE 09/01/25 04:27 MCV 90.3 MCH 30.3 MCHC 33.6 RDW 12.7 Plt Count 419 H MPV 9.7 Immature Gran % (Auto) 0.4 Neut % (Auto) 68.9 Lymph % (Auto) 21.0 [place] % (Auto) 6.5 Eos % (Auto) 2.6 Baso % (Auto) 0.6 Lymph # (Auto) 2.6 [place] # (Auto) 0.8 Eos # (Auto) 0.3 Baso # (Auto) 0.1 Abs Immat Gran (auto) 0.05 H Absolute Neuts (auto) 8.6 H Absolute Nucleated RBC 0.000 Nucleated RBC % (auto) 0.0 VBG pH VBG pCO2 VBG pO2 VBG HCO3 VBG O2 Saturation VBG Base Excess Anion Gap 13 Estim Creat Clear Calc 51.1 Estimated GFR > 60 Random Glucose 92 Lactic Acid Calcium 8.4 D Magnesium 2.0 Total Bilirubin Direct Bilirubin AST ALT Alkaline Phosphatase Ammonia Total Creatine Kinase Troponin I High Sens Total Protein Albumin TSH Urine Color Urine Appearance Urine pH Ur Specific [place] Urine Protein Urine Glucose (UA) Urine Ketones Urine Blood Urine Nitrite Ur Leukocyte Esterase Urine RBC Urine WBC Ur Squamous Epith Cells Urine Bacteria Hyaline Casts Influenza Type A (PCR) Influenza Type B (PCR) RSV RNA Qual (PCR) SARS-CoV-2 RNA (RT-PCR) Assessment and Plan (1) Abnormal involuntary movement: Status: Acute (2) Choreiform movements: Status: Acute Plan This is an 80-year-old female with a past medical history significant for advanced Alzheimer's dementia nonverbal for the past 4 years, hypertension, hyperlipidemia, history UTIs and history of rheumatic heart disease, who presented to the ED due to abnormal facial and left upper extremity movements involuntary movements LUE and face seen by neuro, concern for seizure give 1 gm keppra now, plan for EEG today prn valium no need for MRI at this time as per neurology seizure/aspiration precautions seen by speech, rec pureed diet Alzheimer's dementia donepezil, memantine HTN no bp meds on med list bp soft follow closely hx UTIs UA negative for infection, chronic hematuria DNR/DNI VTE prophy: SCDs pending neuro eval Pt with new involuntary movements LUE and face, with concern for new seizure disorder requiring ongoing inpatient stay for initiation of seizure medication, EEG and close monitoring given persistent symptoms Quality Stroke Does the patient have a stroke diagnosis?: No VTE Prior VTE?: No VTE Risk Level:: Medical - moderate - high VTE Device Contraindication: N/A - Device Ordered VTE Drug Contraindication: Treatment Not Indicated
[2025-09-01] MEDS: 0.9 % Sodium Chloride Flush 3 ML SYRINGE IVFLUSH ×2 (17:17→21:08)
[2025-09-01] MEDS: levETIRAcetam Oral Soln 500 MG/5 ML 250 MG PO (21:07)
[2025-09-02] VITALS (12 sets, daily range): BP systolic 138–198; BP diastolic 72–98; PULSE 94–108; RESP 16–19; TEMP 36.4–36.9; O2SAT 93–97
[2025-09-02] MEDS: Lactated Ringers 1,000 ML 75 ML IVCONT (03:41)
[2025-09-02] MEDS: diazePAM 10 MG/2 ML CARTRIDGE 2.5 MG IVPUSH ×3 (05:31→23:21)
[2025-09-02 08:05] LABS: MANUAL DIFF FLAG NO
[2025-09-02 08:18] LABS: Hematocrit 42.4 % (37.0-47.0); Hemoglobin 14.8 g/dl (12.0-16.0); Imm Gran Abs Auto 0.09 X10*3/uL (0.00-0.03); Imm Gran Pct Auto 0.6 % (0.0-0.4); Lymphocytes Absolute Auto 2.2 X10*3/uL (1.2-4.9); Mean Corpuscular HGB Conc 34.9 g/dl (31.0-35.0); Mean Corpuscular Hemoglobin 30.5 pg (27.0-33.0); Mean Corpuscular Volume 87.4 fL (80.0-98.0); NRBC Abs Auto 0.000 X10*3/uL (0.0-0.012); NRBC Pct Auto 0.0 /100WBC (0.0-0.2); Platelet Count 461 X10*3/uL (160-400); Red Blood Count 4.85 X10*6/uL (4.20-5.50); White Blood Count 15.9 X10*3/uL (4.8-10.8)
[2025-09-02 08:29] LABS: Anion Gap 15 (12-20); Blood Urea Nitrogen 10 mg/dL (9-16); Carbon Dioxide 22 mmol/L (22-29); Chloride 103 mmol/L (96-108); Creatinine Clr Calc Pharmacy 56.5; Estimated Glomerular Filt Rate > 60; Magnesium 1.9 mg/dL (1.6-2.6); Potassium 3.3 mmol/L (3.3-5.1); Sodium 137 mmol/L (135-145)
[2025-09-02 08:42] LABS: Calcium 9.5 mg/dL (8.4-10.2)
[2025-09-02] MEDS: levETIRAcetam Oral Soln 500 MG/5 ML 250 MG PO (09:03)
[2025-09-02] MEDS: Artificial Tears 15 ML DROPS 1 DROP EYE-BOTH (09:05)
--- NOTE | 2025-09-02 09:24 | MHC.CM.PN ---
CM met with Patient and at bedside and addressed [employer] IMM with them.
--- NOTE | 2025-09-02 12:26 | HO.PM.IMPN ---
Subjective Subjective Date of Service: 09/02/25 Interval History: seen and examined this morning follow up for abnormal movements, possible seizure unable to obtain EEG due to ongoing repetitive hand movements non-verbal at baseline Review of Systems unable to obtain ROS due to advance dementia/nonverbal Physical Exam Vital Signs: Vital Signs: Last Vital Signs Temp 98.5 F 09/02/25 08:00 Pulse 95 09/02/25 08:00 Resp 19 09/02/25 08:00 BP 160/78 H 09/02/25 09:00 Pulse Ox 96 09/02/25 08:00 O2 Del Method Room Air 09/02/25 08:00 BMI result Body Mass Index 22.9 Const: Other: appears more calm, repetitive movements left arm primarily General: alert and awake Nutritional Appearance: average body habitus Orientation/consciousness: Other orientation findings (unable to assess, non-verbal ) Resp: Effort & Inspection: normal respiratory effort, no respiratory distress and no use of accessory muscles Cardio: Rate: regular rate GI: Inspection: No distended Palpation (GI): Soft to palpation and Tenderness to palpation present (GI) (appears non-tender ) Neuro: Other: limited exam. pt restless, left side primarily choreoathetoid movements Extrem: General: No pedal edema Objective Data Active Medications Acetaminophen (Acetaminophen 325 Mg Tablet) 650 mg PO Q6H PRN On Hold: 09/01/25 06:20 PRN Reason: Pain, Mild 1-3,fever,headache Artificial Tears (Artificial Tears 15 Ml Drops) 1 drop EYE-BOTH DAILY [facility] Last Admin: 09/02/25 09:05 Dose: 1 drop Documented By: ELOY Calcium Carbonate (Calcium Carbonate 750 Mg Tab.Chew) 750 mg PO Q4H PRN PRN Reason: Heartburn Diazepam (Diazepam 10 Mg/2 Ml Cartridge) 2.5 mg IVPUSH Q6H PRN PRN Reason: Seizures Donepezil HCl (Donepezil Hcl 5 Mg Tablet) 5 mg PO BEDTIME [facility] Last Admin: 09/01/25 21:08 Dose: 5 mg Documented By: FADY Lactated Ringer's (Lr) 1,000 mls @ 75 mls/hr IVCONT .[id number] [facility] Last Admin: 09/02/25 03:41 Dose: 75 mls/hr Documented By: FADY Acetaminophen (Ofirmev) 1,000 mg in 100 mls @ 400 mls/hr IV Q6H [facility] Last Infusion: 09/02/25 09:34 Dose: Infused Documented By: ELOY Levetiracetam 250 mg/ Sodium (Chloride) 102.5 mls @ 410 mls/hr IV BID [facility] Magnesium Hydroxide (Milk Of Magnesia 30 Ml Oral.Susp) 30 ml PO DAILY PRN PRN Reason: Constipation Melatonin (Melatonin 3 Mg Tablet) 6 mg PO BEDTIME PRN PRN Reason: Insomnia Memantine (Memantine Hcl 10 Mg Tablet) 10 mg PO DAILY [facility] Last Admin: 09/02/25 09:14 Dose: Not Given Documented By: ELOY Non-Admin Reason: unable to take Mirtazapine (Mirtazapine 7.5 Mg Tablet) 7.5 mg PO BEDTIME [facility] Last Admin: 09/01/25 21:08 Dose: 7.5 mg Documented By: FADY Morphine Sulfate (Morphine Sulfate 4 Mg/Ml Cartridge) 2 mg IVPUSH Q4H PRN; Protocol PRN Reason: Pain, Severe (Pain Scale 7-10) Last Admin: 09/01/25 21:19 Dose: 2 mg Documented By: FADY Senna (Sennosides 8.6 Mg Tablet) 17.2 mg PO DAILY [facility] Last Admin: 09/02/25 09:14 Dose: Not Given Documented By: ELOY Non-Admin Reason: unable to take Sodium Chloride (0.9 % Sodium Chloride Flush 3 Ml Syringe) 3 ml IVFLUSH QSHIFT [facility] Last Admin: 09/02/25 07:37 Dose: Not Given Documented By: ELOY Non-Admin Reason: IV Running Labs 09/02/25 07:13 09/02/25 07:13 Labs: Laboratory Results - last 24 hr 09/02/25 07:13 MCV 87.4 MCH 30.5 MCHC 34.9 RDW 12.6 Plt Count 461 H MPV 10.0 Immature Gran % (Auto) 0.6 H Neut % (Auto) 78.5 H Lymph % (Auto) 13.7 L Mckenzie % (Auto) 6.3 Eos % (Auto) 0.4 Baso % (Auto) 0.5 Lymph # (Auto) 2.2 Mckenzie # (Auto) 1.0 Eos # (Auto) 0.1 Baso # (Auto) 0.1 Abs Immat Gran (auto) 0.09 H Absolute Neuts (auto) 12.5 H Absolute Nucleated RBC 0.000 Nucleated RBC % (auto) 0.0 Anion Gap 15 Estim Creat Clear Calc 56.5 Estimated GFR > 60 Random Glucose 95 Calcium 9.5 D Magnesium 1.9 Microbiology Microbiology Results: Microbiology 08/31/25 21:18 Blood Culture - Preliminary Blood - Venous No growth after 24 hours. 08/31/25 21:17 Blood Culture - Preliminary Blood - Venous No growth after 24 hours. Assessment and Plan (1) Abnormal involuntary movement: Status: Acute Plan This is an 80-year-old female with a past medical history significant for advanced Alzheimer's dementia nonverbal for the past 4 years, hypertension, hyperlipidemia, history UTIs and history of rheumatic heart disease, who presented to the ED due to abnormal facial and left upper extremity movements involuntary movements LUE and face seen by neuro, concern for seizure loaded with keppra and started on 250 bid scheduled unable to have EEG performed so far due to ongoing hand movements continue prn valium, trial increased dose of 5 mg no need for MRI at this time as per neurology seizure/aspiration precautions seen by speech, rec pureed diet Elevated blood pressure readings bp up and down reading may not be accurate do to pt inability to stay still follow bp closely Alzheimer's dementia donepezil, memantine may contribute to seizure and not likely providing much benefit due to advanced nature of dz. will begin to wean HTN no bp meds on med list bp soft follow closely hx UTIs UA negative for infection, chronic hematuria DNR/DNI VTE prophy: SCDs pending neuro eval Pt with new involuntary movements LUE and face, with concern for new seizure disorder requiring ongoing inpatient stay for initiation of seizure medication, EEG and close monitoring given persistent symptoms Quality Stroke Does the patient have a stroke diagnosis?: No VTE Prior VTE?: No VTE Risk Level:: Medical - moderate - high VTE Device Contraindication: N/A - Device Ordered VTE Drug Contraindication: Treatment Not Indicated
[2025-09-02] MEDS: levETIRAcetam in NaCl (iso-os) 1,000 MG/100 ML PIGGYBACK 400 MG IV (13:47)
--- NOTE | 2025-09-02 16:41 | MHC.SL.SWA ---
Speech Pathologist Impression: Moderate-severe oropharyngeal dysphagia Risk of Aspiration Due to: Involuntary movements, advanced dementia Dysphasia Diet Status: Recommend CONTINUE NDD1 (puree), THIN liquids with 1:1 feeding assistance Liquid Consistency and Strategies for Safe Swallow: Liquid Intake Recommendation: Thin Liquid Intake Strategies: Solid Food Consistency: Dietary Recommendations: Pureed (NDD1) Additional Modifications to Solid Foods: Hold patient's head lightly/gently to reduce involuntary movement and decrease feeding difficulties Oral Medication Intake: Crushed with Puree Please contact the pharmacy regarding appropriate crushable or liquid drug formulations that are available whenever modified delivery is recommended. Compensatory Strategies and Precautions to be Taken for Safe Swallow: Sitting Upright (90 deg) Small Bites and Sips Alternate Liquids/Solids Rate of Ingestion Change Supervision While Eating and Drinking for Safe Swallow: Total Assistance (1:1) Foods to Avoid: Avoid hard/sticky/tough to chew food Swallowing Recommended Treatments: Compens. Strategy Educat. Recommendation for Speech: Inpatient Speech Therapy Comment: Patient met in room for dysphagia treatment. Per RN, patient accepting small liquid of medication and then coughing. Patient's at bedside. Reports involuntary movements are new. Patient's with questions about nutrition; deferred questions to RN or MD to answer. Patient accepting spoonfuls of applesauce x3; swallow is timely, laryngeal elevation difficult to visualize due to involuntary movements. Liquids more difficult to give; confusion noted with use of straw and movements making difficult for cup sip. Patient accepting small amount of liquid via cup sip. Noted anterior spillage/escape. Patient requiring REEL FILM INSPECTOR to gently/lightly hold head midline for PO intake to decrease involuntary movements. Patient at times not opening mouth, requiring encouragement from her and REEL FILM INSPECTOR. Recommend CONTINUE NDD1, THIN liquids with 1:1 feed. Also recommend dietary consult as patient difficult to feed and likely not meeting daily caloric needs. RN updated via secure chat. REEL FILM INSPECTOR to continue to follow. Frequency/Duration: Date Range for Service Req: Timeline to reassess: Steam Shovel Operating Engineer Clinican/Clinical Fellow: No Supervisory Statement: I have reviewed and agree with the student/clinical fellow's documentation: N/A Speech Language Pathologist: Usha Quiros M.A., CCC-REEL FILM INSPECTOR
[2025-09-02] MEDS: levETIRAcetam in NaCl (iso-os) 500 MG/100 ML PIGGYBACK 400 MG IV (20:13)
[2025-09-03] VITALS (8 sets, daily range): BP systolic 127–196; BP diastolic 53–90; PULSE 96–118; RESP 15–20; TEMP 36.3–37.1; O2SAT 95–97
[2025-09-03 07:21] LABS: MANUAL DIFF FLAG NO
[2025-09-03 07:23] LABS: Hematocrit 41.2 % (37.0-47.0); Hemoglobin 14.3 g/dl (12.0-16.0); Imm Gran Abs Auto 0.06 X10*3/uL (0.00-0.03); Imm Gran Pct Auto 0.4 % (0.0-0.4); Lymphocytes Absolute Auto 2.3 X10*3/uL (1.2-4.9); Mean Corpuscular HGB Conc 34.7 g/dl (31.0-35.0); Mean Corpuscular Hemoglobin 30.0 pg (27.0-33.0); Mean Corpuscular Volume 86.4 fL (80.0-98.0); NRBC Abs Auto 0.000 X10*3/uL (0.0-0.012); NRBC Pct Auto 0.0 /100WBC (0.0-0.2); Platelet Count 434 X10*3/uL (160-400); Red Blood Count 4.77 X10*6/uL (4.20-5.50); White Blood Count 14.1 X10*3/uL (4.8-10.8)
[2025-09-03 07:48] LABS: Anion Gap 17 (12-20); Blood Urea Nitrogen 16 mg/dL (9-16); Calcium 9.5 mg/dL (8.4-10.2); Carbon Dioxide 19 mmol/L (22-29); Chloride 107 mmol/L (96-108); Creatinine Clr Calc Pharmacy 44.6; Estimated Glomerular Filt Rate > 60; Magnesium 2.1 mg/dL (1.6-2.6); Potassium 3.2 mmol/L (3.3-5.1); Sodium 140 mmol/L (135-145)
[2025-09-03] MEDS: levETIRAcetam in NaCl (iso-os) 500 MG/100 ML PIGGYBACK 400 MG IV ×2 (09:11→20:39)
[2025-09-03] MEDS: 0.9 % Sodium Chloride Flush 3 ML SYRINGE IVFLUSH ×2 (09:19→20:39)
[2025-09-03] MEDS: Artificial Tears 15 ML DROPS 1 DROP EYE-BOTH (09:22)
--- NOTE | 2025-09-03 13:45 | HO.PM.IMPN ---
Subjective Subjective Date of Service: 09/03/25 Interval History: seen and examined this morning follow up for abnormal movements, possible seizure unable to obtain EEG due to ongoing repetitive hand movements non-verbal at baseline Review of Systems unable to obtain ROS due to advance dementia/nonverbal Physical Exam Exam: Exam: Appearing in no acute distress, non verbal lung sounds are clear to auscultation heart regular rate rhythm, clear S1, S2 positive bowel sounds, abdomen is soft, nontender neuro patient is alert, dyskinetic movements noted, mostly to left arm, opening mouth Vital Signs: Vital Signs: Last Vital Signs Temp 98.8 F 09/03/25 11:17 Pulse 108 H 09/03/25 11:17 Resp 20 09/03/25 11:17 BP 150/67 H 09/03/25 11:17 Pulse Ox 97 09/03/25 11:17 O2 Del Method Room Air 09/03/25 11:17 BMI result Body Mass Index 22.9 Objective Data Active Medications Acetaminophen (Acetaminophen 325 Mg Tablet) 650 mg PO Q6H PRN On Hold: 09/01/25 06:20 PRN Reason: Pain, Mild 1-3,fever,headache Artificial Tears (Artificial Tears 15 Ml Drops) 1 drop EYE-BOTH DAILY [facility] Last Admin: 09/03/25 09:22 Dose: 1 drop Documented By: ANTONIA Calcium Carbonate (Calcium Carbonate 750 Mg Tab.Chew) 750 mg PO Q4H PRN PRN Reason: Heartburn Diazepam (Diazepam 10 Mg/2 Ml Cartridge) 2.5 mg IVPUSH Q6H PRN PRN Reason: seizure/involuntary movements Last Admin: 09/02/25 23:21 Dose: 2.5 mg Documented By: HERMILO Donepezil HCl (Donepezil Hcl 5 Mg Tablet) 2.5 mg PO BEDTIME [facility] Last Admin: 09/02/25 21:54 Dose: Not Given Documented By: KALEE Non-Admin Reason: pt unable to swallow Acetaminophen (Ofirmev) 1,000 mg in 100 mls @ 400 mls/hr IV Q6H [facility] Last Infusion: 09/03/25 09:46 Dose: Infused Documented By: ANTONIA Levetiracetam (Keppra) 500 mg in 100 mls @ 400 mls/hr IV BID [facility] Last Infusion: 09/03/25 09:46 Dose: Infused Documented By: ANTONIA Magnesium Hydroxide (Milk Of Magnesia 30 Ml Oral.Susp) 30 ml PO DAILY PRN PRN Reason: Constipation Melatonin (Melatonin 3 Mg Tablet) 6 mg PO BEDTIME PRN PRN Reason: Insomnia Memantine (Memantine Hcl 5 Mg Tablet) 5 mg PO DAILY [facility] Last Admin: 09/03/25 09:11 Dose: 5 mg Documented By: ANTONIA Mirtazapine (Mirtazapine 7.5 Mg Tablet) 7.5 mg PO BEDTIME [facility] Last Admin: 09/02/25 21:54 Dose: Not Given Documented By: KALEE Non-Admin Reason: pt unable to swallow Morphine Sulfate (Morphine Sulfate 4 Mg/Ml Cartridge) 2 mg IVPUSH Q4H PRN; Protocol PRN Reason: Pain, Severe (Pain Scale 7-10) Last Admin: 09/01/25 21:19 Dose: 2 mg Documented By: FADY Senna (Sennosides 8.6 Mg Tablet) 17.2 mg PO DAILY [facility] Last Admin: 09/03/25 09:11 Dose: 17.2 mg Documented By: ANTONIA Sodium Chloride (0.9 % Sodium Chloride Flush 3 Ml Syringe) 3 ml IVFLUSH QSHIFT [facility] Last Admin: 09/03/25 09:19 Dose: 3 ml Documented By: ANTONIA Labs 09/03/25 07:04 09/03/25 07:04 Labs: Laboratory Results - last 24 hr 09/03/25 07:04 MCV 86.4 MCH 30.0 MCHC 34.7 RDW 12.9 Plt Count 434 H MPV 9.7 Immature Gran % (Auto) 0.4 Neut % (Auto) 73.1 H Lymph % (Auto) 16.0 L Fajardo % (Auto) 8.2 Eos % (Auto) 1.8 Baso % (Auto) 0.5 Lymph # (Auto) 2.3 [place] # (Auto) 1.2 Eos # (Auto) 0.3 Baso # (Auto) 0.1 Abs Immat Gran (auto) 0.06 H Absolute Neuts (auto) 10.3 H Absolute Nucleated RBC 0.000 Nucleated RBC % (auto) 0.0 Anion Gap 17 Estim Creat Clear Calc 44.6 Estimated GFR > 60 Random Glucose 94 Calcium 9.5 Magnesium 2.1 Microbiology Microbiology Results: Microbiology 08/31/25 21:18 Blood Culture - Preliminary Blood - Venous No growth after 48 hours. 08/31/25 21:17 Blood Culture - Preliminary Blood - Venous No growth after 48 hours. Assessment and Plan (1) Abnormal involuntary movement: Status: Acute Plan 80-year-old female with a past medical history significant for advanced Alzheimer's dementia nonverbal for the past 4 years, hypertension, hyperlipidemia, history UTIs and history of rheumatic heart disease, who presented to the ED due to abnormal facial and left upper extremity movements Involuntary movements LUE and face seen by neuro, concern for seizure loaded with keppra and started on 250 bid scheduled unable to have EEG performed so far due to ongoing hand movements continue prn valium, trial increased dose of 5 mg no need for MRI at this time as per neurology seizure/aspiration precautions seen by speech, rec pureed diet Elevated blood pressure readings bp up and down reading may not be accurate do to pt inability to stay still follow bp closely Alzheimer's dementia donepezil, memantine may contribute to seizure and not likely providing much benefit due to advanced nature of dz. will begin to wean HTN no bp meds on med list bp soft follow closely hx UTIs UA negative for infection, chronic hematuria DNR/DNI VTE prophy: SCDs pending neuro eval Pt with new involuntary movements LUE and face, with concern for new seizure disorder requiring ongoing inpatient stay for initiation of seizure medication, EEG and close monitoring given persistent symptoms Quality Stroke Does the patient have a stroke diagnosis?: No VTE Prior VTE?: No VTE Risk Level:: Medical - moderate - high VTE Device Contraindication: N/A - Device Ordered VTE Drug Contraindication: Treatment Not Indicated
[2025-09-03] MEDS: diazePAM 10 MG/2 ML CARTRIDGE 2.5 MG IVPUSH (18:24)
[2025-09-04] MEDS: diazePAM 10 MG/2 ML CARTRIDGE 2.5 MG IVPUSH (02:11)
[2025-09-04 03:25] VITALS: BP 124/78; PULSE 101; RESP 17; TEMP 36.6; O2SAT 93
[2025-09-04 07:52] VITALS: BP 143/67; PULSE 90; RESP 18; TEMP 37; O2SAT 97
--- NOTE | 2025-09-04 09:57 | PC.NURSE ---
Attempt to place IV, unable, Primary RN notified.
[2025-09-04] MEDS: levETIRAcetam in NaCl (iso-os) 500 MG/100 ML PIGGYBACK 400 MG IV (10:53)
--- NOTE | 2025-09-04 12:49 | P.DS_ITS ---
DS: Providers Provider Date of admission: 08/31/25 22:49 Date of discharge: 09/04/25 Primary care physician: RIGOBERTO ANDERSON Consults: 09/01/25 01:03 Consult to Neurology Routine Consulting Provider: [facility] Reason for consultation: new involuntary movements Has provider been notified: No DS: Diagnosis Discharge Diagnosis (1) Abnormal involuntary movement: Status: Acute DS: Summary Hospital Course Hospital Course: History and physical as per admitting provider. Patient is an 80-year-old female with a past medical history significant for Alzheimer's dementia nonverbal for the past 4 years, hypertension, hyperlipidemia, , history UTIs and history of rheumatic heart disease, who presented to the ED due to abnormal facial and left upper extremity movements beginning today after lunch. The patient's has been reports that he visits her daily to feed her meals. She was at her baseline this morning and even before lunch. She has had a great appetite and has not shown any signs of any infections including urinary symptoms, cough, congestion, runny nose, fever, nausea or vomiting. She is unable to communicate due to Alzheimer's dementia and has been nonverbal for the past 4 years. Her has been reports shortly after lunch she began having involuntary movements of the left upper extremity and face. He reports that recently she was taking baclofen but stopped taking this 1-1/2-2 weeks ago, this was for contractures of her and left lower extremity. Workup in the ED with negative head CT, chest x-ray, UA with RBCs (chronic). Temp of 99.8 rectally, no leukocytosis, tachycardic (likely inaccurate due to involuntary movements) and intermittently tachypneic. 80-year-old woman presenting from long-term care facility with involuntary movements, tardive dyskinesia versus seizure. Patient was loaded with Keppra and started on oral regimen. Unfortunately patient was unable to have EEG due to the ongoing hand and facial movements. She was treated with p.r.n. Valium. Neurology stated that there was no need to get MRI and also due to her movements she would not be a good candidate. During this hospitalization patient has had very poor p.o. intake as she has not wanted to take any food or fluids. She was being hand fed by staff. Discussed this with her and he stated that he does not want to see her suffer anymore and he is interested in setting up hospice when she returns to her long-term care facility. Discussed with case management and plan will be to transfer patient back to long-term care facility and initiate hospice there. Alzheimer's dementia. Medications stopped as these are likely not providing much benefit due to her advanced dementia. Chronic constipation. May continue bowel regimen Time Attestation Discharge Coordination Time (in mins): 45 Quality: Safe Use of Opioids Does Pt have an Active Cancer Diagnosis on the Problem List?: No Quality: Stroke Does the patient have a stroke diagnosis?: No Physical Exam Exam: Exam: Appearing in no acute distress head is normocephalic atraumatic eyes pupils are PERRLA sclera is anicteric mouth throat mucous membranes are intact and dry neck is supple no lymphadenopathy, no JVD noted lung sounds are clear to auscultation heart regular rate rhythm, clear S1, S2 positive bowel sounds, abdomen is soft, nontender neuro patient is alert nonverbal, continuous dyskinetic movements to face and left arm Vital Signs: Vital Signs: Last Vital Signs Temp 98.6 F 09/04/25 07:52 Pulse 90 09/04/25 07:52 Resp 18 09/04/25 07:52 BP 143/67 H 09/04/25 07:52 Pulse Ox 97 09/04/25 07:52 O2 Del Method Room Air 09/04/25 07:52 BMI result Body Mass Index 22.9 DS: Data Data Completed and Pending Labs on day of discharge: Preliminary micro results at discharge 08/31/25 21:18 Blood Culture - Preliminary Blood - Venous No growth after 48 hours. 08/31/25 21:17 Blood Culture - Preliminary Blood - Venous No growth after 48 hours. Discharge Plan Discharge Anticipated Discharge Date/Time: 09/04/25 12:46 Patient Disposition: Xfer LTC Discharge Diagnosis: Tardive dyskinesia versus seizure Referrals: RIGOBERTO ANDERSON [Primary Care Provider, Internal Medicine] - 1 Week Discharge Medications: Continued acetaminophen 325 mg Tablet 650 mg PO Q6H PRN (Reason: Fever Or Pain) polyvinyl alcohol 1.4 % Drops 1 drp OPHTHALMIC (EYE) DAILY magnesium hydroxide [Milk of Magnesia] 400 mg/5 mL Suspension 30 ml PO DAILY PRN (Reason: Constipation) Rx Instructions: if no bowel movement in 3 days bisacodyl 10 mg Suppository 10 mg RI DAILY PRN (Reason: Constipation) Rx Instructions: if Milk of Magnesia is not effective Fleet Enema 19-7 gram/118 mL Enema 118 ml RI DAILY PRN (Reason: Constipation) mirtazapine 7.5 mg tablet 7.5 mg PO BEDTIME cholecalciferol (vitamin D3) [Vitamin D3] 50 mcg (2,000 unit) Tablet 50 mcg PO DAILY sennosides [senna] 8.6 mg Tablet 17.2 mg PO DAILY acetaminophen 325 mg Tablet 975 mg PO TID Discontinued lactase 9,000 unit Tablet 9,000 unit PO TIDAC Rx Instructions: administer with meals and/or snacks donepezil 5 mg tablet 5 mg PO BEDTIME memantine 10 mg tablet 10 mg PO DAILY Discharge Orders: Discharge Order (Routine); Ordered 09/04/25 Ordered By: Marissa James Diet: Advance to usual diet Activity on Discharge: As tolerated Stand Alone Forms: Patient Portal Discharge page Print Language: Unable To Collect Care Plan Goals: Plan to initiate hospice at long-term care facility Health Concerns: Tardive dyskinesia versus seizure Plan of Treatment: Follow up with primary care provider as needed Take all medications as prescribed Assessment: See discharge summary
--- NOTE | 2025-09-04 13:38 | MHC.CM.PN ---
Addendum entered by Zelda Zimmerman 09/04/25 13:49: PT ALSO HAS [place], NOT LISTED IN CHART. # [id number] Original Note: PT CLEARED TO [facility] CM SPOKE TO PTS , BRAYAN, WHO IS AWARE OR DC AND AGREEABLE HE DENIES HAVING A PREFERRED TIME FOR TRANSPORT BLS TRANSPORT BOOKED FOR 1500 HOURS
[2025-09-04 15:38] VITALS: BP 185/87; PULSE 118; RESP 20; TEMP 36.9; O2SAT 94
== END 2025-09-04 15:00 | DRG 93 ==
LOC: HO.ED 22:32 → HO.EDOVER 22:59 → HO.IMC 09-01 08:10 → HO.S3 09-02 18:45 → HO.IMC 09-02 18:46 → HO.S3 09-03 12:55
PROVIDERS: Physician Assistant; Admitting Provider Physician Assistant; Emergency Provider Emergency Medicine; PCP Emergency Medicine; Visit Provider Nurse Practitioner Acute Care
DX: G24.01 Drug induced subacute dyskinesia (principal); E78.2 Mixed hyperlipidemia; G30.9 Alzheimer's disease, unspecified; K59.09 Other constipation; F02.C0 Dementia in other diseases classified elsewhere, severe, without behavioral disturbance, psychotic disturbance, mood disturbance, and anxiety; R56.9 Unspecified convulsions; I10 Essential (primary) hypertension; R31.9 Hematuria, unspecified; Z20.822 Contact with and (suspected) exposure to COVID-19; Z87.440 Personal history of urinary (tract) infections; Z79.899 Other long term (current) drug therapy
CPT/HCPCS: 36415; 70450; 71045; 74018; 80048; 80076; 81001; 82140; 82550; 82803; 83605; 83735; 84443; 84484; 85025; 87040; 87637; 92526; 92610; 93005; 99285; J0131; J0360; J1200; J1953; J2250; J2270; J2359; J3360; J7120

== ENCOUNTER → 2025-08-31 15:21 | Outpatient (BNV) | payer MEDICARE, OTHER, SELFPAY | PROVIDERS: Emergency Provider Emergency Medicine; Visit Provider Radiology Diagnostic Radiology | DX: R25.9 Unspecified abnormal involuntary movements (principal); R50.9 Fever, unspecified | CPT/HCPCS: 71045 ==

== ENCOUNTER 2025-08-31 22:49 | Outpatient (BNV) | payer MEDICARE, OTHER, SELFPAY | END 2025-09-01 01:20 | PROVIDERS: Admitting Provider Physician Assistant; Emergency Provider Emergency Medicine; Visit Provider Internal Medicine Cardiovascular Disease | DX: R00.0 Tachycardia, unspecified (principal) | CPT/HCPCS: 93010 ==

== ENCOUNTER 2025-08-31 22:49 | Outpatient (BNV) | payer MEDICARE, OTHER, SELFPAY | END 2025-09-01 03:13 | PROVIDERS: Admitting Provider Physician Assistant; Emergency Provider Emergency Medicine; Visit Provider Radiology Diagnostic Radiology | DX: K56.609 Unspecified intestinal obstruction, unspecified as to partial versus complete obstruction (principal) | CPT/HCPCS: 74018 ==

== ENCOUNTER → 2025-08-31 22:49 | Outpatient (BNV) | payer MEDICARE, OTHER, SELFPAY | PROVIDERS: Admitting Provider Physician Assistant; Emergency Provider Emergency Medicine; Visit Provider Physician Assistant Medical | DX: R25.9 Unspecified abnormal involuntary movements (principal) | CPT/HCPCS: 99222; 99232; 99233; 99499 ==

== ENCOUNTER → 2025-08-31 22:49 | Outpatient (BNV) | payer MEDICARE, OTHER, SELFPAY | PROVIDERS: Admitting Provider Physician Assistant; Emergency Provider Emergency Medicine; Visit Provider Psychiatry & Neurology Neurology | DX: R25.8 Other abnormal involuntary movements (principal) | CPT/HCPCS: 99222 ==